=== PATIENT | male | born 1930 | race Caucasian/White ===

== ENCOUNTER 2018-12-15 23:08 | Inpatient (IN) | payer OTHER, MEDICAID ==
[~2018-12-15] VITALS: Ht 182.9 cm; Wt 68.0 kg
[2018-12-15] MEDS ORDERED: OCTREOTIDE 500 MCG in SOD CHLORIDE 0.9% 49 ML IV STA (23:20)
[2018-12-15] MEDS ORDERED: CEFTRIAXONE 1 GM/50 ML (PMX) 50 ML IVPB STA (23:20)
[2018-12-15] MEDS ORDERED: OCTREOTIDE 50 MCG in SOD CHLORIDE 0.9% 25 ML IVPB STA (23:20)
[2018-12-15] MEDS ORDERED: SOD CHLORIDE 0.9% 1,000 ML IV STA (23:20)
[2018-12-15] MEDS ORDERED: PANTOPRAZOLE IV 80 MG in SOD CHLORIDE 0.9% 100 ML IVPB STA (23:20)
[2018-12-15] MEDS ORDERED: PANTOPRAZOLE IV 80 MG in SOD CHLORIDE 0.9% 100 ML IV STA (23:20)
[2018-12-15] MEDS ORDERED: ONDANSETRON 4 MG INJ IV STA (23:20)
[2018-12-15 23:26] VITALS: Ht 182.9 cm; Wt 68.0 kg
[2018-12-16] VITALS (10 sets, daily range): BP systolic 110–131; BP diastolic 61–64; PULSE 74–122; RESP 16–18
[2018-12-16] MEDS ORDERED: SOD CHLORIDE 0.9% 1,000 ML IV SCH (01:32)
[2018-12-16] MEDS ORDERED: morphine 4 MG/ML VIAL IV STA (01:37)
[2018-12-16] MEDS ORDERED: ONDANSETRON 4 MG INJ IV STA (01:37)
[2018-12-16] MEDS ORDERED: ONDANSETRON 4 MG INJ IV PRN (02:00)
[2018-12-16] MEDS ORDERED: NACL 0.9% 3 ML SYG IV SCH (02:00)
[2018-12-16] MEDS ORDERED: ACETAMINOPHEN 325 MG TAB PO PRN (02:00)
--- NOTE | 2018-12-16 02:49 | ERD ---
ER Documentation Chief Complaint Chief Complaint CP x 30 min, nonprovoked,nonrad; AP w/ n/v coffee ground x 4 days, HPI 88-year-old male brought in by rescue with complaints of chest pain and coffee- ground emesis 30 minutes prior to arrival. Said to 3 episodes of coffee-ground emesis over the past 4 days. Patient himself has a history of dementia is relatively poor historian. History has been augmented by EMS and family at the bedside ROS All systems reviewed and are negative except as per history of present illness. 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 Neck: Full range of motion. No meningismus. Resp: Clear to auscultation bilaterally Cardio: Regular rate and rhythm, no murmurs Abd: Soft, non tender, non distended. Normal bowel sounds Skin: No petechiae or rashes Back: No midline or flank tenderness Ext: No cyanosis, or edema Neur: Awake and alert Psych: Normal Mood and Affect Result Diagram: 12/15/18 2350 12/15/18 2350 Results 24 hrs Laboratory Tests Test 12/15/18 23:50 White Blood Count 18.8 10^3/ul Red Blood Count 4.33 10^6/ul Hemoglobin 12.8 g/dl Hematocrit 38.9 % Mean Corpuscular Volume 89.8 fl Mean Corpuscular Hemoglobin 29.6 pg Mean Corpuscular Hemoglobin Concent 32.9 g/dl Red Cell Distribution Width 14.6 % Platelet Count 158 10^3/UL Mean Platelet Volume 11.6 fl Immature Granulocytes % 0.900 % Neutrophils % 75.1 % Lymphocytes % 8.7 % Monocytes % 15.0 % Eosinophils % 0.0 % Basophils % 0.3 % Nucleated Red Blood Cells % 0.0 /100WBC Immature Granulocytes # 0.170 10^3/ul Neutrophils # 14.1 10^3/ul Lymphocytes # 1.6 10^3/ul Monocytes # 2.8 10^3/ul Eosinophils # 0.0 10^3/ul Basophils # 0.1 10^3/ul Nucleated Red Blood Cells # 0.0 10^3/ul Prothrombin Time 21.6 Sec Prothrombin Time Ratio 1.7 INR International Normalized Ratio 1.87 Activated Partial Thromboplast Time 67.3 Sec Sodium Level 134 mmol/L Potassium Level 4.3 mmol/L Chloride Level 99 mmol/L Carbon Dioxide Level 22 mmol/L Anion Gap 13 Blood Urea Nitrogen 35 mg/dl Creatinine 1.28 mg/dl Est Glomerular Filtrat Rate mL/min mL/min Glucose Level 293 mg/dl Calcium Level 8.7 mg/dl Total Bilirubin 1.9 mg/dl Direct Bilirubin 0.00 mg/dl Indirect Bilirubin 1.9 mg/dl Aspartate Amino Transf (AST/SGOT) 22 IU/L Alanine Aminotransferase (ALT/SGPT) 22 IU/L Alkaline Phosphatase 89 IU/L Troponin I 0.030 ng/ml Total Protein 7.1 g/dl Albumin 3.2 g/dl Globulin 3.90 g/dl Albumin/Globulin Ratio 0.82 Lipase 30 U/L Current Medications Medications Dose Sig/Ye Start Time Status Last (Trade) Ordered Route PRN Stop Time Admin Dose Reason Admin Sodium 1,000 ml @ Q1H STAT 12/15/18 DC 12/16/18 Chloride 1,000 mls/hr IV 23:12/16/18 00:01 00:19 Pantoprazole 100 ml @ ONCE STAT 12/15/18 DC 12/16/18 80 mg/Sodium 400 mls/hr IVPB 23:20 12/15/18 00:35 Chloride 23:34 Pantoprazole 100 ml @ ONCE STAT 12/15/18 12/16/18 80 mg/Sodium 10 mls/hr IV 23:20 12/16/18 00:53 Chloride 09:19 Octreotide 26 ml @ Q16M STAT 12/15/18 DC 12/16/18 Acetate 50 100 mls/hr IVPB 23:20 12/15/18 00:54 mcg/ Sodium 23:35 Chloride Octreotide 50 ml @ 5 ONCE STAT 12/15/18 12/16/18 Acetate 500 mls/hr IV 23:20 12/16/18 01:03 mcg/ Sodium 09:19 Chloride Ondansetron 4 mg ONCE STAT 12/15/18 DC 12/16/18 HCl (Zofran IV 23:20 12/15/18 00:01 Inj) 23:24 Ceftriaxone 50 ml @ ONCE STAT 12/15/18 DC 12/16/18 Sodium 100 mls/hr IVPB 23:20 12/15/18 00:01 23:49 Sodium 1,000 ml @ Q24H IV 12/16/18 Chloride 40 mls/hr 01:32 IV Flush 3 ml PER 12/16/18 (NS 3 ml) PROTOCOL IV 02:00 Ondansetron 4 mg Q6H PRN 12/16/18 HCl (Zofran IV 02:00 Inj) NAUSEA/VOMITI NG 650 mg Q6H PRN 12/16/18 Acetaminophen PO .PAIN 1-3 02:00 (Tylenol OR TEMP Tab) Morphine 4 mg ONCE STAT 12/16/18 DC 12/16/18 Sulfate IV 01:37 12/16/18 01:45 (morphine) 01:38 Ondansetron 4 mg ONCE STAT 12/16/18 DC 12/16/18 HCl (Zofran IV 01:37 12/16/18 01:45 Inj) 01:38 Pantoprazole 100 ml @ Q10H IV 12/16/18 80 mg/Sodium 10 mls/hr 09:20 Chloride Octreotide 100 ml @ 5 Q20H IV 12/16/18 Acetate 1 mls/hr 09:20 mg/ Dextrose Ceftriaxone 50 ml @ Q24H IVPB 12/16/18 Sodium 100 mls/hr 22:00 Procedures/MDM Emergency department course: Patient seen about by triage was placed in bed from evaluation. Management is accepted. Placed on continuous cardiac cath lab radiology technologist his pulse oximetry. Had blood work done. Started on octreotide and Protonix infusion continuously. Given Zofran and morphine for pain control. Serial exams were stable. EKG: Rate/Rhythm: [Normal Sinus Rhythm] QRS, ST, T-waves: [No changes consistent w/ acute ischemia] Impression: [No evidence of ischemia or arrhythmia] Chest X-ray 1V Interpreted by me: Soft Tissue: No acute abnormal ities Bones: No acute abnormalities Mediastinum/Cardiac Silhouette/Lungs: [No acute abnormalities] Medical decision making: This 88-year-old male with evidence of upper GI bleed. Patient started on octreotide and Protonix drips. Remained stable here in the emergency department under serial observation. Patient will be admitted to hospitalist international first officer Dr. Black. Admitted to telemetric setting for further evaluation management. Departure Diagnosis: Primary Impression: Upper GI bleed Condition: Serious CORONA ROESN Dec 16, 2018 02:49
[2018-12-16] MEDS ORDERED: HYDROmorphONE 0.5 MG/0.5 ML SYG IV PRN (04:00)
[2018-12-16] MEDS: PIPER-TAZO 3.375 GM IV (PMX) 100 ML IVPB SCH ×3 (06:44→20:37)
[2018-12-16] MEDS ORDERED: LIDOCAINE/MYLANTA 40 ML BTL PO ONE (08:00)
--- NOTE | 2018-12-16 08:24 | HP ---
Date/Time of Note Date/Time of Note DATE: 12/16/18 TIME: 08:13 Assessment/Plan VTE Prophylaxis Risk score (from Ns)>0 risk: 5 SCD applied (from Ns): Yes Pharmacological prophylaxis: NA/contraindicated Pharm contraindication: low risk/ambulating Lines/Catheters [facility] IV Urinary Cath still in place: No Assessment/Plan Hospital Course This is a 88-year-old male being admitted to the telemetry floor for: #1 upper GI bleed: Patient reports coffee-ground emesis. Patient also has epigastric pain. At the current time with the patient on Protonix drip and Sandostatin. Will check CBC every 6 hours. We will keep the patient n.p.o. Will consult GI for further evaluation. #2 Abdominal pain: CT scan shows possible acute cholecystitis along with moderate to severe circumferential wall thickening of the ascending colon with mild pericolonic induration/stranding. Rule out colitis. Patient does have an elevated white blood cell count of 18,000. He had a low-grade temperature of 99.8. Lactate was within normal values. At the current time will treat with Zosyn IV every 6 hours. Will obtain a surgical consult with Dr. Huffman and a GI consult with . We will keep the patient n.p.o. Will obtain a right upper quadrant ultrasound. #3 Leukocytosis: Possibly secondary to underlying acute cholecystitis and/or other infectious process. Will check a urinalysis as well. Will check blood cultures. He did have a low-grade temperature 99.8. Will monitor further for any full blown fevers. Antibiotics as per #2. #4 acute kidney injury: Patient creatinine 1.28. Renally dose medications. #5 transaminitis: Mild hyperbilirubinemia: We will check right upper quadrant ultrasound. #6 supratherapeutic INR: We will check a right upper quadrant ultrasound to assess for any underlying liver pathology. We will need to confirm patient's home medications to see if he is on any anticoagulation. #7 diabetes mellitus: We will give the patient n.p.o. the current time, D5 half- normal saline at 70 cc an hour. Mild insulin sliding scale we will check hemoglobin A1c. We will need to confirm patient's home medications. #8 #8 coronary artery disease: History of SC: We will need to confirm patient's home medications and resume as indicated #9 history of CVA: We will need to confirm patient's home medications and resume as indicated. #10 DVT GI prophylaxis: SCDs, Protonix IV Code status: DNI/DNI, confirmed with patient and relative Further treatment strategy will be implemented as per the clinical course. Result Diagram: 12/16/18 0524 12/15/18 2350 Results 24hrs Laboratory Tests Test 12/15/18 23:50 12/16/18 05:24 White Blood Count 18.8 H 22.1 H Red Blood Count 4.33 L 4.38 L Hemoglobin 12.8 L 13.0 L Hematocrit 38.9 L 38.9 L Mean Corpuscular Volume 89.8 88.8 Mean Corpuscular Hemoglobin 29.6 29.7 Mean Corpuscular Hemoglobin Concent 32.9 33.4 Red Cell Distribution Width 14.6 H 14.8 H Platelet Count 158 208 # Mean Platelet Volume 11.6 H 11.2 H Immature Granulocytes % 0.900 H 1.100 H Neutrophils % 75.1 78.6 H Lymphocytes % 8.7 L 8.4 L Monocytes % 15.0 H 11.7 H Eosinophils % 0.0 0.0 Basophils % 0.3 0.2 Nucleated Red Blood Cells % 0.0 0.0 Immature Granulocytes # 0.170 H 0.250 H Neutrophils # 14.1 H 17.4 H Lymphocytes # 1.6 1.9 Monocytes # 2.8 H 2.6 H Eosinophils # 0.0 0.0 Basophils # 0.1 0.0 Nucleated Red Blood Cells # 0.0 0.0 Prothrombin Time 21.6 H Prothrombin Time Ratio 1.7 INR International Normalized Ratio 1.87 Activated Partial Thromboplast Time 67.3 H Sodium Level 134 L Potassium Level 4.3 Chloride Level 99 Carbon Dioxide Level 22 Anion Gap 13 Blood Urea Nitrogen 35 H Creatinine 1.28 H Est Glomerular Filtrat Rate mL/min Glucose Level 293 H Calcium Level 8.7 Total Bilirubin 1.9 H Direct Bilirubin 0.00 Indirect Bilirubin 1.9 H Aspartate Amino Transf (AST/SGOT) 22 Alanine Aminotransferase (ALT/SGPT) 22 Alkaline Phosphatase 89 Troponin I 0.030 Total Protein 7.1 Albumin 3.2 L Globulin 3.90 H Albumin/Globulin Ratio 0.82 Lipase 30 Hemoglobin A1c 7.5 H Lactic Acid Level 1.7 Magnesium Level 1.8 Triglycerides Level 69 Cholesterol Level 139 LDL Cholesterol, Calculated 100 HDL Cholesterol 25 L Cholesterol/HDL Ratio 5.5 Hepatitis B Surface Antigen Pending Hepatitis B Core Total Antibody Pending Hepatitis C Antibody Pending HPI/ROS Admit Date/Time Admit Date/Time Dec 16, 2018 at 01:30 Hx of Present Illness Chief complaint: Coffee-ground hematemesis This is a 88-year-old male who presented today with 2 days of coffee-ground hematemesis. Patient reports that over the last few days he has been vomiting and noticed coffee-ground hematemesis. He also reported he had a fever of 102. His last BM was yesterday. He reports that he has had abdominal pain as well. Denies any chest pain or shortness of breath. He is accompanied by his son. Patient states that he is a DNR/DNI. Allergies: Sulfa Medications: See Dec Const: As per HPI Eyes : No pain discharge or redness or change in visual acuity ENT: No pain, sore throat, congestion, congestion, dysphagia or discharge Respiratory: No shortness of breath, cough, sputum, wheezing, or pleuritic pain Cardiovascular: No chest pain, palpitation, PND, or edema GI : As per HPI Genitourinary: No dysuria, hematuria, flank pain , discharge or CVA tenderness Musculoskeletal: No joint pain, back pain, neck pain, restricted range of motion in neck or joints Skin: No rash, bruising or hives Neuro: No headache, dizziness, syncope, seizure, focal weakness Endocrine: No polyuria, polydipsia, temperature intolerance Psych: No hallucination, depression, anxiety or suicidal ideation PMH/Family/Social Past Medical History Diabetes mellitus, history of SC, CVA, PAD Medications Current Medications Pantoprazole 80 mg/Sodium Chloride 100 ml @ 10 mls/hr ONCE STAT IV Last administered on 12/16/18at 00:53; Admin Dose 10 MLS/HR; Start 12/15/18 at 23:20; Stop 12/16/18 at 09:19 Octreotide Acetate 500 mcg/ Sodium Chloride 50 ml @ 5 mls/hr ONCE STAT IV Last administered on 12/16/18at 01:03; Admin Dose 5 MLS/HR; Start 12/15/18 at 23:20; Stop 12/16/18 at 09:19 IV Flush (NS 3 ml) 3 ml PER PROTOCOL IV ; Start 12/16/18 at 02:00 Ondansetron HCl (Zofran Inj) 4 mg Q6H PRN IV NAUSEA/VOMITING; Start 12/16/18 at 02:00 Acetaminophen (Tylenol Tab) 650 mg Q6H PRN PO .PAIN 1-3 OR TEMP; Start 12/16/18 at 02:00 Pantoprazole 80 mg/Sodium Chloride 100 ml @ 10 mls/hr Q10H IV ; Start 12/16/18 at 09:20 Octreotide Acetate 1 mg/ Dextrose 100 ml @ 5 mls/hr Q20H IV ; Start 12/16/18 at 09:20 Ceftriaxone Sodium 50 ml @ 100 mls/hr Q24H IVPB ; Start 12/16/18 at 22:00 Piperacillin Sod/ Tazobactam Sod 100 ml @ 200 mls/hr Q8 IVPB Last administered on 12/16/18at 06:44; Admin Dose 200 MLS/HR; Start 12/16/18 at 06:00 Hydromorphone HCl (Dilaudid) 0.5 mg Q4H PRN IV SEVERE PAIN LEVEL 7-10; Start 12/16/18 at 07:00 Coded Allergies: Sulfa (Sulfonamide Antibiotics) (Verified Allergy, Unknown, 12/15/18) Past Surgical History Left BKA, 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 The pupils are equal, round and reactive. Extraocular motor are intact Neck: Supple with full range of motion. 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 Possible upper GI bleed. TECHNIQUE: AP Portable chest. COMPARISON: None FINDINGS: Patient is rotated to the right and leaning to the right. Low lung volumes. Normal cardiac and mediastinal configuration. Aortic calcified plaque not visualized. No CHF or hilar enlargement. Lungs are clear. IMPRESSION: Low lung volumes. No acute disease. RPTAT: HLRS Physician Nancy Date Time Electronically viewed and signed by Physician Nancy on 12/16/2018 02:20 RS/ CC: CORONA ROSEN [id number] PROCEDURE: CT Abdomen and pelvis without contrast. CLINICAL INDICATION: Abdominal pain. Nausea and vomiting. TECHNIQUE: CT scan of the abdomen and pelvis without contrast was performed on a multidetector high-resolution CT scan. . Coronal and sagittal reformatted images were obtained from the axial source images. Standard CT scan of the abdomen pelvis without contrast protocols were performed. The total exam CTDI equals 15.01 mGy and the total exam DLP equals 1003.91 mGy-cm. One or more of the following dose reduction techniques were used: - Automated exposure control. - Adjustment of the mA and/or kV according to patient size. Use of iterative reconstruction technique. Dicom images are available COMPARISON: None. FINDINGS: There is moderate to severe circumferential wall thickening of the ascending colon with mild pericolonic induration and stranding and rule out colitis. A mass in this region cannot be excluded and follow-up colonoscopy is recommended. Moderate stool burden throughout the remainder of the colon and rule out constipation. Remainder the colon is unremarkable. Calcification of the anterior and posterior gastric antral wall of uncertain significance. The stomach is otherwise unremarkable. Small bowel and appendix unremarkable. Mild ascites seen in the right lateral lower abdomen and right left and central lower pelvic regions but no lateralized fluid collection to suggest abscess. No intra-abdominal free air. No abdominal pelvic lymphadenopathy. Multiple calcified gallstones within a distended gallbladder. There is mild pericholecystic fluid and stranding. No biliary ductal dilation. Rule out cholecystitis. Mild splenomegaly without focal splenic lesion. Liver normal in size without focal lesions. Pancreas and adrenal glands are unremarkable. Kidneys are lower limits of normal size without calcified calculi hydronephrosis or intra renal masses bilaterally. No evidence ureteral calcified calculi or dilatation. Distended urinary bladder with multiple calcifications along the dependent inferior aspect of the bladder consistent with calculi. Some of the calcifications may actually be within the wall of the urinary bladder. Largest calculus posterior left lateral aspect measuring 1.2 cm. Moderate to severe enlarged prostate gland impressing the floor in her bladder. Correlation with PSA levels may be helpful. Fat containing umbilical hernia and bilateral fat containing inguinal hernias without herniated bowel or strangulation. Extensive atherosclerotic vascular disease. No aortic aneurysm. Coronary artery disease. Bilateral small pleural effusions and bibasilar consolidation may all be due to atelectasis. Basilar infiltrates cannot be excluded. Degenerative changes lower thoracic and lumbar spine without acute osseous findings are osteoblastic/osteolytic lesions. Bilateral L5 spondylolysis defects and grade 1 anterior spondylolisthesis of L5-1 S1 vertebral bodies. Degenerative changes of both hips. IMPRESSION: 1. Multiple calcified gallstones with mild pericholecystic fluid and stranding. Rule out acute calculus cholecystitis. No biliary ductal dilation. 2. Moderate to severe circumferential wall thickening of the ascending colon with mild pericolonic induration/stranding and rule out colitis. A mass in this region cannot be excluded follow-up colonoscopy is recommended. 3. Calcifications involving the anterior posterior gastric wall of uncertain etiology. Stomach is otherwise unremarkable. 4. Mild right lower abdominal and pelvic ascites. No abscess or free air. 5. Mild splenomegaly without focal splenic lesions. 6. Distended urinary bladder with multiple calcifications along the dependent inferior aspect consistent with a combination of calculi and wall calcification. 7. Bilateral small pleural effusions. Bibasilar consolidations may all be due to atelectasis however rule out acute infiltrates. RPTAT:AAJJ Jacklyn Long Physician Date Time Electronically viewed and signed by Jacklyn Long Physician on 12/16/2018 05:15 BM/ CC: CHENTE HOGUE [id number] CHENTE HOGUE Dec 16, 2018 08:24
--- NOTE | 2018-12-16 08:27 | CONS ---
Assessment/Plan Assessment/Plan Assessment/Plan (Daily) 88-year-old diabetic male with worsening leukocytosis, tender right upper quadrant with positive Batista sign, and a CT suggestive of acute cholecystitis Plan: Stat HIDA scan As the patient is DNR /DNI, if HIDA scan confirms cholecystitis, he would best be served by percutaneous cholecystostomy. Further recommendations will be forthcoming based on the patient's further workup and clinical course. Consultation Date/Type/Reason Admit Date/Time Dec 16, 2018 at 01:30 Date of Consultation: Dec 16, 2018 Type of Consult General surgery Reason for Consultation Abdominal pain and leukocytosis Date/Time of Note DATE: 12/16/18 TIME: 08:18 Hx of Present Illness The patient is an 88-year-old diabetic male with dementia who presented to the emergency room with chest pain and coffee-ground emesis. He has a past history of [place]. He was noted to have a tender upper abdomen in the emergency room with associated leukocytosis of 18,800. A CT scan was performed and showed a sending colon colitis as well as gallstones with gallbladder wall thickening but highly suggestive of acute cholecystitis. Since his admission the patient continues to have abdominal and chest pain with worsening leukocytosis of 22,200. The patient is DNR/DNI. Review of systems: HEENT: Unremarkable Pulmonary: No history of asthma or pneumonia Cardiac: Past history of [place] Abdomen: As in the HPI : Asymptomatic Neurologic: History of CVA in 2014 Past Medical History Medical History: coronary artery disease, diabetes, gallstones Medications Current Medications Pantoprazole 80 mg/Sodium Chloride 100 ml @ 10 mls/hr ONCE STAT IV Last administered on 12/16/18at 00:53; Admin Dose 10 MLS/HR; Start 12/15/18 at 23:20; Stop 12/16/18 at 09:19 Octreotide Acetate 500 mcg/ Sodium Chloride 50 ml @ 5 mls/hr ONCE STAT IV Last administered on 12/16/18at 01:03; Admin Dose 5 MLS/HR; Start 12/15/18 at 23:20; Stop 12/16/18 at 09:19 IV Flush (NS 3 ml) 3 ml PER PROTOCOL IV ; Start 12/16/18 at 02:00 Ondansetron HCl (Zofran Inj) 4 mg Q6H PRN IV NAUSEA/VOMITING; Start 12/16/18 at 02:00 Acetaminophen (Tylenol Tab) 650 mg Q6H PRN PO .PAIN 1-3 OR TEMP; Start 12/16/18 at 02:00 Pantoprazole 80 mg/Sodium Chloride 100 ml @ 10 mls/hr Q10H IV ; Start 12/16/18 at 09:20 Octreotide Acetate 1 mg/ Dextrose 100 ml @ 5 mls/hr Q20H IV ; Start 12/16/18 at 09:20 Ceftriaxone Sodium 50 ml @ 100 mls/hr Q24H IVPB ; Start 12/16/18 at 22:00 Piperacillin Sod/ Tazobactam Sod 100 ml @ 200 mls/hr Q8 IVPB Last administered on 12/16/18at 06:44; Admin Dose 200 MLS/HR; Start 12/16/18 at 06:00 Hydromorphone HCl (Dilaudid) 0.5 mg Q4H PRN IV SEVERE PAIN LEVEL 7-10; Start 12/16/18 at 07:00 Allergies: Coded Allergies: Sulfa (Sulfonamide Antibiotics) (Verified Allergy, Unknown, 12/15/18) Past Surgical History Past Surgical Hx: no surgical history Family History Significant Family History: no pertinent family hx Social History Smoking Status: Never smoker Exam/Review of Systems Exam Vitals Vital Signs Date Temp Pulse Resp B/P (MAP) Pulse Ox O2 O2 Flow FiO2 Time Delivery Rate 12/16/18 Nasal 2.0 07:43 Cannula 12/16/18 98.0 116 16 131/64 96 07:03 (86) Intake and Output 12/15/18 12/15/18 12/16/18 1515:00 23:00 07:00 IntakeIntake Total 75 ml BalanceBalance 75 ml Constitutional: alert (Slightly disoriented) Psych: nl mood/affect Head: normocephalic Eyes: nl conjunctiva ENMT: nl external ears & nose Neck: supple Respiratory: clear to auscultation Cardiovascular: regular rate and rhythm Gastrointestinal: tender (Very tender in the right upper quadrant with positive Batista sign) Musculoskeletal: nl extremities to inspection Extremities: normal pulses Skin: nl turgor Results Result Diagram: 12/16/18 0524 12/15/18 2350 Results 24hrs Laboratory Tests Test 12/15/18 23:50 12/16/18 05:24 White Blood Count 18.8 H 22.1 H Red Blood Count 4.33 L 4.38 L Hemoglobin 12.8 L 13.0 L Hematocrit 38.9 L 38.9 L Mean Corpuscular Volume 89.8 88.8 Mean Corpuscular Hemoglobin 29.6 29.7 Mean Corpuscular Hemoglobin Concent 32.9 33.4 Red Cell Distribution Width 14.6 H 14.8 H Platelet Count 158 208 # Mean Platelet Volume 11.6 H 11.2 H Immature Granulocytes % 0.900 H 1.100 H Neutrophils % 75.1 78.6 H Lymphocytes % 8.7 L 8.4 L Monocytes % 15.0 H 11.7 H Eosinophils % 0.0 0.0 Basophils % 0.3 0.2 Nucleated Red Blood Cells % 0.0 0.0 Immature Granulocytes # 0.170 H 0.250 H Neutrophils # 14.1 H 17.4 H Lymphocytes # 1.6 1.9 Monocytes # 2.8 H 2.6 H Eosinophils # 0.0 0.0 Basophils # 0.1 0.0 Nucleated Red Blood Cells # 0.0 0.0 Prothrombin Time 21.6 H Prothrombin Time Ratio 1.7 INR International Normalized Ratio 1.87 Activated Partial Thromboplast Time 67.3 H Sodium Level 134 L Potassium Level 4.3 Chloride Level 99 Carbon Dioxide Level 22 Anion Gap 13 Blood Urea Nitrogen 35 H Creatinine 1.28 H Est Glomerular Filtrat Rate mL/min Glucose Level 293 H Calcium Level 8.7 Total Bilirubin 1.9 H Direct Bilirubin 0.00 Indirect Bilirubin 1.9 H Aspartate Amino Transf (AST/SGOT) 22 Alanine Aminotransferase (ALT/SGPT) 22 Alkaline Phosphatase 89 Troponin I 0.030 Total Protein 7.1 Albumin 3.2 L Globulin 3.90 H Albumin/Globulin Ratio 0.82 Lipase 30 Hemoglobin A1c 7.5 H Lactic Acid Level 1.7 Magnesium Level 1.8 Triglycerides Level 69 Cholesterol Level 139 LDL Cholesterol, Calculated 100 HDL Cholesterol 25 L Cholesterol/HDL Ratio 5.5 Hepatitis B Surface Antigen Pending Hepatitis B Core Total Antibody Pending Hepatitis C Antibody Pending Medications Medication Current Medications Pantoprazole 80 mg/Sodium Chloride 100 ml @ 10 mls/hr ONCE STAT IV Last administered on 12/16/18at 00:53; Admin Dose 10 MLS/HR; Start 12/15/18 at 23:20; Stop 12/16/18 at 09:19 Octreotide Acetate 500 mcg/ Sodium Chloride 50 ml @ 5 mls/hr ONCE STAT IV Last administered on 12/16/18at 01:03; Admin Dose 5 MLS/HR; Start 12/15/18 at 23:20; Stop 12/16/18 at 09:19 IV Flush (NS 3 ml) 3 ml PER PROTOCOL IV ; Start 12/16/18 at 02:00 Ondansetron HCl (Zofran Inj) 4 mg Q6H PRN IV NAUSEA/VOMITING; Start 12/16/18 at 02:00 Acetaminophen (Tylenol Tab) 650 mg Q6H PRN PO .PAIN 1-3 OR TEMP; Start 12/16/18 at 02:00 Pantoprazole 80 mg/Sodium Chloride 100 ml @ 10 mls/hr Q10H IV ; Start 12/16/18 at 09:20 Octreotide Acetate 1 mg/ Dextrose 100 ml @ 5 mls/hr Q20H IV ; Start 12/16/18 at 09:20 Ceftriaxone Sodium 50 ml @ 100 mls/hr Q24H IVPB ; Start 12/16/18 at 22:00 Piperacillin Sod/ Tazobactam Sod 100 ml @ 200 mls/hr Q8 IVPB Last administered on 12/16/18at 06:44; Admin Dose 200 MLS/HR; Start 12/16/18 at 06:00 Hydromorphone HCl (Dilaudid) 0.5 mg Q4H PRN IV SEVERE PAIN LEVEL 7-10; Start 12/16/18 at 07:00 MASON MARKS MD Dec 16, 2018 08:27
[2018-12-16] MEDS ORDERED: DEXTROSE 5%-0.45% NACL 1,000 ML IV SCH (08:30)
[2018-12-16] MEDS: HYDROmorphONE 0.5 MG/0.5 ML SYG IV PRN (08:59)
[2018-12-16] MEDS ORDERED: OCTREOTIDE 1 MG in DEXTROSE 5% 95 ML IV SCH (09:20)
[2018-12-16] MEDS: PANTOPRAZOLE IV 80 MG in SOD CHLORIDE 0.9% 100 ML IV SCH ×2 (09:27→18:23)
[2018-12-16] MEDS: INSULIN ASPART [NOVOLOG] 3 ML PEN SC SCH ×4 (09:33→20:44)
--- NOTE | 2018-12-16 10:04 | CONS ---
DATE OF ADMISSION: 12/16/2018 DATE OF CONSULTATION: 12/16/2018 TYPE OF CONSULTATION: Nephrology. REASON FOR CONSULTATION: Acute kidney injury. REQUESTING: Immanuel Hogue MD HISTORY OF PRESENT ILLNESS: This is an 88-year-old male with a past medical history of diabetes, his tory of [place], history of CVA, who presents to [facility] with coffee-ground emesis. The patient states he was having 2 days of coffee-ground emesis. As a result, the patient also devel oped fever. As a result, he came to the emergency room. Upon arrival, patient was noted to have abd ominal pain. A CT scan of abdomen and pelvis was obtained which showed findings of calcified gallsto stephanie with pericholecystic fluid and straining consistent with acute calculous cholecystitis. The jeffery ent also had severe circumferential wall thickening of descending colon, splenomegaly and distended u rinary bladder. The patient was placed on IV antibiotics, IV fluids, kept n.p.o., given IV opiates f or pain and admitted to telemetry. In terms of patient's renal history, the patient denies any prior history of chronic kidney disease. On admission, the patient had creatinine 1.28. No . There have been no reports of any rashes or any hematuria. PAST MEDICAL HISTORY: As stated above, history of diabetes, history of [place], history of CVA. 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 FAMILY HISTORY: No family history of kidney disease. SOCIAL HISTORY: Does not drink, smoke or do drugs. MEDICATIONS: The patient's medications have been reviewed. ALLERGIES: PATIENT IS ALLERGIC TO SULFA. REVIEW OF SYSTEMS: A 14-point review of systems conducted. Pertinent positives stated in HPI, other farris negative. PHYSICAL EXAMINATION: VITAL SIGNS: Blood pressure is 131/64, respirations 16, pulse 116, temperature 98.0. HEENT: Head is normocephalic. NECK: Supple. HEART: Regular rate. LUNGS: Show diminished breath sounds at base. ABDOMEN: Soft, positive tender to palpation, positive rebound, positive guarding. EXTREMITIES: Negative for clubbing, cyanosis. Positive BKA. DERMATOLOGIC: No rashes. MUSCULOSKELETAL: No joint effusion. NEUROLOGIC: Limited exam due to lack of patient cooperation. LABORATORY DATA: Has been reviewed. The patient's sodium 134, BUN 35, creatinine 1.218. White coun t 22.1, hemoglobin 13.0, platelet count is 208. IMAGING STUDIES: Reviewed. ASSESSMENT AND PLAN: This is an 88-year-old male who presents with: 1. Nonoliguric acute kidney injury with unknown baseline creatinine. Etiology of current acute kidn ey injury is secondary to hemodynamics, possible septic acute kidney injury. Plan at this point is t o do a full evaluation. Will check UA with microanalysis, check urine electrolytes. We will check a renal ultrasound to evaluate renal parenchyma. We will continue current medical management. Contin ue IV fluids. Continue antibiotic therapy. Continue supportive care, renally dose all meds, avoid n ephrotoxins. 2. Anemia with possible acute gastrointestinal bleed. The patient is on octreotide drip. Monitor h emoglobin and hematocrit levels. 3. Mineral bone disorder, monitor calcium and phosphorus levels. 4. Acute abdomen, possible acute cholecystitis. The patient's CT scan shows evidence of gallbladder wall thickening. Plan is to continue current medical management. Continue IV antibiotics, continue pain control. Follow up with general surgery. 5. Diabetes. Continue current insulin regimen. 6. Coronary artery disease. Continue medical management. 7. History of cerebrovascular accident. Continue current treatment plan. 8. Transaminitis. Continue to monitor LFTs. Thank you, Dr. Hogue, for this interesting consult. It will be a pleasure to follow patient with y ou throughout the hospital course. Dictated By: JULIO SMALL DO NR/NTS Conf#: [id number] DID#: [id number] CC: IMMANUEL HOGUE MD;*EndCC*
[2018-12-16] MEDS ORDERED: METOPROLOL 5 MG INJ IV ONE (11:36)
--- NOTE | 2018-12-16 11:39 | PN ---
Date/Time of Note Date/Time of Note DATE: 12/16/18 TIME: 11:16 Assessment/Plan VTE Prophylaxis Risk score (from Nsg)>0 risk: 5 SCD applied (from Nsg): Yes Pharmacological prophylaxis: NA/contraindicated Pharm contraindication: bleeding Lines/Catheters IV Catheter Type (from Nrsg): Peripheral IV Urinary Cath still in place: No Assessment/Plan Hospital Course 88 yo M who came in from SNF ? for cofffee ground emesis who is currently managed as follows : 1. GI bleed / Coffee ground emesis -patient with coagulopathy, likely was on anticoagulation prior for arrythmia, will confirm when we have home med list -will give FFP -continue protonix GTT, no hx of varices - GI consult pending -hgb holding steady -remain NPO for now 2. Cholelithiasis with possible Cholecystitis + abd pain -gallstones described as mobile on USS with hyperbilirubinemia, but no CBD dilation on USS, possible MRCP anyway?, will defer to GI -s/p surgical review, for HIDA scan today and perc cholecystostomy if positive -continue empiric abx for cholecystitis 3. Colonic wall thickening with concern for colitis vs colonic mass -Send stool OB -may need colonoscopy as well -empiric abx as above 4. Leucocytosis -likely 2/2 octreotide therapy vs mild sepsis from the above -trend 5. DREW r/o CKD -Hold ACEi, ARBs, and metformin if applicable. Renally dose all meds. Serial labs. 6. Distended bladder with multiple bladder stones -r/o undelying UTI with urine culture -no evidence of obstructing stones at this time -encourage fluid intake, -will get urology consult if recommended by renal 7. Anasarca with mild ascites and small bilateral pleural effusions -hypoalbuminemia noted, ?from liver pathology or poor nutrition vs more sinister underlying process -monitor for now -will get nutrition consult as well 8. Chronic Afib/ aflutter -fair rate control at this time -we are trying to retrieve all previous meds for reconciliation -start low dose BB in the interim 9. Low HDL -fish oil vs statin 10. Subclinical hypothyrodism -check free t4, if normal, repeat TSH in about 6 weeks -eval meds to ensure this is not a chronic problem 11. Constipation -stool softeners and laxatives PRN 12. Prostatic enlargement on CT -check PSA 13. DNR / DNI 14. Hx of CVA -no gross residual deficits 15. Hx of CAD Dispo : -multiple interventions as above Result Diagram: 12/16/18 0524 12/15/18 2350 Results 24hrs Laboratory Tests Test 12/15/18 23:50 12/16/18 05:24 12/16/18 09:01 White Blood Count 18.8 H 22.1 H Red Blood Count 4.33 L 4.38 L Hemoglobin 12.8 L 13.0 L Hematocrit 38.9 L 38.9 L Mean Corpuscular Volume 89.8 88.8 Mean Corpuscular Hemoglobin 29.6 29.7 Mean Corpuscular Hemoglobin Concent 32.9 33.4 Red Cell Distribution Width 14.6 H 14.8 H Platelet Count 158 208 # Mean Platelet Volume 11.6 H 11.2 H Immature Granulocytes % 0.900 H 1.100 H Neutrophils % 75.1 78.6 H Lymphocytes % 8.7 L 8.4 L Monocytes % 15.0 H 11.7 H Eosinophils % 0.0 0.0 Basophils % 0.3 0.2 Nucleated Red Blood Cells % 0.0 0.0 Immature Granulocytes # 0.170 H 0.250 H Neutrophils # 14.1 H 17.4 H Lymphocytes # 1.6 1.9 Monocytes # 2.8 H 2.6 H Eosinophils # 0.0 0.0 Basophils # 0.1 0.0 Nucleated Red Blood Cells # 0.0 0.0 Prothrombin Time 21.6 H Prothrombin Time Ratio 1.7 INR International Normalized Ratio 1.87 Activated Partial Thromboplast Time 67.3 H Sodium Level 134 L Potassium Level 4.3 Chloride Level 99 Carbon Dioxide Level 22 Anion Gap 13 Blood Urea Nitrogen 35 H Creatinine 1.28 H Est Glomerular Filtrat Rate mL/min Glucose Level 293 H Calcium Level 8.7 Total Bilirubin 1.9 H Direct Bilirubin 0.00 Indirect Bilirubin 1.9 H Aspartate Amino Transf (AST/SGOT) 22 Alanine Aminotransferase (ALT/SGPT) 22 Alkaline Phosphatase 89 Troponin I 0.030 Total Protein 7.1 Albumin 3.2 L Globulin 3.90 H Albumin/Globulin Ratio 0.82 Lipase 30 Hemoglobin A1c 7.5 H Lactic Acid Level 1.7 Magnesium Level 1.8 Triglycerides Level 69 Cholesterol Level 139 LDL Cholesterol, Calculated 100 HDL Cholesterol 25 L Cholesterol/HDL Ratio 5.5 Thyroid Stimulating Hormone (TSH) 0.463 L Hepatitis B Surface Antigen Pending Hepatitis B Surface Antibody NEGATIVE Hepatitis B Core Total Antibody Pending Hepatitis C Antibody Pending Bedside Glucose 219 Exam/Review of Systems Exam Vitals Vital Signs Date Temp Pulse Resp B/P (MAP) Pulse Ox O2 O2 Flow FiO2 Time Delivery Rate 12/16/18 96 08:00 12/16/18 Nasal 2.0 07:43 Cannula 12/16/18 98.0 16 131/64 96 07:03 (86) Intake and Output 12/15/18 12/15/18 12/16/18 1515:00 23:00 07:00 IntakeIntake Total 75 ml BalanceBalance 75 ml Results Results 24hrs Laboratory Tests Test 12/15/18 23:50 12/16/18 05:24 12/16/18 09:01 White Blood Count 18.8 H 22.1 H Red Blood Count 4.33 L 4.38 L Hemoglobin 12.8 L 13.0 L Hematocrit 38.9 L 38.9 L Mean Corpuscular Volume 89.8 88.8 Mean Corpuscular Hemoglobin 29.6 29.7 Mean Corpuscular Hemoglobin Concent 32.9 33.4 Red Cell Distribution Width 14.6 H 14.8 H Platelet Count 158 208 # Mean Platelet Volume 11.6 H 11.2 H Immature Granulocytes % 0.900 H 1.100 H Neutrophils % 75.1 78.6 H Lymphocytes % 8.7 L 8.4 L Monocytes % 15.0 H 11.7 H Eosinophils % 0.0 0.0 Basophils % 0.3 0.2 Nucleated Red Blood Cells % 0.0 0.0 Immature Granulocytes # 0.170 H 0.250 H Neutrophils # 14.1 H 17.4 H Lymphocytes # 1.6 1.9 Monocytes # 2.8 H 2.6 H Eosinophils # 0.0 0.0 Basophils # 0.1 0.0 Nucleated Red Blood Cells # 0.0 0.0 Prothrombin Time 21.6 H Prothrombin Time Ratio 1.7 INR International Normalized Ratio 1.87 Activated Partial Thromboplast Time 67.3 H Sodium Level 134 L Potassium Level 4.3 Chloride Level 99 Carbon Dioxide Level 22 Anion Gap 13 Blood Urea Nitrogen 35 H Creatinine 1.28 H Est Glomerular Filtrat Rate mL/min Glucose Level 293 H Calcium Level 8.7 Total Bilirubin 1.9 H Direct Bilirubin 0.00 Indirect Bilirubin 1.9 H Aspartate Amino Transf (AST/SGOT) 22 Alanine Aminotransferase (ALT/SGPT) 22 Alkaline Phosphatase 89 Troponin I 0.030 Total Protein 7.1 Albumin 3.2 L Globulin 3.90 H Albumin/Globulin Ratio 0.82 Lipase 30 Hemoglobin A1c 7.5 H Lactic Acid Level 1.7 Magnesium Level 1.8 Triglycerides Level 69 Cholesterol Level 139 LDL Cholesterol, Calculated 100 HDL Cholesterol 25 L Cholesterol/HDL Ratio 5.5 Thyroid Stimulating Hormone (TSH) 0.463 L Hepatitis B Surface Antigen Pending Hepatitis B Surface Antibody NEGATIVE Hepatitis B Core Total Antibody Pending Hepatitis C Antibody Pending Bedside Glucose 219 Medications Medication Current Medications IV Flush (NS 3 ml) 3 ml PER PROTOCOL IV ; Start 12/16/18 at 02:00 Ondansetron HCl (Zofran Inj) 4 mg Q6H PRN IV NAUSEA/VOMITING; Start 12/16/18 at 02:00 Acetaminophen (Tylenol Tab) 650 mg Q6H PRN PO .PAIN 1-3 OR TEMP; Start 12/16/18 at 02:00 Pantoprazole 80 mg/Sodium Chloride 100 ml @ 10 mls/hr Q10H IV Last administered on 12/16/18at 09:27; Admin Dose 10 MLS/HR; Start 12/16/18 at 09:20 Octreotide Acetate 1 mg/ Dextrose 100 ml @ 5 mls/hr Q20H IV Last administered on 12/16/18at 09:27; Admin Dose 5 MLS/HR; Start 12/16/18 at 09:20 Ceftriaxone Sodium 50 ml @ 100 mls/hr Q24H IVPB ; Start 12/16/18 at 22:00 Piperacillin Sod/ Tazobactam Sod 100 ml @ 200 mls/hr Q8 IVPB Last administered on 12/16/18at 06:44; Admin Dose 200 MLS/HR; Start 12/16/18 at 06:00 Hydromorphone HCl (Dilaudid) 0.5 mg Q4H PRN IV SEVERE PAIN LEVEL 7-10 Last administered on 12/16/18at 08:59; Admin Dose 0.5 MG; Start 12/16/18 at 07:00 Diagnostic Test (Pha) (Accu-Chek) 1 ea 02 XX ; Start 12/17/18 at 02:00 Insulin Aspart (Novolog Insulin Pen) NOVOLOG *MILD* ALGORI... Q4 SC Last administered on 12/16/18at 09:33; Admin Dose 2 UNIT; Start 12/16/18 at 09:00 Dextrose/Sodium Chloride 1,000 ml @ 75 mls/hr [id number] IV Last administered on 12/16/18at 08:59; Admin Dose 75 MLS/HR; Start 12/16/18 at 08:30; Stop 12/17/18 at 08:29 LOR PRECIADO Dec 16, 2018 11:29
[2018-12-16] MEDS ORDERED: TAMS0.4C2 PO (11:46)
[2018-12-16] MEDS ORDERED: DABI150C PO (11:46)
[2018-12-16] MEDS ORDERED: LISI2.5T59 PO (11:46)
[2018-12-16] MEDS ORDERED: ATEN-51 PO (11:46)
[2018-12-16] MEDS ORDERED: SENN-120 PO (11:46)
[2018-12-16] MEDS ORDERED: DULO60CA6 PO (11:46)
[2018-12-16] MEDS ORDERED: GLIP5TAB13 PO (11:46)
[2018-12-16] MEDS ORDERED: GLUCOSE GEL 15 GRAM TUBE PO PRN ×2 (12:00)
[2018-12-16] MEDS ORDERED: GLUCAGON 1 MG INJ IM PRN (12:00)
[2018-12-16] MEDS: POLYETHYLENE GLYCOL 17 GM PACKET PO SCH (12:00)
[2018-12-16] MEDS ORDERED: GLUCOSE GEL 15 GRAM TUBE BUCCAL PRN (12:00)
[2018-12-16] MEDS ORDERED: DEXTROSE 50% 50 ML SYRINGE IV PRN ×2 (12:00)
[2018-12-16] MEDS: SOD CHLORIDE 0.9% 1,000 ML IV SCH (12:08)
--- NOTE | 2018-12-16 13:52 | CONS ---
Assessment/Plan Assessment/Plan Hospital Course (Demo Recall) Assessment: Severe generalized abdominal pain Coffee-ground emesis Colitis on imaging Leukocytosis R/o acute cholecystitis Plan: Hida scan NOW Pt refused colonoscopy- open to the idea of EGD, however HGB is stable, must deal with primary issues of severe abd pain. Monitor labs F/u with sx rec's- per notes if Hida scan + will proceed with cholecystostomy Further recommendations base don clinical course Patient seen in collaboration with Dr. Kaur CC: BERNABE KARU ; Consultation Date/Type/Reason Admit Date/Time Dec 16, 2018 at 01:30 Date of Consultation: Dec 16, 2018 Type of Consult GI Reason for Consultation Coffee-ground emesis Colitis on imaging Date/Time of Note DATE: 12/16/18 TIME: 13:43 Hx of Present Illness This is an 88-year-old male with past medical history diabetes, coronary artery disease, history of CVA who presented to the emergency department with coffee- ground emesis times 2 days, subjective fever and severe abdominal pain. Workup in the ED patient underwent a CT abdomen/pelvis without contrast showing m ultiple calcified gallstones with mild pericholecystic fluid and stranding rule out acute calculus cholecystitis, no biliary ductal dilation. Moderate to severe wall thickening of ascending colon with mild pericolonic induration/stranding rule out colitis. A mass in this region cannot be excluded calcifications involving the anterior posterior gastric wall of uncertain etiology. At time evaluation patient is in severe pain currently being taken down for a HIDA scan patient adamantly refuses colonoscopy but is open to the idea of upper endoscopy. Discussed plan to address issue of severe pain first currently hemoglobin is stable and patient is on PPI drip as well as Zosyn we will defer upper endoscopy at this time. Will follow up with HIDA scan and surgical recommendations we will maintain close observation and provide further recommendations based on clinical course Review of Systems: A 12 system, review was conducted and is negative except as noted in the HPI or here. Past Medical History Medical History: coronary artery disease, diabetes, gallstones Home Meds Reported Medications Tamsulosin Hcl* (Tamsulosin Hcl*) 0.4 Mg Cap.er.24h, 0.4 MG PO HS, CAP 12/16/18 Sennosides* (Senna Lax*) 8.6 Mg Tablet, 2 TAB PO DAILY, TAB 12/16/18 Lisinopril* (Lisinopril*) 2.5 Mg Tablet, 2.5 MG PO DAILY, #30 TAB 12/16/18 Glipizide* (Glipizide*) 5 Mg Tablet, 5 MG PO AC BREAKFAST, TAB 12/16/18 Dabigatran Etexilate Mesylate* (Pradaxa*) 150 Mg Capsule, 150 MG PO DAILY, CAP 12/16/18 Duloxetine Hcl* (Cymbalta*) 60 Mg Capsule.dr, 60 MG PO DAILY, CAP 12/16/18 Atenolol* (Atenolol*) 25 Mg Tablet, 25 MG PO DAILY, #30 TAB 12/16/18 Medications Current Medications IV Flush (NS 3 ml) 3 ml PER PROTOCOL IV ; Start 12/16/18 at 02:00 Ondansetron HCl (Zofran Inj) 4 mg Q6H PRN IV NAUSEA/VOMITING; Start 12/16/18 at 02:00 Acetaminophen (Tylenol Tab) 650 mg Q6H PRN PO .PAIN 1-3 OR TEMP; Start 12/16/18 at 02:00 Pantoprazole 80 mg/Sodium Chloride 100 ml @ 10 mls/hr Q10H IV Last administe red on 12/16/18at 09:27; Admin Dose 10 MLS/HR; Start 12/16/18 at 09:20 Piperacillin Sod/ Tazobactam Sod 100 ml @ 200 mls/hr Q8 IVPB Last administered on 12/16/18at 12:59; Admin Dose 200 MLS/HR; Start 12/16/18 at 06:00 Hydromorphone HCl (Dilaudid) 0.5 mg Q4H PRN IV SEVERE PAIN LEVEL 7-10 Last administered on 12/16/18at 08:59; Admin Dose 0.5 MG; Start 12/16/18 at 07:00 Diagnostic Test (Pha) (Accu-Chek) 1 ea 02 XX ; Start 12/17/18 at 02:00 Insulin Aspart (Novolog Insulin Pen) NOVOLOG *MILD* ALGORI... Q4 SC Last administered on 12/16/18at 12:16; Admin Dose 3 UNIT; Start 12/16/18 at 09:00 Metoprolol Tartrate (Lopressor) 25 mg BID PO ; Start 12/16/18 at 21:00 Polyethylene Glycol (Miralax) 17 gm DAILY PO ; Start 12/16/18 at 12:00 Docusate Sodium (Colace) 100 mg BID PO ; Start 12/16/18 at 21:00 Sodium Chloride 1,000 ml @ 60 mls/hr [id number] IV Last administered on 12/16/18at 12:08; Admin Dose 60 MLS/HR; Start 12/16/18 at 12:00 Miscellaneous Information 1 ea NOTE XX ; Start 12/16/18 at 12:00 Glucose (Glutose) 15 gm Q15M PRN PO DECREASED GLUCOSE; Start 12/16/18 at 12:00 Glucose (Glutose) 22.5 gm Q15M PRN PO DECREASED GLUCOSE; Start 12/16/18 at 12:00 Dextrose (D50w Syringe) 25 ml Q15M PRN IV DECREASED GLUCOSE; Start 12/16/18 at 12:00 Dextrose (D50w Syringe) 50 ml Q15M PRN IV DECREASED GLUCOSE; Start 12/16/18 at 12:00 Glucagon (Glucagen) 1 mg Q15M PRN IM DECREASED GLUCOSE; Start 12/16/18 at 12:00 Glucose (Glutose) 15 gm Q15M PRN BUCCAL DECREASED GLUCOSE; Start 12/16/18 at 12:00 Allergies: Coded Allergies: Sulfa (Sulfonamide Antibiotics) (Verified Allergy, Unknown, 12/15/18) Past Surgical History Past Surgical Hx: no surgical history Social History Smoking Status: Former smoker Exam/Review of Systems Exam Vitals Vital Signs Date Temp Pulse Resp B/P (MAP) Pulse Ox O2 O2 Flow FiO2 Time Delivery Rate 12/16/18 97.7 110 18 118/62 98 Nasal 12:17 (80) Cannula 12/16/18 2.0 07:43 Intake and Output 12/15/18 12/15/18 12/16/18 1515:00 23:00 07:00 IntakeIntake Total 75 ml BalanceBalance 75 ml Exam PHYSICAL EXAMINATION: GENERAL: ALert and oriented in severe pain SKIN: dressing to right foot EYES: Pupils equal reactive to light, no discharge. EARS/NOSE AND THROAT: Ears normal, nose normal NECK: Supple, no masses CHEST: Inspection within normal limits. CARDIOVASCULAR: Heart: Regular rate and rhythm, no murmurs, gallops or rubs. Peripheral pulses present within normal limits, no cyanosis, clubbing or edemas. No pulsatile abdominal mass RESPIRATORY: Lungs clear to auscultation and percussion, no wheezing, no rubs GASTROINTESTINAL AND LIVER: Abdomen: Soft, severe abdominal pain, guarding, no rebound tenderness, normoactive bowel sounds. Rectal: Deferred. 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 Results Result Diagram: 12/16/18 1114 12/15/18 2350 Results 24hrs Laboratory Tests Test 12/15/18 23:50 12/16/18 05:24 12/16/18 09:01 12/16/18 11:14 White Blood Count 18.8 H 22.1 H 21.5 H Red Blood Count 4.33 L 4.38 L 4.21 L Hemoglobin 12.8 L 13.0 L 12.4 L Hematocrit 38.9 L 38.9 L 37.8 L Mean Corpuscular Volume 89.8 88.8 89.8 Mean Corpuscular 29.6 29.7 29.5 Hemoglobin Mean Corpuscular 32.9 33.4 32.8 Hemoglobin Concent Red Cell Distribution 14.6 H 14.8 H 15.1 H Width Platelet Count 158 208 # 188 Mean Platelet Volume 11.6 H 11.2 H 11.2 H Immature Granulocytes % 0.900 H 1.100 H 1.200 H Neutrophils % 75.1 78.6 H 78.9 H Lymphocytes % 8.7 L 8.4 L 8.8 L Monocytes % 15.0 H 11.7 H 10.9 Eosinophils % 0.0 0.0 0.0 Basophils % 0.3 0.2 0.2 Nucleated Red Blood 0.0 0.0 0.0 Cells % Immature Granulocytes # 0.170 H 0.250 H 0.260 H Neutrophils # 14.1 H 17.4 H 17.0 H Lymphocytes # 1.6 1.9 1.9 Monocytes # 2.8 H 2.6 H 2.3 H Eosinophils # 0.0 0.0 0.0 Basophils # 0.1 0.0 0.0 Nucleated Red Blood 0.0 0.0 0.0 Cells # Prothrombin Time 21.6 H Prothrombin Time Ratio 1.7 INR International 1.87 Normalized Ratio Activated 67.3 H Partial Thromboplast Time Sodium Level 134 L Potassium Level 4.3 Chloride Level 99 Carbon Dioxide Level 22 Anion Gap 13 Blood Urea Nitrogen 35 H Creatinine 1.28 H Est Glomerular Filtrat Rate mL/min Glucose Level 293 H Calcium Level 8.7 Total Bilirubin 1.9 H Direct Bilirubin 0.00 Indirect Bilirubin 1.9 H Aspartate Amino 22 Transf (AST/SGOT) Alanine 22 Aminotransferase (ALT/SG PT) Alkaline Phosphatase 89 Troponin I 0.030 Total Protein 7.1 Albumin 3.2 L Globulin 3.90 H Albumin/Globulin Ratio 0.82 Lipase 30 Hemoglobin A1c 7.5 H Lactic Acid Level 1.7 Magnesium Level 1.8 Triglycerides Level 69 Cholesterol Level 139 LDL Cholesterol, 100 Calculated HDL Cholesterol 25 L Cholesterol/HDL Ratio 5.5 Thyroid Stimulating 0.463 L Hormone (TSH) Hepatitis B Surface NEGATIVE Antigen Hepatitis B Surface NEGATIVE Antibody Hepatitis B Core NEGATIVE Total Antibody Hepatitis C Antibody NEGATIVE Bedside Glucose 219 Test 12/16/18 12:11 Bedside Glucose 243 H Medications Medication Current Medications IV Flush (NS 3 ml) 3 ml PER PROTOCOL IV ; Start 12/16/18 at 02:00 Ondansetron HCl (Zofran Inj) 4 mg Q6H PRN IV NAUSEA/VOMITING; Start 12/16/18 at 02:00 Acetaminophen (Tylenol Tab) 650 mg Q6H PRN PO .PAIN 1-3 OR TEMP; Start 12/16/18 at 02:00 Pantoprazole 80 mg/Sodium Chloride 100 ml @ 10 mls/hr Q10H IV Last administered on 12/16/18at 09:27; Admin Dose 10 MLS/HR; Start 12/16/18 at 09:20 Piperacillin Sod/ Tazobactam Sod 100 ml @ 200 mls/hr Q8 IVPB Last administered on 12/16/18at 12:59; Admin Dose 200 MLS/HR; Start 12/16/18 at 06:00 Hydromorphone HCl (Dilaudid) 0.5 mg Q4H PRN IV SEVERE PAIN LEVEL 7-10 Last administered on 12/16/18at 08:59; Admin Dose 0.5 MG; Start 12/16/18 at 07:00 Diagnostic Test (Pha) (Accu-Chek) 1 ea 02 XX ; Start 12/17/18 at 02:00 Insulin Aspart (Novolog Insulin Pen) NOVOLOG *MILD* ALGORI... Q4 SC Last administered on 12/16/18at 12:16; Admin Dose 3 UNIT; Start 12/16/18 at 09:00 Metoprolol Tartrate (Lopressor) 25 mg BID PO ; Start 12/16/18 at 21:00 Polyethylene Glycol (Miralax) 17 gm DAILY PO ; Start 12/16/18 at 12:00 Docusate Sodium (Colace) 100 mg BID PO ; Start 12/16/18 at 21:00 Sodium Chloride 1,000 ml @ 60 mls/hr [id number] IV Last administered on 12/16/18at 12:08; Admin Dose 60 MLS/HR; Start 12/16/18 at 12:00 Miscellaneous Information 1 ea NOTE XX ; Start 12/16/18 at 12:00 Glucose (Glutose) 15 gm Q15M PRN PO DECREASED GLUCOSE; Start 12/16/18 at 12:00 Glucose (Glutose) 22.5 gm Q15M PRN PO DECREASED GLUCOSE; Start 12/16/18 at 12:00 Dextrose (D50w Syringe) 25 ml Q15M PRN IV DECREASED GLUCOSE; Start 12/16/18 at 12:00 Dextrose (D50w Syringe) 50 ml Q15M PRN IV DECREASED GLUCOSE; Start 12/16/18 at 12:00 Glucagon (Glucagen) 1 mg Q15M PRN IM DECREASED GLUCOSE; Start 12/16/18 at 12:00 Glucose (Glutose) 15 gm Q15M PRN BUCCAL DECREASED GLUCOSE; Start 12/16/18 at 12:00 MAI NEFF Dec 16, 2018 13:52
[2018-12-16] MEDS: DOCUSATE SODIUM 100 MG CAP PO SCH (20:16)
[2018-12-16] MEDS: METOPROLOL 25 MG TAB PO SCH (20:16)
[2018-12-16] MEDS ORDERED: CEFTRIAXONE 1 GM/50 ML (PMX) 50 ML IVPB SCH (22:00)
[2018-12-17] VITALS (12 sets, daily range): BP systolic 100–126; BP diastolic 50–73; PULSE 80–123; RESP 16–18
[2018-12-17] MEDS: INSULIN ASPART [NOVOLOG] 3 ML PEN SC SCH ×3 (01:00→07:57)
[2018-12-17] MEDS: ACCU-CHEK XX SCH (02:00)
[2018-12-17] MEDS: SOD CHLORIDE 0.9% 1,000 ML IV SCH ×2 (04:40→10:49)
[2018-12-17] MEDS: PANTOPRAZOLE IV 80 MG in SOD CHLORIDE 0.9% 100 ML IV SCH (05:45)
[2018-12-17] MEDS: PIPER-TAZO 3.375 GM IV (PMX) 100 ML IVPB SCH ×3 (05:45→21:38)
[2018-12-17] MEDS: METOPROLOL 25 MG TAB PO SCH (07:51)
[2018-12-17] MEDS: DOCUSATE SODIUM 100 MG CAP PO SCH ×2 (07:51→21:37)
[2018-12-17] MEDS: POLYETHYLENE GLYCOL 17 GM PACKET PO SCH (07:51)
--- NOTE | 2018-12-17 09:20 | PN ---
Date/Time of Note Date/Time of Note DATE: 12/17/18 TIME: 09:18 Assessment/Plan VTE Prophylaxis Risk score (from Ns)>0 risk: 5 SCD applied (from Ns): Yes Pharmacological prophylaxis: NA/contraindicated Pharm contraindication: bleeding (?) Lines/Catheters IV Catheter Type (from Nrs): Peripheral IV Urinary Cath still in place: No Assessment/Plan Hospital Course S: states he never had GI bleed and he was vomiting after he had coffee, so he doesn't think he needs upper endoscopy RUQ abd pain is essentially unchanged would like something to drink O: General: Patient is currently lying in bed, no distress HEENT: Atraumatic, normocephalic. The pupils are equal, round and reactive. Extraocular motor are intact Neck: Supple with full range of motion. 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 Misconstrued? GI bleed / Coffee ground emesis -patient states he was vomiting actual coffee likely 2/2 #2, -SOBT is still pending to objectively evaluate -doesn't want endoscopy. -reduce PPI to daily, continue to monitor hgb -doesn't require any further emergent GI intervention in my opinion at this time, but will defer to GI 2. RUQ abd pain with calculus cholecystitis confirmed by HIDA -no concern for choledocholithiasis at this time -perc cholecystostomy and drain placement today (Surgery will order) -continue abx for cholecystitis 3. Colonic wall thickening with concern for colitis vs colonic mass -continue abx, patient has refused colonoscopy as well per GI -f/u Stool OB -may benefit from stool screening test for cancer O/p 4. Leucocytosis -likely 2/2 octreotide therapy vs mild sepsis from the above - continue to trend 5. DREW r/o CKD -cr continues to trend up, Nephro following -Hold ACEi, ARBs, and metformin if applicable. Renally dose all meds. Serial labs. 6. Distended bladder with multiple bladder stones -r/o underlying UTI with urine culture -no evidence of obstructing stones at this time -encourage fluid intake, -will get urology consult if recommended by renal 7. Anasarca with mild ascites and small bilateral pleural effusions -hypoalbuminemia noted, ?from liver pathology or poor nutrition vs more sinister underlying process -monitor for now -will get nutrition consult as well 8. Chronic Afib/ aflutter -currently increased rate, patient denies palpitations -will get cardio consult -gently increase BB while monitoring BP -may need amio or digoxin, but will defer to cards 2/2 poor renal fxn 9. Low HDL -fish oil vs statin 10. Subclinical hypothyroidism -check free t4, if normal, repeat TSH in about 6 weeks -eval meds to ensure this is not a chronic problem 11. Constipation -stool softeners and laxatives PRN 12. Prostatic enlargement on CT -check PSA 13. DNR / DNI 14. Hx of CVA -no gross residual deficits 15. Hx of CAD Dispo : -multiple interventions as above Result Diagram: 12/16/18 4702 12/17/18 0556 Results 24hrs Laboratory Tests Test 12/16/18 11:14 12/16/18 12:11 12/16/18 16:44 12/16/18 17:09 White Blood Count 21.5 H 20.7 H Red Blood Count 4.21 L 4.12 L Hemoglobin 12.4 L 12.3 L Hematocrit 37.8 L 38.1 L Mean Corpuscular 89.8 92.5 Volume Mean Corpuscular 29.5 29.9 Hemoglobin Mean Corpuscular 32.8 32.3 Hemoglobin Concent Red Cell 15.1 H 15.2 H Distribution Width Platelet Count 188 172 Mean Platelet 11.2 H 11.1 H Volume Immature 1.200 H 1.600 H Granulocytes % Neutrophils % 78.9 H 80.1 H Lymphocytes % 8.8 L 6.3 L Monocytes % 10.9 11.7 H Eosinophils % 0.0 0.0 Basophils % 0.2 0.3 Nucleated Red 0.0 0.0 Blood Cells % Immature 0.260 H 0.330 H Granulocytes # Neutrophils # 17.0 H 16.6 H Lymphocytes # 1.9 1.3 Monocytes # 2.3 H 2.4 H Eosinophils # 0.0 0.0 Basophils # 0.0 0.1 Nucleated Red 0.0 0.0 Blood Cells # Bedside Glucose 243 H 200 Test 12/16/18 20:41 12/16/18 21:00 12/16/18 23:37 12/17/18 05:56 Bedside Glucose 156 Urine Color ULI Urine Clarity SLIGHTLY CLOUDY A Urine pH 5.0 Urine Specific 1.030 [place] Urine Ketones NEGATIVE Urine Nitrite NEGATIVE Urine Bilirubin NEGATIVE Urine Urobilinogen NEGATIVE Urine Leukocyte NEGATIVE Esterase Urine Microscopic 3 RBC Urine Microscopic 0 WBC Urine Bacteria FEW A Urine Mucus FEW A Urine Hemoglobin NEGATIVE Urine Random 125.62 Creatinine Urine Random 28 L Sodium Urine Glucose 2+ H Urine Total 59.0 H Protein White Blood Count 20.2 H Red Blood Count 4.00 L Hemoglobin 11.9 L Hematocrit 36.6 L Mean Corpuscular 91.5 Volume Mean Corpuscular 29.8 Hemoglobin Mean Corpuscular 32.5 Hemoglobin Concent Red Cell 15.0 H Distribution Width Platelet Count 184 Mean Platelet 10.6 H Volume Immature 1.700 H Granulocytes % Neutrophils % 77.1 H Lymphocytes % 10.5 L Monocytes % 10.4 Eosinophils % 0.0 Basophils % 0.3 Nucleated Red 0.0 Blood Cells % Immature 0.340 H Granulocytes # Neutrophils # 15.6 H Lymphocytes # 2.1 Monocytes # 2.1 H Eosinophils # 0.0 Basophils # 0.1 Nucleated Red 0.0 Blood Cells # Sodium Level 138 Potassium Level 4.7 Chloride Level 103 Carbon Dioxide 25 Level Anion Gap 10 Blood Urea 36 H Nitrogen Creatinine 1.66 H Est Glomerular Filtrat Rate mL/min Glucose Level 168 # Calcium Level 8.1 L Phosphorus Level 4.2 Magnesium Level 2.0 Test 12/17/18 06:00 12/17/18 07:31 Bedside Glucose 163 151 Exam/Review of Systems Exam Vitals Vital Signs Date Temp Pulse Resp B/P (MAP) Pulse Ox O2 O2 Flow FiO2 Time Delivery Rate 12/17/18 97.8 105 18 126/67 98 Room Air 07:06 (86) 12/16/18 2.0 07:43 Intake and Output 12/16/18 12/16/18 12/17/18 1515:00 23:00 07:00 IntakeIntake Total 510 ml 1040 ml OutputOutput Total 400 ml BalanceBalance 110 ml 1040 ml Results Results 24hrs Laboratory Tests Test 12/16/18 11:14 12/16/18 12:11 12/16/18 16:44 12/16/18 17:09 White Blood Count 21.5 H 20.7 H Red Blood Count 4.21 L 4.12 L Hemoglobin 12.4 L 12.3 L Hematocrit 37.8 L 38.1 L Mean Corpuscular 89.8 92.5 Volume Mean Corpuscular 29.5 29.9 Hemoglobin Mean Corpuscular 32.8 32.3 Hemoglobin Concent Red Cell 15.1 H 15.2 H Distribution Width Platelet Count 188 172 Mean Platelet 11.2 H 11.1 H Volume Immature 1.200 H 1.600 H Granulocytes % Neutrophils % 78.9 H 80.1 H Lymphocytes % 8.8 L 6.3 L Monocytes % 10.9 11.7 H Eosinophils % 0.0 0.0 Basophils % 0.2 0.3 Nucleated Red 0.0 0.0 Blood Cells % Immature 0.260 H 0.330 H Granulocytes # Neutrophils # 17.0 H 16.6 H Lymphocytes # 1.9 1.3 Monocytes # 2.3 H 2.4 H Eosinophils # 0.0 0.0 Basophils # 0.0 0.1 Nucleated Red 0.0 0.0 Blood Cells # Bedside Glucose 243 H 200 Test 12/16/18 20:41 12/16/18 21:00 12/16/18 23:37 12/17/18 05:56 Bedside Glucose 156 Urine Color ULI Urine Clarity SLIGHTLY CLOUDY A Urine pH 5.0 Urine Specific 1.030 [place] Urine Ketones NEGATIVE Urine Nitrite NEGATIVE Urine Bilirubin NEGATIVE Urine Urobilinogen NEGATIVE Urine Leukocyte NEGATIVE Esterase Urine Microscopic 3 RBC Urine Microscopic 0 WBC Urine Bacteria FEW A Urine Mucus FEW A Urine Hemoglobin NEGATIVE Urine Random 125.62 Creatinine Urine Random 28 L Sodium Urine Glucose 2+ H Urine Total 59.0 H Protein White Blood Count 20.2 H Red Blood Count 4.00 L Hemoglobin 11.9 L Hematocrit 36.6 L Mean Corpuscular 91.5 Volume Mean Corpuscular 29.8 Hemoglobin Mean Corpuscular 32.5 Hemoglobin Concent Red Cell 15.0 H Distribution Width Platelet Count 184 Mean Platelet 10.6 H Volume Immature 1.700 H Granulocytes % Neutrophils % 77.1 H Lymphocytes % 10.5 L Monocytes % 10.4 Eosinophils % 0.0 Basophils % 0.3 Nucleated Red 0.0 Blood Cells % Immature 0.340 H Granulocytes # Neutrophils # 15.6 H Lymphocytes # 2.1 Monocytes # 2.1 H Eosinophils # 0.0 Basophils # 0.1 Nucleated Red 0.0 Blood Cells # Sodium Level 138 Potassium Level 4.7 Chloride Level 103 Carbon Dioxide 25 Level Anion Gap 10 Blood Urea 36 H Nitrogen Creatinine 1.66 H Est Glomerular Filtrat Rate mL/min Glucose Level 168 # Calcium Level 8.1 L Phosphorus Level 4.2 Magnesium Level 2.0 Test 12/17/18 06:00 12/17/18 07:31 Bedside Glucose 163 151 Imaging Imaging PROCEDURE: Nuclear medicine hepatobiliary scan CLINICAL INDICATION: Right upper quadrant pain. Gallstones. TECHNIQUE: 8.2 mCi of technetium-99m Choletec was administered intravenously. Planar imaging of the hepatobiliary system was performed. 6-hour Delayed images were obtained. Images were reviewed on the high resolution PACS workstation. COMPARISON: US ABDOMEN 12/16/2018; CT 12/16/2018 FINDINGS: Liver uptake: Normal. Biliary tree: Normal. Gallbladder visualization: None Small bowel visualization: 30 minutes. Bile leak: None Other: None IMPRESSION: 1. Positive hepatobiliary scan. There is lack of filling of the gallbladder. Findings may represent acute cholecystitis in the appropriate clinical setting. 2. Patent common bile duct with normal visualization of the small bowel. RPTAT: HMJB .Jesus Manuel Polk MD, Date Time Electronically viewed and signed by .Jesus Manuel Polk MD, on 12/16/2018 22:24 .B/ CC: MASON MARKS MD [phone] Medications Medication Current Medications IV Flush (NS 3 ml) 3 ml PER PROTOCOL IV ; Start 12/16/18 at 02:00 Ondansetron HCl (Zofran Inj) 4 mg Q6H PRN IV NAUSEA/VOMITING; Start 12/16/18 at 02:00 Acetaminophen (Tylenol Tab) 650 mg Q6H PRN PO .PAIN 1-3 OR TEMP; Start 12/16/18 at 02:00 Pantoprazole 80 mg/Sodium Chloride 100 ml @ 10 mls/hr Q10H IV Last administered on 12/17/18at 05:45; Admin Dose 10 MLS/HR; Start 12/16/18 at 09:20 Piperacillin Sod/ Tazobactam Sod 100 ml @ 200 mls/hr Q8 IVPB Last administered on 12/17/18at 05:45; Admin Dose 200 MLS/HR; Start 12/16/18 at 06:00 Hydromorphone HCl (Dilaudid) 0.5 mg Q4H PRN IV SEVERE PAIN LEVEL 7-10 Last administered on 12/16/18at 08:59; Admin Dose 0.5 MG; Start 12/16/18 at 07:00 Diagnostic Test (Pha) (Accu-Chek) 1 ea 02 XX ; Start 12/17/18 at 02:00 Insulin Aspart (Novolog Insulin Pen) NOVOLOG *MILD* ALGORI... Q4 SC Last administered on 12/17/18at 07:57; Admin Dose 1 UNIT; Start 12/16/18 at 09:00 Metoprolol Tartrate (Lopressor) 25 mg BID PO ; Start 12/16/18 at 21:00 Polyethylene Glycol (Miralax) 17 gm DAILY PO ; Start 12/16/18 at 12:00 Docusate Sodium (Colace) 100 mg BID PO ; Start 12/16/18 at 21:00 Sodium Chloride 1,000 ml @ 60 mls/hr [id number] IV Last administered on 12/17/18at 04:40; Admin Dose 60 MLS/HR; Start 12/16/18 at 12:00 Miscellaneous Information 1 ea NOTE XX ; Start 12/16/18 at 12:00 Glucose (Glutose) 15 gm Q15M PRN PO DECREASED GLUCOSE; Start 12/16/18 at 12:00 Glucose (Glutose) 22.5 gm Q15M PRN PO DECREASED GLUCOSE; Start 12/16/18 at 12:00 Dextrose (D50w Syringe) 25 ml Q15M PRN IV DECREASED GLUCOSE; Start 12/16/18 at 12:00 Dextrose (D50w Syringe) 50 ml Q15M PRN IV DECREASED GLUCOSE; Start 12/16/18 at 12:00 Glucagon (Glucagen) 1 mg Q15M PRN IM DECREASED GLUCOSE; Start 12/16/18 at 12:00 Glucose (Glutose) 15 gm Q15M PRN BUCCAL DECREASED GLUCOSE; Start 12/16/18 at 12:00 LOR PRECIADO Dec 17, 2018 09:20
--- NOTE | 2018-12-17 09:27 | QN ---
Documentation Comment HIDA scan is positive Leukocytosis persists Patient is resting comfortably and currently has a nontender abdomen My recommendation is that the patient undergo percutaneous cholecystostomy MASON MARKS MD Dec 17, 2018 09:27
--- NOTE | 2018-12-17 09:47 | PN ---
DATE: 12/17/2018 SUBJECTIVE: The patient remains in a serious, but stable condition. Overnight, the patient continue s to have abdominal pain. The patient is currently n.p.o. anticipation HIDA scan. No other events n oted. OBJECTIVE: VITAL SIGNS: Blood pressure is 126/67, respirations 18, pulse 105, temperature 97.8. HEENT: Head is normocephalic. NECK: Supple. HEART: Regular rate. LUNGS: Show diminished breath sounds at the base. ABDOMEN: Soft, nontender to palpation without rebound or guarding. EXTREMITIES: Negative for clubbing, cyanosis. Positive BKA. DERMATOLOGIC: No rashes. MUSCULOSKELETAL: No joint effusion. NEUROLOGIC: Limited exam, but no focal deficits. MEDICATIONS: Reviewed. LABORATORY DATA: Shows sodium 138, potassium 4.7, BUN 36, creatinine 1.66. White count 20.2, hemogl obin 9.9, platelet count is 184. Urinalysis shows FENa less than 1%, protein creatinine ratio 400 mg per gram of creatinine. Urinalysis shows no pyuria, no hematuria. Renal ultrasound shows increased echogenicity of the left kidney. Echogenic mass in the posterior bladder wall represent hematoma an d bladder neoplasm, possible enlarged prostate. ASSESSMENT AND PLAN: 1. Nonoliguric acute kidney injury with unknown baseline creatinine. Etiology of acute kidney injur y is secondary to sepsis, hemodynamics. The patient's renal ultrasound was reviewed, no evidence of obstruction. Urinalysis shows no evidence of active sediment, FENa less than 1% which can be seen in volume depletion and/or sepsis. The patient remains in injury phase of acute kidney injury as creat inine continues to increase. Recommendation is to continue current medical management. Continue IV hydration. Continue antibiotic therapy. We will continue supportive care, renally dose all medicine s and avoid nephrotoxins. 2. Anemia with possible gastrointestinal bleed. The patient is status post octreotide drip. Contin ue to monitor hemoglobin and hematocrit levels. Follow up with GI. 3. Severe abdominal pain, possible acute cholecystitis. The patient is pending HIDA scan. Continue to monitor. Follow up with GI. Follow up with general surgery. Continue antibiotic therapy, jono nue pain control. 4. Mineral bone disorder. Monitor calcium and phosphorus levels. 5. Diabetes. Continue current insulin regimen. 6. Coronary artery disease. Continue medical management. 7. History of cerebrovascular accident. 8. Transaminitis. Monitor LFTs. Dictated By: JULIO BLOOD/ANGEL Conf#: [id number] DID#: [id number] CC: CHENTE HOGUE MD;*EndCC*
[2018-12-17] MEDS: Insulin NOVOLOG SS MILD Algorithm (SS with meals and bedtime) SC SCH ×3 (11:56→21:00)
--- NOTE | 2018-12-17 13:24 | CONS ---
DATE OF ADMISSION: 12/16/2018 DATE OF CONSULTATION: 12/17/2018 REFERRING PHYSICIAN: Dr. Lor Preciado. REASON FOR CONSULTATION: Right foot wound. HISTORY OF PRESENT ILLNESS: This is an 88-year-old gentleman. He is well known to me from previous admission. He had gangrene of the right foot. 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 He had when I first saw me, just an open TMA with exposed bone and necrotic tissue . He had severe arterial insufficiency in the right lower extremity. They did an angioplasty of his right common femoral artery probably about 6 months ago. I have only seen him once since then. The wound had been improving, but he is now in the hospital and he is completely healed. He lives in a long-term facility. He is very with it. He is a good historian. He has no pain. He was admi tted with acute cholecystitis. He has been seen by Dr. Chamorro and he is going to have a percutaneous cholecystostomy. PAST MEDICAL HISTORY: Peripheral arterial disease, coronary artery disease, diabetes, had a stroke i n the past. PAST SURGICAL HISTORY: Significant for the left below knee amputation and a right foot, essentially all the toes have been amputated and has had an extensive portion of his forefoot amputated the secon d, third, fourth and fifth toes. He just has the first toe left. MEDICATIONS: Consist of: 1. Pantoprazole 2. Octreotide. 3. Zofran. 4. Tylenol. 5. Ceftriaxone. 6. Piperacillin. 7. Lopressor. ALLERGIES: ALLERGIC TO SULFA. FAMILY HISTORY: Noncontributory. SOCIAL HISTORY: He is a former smoker. He was living with his son until about a year ago, and since then he has been in a long-term facility. He had the left below knee amputation done at [facility] before I ever met him. REVIEW OF SYSTEMS: He currently denies any chest pain. He does have abdominal pain, although it is improved since he was admitted. He has had some nausea and vomiting earlier, but none now. He is th irsty and uncomfortable. Denies any shortness of breath. No pain in the legs. PHYSICAL EXAMINATION: GENERAL: He is an elderly gentleman. He speaks [place] fluently. VITAL SIGNS: He has been afebrile. His blood pressure is 107, heart rate is 115/62, respiratory rat e 16. He is 94% sat on room air. NECK: He has 2+ carotid, radial and brachial pulses bilaterally. LUNGS: Clear. HEART: Regular rate and rhythm. ABDOMEN: Soft, nontender, nondistended. EXTREMITIES: He has 2+ femoral pulses bilaterally. Left BKA is well healed. The right popliteal pu lses are 1 to 2+. I do not feel DP or PT pulses. He previously had a previous PT pulse, but the toe amputation site is all healed. It looks really good. It is dramatically improved from when the las t time I saw him. IMPRESSION: Overall, he is doing well. He is here with cholecystitis. He is doing well from my sta ndpoint. History of cholecystitis, had percutaneous cholecystostomy, could order an arterial duplex of the right lower extremity for followup. He was scheduled to actually come and see me in the offic e in the next week or 2 for followup visit and arterial studies. I am available if there are any furt her issues. Dictated By: AMEE CHILDERS/ANGEL Conf#: [id number] DID#: [id number] CC: LOR PRECIADO MD; CHENTE HOGUE MD;*[place]*
--- NOTE | 2018-12-17 13:58 | PN ---
Date/Time of Note Date/Time of Note DATE: 12/17/18 TIME: 13:49 Assessment/Plan VTE Prophylaxis Risk score (from Ns)>0 risk: 5 SCD applied (from Ns): Yes Pharmacological prophylaxis: NA/contraindicated Pharm contraindication: bleeding Lines/Catheters IV [facility]ter Type (from [email or web address] Peripheral IV Urinary Cath still in place: No Assessment/Plan Assessment/Plan Assessment: Moderate generalized abdominal pain -acute cholecystitis HIDA scan is positive Questionable coffee-ground emesis -patient states he had coffee prior to vomiting Colitis on imaging Leukocytosis Plan: IR cholecystostomy drain placement today DC Protonix drip Start Protonix twice daily Pt refused colonoscopy. Hepatitis serologies negative Monitor labs Patient seen in collaboration with Dr. Hector Subjective: Patient states abdominal pain is slightly better. HIDA scan was positive for ac [place] cholecystitis. Patient is scheduled for IR cholecystostomy drain today. Duplex ultrasound is done on the right lower extremity to rule out DVT. Patient states he drank coffee prior to having brown emesis at home. PHYSICAL EXAMINATION: GENERAL: Alert and oriented, in no acute distress. SKIN: No lesions, no jaundice EYES: Pupils equal reactive to light, no discharge. EARS/NOSE AND THROAT: Ears normal, nose normal NECK: Supple, no masses CHEST: Inspection within normal limits. CARDIOVASCULAR: Heart: Regular rate and rhythm, no murmurs, gallops or rubs. Peripheral pulses present within normal limits, no cyanosis, clubbing or edemas. No pulsatile abdominal mass RESPIRATORY: Lungs clear to auscultation and percussion, no wheezing, no rubs GASTROINTESTINAL AND LIVER: Abdomen: Soft, moderate generalized abdominal pain, guarding, no rebound tenderness, normoactive bowel sounds. Rectal: Deferred. EXTREMITIES: Left AKA, right foot with multiple digit amputation Result Diagram: 12/16/18 2337 12/17/18 0556 Results 24hrs Laboratory Tests Test 12/16/18 16:44 12/16/18 17:09 12/16/18 20:41 12/16/18 21:00 Bedside Glucose 200 156 White Blood Count 20.7 H Red Blood Count 4.12 L Hemoglobin 12.3 L Hematocrit 38.1 L Mean Corpuscular 92.5 Volume Mean Corpuscular 29.9 Hemoglobin Mean Corpuscular 32.3 Hemoglobin Concent Red Cell 15.2 H Distribution Width Platelet Count 172 Mean Platelet 11.1 H Volume Immature 1.600 H Granulocytes % Neutrophils % 80.1 H Lymphocytes % 6.3 L Monocytes % 11.7 H Eosinophils % 0.0 Basophils % 0.3 Nucleated Red 0.0 Blood Cells % Immature 0.330 H Granulocytes # Neutrophils # 16.6 H Lymphocytes # 1.3 Monocytes # 2.4 H Eosinophils # 0.0 Basophils # 0.1 Nucleated Red 0.0 Blood Cells # Urine Color ULI Urine Clarity SLIGHTLY CLOUDY A Urine pH 5.0 Urine Specific 1.030 [place] Urine Ketones NEGATIVE Urine Nitrite NEGATIVE Urine Bilirubin NEGATIVE Urine Urobilinogen NEGATIVE Urine Leukocyte NEGATIVE Esterase Urine Microscopic 3 RBC Urine Microscopic 0 WBC Urine Bacteria FEW A Urine Mucus FEW A Urine Hemoglobin NEGATIVE Urine Random 125.62 Creatinine Urine Random 28 L Sodium Urine Glucose 2+ H Urine Total 59.0 H Protein Test 12/16/18 23:37 12/17/18 05:56 12/17/18 06:00 12/17/18 07:31 White Blood Count 20.2 H Red Blood Count 4.00 L Hemoglobin 11.9 L Hematocrit 36.6 L Mean Corpuscular 91.5 Volume Mean Corpuscular 29.8 Hemoglobin Mean Corpuscular 32.5 Hemoglobin Concent Red Cell 15.0 H Distribution Width Platelet Count 184 Mean Platelet 10.6 H Volume Immature 1.700 H Granulocytes % Neutrophils % 77.1 H Lymphocytes % 10.5 L Monocytes % 10.4 Eosinophils % 0.0 Basophils % 0.3 Nucleated Red 0.0 Blood Cells % Immature 0.340 H Granulocytes # Neutrophils # 15.6 H Lymphocytes # 2.1 Monocytes # 2.1 H Eosinophils # 0.0 Basophils # 0.1 Nucleated Red 0.0 Blood Cells # Sodium Level 138 Potassium Level 4.7 Chloride Level 103 Carbon Dioxide 25 Level Anion Gap 10 Blood Urea 36 H Nitrogen Creatinine 1.66 H Est Glomerular Filtrat Rate mL/min Glucose Level 168 # Calcium Level 8.1 L Phosphorus Level 4.2 Magnesium Level 2.0 Bedside Glucose 163 151 Test 12/17/18 11:55 Bedside Glucose 139 CC: JASMINE HECTOR MD ; Exam/Review of Systems Exam Vitals Vital Signs Date Temp Pulse Resp B/P (MAP) Pulse Ox O2 O2 Flow FiO2 Time Delivery Rate 12/17/18 115 12:01 12/17/18 98.7 16 115/62 94 Room Air 11:30 (79) 12/16/18 2.0 07:43 Intake and Output 12/16/18 12/16/18 12/17/18 1414:59 22:59 06:59 IntakeIntake Total 510 ml 1040 ml OutputOutput Total 400 ml BalanceBalance 110 ml 1040 ml Results Results 24hrs Laboratory Tests Test 12/16/18 16:44 12/16/18 17:09 12/16/18 20:41 12/16/18 21:00 Bedside Glucose 200 156 White Blood Count 20.7 H Red Blood Count 4.12 L Hemoglobin 12.3 L Hematocrit 38.1 L Mean Corpuscular 92.5 Volume Mean Corpuscular 29.9 Hemoglobin Mean Corpuscular 32.3 Hemoglobin Concent Red Cell 15.2 H Distribution Width Platelet Count 172 Mean Platelet 11.1 H Volume Immature 1.600 H Granulocytes % Neutrophils % 80.1 H Lymphocytes % 6.3 L Monocytes % 11.7 H Eosinophils % 0.0 Basophils % 0.3 Nucleated Red 0.0 Blood Cells % Immature 0.330 H Granulocytes # Neutrophils # 16.6 H Lymphocytes # 1.3 Monocytes # 2.4 H Eosinophils # 0.0 Basophils # 0.1 Nucleated Red 0.0 Blood Cells # Urine Color ULI Urine Clarity SLIGHTLY CLOUDY A Urine pH 5.0 Urine Specific 1.030 [place] Urine Ketones NEGATIVE Urine Nitrite NEGATIVE Urine Bilirubin NEGATIVE Urine Urobilinogen NEGATIVE Urine Leukocyte NEGATIVE Esterase Urine Microscopic 3 RBC Urine Microscopic 0 WBC Urine Bacteria FEW A Urine Mucus FEW A Urine Hemoglobin NEGATIVE Urine Random 125.62 Creatinine Urine Random 28 L Sodium Urine Glucose 2+ H Urine Total 59.0 H Protein Test 12/16/18 23:37 12/17/18 05:56 12/17/18 06:00 12/17/18 07:31 White Blood Count 20.2 H Red Blood Count 4.00 L Hemoglobin 11.9 L Hematocrit 36.6 L Mean Corpuscular 91.5 Volume Mean Corpuscular 29.8 Hemoglobin Mean Corpuscular 32.5 Hemoglobin Concent Red Cell 15.0 H Distribution Width Platelet Count 184 Mean Platelet 10.6 H Volume Immature 1.700 H Granulocytes % Neutrophils % 77.1 H Lymphocytes % 10.5 L Monocytes % 10.4 Eosinophils % 0.0 Basophils % 0.3 Nucleated Red 0.0 Blood Cells % Immature 0.340 H Granulocytes # Neutrophils # 15.6 H Lymphocytes # 2.1 Monocytes # 2.1 H Eosinophils # 0.0 Basophils # 0.1 Nucleated Red 0.0 Blood Cells # Sodium Level 138 Potassium Level 4.7 Chloride Level 103 Carbon Dioxide 25 Level Anion Gap 10 Blood Urea 36 H Nitrogen Creatinine 1.66 H Est Glomerular Filtrat Rate mL/min Glucose Level 168 # Calcium Level 8.1 L Phosphorus Level 4.2 Magnesium Level 2.0 Bedside Glucose 163 151 Test 12/17/18 11:55 Bedside Glucose 139 Medications Medication Current Medications IV Flush (NS 3 ml) 3 ml PER PROTOCOL IV ; Start 12/16/18 at 02:00 Ondansetron HCl (Zofran Inj) 4 mg Q6H PRN IV NAUSEA/VOMITING; Start 12/16/18 at 02:00 Acetaminophen (Tylenol Tab) 650 mg Q6H PRN PO .PAIN 1-3 OR TEMP; Start 12/16/18 at 02:00 Pantoprazole 80 mg/Sodium Chloride 100 ml @ 10 mls/hr Q10H IV Last administered on 12/17/18at 05:45; Admin Dose 10 MLS/HR; Start 12/16/18 at 09:20 Piperacillin Sod/ Tazobactam Sod 100 ml @ 200 mls/hr Q8 IVPB Last administered on 12/17/18at 13:17; Admin Dose 200 MLS/HR; Start 12/16/18 at 06:00 Hydromorphone HCl (Dilaudid) 0.5 mg Q4H PRN IV SEVERE PAIN LEVEL 7-10 Last administered on 12/16/18at 08:59; Admin Dose 0.5 MG; Start 12/16/18 at 07:00 Diagnostic Test (Pha) (Accu-Chek) 1 ea 02 XX ; Start 12/17/18 at 02:00 Metoprolol Tartrate (Lopressor) 25 mg BID PO ; Start 12/16/18 at 21:00 Polyethylene Glycol (Miralax) 17 gm DAILY PO ; Start 12/16/18 at 12:00 Docusate Sodium (Colace) 100 mg BID PO ; Start 12/16/18 at 21:00 Sodium Chloride 1,000 ml @ 60 mls/hr [id number] IV Last administered on 12/17/18at 10:49; Admin Dose 60 MLS/HR; Start 12/16/18 at 12:00 Miscellaneous Information 1 ea NOTE XX ; Start 12/16/18 at 12:00 Glucose (Glutose) 15 gm Q15M PRN PO DECREASED GLUCOSE; Start 12/16/18 at 12:00 Glucose (Glutose) 22.5 gm Q15M PRN PO DECREASED GLUCOSE; Start 12/16/18 at 12:00 Dextrose (D50w Syringe) 25 ml Q15M PRN IV DECREASED GLUCOSE; Start 12/16/18 at 12:00 Dextrose (D50w Syringe) 50 ml Q15M PRN IV DECREASED GLUCOSE; Start 12/16/18 at 12:00 Glucagon (Glucagen) 1 mg Q15M PRN IM DECREASED GLUCOSE; Start 12/16/18 at 12:00 Glucose (Glutose) 15 gm Q15M PRN BUCCAL DECREASED GLUCOSE; Start 12/16/18 at 12:00 Insulin Aspart (Novolog Insulin Pen) (Adult SC Insulin - Mild Algorithm)... AC MEALS AND BEDTIME SC ; Start 12/17/18 at 17:30 MARISEL CUEVAS NP Dec 17, 2018 13:58
--- NOTE | 2018-12-17 15:27 | CONS ---
Assessment/Plan Assessment/Plan Hospital Course (Demo Recall) Possible GI bleed and acute cholecystitis-pending percutaneous cholecystostomy Chronic atrial fibrillation, previously on anticoagulation Hypertension Diabetes -Patient presented with coffee-ground emesis and abdominal pain and found to have acute cholecystitis -Patient with history of chronic atrial fibrillation. Heart rates ranging from 90s-120s. Patient was previously on atenolol. Patient has been started on metoprolol, continue with heart rate and blood pressure permits. -Given concern of GI bleed and is planned for abdominal procedure, would hold off on anticoagulation at the current time -Of importance is good volume status and pain control, this can be contributing factors to rapid ventricular rates. Giving rising BUN/creatinine, consider increasing IV fluids as tolerated. Consultation Date/Type/Reason Admit Date/Time Dec 16, 2018 at 01:30 Type of Consult Cardiology Reason for Consultation Atrial fibrillation Date/Time of Note DATE: 12/17/18 TIME: 15:14 Hx of Present Illness This is an 88-year-old male with past medical history of atrial fibrillation, peripheral arterial disease, hypertension who presents with coffee-ground emesis and abdominal pain. Patient undergoing workup for GI bleed and acute cholecystitis. Cardiology consultation was requested for assistance with atrial fibrillation management. Patient denies any shortness of breath, chest pains, palpitations, dizziness or lightheadedness. 12 point review of systems was performed with all pertinent positives and negatives mentioned above and all else is negative Past Medical History Hypertension Atrial fibrillation Peripheral arterial disease Home Meds Reported Medications Tamsulosin Hcl* (Tamsulosin Hcl*) 0.4 Mg Cap.er.24h, 0.4 MG PO HS, CAP 12/16/18 Sennosides* (Senna Lax*) 8.6 Mg Tablet, 2 TAB PO DAILY, TAB 12/16/18 Lisinopril* (Lisinopril*) 2.5 Mg Tablet, 2.5 MG PO DAILY, #30 TAB 12/16/18 Glipizide* (Glipizide*) 5 Mg Tablet, 5 MG PO AC BREAKFAST, TAB 12/16/18 Dabigatran Etexilate Mesylate* (Pradaxa*) 150 Mg Capsule, 150 MG PO DAILY, CAP 12/16/18 Duloxetine Hcl* (Cymbalta*) 60 Mg Capsule.dr, 60 MG PO DAILY, CAP 12/16/18 Atenolol* (Atenolol*) 25 Mg Tablet, 25 MG PO DAILY, #30 TAB 12/16/18 Medications Current Medications IV Flush (NS 3 ml) 3 ml PER PROTOCOL IV ; Start 12/16/18 at 02:00 Ondansetron HCl (Zofran Inj) 4 mg Q6H PRN IV NAUSEA/VOMITING; Start 12/16/18 at 02:00 Acetaminophen (Tylenol Tab) 650 mg Q6H PRN PO .PAIN 1-3 OR TEMP; Start 12/16/18 at 02:00 Piperacillin Sod/ Tazobactam Sod 100 ml @ 200 mls/hr Q8 IVPB Last administered on 12/17/18at 13:17; Admin Dose 200 MLS/HR; Start 12/16/18 at 06:00 Hydromorphone HCl (Dilaudid) 0.5 mg Q4H PRN IV SEVERE PAIN LEVEL 7-10 Last administered on 12/16/18at 08:59; Admin Dose 0.5 MG; Start 12/16/18 at 07:00 Diagnostic Test (Pha) (Accu-Chek) 1 ea 02 XX ; Start 12/17/18 at 02:00 Polyethylene Glycol (Miralax) 17 gm DAILY PO ; Start 12/16/18 at 12:00 Docusate Sodium (Colace) 100 mg BID PO ; Start 12/16/18 at 21:00 Sodium Chloride 1,000 ml @ 60 mls/hr [id number] IV Last administered on 12/17/18at 10:49; Admin Dose 60 MLS/HR; Start 12/16/18 at 12:00 Miscellaneous Information 1 ea NOTE XX ; Start 12/16/18 at 12:00 Glucose (Glutose) 15 gm Q15M PRN PO DECREASED GLUCOSE; Start 12/16/18 at 12:00 Glucose (Glutose) 22.5 gm Q15M PRN PO DECREASED GLUCOSE; Start 12/16/18 at 12:00 Dextrose (D50w Syringe) 25 ml Q15M PRN IV DECREASED GLUCOSE; Start 12/16/18 at 12:00 Dextrose (D50w Syringe) 50 ml Q15M PRN IV DECREASED GLUCOSE; Start 12/16/18 at 12:00 Glucagon (Glucagen) 1 mg Q15M PRN IM DECREASED GLUCOSE; Start 12/16/18 at 12:00 Glucose (Glutose) 15 gm Q15M PRN BUCCAL DECREASED GLUCOSE; Start 12/16/18 at 12:00 Insulin Aspart (Novolog Insulin Pen) (Adult SC Insulin - Mild Algorithm)... AC MEALS AND BEDTIME SC ; Start 12/17/18 at 17:30 Pantoprazole (Protonix Iv) 40 mg BID@06,18 IV ; Start 12/17/18 at 18:00 Metoprolol Tartrate (Lopressor) 50 mg BID PO ; Start 12/17/18 at 21:00 Allergies: Coded Allergies: Sulfa (Sulfonamide Antibiotics) (Verified Allergy, Unknown, 12/15/18) Past Surgical History Past Surgical Hx: other (Including but not limited to multiple amputations) Family History Significant Family History: no pertinent family hx Social History Smoking Status: Former smoker Exam/Review of Systems Vital Signs Vitals Vital Signs Date Temp Pulse Resp B/P (MAP) Pulse Ox O2 O2 Flow FiO2 Time Delivery Rate 12/17/18 115 12:01 12/17/18 98.7 16 115/62 94 Room Air 11:30 (79) 12/16/18 2.0 07:43 Intake and Output 12/16/18 12/16/18 12/17/18 1414:59 22:59 06:59 IntakeIntake Total 510 ml 1040 ml OutputOutput Total 400 ml BalanceBalance 110 ml 1040 ml Exam Constitutional: alert, oriented (To person and place, difficulty with distant history, no apparent distress) Head: normocephalic Respiratory: other (Coarse breath sounds bilaterally, no wheezing) Cardiovascular: irregular rhythm, other (S1-S2 heard) Gastrointestinal: soft, bowel sounds Extremities: other (Lower extremity amputation) Labs Result Diagram: 12/16/18 2337 12/17/18 0556 Results 24hrs Laboratory Tests Test 12/16/18 16:44 12/16/18 17:09 12/16/18 20:41 12/16/18 21:00 Bedside Glucose 200 156 White Blood Count 20.7 H Red Blood Count 4.12 L Hemoglobin 12.3 L Hematocrit 38.1 L Mean Corpuscular 92.5 Volume Mean Corpuscular 29.9 Hemoglobin Mean Corpuscular 32.3 Hemoglobin Concent Red Cell 15.2 H Distribution Width Platelet Count 172 Mean Platelet 11.1 H Volume Immature 1.600 H Granulocytes % Neutrophils % 80.1 H Lymphocytes % 6.3 L Monocytes % 11.7 H Eosinophils % 0.0 Basophils % 0.3 Nucleated Red 0.0 Blood Cells % Immature 0.330 H Granulocytes # Neutrophils # 16.6 H Lymphocytes # 1.3 Monocytes # 2.4 H Eosinophils # 0.0 Basophils # 0.1 Nucleated Red 0.0 Blood Cells # Urine Color ULI Urine Clarity SLIGHTLY CLOUDY A Urine pH 5.0 Urine Specific 1.030 [place] Urine Ketones NEGATIVE Urine Nitrite NEGATIVE Urine Bilirubin NEGATIVE Urine Urobilinogen NEGATIVE Urine Leukocyte NEGATIVE Esterase Urine Microscopic 3 RBC Urine Microscopic 0 WBC Urine Bacteria FEW A Urine Mucus FEW A Urine Hemoglobin NEGATIVE Urine Random 125.62 Creatinine Urine Random 28 L Sodium Urine Glucose 2+ H Urine Total 59.0 H Protein Test 12/16/18 23:37 12/17/18 05:56 12/17/18 06:00 12/17/18 07:31 White Blood Count 20.2 H Red Blood Count 4.00 L Hemoglobin 11.9 L Hematocrit 36.6 L Mean Corpuscular 91.5 Volume Mean Corpuscular 29.8 Hemoglobin Mean Corpuscular 32.5 Hemoglobin Concent Red Cell 15.0 H Distribution Width Platelet Count 184 Mean Platelet 10.6 H Volume Immature 1.700 H Granulocytes % Neutrophils % 77.1 H Lymphocytes % 10.5 L Monocytes % 10.4 Eosinophils % 0.0 Basophils % 0.3 Nucleated Red 0.0 Blood Cells % Immature 0.340 H Granulocytes # Neutrophils # 15.6 H Lymphocytes # 2.1 Monocytes # 2.1 H Eosinophils # 0.0 Basophils # 0.1 Nucleated Red 0.0 Blood Cells # Sodium Level 138 Potassium Level 4.7 Chloride Level 103 Carbon Dioxide 25 Level Anion Gap 10 Blood Urea 36 H Nitrogen Creatinine 1.66 H Est Glomerular Filtrat Rate mL/min Glucose Level 168 # Calcium Level 8.1 L Phosphorus Level 4.2 Magnesium Level 2.0 Bedside Glucose 163 151 Test 12/17/18 11:55 Bedside Glucose 139 Imaging Imaging ECG demonstrates atrial fibrillation at 100 bpm, QRS 108 ms, incomplete right bundle branch block, nonspecific ST abnormalities Medications Medications Current Medications IV Flush (NS 3 ml) 3 ml PER PROTOCOL IV ; Start 12/16/18 at 02:00 Ondansetron HCl (Zofran Inj) 4 mg Q6H PRN IV NAUSEA/VOMITING; Start 12/16/18 at 02:00 Acetaminophen (Tylenol Tab) 650 mg Q6H PRN PO .PAIN 1-3 OR TEMP; Start 12/16/18 at 02:00 Piperacillin Sod/ Tazobactam Sod 100 ml @ 200 mls/hr Q8 IVPB Last administered on 12/17/18at 13:17; Admin Dose 200 MLS/HR; Start 12/16/18 at 06:00 Hydromorphone HCl (Dilaudid) 0.5 mg Q4H PRN IV SEVERE PAIN LEVEL 7-10 Last administered on 12/16/18at 08:59; Admin Dose 0.5 MG; Start 12/16/18 at 07:00 Diagnostic Test (Pha) (Accu-Chek) 1 ea 02 XX ; Start 12/17/18 at 02:00 Polyethylene Glycol (Miralax) 17 gm DAILY PO ; Start 12/16/18 at 12:00 Docusate Sodium (Colace) 100 mg BID PO ; Start 12/16/18 at 21:00 Sodium Chloride 1,000 ml @ 60 mls/hr [id number] IV Last administered on 12/17/18at 10:49; Admin Dose 60 MLS/HR; Start 12/16/18 at 12:00 Miscellaneous Information 1 ea NOTE XX ; Start 12/16/18 at 12:00 Glucose (Glutose) 15 gm Q15M PRN PO DECREASED GLUCOSE; Start 12/16/18 at 12:00 Glucose (Glutose) 22.5 gm Q15M PRN PO DECREASED GLUCOSE; Start 12/16/18 at 12:00 Dextrose (D50w Syringe) 25 ml Q15M PRN IV DECREASED GLUCOSE; Start 12/16/18 at 12:00 Dextrose (D50w Syringe) 50 ml Q15M PRN IV DECREASED GLUCOSE; Start 12/16/18 at 12:00 Glucagon (Glucagen) 1 mg Q15M PRN IM DECREASED GLUCOSE; Start 12/16/18 at 12:00 Glucose (Glutose) 15 gm Q15M PRN BUCCAL DECREASED GLUCOSE; Start 12/16/18 at 12:00 Insulin Aspart (Novolog Insulin Pen) (Adult SC Insulin - Mild Algorithm)... AC MEALS AND BEDTIME SC ; Start 12/17/18 at 17:30 Pantoprazole (Protonix Iv) 40 mg BID@06,18 IV ; Start 12/17/18 at 18:00 Metoprolol Tartrate (Lopressor) 50 mg BID PO ; Start 12/17/18 at 21:00 Marco Antonio Decker DO Dec 17, 2018 15:25
[2018-12-17] MEDS ORDERED: DILTIAZEM 25 MG INJ IV PRN (15:30)
[2018-12-17] MEDS: HYDROmorphONE 0.5 MG/0.5 ML SYG IV PRN (15:56)
[2018-12-17] MEDS ORDERED: LIDOCAINE 1% (MDV) 20 ML INJ ONE ×3 (16:19)
--- NOTE | 2018-12-17 17:10 | HPN ---
Date/Time of Note Date/Time of Note DATE: 12/17/18 TIME: 17:10 Interval H&P Admission Note Pt. seen H&P reviewed: No system changes STALIN LAUGHLIN MD Dec 17, 2018 17:10
[2018-12-17] MEDS ORDERED: INSULIN ASPART [NOVOLOG] 3 ML PEN SC SCH (17:30)
[2018-12-17] MEDS: PANTOPRAZOLE 40 MG INJ IV SCH (17:30)
[2018-12-17] MEDS: METOPROLOL 50 MG TAB PO SCH (21:00)
[2018-12-18] VITALS (23 sets, daily range): BP systolic 81–122; BP diastolic 54–71; PULSE 95–156; RESP 16–18
[2018-12-18] MEDS ORDERED: SOD CHLORIDE 0.9% 250 ML IV ONE (01:00)
[2018-12-18] MEDS: HYDROmorphONE 0.5 MG/0.5 ML SYG IV PRN ×3 (01:39→21:47)
[2018-12-18] MEDS: ACCU-CHEK XX SCH (02:00)
[2018-12-18] MEDS ORDERED: SOD CHLORIDE 0.9% 500 ML IV ONE (02:00)
[2018-12-18] MEDS ORDERED: LORAZEPAM 2 MG INJ ONE (02:16)
[2018-12-18] MEDS ORDERED: LORAZEPAM 2 MG INJ IV ONE (02:30)
[2018-12-18] MEDS ORDERED: METOPROLOL 5 MG INJ IV ONE ×4 (04:00→06:00)
[2018-12-18] MEDS: PANTOPRAZOLE 40 MG INJ IV SCH ×2 (05:02→16:56)
[2018-12-18] MEDS: PIPER-TAZO 3.375 GM IV (PMX) 100 ML IVPB SCH ×3 (06:48→21:39)
[2018-12-18] MEDS: Insulin NOVOLOG SS MILD Algorithm (SS with meals and bedtime) SC SCH ×4 (07:00→21:00)
[2018-12-18] MEDS: POLYETHYLENE GLYCOL 17 GM PACKET PO SCH (08:12)
[2018-12-18] MEDS: METOPROLOL 50 MG TAB PO SCH ×2 (08:13→21:00)
[2018-12-18] MEDS: DOCUSATE SODIUM 100 MG CAP PO SCH ×2 (08:13→21:39)
[2018-12-18] MEDS: HEPARIN 5,000 UNIT/1 ML VIAL SC SCH ×2 (08:24→21:00)
--- NOTE | 2018-12-18 08:36 | QN ---
Documentation Comment Post cholecystostomy day #1 afebrile throughout Leukocytosis resolved No further abdominal pain Abdominal examination is benign Cholecystostomy to stay in place for 6 weeks. At 6 weeks the patient will need cholangiogram through cholecystostomy prior to removal in office MASON MARKS MD Dec 18, 2018 08:36
[2018-12-18] MEDS: SOD CHLORIDE 0.9% 1,000 ML IV SCH ×2 (09:07→13:02)
--- NOTE | 2018-12-18 11:28 | PN ---
DATE: 12/18/2018 SUBJECTIVE: The patient is stable, no acute events noted overnight. No hemoptysis, hematemesis, hem atochezia. OBJECTIVE: VITAL SIGNS: Blood pressure is 94/54, respiration 18, pulse 117, temperature 97.7. HEENT: Head is normocephalic. NECK: Supple. HEART: Regular rate. LUNGS: Show diminished breath sounds at base. ABDOMEN: Soft, nontender to palpation without rebound or guarding. The patient has noted pigtail pl acement and cholecystostomy drain. EXTREMITIES: Negative for clubbing, cyanosis, no edema, positive BKA. DERMATOLOGIC: No rashes. MUSCULOSKELETAL: No joint effusion. NEUROLOGIC: No change in exam. MEDICATIONS: The patient's medications have been reviewed. LABORATORY DATA: Shows sodium 139, potassium 3.9, BUN 39, creatinine 1.44. White count is 9.0, hemo globin 10.9, platelet count is 150. ASSESSMENT AND PLAN: 1. Nonoliguric acute kidney injury with unknown baseline creatinine. Etiology of DREW secondary to s epsis, hemodynamics. Patient's renal function has been fluctuating. Urinary output has been margina l. At this point, would continue current treatment plan. Continue IV hydration. Continue IV antibi otics, continue supportive care, renally dose all meds, avoid nephrotoxins. 2. Anemia. Continue to monitor hemoglobin and hematocrit levels. 3. Acute cholecystitis. The patient is status post cholecystostomy drain. Continue to monitor. Co ntinue antibiotic therapy. 4. Mineral bone disorder, monitor calcium and phosphorus levels. 5. Diabetes. Continue current insulin and adjuvant. 6. Coronary artery disease. Continue current treatment plan. 7. History of cerebrovascular accident. 8. Transaminitis. Continue to monitor LFTs. 9. Chronic atrial fibrillation. Currently, the patient is currently off anticoagulation. Will foll ow up with cardiology for further management. Dictated By: JULIO SMALL DO NR/NTS Conf#: [id number] DID#: [id number] CC: CHENTE HOGUE MD;*EndCC*
--- NOTE | 2018-12-18 11:40 | PN ---
Date/Time of Note Date/Time of Note DATE: 12/18/18 TIME: 11:27 Assessment/Plan VTE Prophylaxis Risk score (from [facility] [place])>0 risk: 6 SCD applied (from [facility] [place]): No SCD contraindicated: bilateral amputee Pharmacological prophylaxis: heparin Lines/Catheters IV Catheter Type (from [facility]): Peripheral IV Urinary Cath still in place: No Assessment/Plan Problems: (1) Upper GI bleed Status: Acute Comment: Patient has been relatively stable and this most likely represents gastritis from the other underlying medical issues (2) Cholelithiasis and cholecystitis without obstruction Status: Chronic Comment: He has been deemed not to be an immediate surgical candidate under the present circumstances. He has a cholecystostomy in place and with this white count is come down drastically and if he is physically feeling much better. We will get him stabilized and he can have an elective outpatient: Cholecystectomy as per surgical consultation Qualifiers: Cholelithiasis location: gallbladder Cholecystitis acuity: acute and chronic Qualified Codes: K80.12 - Calculus of gallbladder with acute and chronic cholecystitis without obstruction (3) Acute kidney injury (nontraumatic) Status: Acute Comment: This is probably multifactorial. 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 (6) Coronary artery disease Status: Chronic Comment: Quiescent. Qualifiers: Coronary Disease-Associated Artery/Lesion type: [place] artery [place] vs. tr ansplanted heart: [place] heart Associated angina: without angina Qualified Codes: I25.10 - Atherosclerotic heart disease of [place] coronary artery without angina pectoris (7) Diabetes mellitus type 2 in nonobese Status: Chronic Comment: Adequate glycemic control (8) History of CVA (cerebrovascular accident) Status: Chronic Comment: Noted. (9) History of left below knee amputation Status: Chronic Comment: Noted. (10) Abnormal liver function tests Status: Acute Comment: Follow these. (11) Cholecystostomy care Onset Date: ~ 12/17/2018 Status: Acute Comment: Continue with treatment Result Diagram: 12/18/18 0542 12/18/18 0542 Results 24hrs Laboratory Tests Test 12/17/18 11:55 12/17/18 17:32 12/17/18 21:45 12/18/18 05:42 Bedside Glucose 139 135 177 White Blood Count 9.0 # Red Blood Count 3.67 L Hemoglobin 10.9 L Hematocrit 33.7 L Mean Corpuscular Volume 91.8 Mean Corpuscular 29.7 Hemoglobin Mean Corpuscular 32.3 Hemoglobin Concent Red Cell Distribution 15.4 H Width Platelet Count 150 Mean Platelet Volume 11.5 H Immature Granulocytes % 0.900 H Neutrophils % 70.8 Lymphocytes % 20.4 Monocytes % 7.4 Eosinophils % 0.4 Basophils % 0.1 Nucleated Red Blood 0.0 Cells % Immature Granulocytes # 0.080 H Neutrophils # 6.4 Lymphocytes # 1.8 Monocytes # 0.7 Eosinophils # 0.0 Basophils # 0.0 Nucleated Red Blood 0.0 Cells # Sodium Level 139 Potassium Level 3.9 Chloride Level 109 Carbon Dioxide Level 21 Anion Gap 9 Blood Urea Nitrogen 39 H Creatinine 1.44 H Est Glomerular Filtrat Rate mL/min Glucose Level 146 Calcium Level 7.7 L Phosphorus Level 3.9 Magnesium Level 2.2 Test 12/18/18 08:12 Bedside Glucose 116 Subjective 24 Hr Interval Summary Free Text/Dictation Patient reports that he is feeling better today Constitutional: no complaints Respiratory: no complaints Cardiovascular: no complaints Gastrointestinal: no complaints Genitourinary: no complaints Exam/Review of Systems Exam Vitals Vital Signs Date Temp Pulse Resp B/P (MAP) Pulse Ox O2 O2 Flow FiO2 Time Delivery Rate 12/18/18 97.5 95 16 109/66 98 Room Air 11:21 (80) 12/16/18 2.0 07:43 Intake and Output 12/17/18 12/17/18 12/18/18 1414:59 22:59 06:59 IntakeIntake Total 280 ml 200 ml 990 ml OutputOutput Total 445 ml BalanceBalance 280 ml 200 ml 545 ml Constitutional: alert, oriented Cardiovascular: regular rate and rhythm, nl pulses Gastrointestinal: soft, nl liver, spleen, non-tender Results Results 24hrs Laboratory Tests Test 12/17/18 11:55 12/17/18 17:32 12/17/18 21:45 12/18/18 05:42 Bedside Glucose 139 135 177 White Blood Count 9.0 # Red Blood Count 3.67 L Hemoglobin 10.9 L Hematocrit 33.7 L Mean Corpuscular Volume 91.8 Mean Corpuscular 29.7 Hemoglobin Mean Corpuscular 32.3 Hemoglobin Concent Red Cell Distribution 15.4 H Width Platelet Count 150 Mean Platelet Volume 11.5 H Immature Granulocytes % 0.900 H Neutrophils % 70.8 Lymphocytes % 20.4 Monocytes % 7.4 Eosinophils % 0.4 Basophils % 0.1 Nucleated Red Blood 0.0 Cells % Immature Granulocytes # 0.080 H Neutrophils # 6.4 Lymphocytes # 1.8 Monocytes # 0.7 Eosinophils # 0.0 Basophils # 0.0 Nucleated Red Blood 0.0 Cells # Sodium Level 139 Potassium Level 3.9 Chloride Level 109 Carbon Dioxide Level 21 Anion Gap 9 Blood Urea Nitrogen 39 H Creatinine 1.44 H Est Glomerular Filtrat Rate mL/min Glucose Level 146 Calcium Level 7.7 L Phosphorus Level 3.9 Magnesium Level 2.2 Test 12/18/18 08:12 Bedside Glucose 116 Medications Medication Current Medications IV Flush (NS 3 ml) 3 ml PER PROTOCOL IV ; Start 12/16/18 at 02:00 Ondansetron HCl (Zofran Inj) 4 mg Q6H PRN IV NAUSEA/VOMITING; Start 12/16/18 at 02:00 Acetaminophen (Tylenol Tab) 650 mg Q6H PRN PO .PAIN 1-3 OR TEMP; Start 12/16/18 at 02:00 Piperacillin Sod/ Tazobactam Sod 100 ml @ 200 mls/hr Q8 IVPB Last administered on 12/18/18at 06:48; Admin Dose 200 MLS/HR; Start 12/16/18 at 06:00 Hydromorphone HCl (Dilaudid) 0.5 mg Q4H PRN IV SEVERE PAIN LEVEL 7-10 Last administered on 12/18/18at 01:39; Admin Dose 0.5 MG; Start 12/16/18 at 07:00 Diagnostic Test (Pha) (Accu-Chek) 1 ea 02 XX ; Start 12/17/18 at 02:00 Polyethylene Glycol (Miralax) 17 gm DAILY PO Last administered on 12/18/18at 08:12; Admin Dose 17 GM; Start 12/16/18 at 12:00 Docusate Sodium (Colace) 100 mg BID PO Last administered on 12/18/18at 08:13; Admin Dose 100 MG; Start 12/16/18 at 21:00 Sodium Chloride 1,000 ml @ 60 mls/hr [id number] IV Last administered on 12/18/18at 09:07; Admin Dose 60 MLS/HR; Start 12/16/18 at 12:00 Miscellaneous Information 1 ea NOTE XX ; Start 12/16/18 at 12:00 Glucose (Glutose) 15 gm Q15M PRN PO DECREASED GLUCOSE; Start 12/16/18 at 12:00 Glucose (Glutose) 22.5 gm Q15M PRN PO DECREASED GLUCOSE; Start 12/16/18 at 12:00 Dextrose (D50w Syringe) 25 ml Q15M PRN IV DECREASED GLUCOSE; Start 12/16/18 at 12:00 Dextrose (D50w Syringe) 50 ml Q15M PRN IV DECREASED GLUCOSE; Start 12/16/18 at 12:00 Glucagon (Glucagen) 1 mg Q15M PRN IM DECREASED GLUCOSE; Start 12/16/18 at 12:00 Glucose (Glutose) 15 gm Q15M PRN BUCCAL DECREASED GLUCOSE; Start 12/16/18 at 12:00 Insulin Aspart (Novolog Insulin Pen) (Adult SC Insulin - Mild Algorithm)... AC MEALS AND BEDTIME SC ; Start 12/17/18 at 17:30 Pantoprazole (Protonix Iv) 40 mg BID@06,18 IV Last administered on 12/18/18at 05:02; Admin Dose 40 MG; Start 12/17/18 at 18:00 Metoprolol Tartrate (Lopressor) 50 mg BID PO Last administered on 12/18/18at 08:13; Admin Dose 50 MG; Start 12/17/18 at 21:00 Diltiazem HCl (Cardizem Iv) 10 mg Q1H PRN IV Sustained hr>130; Start 12/17/18 at 15:30 Heparin Sodium (Porcine) (Heparin (5000 Units/1ml)) 5,000 unit BID SC Last adm inistered on 12/18/18at 08:24; Admin Dose 5,000 UNIT; Start 12/18/18 at 09:00 SHIKHA MORALES MD Dec 18, 2018 11:37
[2018-12-18] MEDS: TAMSULOSIN (SR) 0.4 MG CAP PO SCH ×2 (12:20→21:38)
[2018-12-18] MEDS: FINASTERIDE 5 MG TAB PO SCH (14:30)
--- NOTE | 2018-12-18 14:47 | PN ---
Date/Time of Note Date/Time of Note DATE: 12/18/18 TIME: 14:42 Assessment/Plan VTE Prophylaxis Risk score (from [facility])>0 risk: 6 SCD applied (from [facility] [place]): No SCD contraindicated: bilateral LE trauma Pharmacological prophylaxis: heparin Lines/Catheters IV Catheter Type (from [facility]): Peripheral IV Urinary Cath still in place: No Assessment/Plan Assessment/Plan Assessment/Plan Assessment: Moderate generalized abdominal pain -acute cholecystitis HIDA scan is positive Questionable coffee-ground emesis -patient states he had coffee prior to vomiting Colitis on imaging Leukocytosis Plan: Status post IR cholecystostomy drain placement Continue Protonix twice daily Pt refused colonoscopy. Hepatitis serologies negative Monitor labs Patient seen in collaboration with Dr. Hector Subjective: Patient states abdominal pain is slightly improved. HIDA scan was positive for acute cholecystitis. Patient is status post IR cholecystostomy drain. Denies any rectal bleeding, nausea or vomiting, diarrhea, constipation. Patient states he drank coffee prior to having brown emesis at home. PHYSICAL EXAMINATION: GENERAL: Alert and oriented, in no acute distress. SKIN: No lesions, no jaundice EYES: Pupils equal reactive to light, no discharge. EARS/NOSE AND THROAT: Ears normal, nose normal NECK: Supple, no masses CHEST: Inspection within normal limits. CARDIOVASCULAR: Heart: Regular rate and rhythm, no murmurs, gallops or rubs. Peripheral pulses present within normal limits, no cyanosis, clubbing or edemas. No pulsatile abdominal mass RESPIRATORY: Lungs clear to auscultation and percussion, no wheezing, no rubs GASTROINTESTINAL AND LIVER: Abdomen: Soft, mild generalized abdominal pain to palpation, no rebound tenderness, normoactive bowel sounds. Rectal: Deferred. EXTREMITIES: Left AKA, right foot with multiple digit amputation Result Diagram: 12/18/18 0542 12/18/18 0542 Results 24hrs Laboratory Tests Test 12/17/18 17:32 12/17/18 21:45 12/18/18 05:42 12/18/18 08:12 Bedside Glucose 135 177 116 White Blood Count 9.0 # Red Blood Count 3.67 L Hemoglobin 10.9 L Hematocrit 33.7 L Mean Corpuscular Volume 91.8 Mean Corpuscular 29.7 Hemoglobin Mean Corpuscular 32.3 Hemoglobin Concent Red Cell Distribution 15.4 H Width Platelet Count 150 Mean Platelet Volume 11.5 H Immature Granulocytes % 0.900 H Neutrophils % 70.8 Lymphocytes % 20.4 Monocytes % 7.4 Eosinophils % 0.4 Basophils % 0.1 Nucleated Red Blood 0.0 Cells % Immature Granulocytes # 0.080 H Neutrophils # 6.4 Lymphocytes # 1.8 Monocytes # 0.7 Eosinophils # 0.0 Basophils # 0.0 Nucleated Red Blood 0.0 Cells # Sodium Level 139 Potassium Level 3.9 Chloride Level 109 Carbon Dioxide Level 21 Anion Gap 9 Blood Urea Nitrogen 39 H Creatinine 1.44 H Est Glomerular Filtrat Rate mL/min Glucose Level 146 Calcium Level 7.7 L Phosphorus Level 3.9 Magnesium Level 2.2 Test 12/18/18 12:20 Bedside Glucose 157 CC: JASMINE HECTOR MD ; Exam/Review of Systems Exam Vitals Vital Signs Date Temp Pulse Resp B/P (MAP) Pulse Ox O2 O2 Flow FiO2 Time Delivery Rate 12/18/18 102 12:01 12/18/18 97.5 16 109/66 98 Room Air 11:21 (80) 12/16/18 2.0 07:43 Intake and Output 12/17/18 12/17/18 12/18/18 1515:00 23:00 07:00 IntakeIntake Total 280 ml 200 ml 990 ml OutputOutput Total 445 ml BalanceBalance 280 ml 200 ml 545 ml Results Results 24hrs Laboratory Tests Test 12/17/18 17:32 12/17/18 21:45 12/18/18 05:42 12/18/18 08:12 Bedside Glucose 135 177 116 White Blood Count 9.0 # Red Blood Count 3.67 L Hemoglobin 10.9 L Hematocrit 33.7 L Mean Corpuscular Volume 91.8 Mean Corpuscular 29.7 Hemoglobin Mean Corpuscular 32.3 Hemoglobin Concent Red Cell Distribution 15.4 H Width Platelet Count 150 Mean Platelet Volume 11.5 H Immature Granulocytes % 0.900 H Neutrophils % 70.8 Lymphocytes % 20.4 Monocytes % 7.4 Eosinophils % 0.4 Basophils % 0.1 Nucleated Red Blood 0.0 Cells % Immature Granulocytes # 0.080 H Neutrophils # 6.4 Lymphocytes # 1.8 Monocytes # 0.7 Eosinophils # 0.0 Basophils # 0.0 Nucleated Red Blood 0.0 Cells # Sodium Level 139 Potassium Level 3.9 Chloride Level 109 Carbon Dioxide Level 21 Anion Gap 9 Blood Urea Nitrogen 39 H Creatinine 1.44 H Est Glomerular Filtrat Rate mL/min Glucose Level 146 Calcium Level 7.7 L Phosphorus Level 3.9 Magnesium Level 2.2 Test 12/18/18 12:20 Bedside Glucose 157 Medications Medication Current Medications IV Flush (NS 3 ml) 3 ml PER PROTOCOL IV ; Start 12/16/18 at 02:00 Ondansetron HCl (Zofran Inj) 4 mg Q6H PRN IV NAUSEA/VOMITING; Start 12/16/18 at 02:00 Acetaminophen (Tylenol Tab) 650 mg Q6H PRN PO .PAIN 1-3 OR TEMP; Start 12/16/18 at 02:00 Piperacillin Sod/ Tazobactam Sod 100 ml @ 200 mls/hr Q8 IVPB Last administered on 12/18/18at 12:59; Admin Dose 200 MLS/HR; Start 12/16/18 at 06:00 Hydromorphone HCl (Dilaudid) 0.5 mg Q4H PRN IV SEVERE PAIN LEVEL 7-10 Last administered on 12/18/18at 12:26; Admin Dose 0.5 MG; Start 12/16/18 at 07:00 Diagnostic Test (Pha) (Accu-Chek) 1 ea 02 XX ; Start 12/17/18 at 02:00 Polyethylene Glycol (Miralax) 17 gm DAILY PO Last administered on 12/18/18at 08:12; Admin Dose 17 GM; Start 12/16/18 at 12:00 Docusate Sodium (Colace) 100 mg BID PO Last administered on 12/18/18at 08:13; Admin Dose 100 MG; Start 12/16/18 at 21:00 Sodium Chloride 1,000 ml @ 60 mls/hr [id number] IV Last administered on 12/18/18at 09:07; Admin Dose 60 MLS/HR; Start 12/16/18 at 12:00 Miscellaneous Information 1 ea NOTE XX ; Start 12/16/18 at 12:00 Glucose (Glutose) 15 gm Q15M PRN PO DECREASED GLUCOSE; Start 12/16/18 at 12:00 Glucose (Glutose) 22.5 gm Q15M PRN PO DECREASED GLUCOSE; Start 12/16/18 at 12:00 Dextrose (D50w Syringe) 25 ml Q15M PRN IV DECREASED GLUCOSE; Start 12/16/18 at 12:00 Dextrose (D50w Syringe) 50 ml Q15M PRN IV DECREASED GLUCOSE; Start 12/16/18 at 12:00 Glucagon (Glucagen) 1 mg Q15M PRN IM DECREASED GLUCOSE; Start 12/16/18 at 12:00 Glucose (Glutose) 15 gm Q15M PRN BUCCAL DECREASED GLUCOSE; Start 12/16/18 at 12:00 Insulin Aspart (Novolog Insulin Pen) (Adult SC Insulin - Mild Algorithm)... AC MEALS AND BEDTIME SC Last administered on 12/18/18 12:23; Admin Dose 1 UNIT; Start 12/17/18 at 17:30 Pantoprazole (Protonix Iv) 40 mg BID@06,18 IV Last administered on 12/18/18 05:02; Admin Dose 40 MG; Start 12/17/18 at 18:00 Metoprolol Tartrate (Lopressor) 50 mg BID PO Last administered on 12/18/18 08: 13; Admin Dose 50 MG; Start 12/17/18 at 21:00 Diltiazem HCl (Cardizem Iv) 10 mg Q1H PRN IV Sustained hr>130; Start 12/17/18 at 15:30 Heparin Sodium (Porcine) (Heparin (5000 Units/1ml)) 5,000 unit BID SC Last administered on 12/18/18 08:24; Admin Dose 5,000 UNIT; Start 12/18/18 at 09:00 Tamsulosin HCl (Flomax) 0.4 mg BID PO Last administered on 12/18/18 12:20; Admin Dose 0.4 MG; Start 12/18/18 at 12:00 Finasteride (Proscar) 5 mg DAILY PO Last administered on 12/18/18 14:30; Admin Dose 5 MG; Start 12/18/18 at 13:00 ABHISHEK LOPES NP Dec 18, 2018 14:47
--- NOTE | 2018-12-18 19:11 | CONS ---
Assessment/Plan Assessment/Plan Hospital Course (Demo Recall) 88-year-old male presented with 2 days history of coffee-ground hematemesis. Patient reports that over the last few days he has been vomiting and noticed coffee-ground hematemesis. He also reported a fever of 102. His last BM was 1 day before admission. He reports that he has had abdominal pain as well. Denies any chest pain or shortness of breath. A urological consultation was requested as after the nurse inserted the Chavarria catheter he was noted to have hematuria. He did have a CT scan of the abdomen and pelvis and that showed the bladder to be distended and also has multiple bladder stones. The patient denies having any prior surgery on his bladder or prostate. He did have an indwelling Chavarria catheter when he was hospitalized before. He usually is able to urinate on his own. He does have nocturia about 2 times and during the day he voids every 3-4 hours. He denies any prior history of gross hematuria and there is no dysuria. The CT scan also did show an enlarged prostate. The patient had a Chavarria catheter inserted by the nurse and she states he only got 10 mL and the urine is bloody and he is bleeding in and around the catheter. On the exam the Chavarria catheter was not inside his bladder therefore I had it removed and then I inserted a new catheter for him 16 [place] and 10 mL balloon. 500 mL of clear urine drained out. Urine was sent for culture and sensitivity. I did show his son Da who was at his bedside the CT scan, the large prostate and the bladder stones. The patient is on tamsulosin and he should continue that and after his discharge he should see his primary care doctor and follow-up with the urologist contracted with his insurance. Consultation Date/Type/Reason Admit Date/Time Dec 16, 2018 at 01:30 Date of Consultation: Dec 18, 2018 Type of Consult Urology Reason for Consultation Gross hematuria Requesting Provider: CHENTE HOGUE Date/Time of Note DATE: 12/18/18 TIME: 18:56 Hx of Present Illness 88-year-old male presented with 2 days history of coffee-ground hematemesis. Patient reports that over the last few days he has been vomiting and noticed coffee-ground hematemesis. He also reported a fever of 102. His last BM was 1 day before admission. He reports that he has had abdominal pain as well. Denies any chest pain or shortness of breath. A urological consultation was requested as after the nurse inserted the Chavarria catheter he was noted to have hematuria. He did have a CT scan of the abdomen and pelvis and that showed the bladder to be distended and also has multiple bladder stones. The patient denies having any prior surgery on his bladder or prostate. He did have an indwelling Chavarria catheter when he was hospitalized before. He usually is able to urinate on his own. He does have nocturia about 2 times and during the day he voids every 3-4 hours. He denies any prior history of gross hematuria and there is no dysuria. Constitutional: no complaints Eyes: no complaints ENT: no complaints Respiratory: No shortness of breath Cardiovascular: No chest pain Gastrointestinal: vomiting (On admission), other (Suprapubic pain) Genitourinary: hematuria, other (As per history of present illness) Musculoskeletal: no complaints, other (Left below-knee amputation) Skin: no complaints Neurologic: no complaints Endocrine: no complaints Lymphatic: no complaints Psychological: no complaints Immunologic: no complaints Past Medical History Medical History: coronary artery disease, diabetes, gallstones, other (Peripheral vascular disease.) Home Meds Reported Medications Tamsulosin Hcl* (Tamsulosin Hcl*) 0.4 Mg Cap.er.24h, 0.4 MG PO HS, CAP 12/16/18 Sennosides* (Senna Lax*) 8.6 Mg Tablet, 2 TAB PO DAILY, TAB 12/16/18 Lisinopril* (Lisinopril*) 2.5 Mg Tablet, 2.5 MG PO DAILY, #30 TAB 12/16/18 Glipizide* (Glipizide*) 5 Mg Tablet, 5 MG PO AC BREAKFAST, TAB 12/16/18 Dabigatran Etexilate Mesylate* (Pradaxa*) 150 Mg Capsule, 150 MG PO DAILY, CAP 12/16/18 Duloxetine Hcl* (Cymbalta*) 60 Mg Capsule.dr, 60 MG PO DAILY, CAP 12/16/18 Atenolol* (Atenolol*) 25 Mg Tablet, 25 MG PO DAILY, #30 TAB 12/16/18 Medications Current Medications IV Flush (NS 3 ml) 3 ml PER PROTOCOL IV ; Start 12/16/18 at 02:00 Ondansetron HCl (Zofran Inj) 4 mg Q6H PRN IV NAUSEA/VOMITING; Start 12/16/18 at 02:00 Acetaminophen (Tylenol Tab) 650 mg Q6H PRN PO .PAIN 1-3 OR TEMP; Start 12/16/18 at 02:00 Piperacillin Sod/ Tazobactam Sod 100 ml @ 200 mls/hr Q8 IVPB Last administered on 12/18/18at 12:59; Admin Dose 200 MLS/HR; Start 12/16/18 at 06:00 Hydromorphone HCl (Dilaudid) 0.5 mg Q4H PRN IV SEVERE PAIN LEVEL 7-10 Last administered on 12/18/18at 12:26; Admin Dose 0.5 MG; Start 12/16/18 at 07:00 Diagnostic Test (Pha) (Accu-Chek) 1 ea 02 XX ; Start 12/17/18 at 02:00 Polyethylene Glycol (Miralax) 17 gm DAILY PO Last administered on 12/18/18at 08:12; Admin Dose 17 GM; Start 12/16/18 at 12:00 Docusate Sodium (Colace) 100 mg BID PO Last administered on 12/18/18at 08:13; Admin Dose 100 MG; Start 12/16/18 at 21:00 Sodium Chloride 1,000 ml @ 60 mls/hr [id number] IV Last administered on 12/18/18at 09:07; Admin Dose 60 MLS/HR; Start 12/16/18 at 12:00 Miscellaneous Information 1 ea NOTE XX ; Start 12/16/18 at 12:00 Glucose (Glutose) 15 gm Q15M PRN PO DECREASED GLUCOSE; Start 12/16/18 at 12:00 Glucose (Glutose) 22.5 gm Q15M PRN PO DECREASED GLUCOSE; Start 12/16/18 at 12:00 Dextrose (D50w Syringe) 25 ml Q15M PRN IV DECREASED GLUCOSE; Start 12/16/18 at 12:00 Dextrose (D50w Syringe) 50 ml Q15M PRN IV DECREASED GLUCOSE; Start 12/16/18 at 12:00 Glucagon (Glucagen) 1 mg Q15M PRN IM DECREASED GLUCOSE; Start 12/16/18 at 12:00 Glucose (Glutose) 15 gm Q15M PRN BUCCAL DECREASED GLUCOSE; Start 12/16/18 at 12:00 Insulin Aspart (Novolog Insulin Pen) (Adult SC Insulin - Mild Algorithm)... AC MEALS AND BEDTIME SC Last administered on 12/18/18at 12:23; Admin Dose 1 UNIT; Start 12/17/18 at 17:30 Pantoprazole (Protonix Iv) 40 mg BID@06,18 IV Last administered on 12/18/18at 16:56; Admin Dose 40 MG; Start 12/17/18 at 18:00 Metoprolol Tartrate (Lopressor) 50 mg BID PO Last administered on 12/18/18 08:13; Admin Dose 50 MG; Start 12/17/18 at 21:00 Diltiazem HCl (Cardizem Iv) 10 mg Q1H PRN IV Sustained hr>130; Start 12/17/18 at 15:30 Heparin Sodium (Porcine) (Heparin (5000 Units/1ml)) 5,000 unit BID SC Last administered on 12/18/18 08:24; Admin Dose 5,000 UNIT; Start 12/18/18 at 09:00 Tamsulosin HCl (Flomax) 0.4 mg BID PO Last administered on 12/18/18 12:20; Admin Dose 0.4 MG; Start 12/18/18 at 12:00 Finasteride (Proscar) 5 mg DAILY PO Last administered on 12/18/18 14:30; Admin Dose 5 MG; Start 12/18/18 at 13:00 Allergies: Coded Allergies: Sulfa (Sulfonamide Antibiotics) (Verified Allergy, Unknown, 12/15/18) Past Surgical History Past Surgical Hx: other (Left below-knee amputation, 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 Femoral femoral bypass.) Social History Alcohol Use: none Smoking Status: Former smoker Exam/Review of Systems Exam Vitals Vital Signs Date Temp Pulse Resp B/P (MAP) Pulse Ox O2 O2 Flow FiO2 Time Delivery Rate 12/18/18 98.7 95 18 122/63 98 Room Air 16:12 (82) 12/16/18 2.0 07:43 Intake and Output 12/17/18 12/17/18 12/18/18 1515:00 23:00 07:00 IntakeIntake Total 280 ml 200 ml 990 ml OutputOutput Total 445 ml BalanceBalance 280 ml 200 ml 545 ml Constitutional: alert Psych: no complaints Head: normocephalic Eyes: nl conjunctiva ENMT: nl external ears & nose Neck: supple, non-tender Respiratory: normal air movement; No wheezing Cardiovascular: No jugular venous distention (JVD) Gastrointestinal: soft, non-tender, other (Suprapubic tenderness) Genitourinary - Male: other (Patient had a Chavarria catheter that did not seem to be inside his bladder and he had bleeding in and around the catheter.) Musculoskeletal: other (Status post left below-knee amputation) Extremities: other (Left below-knee amputation, status post amputation of the second third fourth and fifth right toes); No calf tenderness Skin: nl turgor Results Result Diagram: 12/18/18 0542 12/18/18 0542 Results 24hrs Laboratory Tests Test 12/17/18 21:45 12/18/18 05:42 12/18/18 08:12 12/18/18 12:20 Bedside Glucose 177 116 157 White Blood Count 9.0 # Red Blood Count 3.67 L Hemoglobin 10.9 L Hematocrit 33.7 L Mean Corpuscular Volume 91.8 Mean Corpuscular 29.7 Hemoglobin Mean Corpuscular 32.3 Hemoglobin Concent Red Cell Distribution 15.4 H Width Platelet Count 150 Mean Platelet Volume 11.5 H Immature Granulocytes % 0.900 H Neutrophils % 70.8 Lymphocytes % 20.4 Monocytes % 7.4 Eosinophils % 0.4 Basophils % 0.1 Nucleated Red Blood 0.0 Cells % Immature Granulocytes # 0.080 H Neutrophils # 6.4 Lymphocytes # 1.8 Monocytes # 0.7 Eosinophils # 0.0 Basophils # 0.0 Nucleated Red Blood 0.0 Cells # Sodium Level 139 Potassium Level 3.9 Chloride Level 109 Carbon Dioxide Level 21 Anion Gap 9 Blood Urea Nitrogen 39 H Creatinine 1.44 H Est Glomerular Filtrat Rate mL/min Glucose Level 146 Calcium Level 7.7 L Phosphorus Level 3.9 Magnesium Level 2.2 Test 12/18/18 16:57 Bedside Glucose [address] scan of the abdomen and pelvis: 1. Multiple calcified gallstones with mild pericholecystic fluid and stranding. Rule out acute calculus cholecystitis. No biliary ductal dilation. 2. Moderate to severe circumferential wall thickening of the ascending colon with mild pericolonic induration/stranding and rule out colitis. A mass in this region cannot be excluded follow-up colonoscopy is recommended. 3. Calcifications involving the anterior posterior gastric wall of uncertain etiology. Stomach is otherwise unremarkable. 4. Mild right lower abdominal and pelvic ascites. No abscess or free air. 5. Mild splenomegaly without focal splenic lesions. 6. Distended urinary bladder with multiple calcifications along the dependent i nferior aspect consistent with a combination of calculi and wall calcification. 7. Bilateral small pleural effusions. Bibasilar consolidations may all be due to atelectasis however rule out acute infiltrates. Also is noted on this CT scan that the prostate is large and he has a median lobe as well Medications Medication Current Medications IV Flush (NS 3 ml) 3 ml PER PROTOCOL IV ; Start 12/16/18 at 02:00 Ondansetron HCl (Zofran Inj) 4 mg Q6H PRN IV NAUSEA/VOMITING; Start 12/16/18 at 02:00 Acetaminophen (Tylenol Tab) 650 mg Q6H PRN PO .PAIN 1-3 OR TEMP; Start 12/16/18 at 02:00 Piperacillin Sod/ Tazobactam Sod 100 ml @ 200 mls/hr Q8 IVPB Last administered on 12/18/18at 12:59; Admin Dose 200 MLS/HR; Start 12/16/18 at 06:00 Hydromorphone HCl (Dilaudid) 0.5 mg Q4H PRN IV SEVERE PAIN LEVEL 7-10 Last administered on 12/18/18at 12:26; Admin Dose 0.5 MG; Start 12/16/18 at 07:00 Diagnostic Test (Pha) (Accu-Chek) 1 ea 02 XX ; Start 12/17/18 at 02:00 Polyethylene Glycol (Miralax) 17 gm DAILY PO Last administered on 12/18/18 08:12; Admin Dose 17 GM; Start 12/16/18 at 12:00 Docusate Sodium (Colace) 100 mg BID PO Last administered on 12/18/18at 08:13; Admin Dose 100 MG; Start 12/16/18 at 21:00 Sodium Chloride 1,000 ml @ 60 mls/hr [id number] IV Last administered on 12/18/18at 09:07; Admin Dose 60 MLS/HR; Start 12/16/18 at 12:00 Miscellaneous Information 1 ea NOTE XX ; Start 12/16/18 at 12:00 Glucose (Glutose) 15 gm Q15M PRN PO DECREASED GLUCOSE; Start 12/16/18 at 12:00 Glucose (Glutose) 22.5 gm Q15M PRN PO DECREASED GLUCOSE; Start 12/16/18 at 12:00 Dextrose (D50w Syringe) 25 ml Q15M PRN IV DECREASED GLUCOSE; Start 12/16/18 at 12:00 Dextrose (D50w Syringe) 50 ml Q15M PRN IV DECREASED GLUCOSE; Start 12/16/18 at 12:00 Glucagon (Glucagen) 1 mg Q15M PRN IM DECREASED GLUCOSE; Start 12/16/18 at 12:00 Glucose (Glutose) 15 gm Q15M PRN BUCCAL DECREASED GLUCOSE; Start 12/16/18 at 12:00 Insulin Aspart (Novolog Insulin Pen) (Adult SC Insulin - Mild Algorithm)... AC MEALS AND BEDTIME SC Last administered on 12/18/18 12:23; Admin Dose 1 UNIT; Start 12/17/18 at 17:30 Pantoprazole (Protonix Iv) 40 mg BID@06,18 IV Last administered on 12/18/18 16:56; Admin Dose 40 MG; Start 12/17/18 at 18:00 Metoprolol Tartrate (Lopressor) 50 mg BID PO Last administered on 12/18/18 08:13; Admin Dose 50 MG; Start 12/17/18 at 21:00 Diltiazem HCl (Cardizem Iv) 10 mg Q1H PRN IV Sustained hr>130; Start 12/17/18 at 15:30 Heparin Sodium (Porcine) (Heparin (5000 Units/1ml)) 5,000 unit BID SC Last administered on 12/18/18 08:24; Admin Dose 5,000 UNIT; Start 12/18/18 at 09:00 Tamsulosin HCl (Flomax) 0.4 mg BID PO Last administered on 12/18/18 12:20; Admin Dose 0.4 MG; Start 12/18/18 at 12:00 Finasteride (Proscar) 5 mg DAILY PO Last administered on 12/18/18 14:30; Admin Dose 5 MG; Start 12/18/18 at 13:00 RODGER DICKSON MD Dec 18, 2018 19:09
[2018-12-18] MEDS: BALSAM PERU/CASTOR OIL 60 GM TUBE TOP SCH (21:38)
[2018-12-19] VITALS (14 sets, daily range): BP systolic 87–125; BP diastolic 56–81; PULSE 55–160; RESP 18–20
[2018-12-19] MEDS: ACCU-CHEK XX SCH (01:50)
[2018-12-19] MEDS: SOD CHLORIDE 0.9% 1,000 ML IV SCH ×2 (03:34→21:37)
[2018-12-19] MEDS: PANTOPRAZOLE 40 MG INJ IV SCH ×2 (05:21→17:32)
[2018-12-19] MEDS: PIPER-TAZO 3.375 GM IV (PMX) 100 ML IVPB SCH ×3 (05:23→21:32)
[2018-12-19] MEDS: Insulin NOVOLOG SS MILD Algorithm (SS with meals and bedtime) SC SCH ×4 (07:00→21:00)
[2018-12-19] MEDS: METOPROLOL 50 MG TAB PO SCH ×2 (09:00→21:31)
--- NOTE | 2018-12-19 09:52 | PN ---
DATE: 12/19/2018 SUBJECTIVE: The patient is status post Chavarria catheter placement. Urinary output has improved. Note d Mild hematuria. No other events noted. OBJECTIVE: VITAL SIGNS: Blood pressure is 110/81, respiration 19, pulse 106, temperature is 98.5. HEENT: Head is normocephalic. NECK: Supple. HEART: Regular rate. LUNGS: Show diminished breath sounds at the base. ABDOMEN: Soft, nontender to palpation without rebound or guarding. EXTREMITIES: Negative for clubbing, cyanosis, no edema. DERMATOLOGIC: No rashes. MUSCULOSKELETAL: No joint effusion. NEUROLOGIC: No change in exam. MEDICATIONS: The patient's medications have been reviewed. LABORATORY DATA: Shows sodium 140, BUN 38, creatinine 1.26. White count 5.4, hemoglobin 11.2, plate let count is 167. ASSESSMENT AND PLAN: 1. Nonoliguric acute injury with unknown baseline creatinine. Etiology secondary to sepsis, hemodyn amics, possible urinary retention. We will continue current treatment plan. Continue to renally dos e all meds, continue to monitor urinary output with Chavarria catheter. Continue gentle IV hydration. C ontinue supportive care. 2. Urinary retention. The patient is status post Chavarria catheter placement. 3. Anemia. Monitor hemoglobin and hematocrit levels. 4. Acute cholecystitis. Patient is status post cholecystostomy drain placement. Continue to monito r. 5. Mineral bone disorder, monitor calcium and phosphorus levels. 6. Diabetes. Continue current insulin regimen. 7. Coronary artery disease. Continue current medical management. 8. History of cerebrovascular accident. 9. Transaminitis. Continue to monitor LFTs. 10. Chronic atrial fibrillation, patient is currently off anticoagulation. Continue to monitor. Fo llow up with cardiology. Dictated By: JULIO SMALL DO NR/NTS Conf#: [id number] DID#: [id number] CC: RODGER DICKSON MD; CHENTE HOGUE MD;*EndCC*
[2018-12-19] MEDS: DOCUSATE SODIUM 100 MG CAP PO SCH ×2 (10:53→21:31)
[2018-12-19] MEDS: POLYETHYLENE GLYCOL 17 GM PACKET PO SCH (10:53)
[2018-12-19] MEDS: FINASTERIDE 5 MG TAB PO SCH (10:53)
[2018-12-19] MEDS: TAMSULOSIN (SR) 0.4 MG CAP PO SCH ×2 (10:53→21:31)
[2018-12-19] MEDS: BALSAM PERU/CASTOR OIL 60 GM TUBE TOP SCH ×2 (10:54→21:31)
[2018-12-19] MEDS: HEPARIN 5,000 UNIT/1 ML VIAL SC SCH ×2 (10:55→22:05)
--- NOTE | 2018-12-19 11:57 | PN ---
Date/Time of Note Date/Time of Note DATE: 12/19/18 TIME: 11:47 Assessment/Plan VTE Prophylaxis Risk score (from Ns)>0 risk: 7 SCD applied (from [facility] [place] No SCD contraindicated: low risk/ambulating Pharmacological prophylaxis: heparin Lines/Catheters IV Catheter Type (from [facility] Peripheral IV Urinary Cath still in place: No Assessment/Plan Problems: (1) Cholelithiasis and cholecystitis without obstruction Status: Chronic Comment: Spotting nicely to diversion treatment. He is settling down and we can start thinking about 1 we might do an elective cholecystectomy on this gentleman. General surgery to offer guidance Qualifiers: Cholelithiasis location: gallbladder Cholecystitis acuity: acute and chronic Qualified Codes: K80.12 - Calculus of gallbladder with acute and chronic cholecystitis without obstruction (2) Cholecystostomy care Onset Date: ~ 12/17/2018 Status: Acute Comment: Doing well with this. (3) Diabetes mellitus type 2 in nonobese Status: Chronic Comment: Good glycemic control (4) History of CVA (cerebrovascular accident) Status: Chronic Comment: Noted and quiescent (5) Coronary artery disease Status: Chronic Comment: Noted and quiescent Qualifiers: Coronary Disease-Associated Artery/Lesion type: [place] artery [place] vs. 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 Please see the consultation from urology-Dr. Dodge. (8) Acute kidney injury (nontraumatic) Status: Resolved Comment: Back to baseline function (9) Bladder stones Status: Chronic Comment: Outpatient urology consultation Result Diagram: 12/19/18 0620 12/19/18 0620 Results 24hrs Laboratory Tests Test 12/18/18 12:20 12/18/18 16:57 12/18/18 21:22 12/19/18 06:20 Bedside Glucose 157 138 121 White Blood Count 5.4 # Red Blood Count 3.79 L Hemoglobin 11.2 L Hematocrit 35.9 L Mean Corpuscular 94.7 Volume Mean Corpuscular 29.6 Hemoglobin Mean Corpuscular 31.2 L Hemoglobin Concent Red Cell Distribution 15.2 H Width Platelet Count 167 Mean Platelet Volume 11.1 H Immature Granulocytes 0.700 H % Neutrophils % 67.0 Lymphocytes % 22.4 Monocytes % 7.8 Eosinophils % 1.7 Basophils % 0.4 Nucleated Red Blood 0.0 Cells % Immature Granulocytes 0.040 H # Neutrophils # 3.6 Lymphocytes # 1.2 Monocytes # 0.4 Eosinophils # 0.1 Basophils # 0.0 Nucleated Red Blood 0.0 Cells # Sodium Level 140 Potassium Level 3.8 Chloride Level 110 Carbon Dioxide Level 21 Anion Gap 9 Blood Urea Nitrogen 38 H Creatinine 1.26 H Est Glomerular Filtrat Rate mL/min Glucose Level 106 # Calcium Level 7.7 L Phosphorus Level 3.2 Magnesium Level 2.2 Test 12/19/18 08:17 Bedside Glucose 97 Subjective 24 Hr Interval Summary Free Text/Dictation Patient reports he is feeling much better since having a cholecystostomy tube placed Constitutional: no complaints Respiratory: no complaints Cardiovascular: no complaints Gastrointestinal: no complaints Exam/Review of Systems Exam Vitals Vital Signs Date Temp Pulse Resp B/P (MAP) Pulse Ox O2 O2 Flow FiO2 Time Delivery Rate 12/19/18 98.5 78 18 125/56 95 11:30 (79) 12/18/18 Room Air 16:12 12/16/18 2.0 07:43 Intake and Output 12/18/18 12/18/18 12/19/18 1515:00 23:00 07:00 IntakeIntake Total 1400 ml OutputOutput Total 500 ml BalanceBalance 900 ml Constitutional: alert, oriented Respiratory: clear to auscultation, normal air movement Cardiovascular: regular rate and rhythm, nl pulses Gastrointestinal: soft, nl liver, spleen, non-tender Results Results 24hrs Laboratory Tests Test 12/18/18 12:20 12/18/18 16:57 12/18/18 21:22 12/19/18 06:20 Bedside Glucose 157 138 121 White Blood Count 5.4 # Red Blood Count 3.79 L Hemoglobin 11.2 L Hematocrit 35.9 L Mean Corpuscular 94.7 Volume Mean Corpuscular 29.6 Hemoglobin Mean Corpuscular 31.2 L Hemoglobin Concent Red Cell Distribution 15.2 H Width Platelet Count 167 Mean Platelet Volume 11.1 H Immature Granulocytes 0.700 H % Neutrophils % 67.0 Lymphocytes % 22.4 Monocytes % 7.8 Eosinophils % 1.7 Basophils % 0.4 Nucleated Red Blood 0.0 Cells % Immature Granulocytes 0.040 H # Neutrophils # 3.6 Lymphocytes # 1.2 Monocytes # 0.4 Eosinophils # 0.1 Basophils # 0.0 Nucleated Red Blood 0.0 Cells # Sodium Level 140 Potassium Level 3.8 Chloride Level 110 Carbon Dioxide Level 21 Anion Gap 9 Blood Urea Nitrogen 38 H Creatinine 1.26 H Est Glomerular Filtrat Rate mL/min Glucose Level 106 # Calcium Level 7.7 L Phosphorus Level 3.2 Magnesium Level 2.2 Test 12/19/18 08:17 Bedside Glucose 97 Medications Medication Current Medications IV Flush (NS 3 ml) 3 ml PER PROTOCOL IV ; Start 12/16/18 at 02:00 Ondansetron HCl (Zofran Inj) 4 mg Q6H PRN IV NAUSEA/VOMITING; Start 12/16/18 at 02:00 Acetaminophen (Tylenol Tab) 650 mg Q6H PRN PO .PAIN 1-3 OR TEMP; Start 12/16/18 at 02:00 Piperacillin Sod/ Tazobactam Sod 100 ml @ 200 mls/hr Q8 IVPB Last administered on 12/19/18at 05:23; Admin Dose 200 MLS/HR; Start 12/16/18 at 06:00 Hydromorphone HCl (Dilaudid) 0.5 mg Q4H PRN IV SEVERE PAIN LEVEL 7-10 Last administered on 12/18/18at 21:47; Admin Dose 0.5 MG; Start 12/16/18 at 07:00 Diagnostic Test (Pha) (Accu-Chek) 1 ea 02 XX ; Start 12/17/18 at 02:00 Polyethylene Glycol (Miralax) 17 gm DAILY PO Last administered on 12/19/18at 10:53; Admin Dose 17 GM; Start 12/16/18 at 12:00 Docusate Sodium (Colace) 100 mg BID PO Last administered on 12/19/18at 10:53; Admin Dose 100 MG; Start 12/16/18 at 21:00 Sodium Chloride 1,000 ml @ 60 mls/hr [id number] IV Last administered on 12/19/18at 03:34; Admin Dose 60 MLS/HR; Start 12/16/18 at 12:00 Miscellaneous Information 1 ea NOTE XX ; Start 12/16/18 at 12:00 Glucose (Glutose) 15 gm Q15M PRN PO DECREASED GLUCOSE; Start 12/16/18 at 12:00 Glucose (Glutose) 22.5 gm Q15M PRN PO DECREASED GLUCOSE; Start 12/16/18 at 12:00 Dextrose (D50w Syringe) 25 ml Q15M PRN IV DECREASED GLUCOSE; Start 12/16/18 at 12:00 Dextrose (D50w Syringe) 50 ml Q15M PRN IV DECREASED GLUCOSE; Start 12/16/18 at 12:00 Glucagon (Glucagen) 1 mg Q15M PRN IM DECREASED GLUCOSE; Start 12/16/18 at 12:00 Glucose (Glutose) 15 gm Q15M PRN BUCCAL DECREASED GLUCOSE; Start 12/16/18 at 12:00 Insulin Aspart (Novolog Insulin Pen) (Adult SC Insulin - Mild Algorithm)... AC MEALS AND BEDTIME SC Last administered on 12/18/18 12:23; Admin Dose 1 UNIT; Start 12/17/18 at 17:30 Pantoprazole (Protonix Iv) 40 mg BID@06,18 IV Last administered on 12/19/18 05:21; Admin Dose 40 MG; Start 12/17/18 at 18:00 Metoprolol Tartrate (Lopressor) 50 mg BID PO Last administered on 12/18/18 08:13; Admin Dose 50 MG; Start 12/17/18 at 21:00 Diltiazem HCl (Cardizem Iv) 10 mg Q1H PRN IV Sustained hr>130 Last administered on 12/18/18 23:00; Admin Dose 10 MG; Start 12/17/18 at 15:30 Heparin Sodium (Porcine) (Heparin (5000 Units/1ml)) 5,000 unit BID SC Last administered on 12/19/18 10:55; Admin Dose 5,000 UNIT; Start 12/18/18 at 09:00 Tamsulosin HCl (Flomax) 0.4 mg BID PO Last administered on 12/19/18 10:53; Admin Dose 0.4 MG; Start 12/18/18 at 12:00 Finasteride (Proscar) 5 mg DAILY PO Last administered on 12/19/18 10:53; Admin Dose 5 MG; Start 12/18/18 at 13:00 SHIKHA MORALES MD Dec 19, 2018 11:57
--- NOTE | 2018-12-19 12:37 | QN ---
Documentation Comment Post cholecystostomy day #2 Afebrile throughout Abdominal examination is benign Plan: When patient is discharged he will need to have the cholecystostomy for 6 weeks. At the 6-week gerry he will need a cholangiogram through the cholecystostomy to determine cystic duct patency. If the cystic duct is patent, the cholecystostomy tube can be removed. MASON MARKS MD Dec 19, 2018 12:37
--- NOTE | 2018-12-19 14:20 | CONS ---
Consult Date/Type/Reason Admit Date/Time Dec 16, 2018 at 01:30 Initial Consult Date 12/18/18 Type of Consultation: Urology Reason for Consultation Gross hematuria and bladder stones Requesting Provider: CHENTE HOGUE Date/Time of Note DATE: 12/19/18 TIME: 14:16 Subjective Patient is much more comfortable today. He is sitting having his lunch. He denies having any pain in the suprapubic area Objective Vitals Vital Signs Date Temp Pulse Resp B/P (MAP) Pulse Ox O2 O2 Flow FiO2 Time Delivery Rate 12/19/18 117 12:01 12/19/18 98.5 18 125/56 95 11:30 (79) 12/18/18 Room Air 16:12 12/16/18 2.0 07:43 Intake and Output 12/18/18 12/18/18 12/19/18 1414:59 22:59 06:59 IntakeIntake Total 1400 ml OutputOutput Total 500 ml BalanceBalance 900 ml Exam Chavarria catheter is draining clear urine. There is very minimal bleeding around the catheter. Urine culture is pending Results/Medications Result Diagram: 12/19/1861912/19/18619 Results 24 hrs Laboratory Tests Test 12/18/18 16:57 12/18/18 21:22 12/19/18 06:20 12/19/18 08:17 Bedside Glucose 138 121 97 White Blood Count 5.4 # Red Blood Count 3.79 L Hemoglobin 11.2 L Hematocrit 35.9 L Mean Corpuscular 94.7 Volume Mean Corpuscular 29.6 Hemoglobin Mean Corpuscular 31.2 L Hemoglobin Concent Red Cell Distribution 15.2 H Width Platelet Count 167 Mean Platelet Volume 11.1 H Immature Granulocytes 0.700 H % Neutrophils % 67.0 Lymphocytes % 22.4 Monocytes % 7.8 Eosinophils % 1.7 Basophils % 0.4 Nucleated Red Blood 0.0 Cells % Immature Granulocytes 0.040 H # Neutrophils # 3.6 Lymphocytes # 1.2 Monocytes # 0.4 Eosinophils # 0.1 Basophils # 0.0 Nucleated Red Blood 0.0 Cells # Sodium Level 140 Potassium Level 3.8 Chloride Level 110 Carbon Dioxide Level 21 Anion Gap 9 Blood Urea Nitrogen 38 H Creatinine 1.26 H Est Glomerular Filtrat Rate mL/min Glucose Level 106 # Calcium Level 7.7 L Phosphorus Level 3.2 Magnesium Level 2.2 Test 12/19/18 11:54 Bedside Glucose 96 Home Meds Reported Medications Tamsulosin Hcl* (Tamsulosin Hcl*) 0.4 Mg Cap.er.24h, 0.4 MG PO HS, CAP 12/16/18 Sennosides* (Senna Lax*) 8.6 Mg Tablet, 2 TAB PO DAILY, TAB 12/16/18 Lisinopril* (Lisinopril*) 2.5 Mg Tablet, 2.5 MG PO DAILY, #30 TAB 12/16/18 Glipizide* (Glipizide*) 5 Mg Tablet, 5 MG PO AC BREAKFAST, TAB 12/16/18 Dabigatran Etexilate Mesylate* (Pradaxa*) 150 Mg Capsule, 150 MG PO DAILY, CAP 12/16/18 Duloxetine Hcl* (Cymbalta*) 60 Mg Capsule.dr, 60 MG PO DAILY, CAP 12/16/18 Atenolol* (Atenolol*) 25 Mg Tablet, 25 MG PO DAILY, #30 TAB 12/16/18 Medications Current Medications IV Flush (NS 3 ml) 3 ml PER PROTOCOL IV ; Start 12/16/18 at 02:00 Ondansetron HCl (Zofran Inj) 4 mg Q6H PRN IV NAUSEA/VOMITING; Start 12/16/18 at 02:00 Acetaminophen (Tylenol Tab) 650 mg Q6H PRN PO .PAIN 1-3 OR TEMP; Start 12/16/18 at 02:00 Piperacillin Sod/ Tazobactam Sod 100 ml @ 200 mls/hr Q8 IVPB Last administered on 12/19/18at 14:03; Admin Dose 200 MLS/HR; Start 12/16/18 at 06:00 Hydromorphone HCl (Dilaudid) 0.5 mg Q4H PRN IV SEVERE PAIN LEVEL 7-10 Last administered on 12/18/18at 21:47; Admin Dose 0.5 MG; Start 12/16/18 at 07:00 Diagnostic Test (Pha) (Accu-Chek) 1 ea 02 XX ; Start 12/17/18 at 02:00 Polyethylene Glycol (Miralax) 17 gm DAILY PO Last administered on 12/19/18at 10:53; Admin Dose 17 GM; Start 12/16/18 at 12:00 Docusate Sodium (Colace) 100 mg BID PO Last administered on 12/19/18at 10:53; Admin Dose 100 MG; Start 12/16/18 at 21:00 Sodium Chloride 1,000 ml @ 60 mls/hr [id number] IV Last administered on 12/19/18at 03:34; Admin Dose 60 MLS/HR; Start 12/16/18 at 12:00 Miscellaneous Information 1 ea NOTE XX ; Start 12/16/18 at 12:00 Glucose (Glutose) 15 gm Q15M PRN PO DECREASED GLUCOSE; Start 12/16/18 at 12:00 Glucose (Glutose) 22.5 gm Q15M PRN PO DECREASED GLUCOSE; Start 12/16/18 at 12:00 Dextrose (D50w Syringe) 25 ml Q15M PRN IV DECREASED GLUCOSE; Start 12/16/18 at 12:00 Dextrose (D50w Syringe) 50 ml Q15M PRN IV DECREASED GLUCOSE; Start 12/16/18 at 12:00 Glucagon (Glucagen) 1 mg Q15M PRN IM DECREASED GLUCOSE; Start 12/16/18 at 12:00 Glucose (Glutose) 15 gm Q15M PRN BUCCAL DECREASED GLUCOSE; Start 12/16/18 at 12:00 Insulin Aspart (Novolog Insulin Pen) (Adult SC Insulin - Mild Algorithm)... AC MEALS AND BEDTIME SC Last administered on 12/18/18at 12:23; Admin Dose 1 UNIT; Start 12/17/18 at 17:30 Pantoprazole (Protonix Iv) 40 mg BID@06,18 IV Last administered on 12/19/18 05:21; Admin Dose 40 MG; Start 12/17/18 at 18:00 Metoprolol Tartrate (Lopressor) 50 mg BID PO Last administered on 12/18/18 08:13; Admin Dose 50 MG; Start 12/17/18 at 21:00 Diltiazem HCl (Cardizem Iv) 10 mg Q1H PRN IV Sustained hr>130 Last administered on 12/18/18at 23:00; Admin Dose 10 MG; Start 12/17/18 at 15:30 Heparin Sodium (Porcine) (Heparin (5000 Units/1ml)) 5,000 unit BID SC Last administered on 12/19/18at 10:55; Admin Dose 5,000 UNIT; Start 12/18/18 at 09:00 Tamsulosin HCl (Flomax) 0.4 mg BID PO Last administered on 12/19/18at 10:53; Admin Dose 0.4 MG; Start 12/18/18 at 12:00 Finasteride (Proscar) 5 mg DAILY PO Last administered on 12/19/18at 10:53; Admin Dose 5 MG; Start 12/18/18 at 13:00 Assessment/Plan Hospital Course (Demo Recall) 88-year-old male presented with 2 days history of coffee-ground hematemesis. Patient reports that over the last few days he has been vomiting and noticed coffee-ground hematemesis. He also reported a fever of 102. His last BM was 1 day before admission. He reports that he has had abdominal pain as well. Denies any chest pain or shortness of breath. A urological consultation was requested as after the nurse inserted the Chavarria catheter he was noted to have hematuria. He did have a CT scan of the abdomen and pelvis and that showed the bladder to be distended and also has multiple bladder stones. The patient denies having any prior surgery on his bladder or prostate. He did have an indwelling Chavarria catheter when he was hospitalized before. He usually is able to urinate on his own. He does have nocturia about 2 times and during the day he voids every 3-4 hours. He denies any prior history of gross hematuria and there is no dysuria. The CT scan also did show an enlarged prostate. The patient had a Chavarria catheter inserted by the nurse and she states he only got 10 mL and the urine is bloody and he is bleeding in and around the catheter. On the exam the Chavarria catheter was not inside his bladder therefore I had it removed and then I inserted a new catheter for him 16 [place] and 10 mL balloon. 500 mL of clear urine drained out. Urine was sent for culture and sensitivity. Today he is doing much better. The urine is clear and he has minimal bleeding around the catheter. The urine culture result is still pending. Plan is to keep the Chavarria catheter in and continue him on antibiotic, continue the tamsulosin and finasteride. And after he is discharged he should follow-up with his primary care doctor and he will need referral to a urologist to manage his bladder stones and his large prostate RODGER DICKSON MD Dec 19, 2018 14:20
--- NOTE | 2018-12-19 16:30 | PN ---
Date/Time of Note Date/Time of Note DATE: 12/19/18 TIME: 16:23 Assessment/Plan VTE Prophylaxis Risk score (from Ns)>0 risk: 7 SCD applied (from Ns): No SCD contraindicated: low risk/ambulating Pharmacological prophylaxis: heparin Lines/Catheters IV Catheter Type (from [facility]): Peripheral IV Urinary Cath still in place: No Assessment/Plan Assessment/Plan Assessment: Moderate generalized abdominal pain -acute cholecystitis HIDA scan is positive Questionable coffee-ground emesis -patient states he had coffee prior to vomiting Colitis on imaging Leukocytosis Plan: Status post IR cholecystostomy drain placement Continue Protonix twice daily Pt refused colonoscopy. Hepatitis serologies negative Monitor labs, CBC stable Patient seen in collaboration with Dr. Hector Subjective: Patient denies abdominal pain today. Denies any rectal bleeding, nausea or vom iting, diarrhea, constipation. Tolerating diet. HIDA scan was positive for acute cholecystitis. Patient is status post IR cholecystostomy drain. PHYSICAL EXAMINATION: GENERAL: Alert and oriented, in no acute distress. SKIN: No lesions, no jaundice EYES: Pupils equal reactive to light, no discharge. EARS/NOSE AND THROAT: Ears normal, nose normal NECK: Supple, no masses CHEST: Inspection within normal limits. CARDIOVASCULAR: Heart: Regular rate and rhythm, no murmurs, gallops or rubs. Peripheral pulses present within normal limits, no cyanosis, clubbing or edemas. No pulsatile abdominal mass RESPIRATORY: Lungs clear to auscultation and percussion, no wheezing, no rubs GASTROINTESTINAL AND LIVER: Abdomen: Soft, no tenderness, no rebound, normoactive bowel sounds. Rectal: Deferred. EXTREMITIES: Left AKA, right foot with multiple digit amputation Result Diagram: 12/19/18 0620 12/19/18 0620 Results 24hrs Laboratory Tests Test 12/18/18 16:57 12/18/18 21:22 12/19/18 06:20 12/19/18 08:17 Bedside Glucose 138 121 97 White Blood Count 5.4 # Red Blood Count 3.79 L Hemoglobin 11.2 L Hematocrit 35.9 L Mean Corpuscular 94.7 Volume Mean Corpuscular 29.6 Hemoglobin Mean Corpuscular 31.2 L Hemoglobin Concent Red Cell Distribution 15.2 H Width Platelet Count 167 Mean Platelet Volume 11.1 H Immature Granulocytes 0.700 H % Neutrophils % 67.0 Lymphocytes % 22.4 Monocytes % 7.8 Eosinophils % 1.7 Basophils % 0.4 Nucleated Red Blood 0.0 Cells % Immature Granulocytes 0.040 H # Neutrophils # 3.6 Lymphocytes # 1.2 Monocytes # 0.4 Eosinophils # 0.1 Basophils # 0.0 Nucleated Red Blood 0.0 Cells # Sodium Level 140 Potassium Level 3.8 Chloride Level 110 Carbon Dioxide Level 21 Anion Gap 9 Blood Urea Nitrogen 38 H Creatinine 1.26 H Est Glomerular Filtrat Rate mL/min Glucose Level 106 # Calcium Level 7.7 L Phosphorus Level 3.2 Magnesium Level 2.2 Test 12/19/18 11:54 Bedside Glucose 96 CC: JASMINE HECTOR MD ; Exam/Review of Systems Exam Vitals Vital Signs Date Temp Pulse Resp B/P (MAP) Pulse Ox O2 O2 Flow FiO2 Time Delivery Rate 12/19/18 117 12:01 12/19/18 98.5 18 125/56 95 11:30 (79) 12/18/18 Room Air 16:12 12/16/18 2.0 07:43 Intake and Output 12/18/18 12/18/18 12/19/18 1515:00 23:00 07:00 IntakeIntake Total 1400 ml OutputOutput Total 500 ml BalanceBalance 900 ml Results Results 24hrs Laboratory Tests Test 12/18/18 16:57 12/18/18 21:22 12/19/18 06:20 12/19/18 08:17 Bedside Glucose 138 121 97 White Blood Count 5.4 # Red Blood Count 3.79 L Hemoglobin 11.2 L Hematocrit 35.9 L Mean Corpuscular 94.7 Volume Mean Corpuscular 29.6 Hemoglobin Mean Corpuscular 31.2 L Hemoglobin Concent Red Cell Distribution 15.2 H Width Platelet Count 167 Mean Platelet Volume 11.1 H Immature Granulocytes 0.700 H % Neutrophils % 67.0 Lymphocytes % 22.4 Monocytes % 7.8 Eosinophils % 1.7 Basophils % 0.4 Nucleated Red Blood 0.0 Cells % Immature Granulocytes 0.040 H # Neutrophils # 3.6 Lymphocytes # 1.2 Monocytes # 0.4 Eosinophils # 0.1 Basophils # 0.0 Nucleated Red Blood 0.0 Cells # Sodium Level 140 Potassium Level 3.8 Chloride Level 110 Carbon Dioxide Level 21 Anion Gap 9 Blood Urea Nitrogen 38 H Creatinine 1.26 H Est Glomerular Filtrat Rate mL/min Glucose Level 106 # Calcium Level 7.7 L Phosphorus Level 3.2 Magnesium Level 2.2 Test 12/19/18 11:54 Bedside Glucose 96 Medications Medication Current Medications IV Flush (NS 3 ml) 3 ml PER PROTOCOL IV ; Start 12/16/18 at 02:00 Ondansetron HCl (Zofran Inj) 4 mg Q6H PRN IV NAUSEA/VOMITING; Start 12/16/18 at 02:00 Acetaminophen (Tylenol Tab) 650 mg Q6H PRN PO .PAIN 1-3 OR TEMP; Start 12/16/18 at 02:00 Piperacillin Sod/ Tazobactam Sod 100 ml @ 200 mls/hr Q8 IVPB Last administered on 12/19/18at 14:03; Admin Dose 200 MLS/HR; Start 12/16/18 at 06:00 Hydromorphone HCl (Dilaudid) 0.5 mg Q4H PRN IV SEVERE PAIN LEVEL 7-10 Last administered on 12/18/18at 21:47; Admin Dose 0.5 MG; Start 12/16/18 at 07:00 Diagnostic Test (Pha) (Accu-Chek) 1 ea 02 XX ; Start 12/17/18 at 02:00 Polyethylene Glycol (Miralax) 17 gm DAILY PO Last administered on 12/19/18at 10:53; Admin Dose 17 GM; Start 12/16/18 at 12:00 Docusate Sodium (Colace) 100 mg BID PO Last administered on 12/19/18at 10:53; Admin Dose 100 MG; Start 12/16/18 at 21:00 Sodium Chloride 1,000 ml @ 60 mls/hr [id number] IV Last administered on 12/19/18at 03:34; Admin Dose 60 MLS/HR; Start 12/16/18 at 12:00 Miscellaneous Information 1 ea NOTE XX ; Start 12/16/18 at 12:00 Glucose (Glutose) 15 gm Q15M PRN PO DECREASED GLUCOSE; Start 12/16/18 at 12:00 Glucose (Glutose) 22.5 gm Q15M PRN PO DECREASED GLUCOSE; Start 12/16/18 at 12:00 Dextrose (D50w Syringe) 25 ml Q15M PRN IV DECREASED GLUCOSE; Start 12/16/18 at 12:00 Dextrose (D50w Syringe) 50 ml Q15M PRN IV DECREASED GLUCOSE; Start 12/16/18 at 12:00 Glucagon (Glucagen) 1 mg Q15M PRN IM DECREASED GLUCOSE; Start 12/16/18 at 12:00 Glucose (Glutose) 15 gm Q15M PRN BUCCAL DECREASED GLUCOSE; Start 12/16/18 at 12:00 Insulin Aspart (Novolog Insulin Pen) (Adult SC Insulin - Mild Algorithm)... AC MEALS AND BEDTIME SC Last administered on 12/18/18 12:23; Admin Dose 1 UNIT; Start 12/17/18 at 17:30 Pantoprazole (Protonix Iv) 40 mg BID@06,18 IV Last administered on 12/19/18 05:21; Admin Dose 40 MG; Start 12/17/18 at 18:00 Metoprolol Tartrate (Lopressor) 50 mg BID PO Last administered on 12/18/18 08:13; Admin Dose 50 MG; Start 12/17/18 at 21:00 Diltiazem HCl (Cardizem Iv) 10 mg Q1H PRN IV Sustained hr>130 Last administered on 12/18/18 23:00; Admin Dose 10 MG; Start 12/17/18 at 15:30 Heparin Sodium (Porcine) (Heparin (5000 Units/1ml)) 5,000 unit BID SC Last administered on 12/19/18 10:55; Admin Dose 5,000 UNIT; Start 12/18/18 at 09:00 Tamsulosin HCl (Flomax) 0.4 mg BID PO Last administered on 12/19/18 10:53; Admin Dose 0.4 MG; Start 12/18/18 at 12:00 Finasteride (Proscar) 5 mg DAILY PO Last administered on 12/19/18 10:53; Admin Dose 5 MG; Start 12/18/18 at 13:00 ABHISHEK LOPES NP Dec 19, 2018 16:30
[2018-12-19] MEDS: HYDROmorphONE 0.5 MG/0.5 ML SYG IV PRN (21:42)
[2018-12-20] VITALS (11 sets, daily range): BP systolic 129–144; BP diastolic 62–81; PULSE 78–119; RESP 19–20
[2018-12-20] MEDS: ACCU-CHEK XX SCH (01:45)
[2018-12-20] MEDS: PIPER-TAZO 3.375 GM IV (PMX) 100 ML IVPB SCH ×3 (05:25→21:18)
[2018-12-20] MEDS: PANTOPRAZOLE 40 MG INJ IV SCH ×2 (05:27→18:43)
[2018-12-20] MEDS: Insulin NOVOLOG SS MILD Algorithm (SS with meals and bedtime) SC SCH ×4 (07:00→20:13)
[2018-12-20] MEDS ORDERED: BISACODYL 10 MG SUPP PR ONE (09:00)
[2018-12-20] MEDS: DOCUSATE SODIUM 100 MG CAP PO SCH ×2 (09:26→20:13)
[2018-12-20] MEDS: BALSAM PERU/CASTOR OIL 60 GM TUBE TOP SCH ×2 (09:26→20:13)
[2018-12-20] MEDS: FINASTERIDE 5 MG TAB PO SCH (09:26)
[2018-12-20] MEDS: TAMSULOSIN (SR) 0.4 MG CAP PO SCH ×2 (09:26→20:13)
[2018-12-20] MEDS: METOPROLOL 50 MG TAB PO SCH ×2 (09:26→20:14)
[2018-12-20] MEDS: POLYETHYLENE GLYCOL 17 GM PACKET PO SCH (09:27)
[2018-12-20] MEDS: HEPARIN 5,000 UNIT/1 ML VIAL SC SCH ×2 (09:38→20:19)
--- NOTE | 2018-12-20 10:11 | PN ---
DATE: 12/20/2018 SUBJECTIVE: The patient is stable, no events overnight. Urinary output has been improving. OBJECTIVE: VITAL SIGNS: Blood pressure is 143/81, pulse 80, temperature 97.7. HEENT: Head is normocephalic. NECK: Supple. HEART: Regular rate. LUNGS: Show diminished breath sounds at the base. ABDOMEN: Soft, nontender to palpation without rebound or guarding. EXTREMITIES: Negative for clubbing, cyanosis, no edema. DERMATOLOGIC: No rashes. MUSCULOSKELETAL: No joint effusion. NEUROLOGIC: No change in exam. MEDICATIONS: Reviewed. LABORATORY DATA: Shows sodium 140, BUN 34, creatinine 1.29. CBC was reviewed. ASSESSMENT AND PLAN: 1. Nonoliguric acute kidney injury with unknown baseline creatinine. Etiology is secondary to sepsi s, hemodynamics, possible urinary retention. The patient's renal function has been improving. Natalee nue current treatment plans, supportive care, renally dose all medicines. 2. Urinary retention, status post Chavarria catheter placement. 3. Anemia. Continue to monitor hemoglobin and hematocrit levels. 4. Acute cholecystitis. The patient is status post cholecystostomy drain. Continue to monitor. 5. Mineral bone disorder, monitor calcium and phosphorus levels. 6. Diabetes. Continue current insulin regimen. 7. Coronary artery disease. Continue medical management. 8. History of cerebrovascular accident. 9. Transaminitis. Continue to monitor LFTs. 10. Chronic atrial fibrillation. Continue current treatment plan. Dictated By: JULIO SMALL DO NR/NTS Conf#: [id number] DID#: [id number] CC: CHENTE HOGUE MD; LOR PRECIADO MD; RODGER DICKSON MD;*EndCC*
--- NOTE | 2018-12-20 11:53 | QN ---
Documentation Comment Continued symptomatic improvement Leukocytosis remains resolved Abdominal examination is benign Plan: Patient will be discharged when medically cleared MASON MARKS MD Dec 20, 2018 11:53
--- NOTE | 2018-12-20 12:57 | DS ---
Date/Time of Note Date/Time of Note DATE: 12/20/18 TIME: 12:51 Discharge Summary Admission/Discharge Info Admit Date/Time Dec 16, 2018 at 01:30 Discharge Date/Time Discharge Diagnosis 88 yo M who came in from SNF for reported cofffee ground emesis who is currently managed as follows : 1. Misconstrued? GI bleed / Coffee ground emesis -patient states he was vomiting actual coffee likely 2/2 #2, refused endoscopy 2. RUQ abd pain with calculus cholecystitis confirmed by HIDA -s/p perc cholecystostomy and drain placement -continue abx for cholecystitis 3. Colonic wall thickening with concern for colitis vs colonic mass -continue abx, patient has refused colonoscopy as well per GI -may benefit from stool screening test for cancer O/p 4. Leucocytosis -likely 2/2 octreotide therapy vs mild sepsis from the above - resolved 5. DREW r/o CKD: improving 6. Distended bladder with multiple bladder stones s/p transient hematuria -no UTI on cultures, stable with vergara 7. Anasarca with mild ascites and small bilateral pleural effusions -hypoalbuminemia noted, ?from liver pathology or poor nutrition vs more sinister underlying process 8. Chronic Afib/ aflutter: rate controlled, on pradaxa 9. Low HDL -fish oil vs statin 10. Subclinical hypothyroidism -free t4 wnl, if normal, repeat TSH in about 6 weeks 11. 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 Benign Prostatic enlargement : PSA wnl 13. DNR / DNI 14. Hx of CVA -no gross residual deficits 15. Hx of CAD . Patient Condition: Stable Consults General surgery: Fito Huffman MD Urology: Guillermo Whitaker MD, MD Nephrology: Felice Mcguire MD, MD Gastroenterology: Sakina Hector MD . Procedures See hospital course . Hospital Course Very pleasant 88-year-old male who was [facility] from the [facility] because of concerns for coffee-ground emesis. However the patient had just had some coffee prior to vomiting episode. Based on this, the patient refused endoscopy when he was offered to objectively rule out a GI bleed. The patient is very very lucid, and he was fully aware of what happened and the implications of refusing intervention. However he had severe abdominal pain with associated nausea and vomiting and was found to have cholecystitis associated with gallstones confirmed by HIDA scan. General surgery reviewed the patient and referred patient for percutaneous cholecystostomy placement as well as abscess drainage which was done December 17, 2018. Patient continues to have the drain in place and will continue antibiotics and follow-up with general surgery as outpatient for continued management. His other comorbidities were managed as per medical records. Patient is currently much improved, tolerating diet, and is cleared for discharge. He was seen by urology because of diffuse bladder stones on CT scan as well as hematuria and a CT scan also showed an enlarged prostate. However hematuria was likely due to for Vergara catheter insertion, urine was held for culture that show ed no UTI, urology final recommendations is to keep the Vergara catheter in and continue him on antibiotic, continue the tamsulosin and finasteride. And after he is discharged he should follow-up with his primary care doctor and he will need referral to a urologist to manage his bladder stones and his large prostate Patient was also followed in-house by cardiology for management of his chronic atrial fibrillation, their recommendations were followed and patient has done well. Patient was also followed in-house by nephrology for nonoliguric acute kidney injury with unknown baseline creatinine. Renal function has been improving, keisha too has been cleared for discharge. Patient is also DO NOT RESUSCITATE NOR INTUBATE which was verified with him as well as his son. . Home Meds Active Scripts Polyethylene Glycol* (Miralax*) 17 Gm Powd.pack, 17 GM PO DAILY for 30 Days Prov:PAT PRECIADOLuois Edgar. 12/20/18 Finasteride* (Finasteride*) 5 Mg Tablet, 5 MG PO DAILY, #30 TAB Prov:PAT PRECIADOLouis . 12/20/18 Pantoprazole* (Protonix*) 40 Mg Tablet.dr, 40 MG PO DAILY for 30 Days, TAB Prov:ILANAUMAMAIA . 12/20/18 Docusate Sodium* (Colace*) 100 Mg Capsule, 100 MG PO BID, #60 CAP Prov:PAT PRECIADOLouis . 12/20/18 Metoprolol Tartrate* (Lopressor*) 50 Mg Tab, 50 MG PO BID, #30 TAB Prov:LOR PRECIADO . 12/20/18 Metronidazole/Sodium Chloride (Metro IV 500 mg/100 ml) 500 Mg/100 Ml Piggyback, 500 MG IV Q8H for 9 Days Prov:LOR PRECIADO. 12/20/18 Ciprofloxacin/Dextrose* (Cipro IVPB*) 400 Mg/200 Ml Iv.soln., 400 MG IVPB Q12, #9 EA Prov:LOR PRECIADO. 12/20/18 Tamsulosin Hcl* (Tamsulosin Hcl*) 0.4 Mg Cap.er.24h, 0.4 MG PO BID for 30 Days, #60 CAP Prov:LOR PRECIADO. 12/20/18 Reported Medications Lisinopril* (Lisinopril*) 2.5 Mg Tablet, 2.5 MG PO DAILY, #30 TAB 12/16/18 Dabigatran Etexilate Mesylate* (Pradaxa*) 150 Mg Capsule, 150 MG PO DAILY, CAP 12/16/18 Discontinued Reported Medications Sennosides* (Senna Lax*) 8.6 Mg Tablet, 2 TAB PO DAILY, TAB 12/16/18 Glipizide* (Glipizide*) 5 Mg Tablet, 5 MG PO AC BREAKFAST, TAB 12/16/18 Duloxetine Hcl* (Cymbalta*) 60 Mg Capsule.dr, 60 MG PO DAILY, CAP 12/16/18 Atenolol* (Atenolol*) 25 Mg Tablet, 25 MG PO DAILY, #30 TAB 12/16/18 Follow-up Plan needs outpatient followup with PCP for continued management and urology refferal. Primary Care Provider Not On Staff Doctor Time spent on discharge: > 30 minutes Pending Labs Laboratory Tests Test 12/19/18 17:08 12/19/18 21:33 12/20/18 06:06 12/20/18 08:07 Bedside 167 148 96 Glucose mg/dL (70-220) mg/dL (70-220) mg/dL (70-220) White Blood 4.9 Count 10^3/ul (4.8-1 0.8) Red Blood 3.38 Count 10^6/ul (4.70- 6.10) Hemoglobin 10.0 g/dl (14.0-18. 0) Hematocrit 31.2 % (42.0-52.0) Mean 92.3 Corpuscular fl (82.0-101.0 Volume ) Mean 29.6 Corpuscular pg (29.0-33.0) Hemoglobin Mean 32.1 Corpuscular g/dl (32.0-37. Hemoglobin Conc 0) ent Red Cell 14.9 Distribution % (11.5-14.5) Width Platelet Count 180 10^3/UL (140-4 15) Mean Platelet 10.8 Volume fl (7.4-10.4) Immature 0.800 Granulocytes % % (0.001-0.429 ) Neutrophils % 52.5 % (39.0-77.0) Lymphocytes % 34.9 % (15.0-51.0) Monocytes % 9.8 % (0.0-11.0) Eosinophils % 1.8 % (0.0-7.0) Basophils % 0.2 % (0.0-2.0) Nucleated Red 0.0 Blood Cells % /100WBC (0.0-0 .0) Immature 0.040 Granulocytes # 10^3/ul (0.0-0 .031) Neutrophils # 2.6 10^3/ul (1.6-7 .5) Lymphocytes # 1.7 10^3/ul (0.8-2 .9) Monocytes # 0.5 10^3/ul (0.3-0 .9) Eosinophils # 0.1 10^3/ul (0.0-0 .5) Basophils # 0.0 10^3/ul (0.0-0 .1) Nucleated Red 0.0 Blood Cells # 10^3/ul (0.0-0 .0) Sodium Level 140 mmol/L (135-14 4) Potassium 3.6 Level mmol/L (3.5-5. 1) Chloride Level 111 mmol/L (97-110 ) Carbon Dioxide 20 Level mmol/L (21-31) Anion Gap 9 (5-13) Blood Urea 34 Nitrogen mg/dl (7-20) Creatinine 1.29 mg/dl (0.61-1. 24) Est Glomerular mL/min (>60) Filtrat Rate mL/min Glucose Level 93 mg/dl (70-220) Calcium Level 7.8 mg/dl (8.4-10. 2) Phosphorus 2.6 Level mg/dl (2.5-4.9 ) Magnesium 2.1 Level mg/dl (1.7-2.5 ) Test 12/20/18 12:32 Bedside 116 Glucose mg/dL (70-220) LOR PRECIADO Dec 20, 2018 12:57
--- NOTE | 2018-12-20 12:59 | PDOCDIS ---
Discharge Instructions DIAGNOSIS Discharge Diagnosis Neurologic: Normal mental status, speech normal, cranial nerves II through XII are intact, motor and sensory are intact, no focal weakness assessment and plan: 88 yo M who came in from SNF for reported cofffee ground emesis who is currently managed as follows : 1. Misconstrued? GI bleed / Coffee ground emesis -patient states he was vomiting actual coffee likely 2/2 #2, -SOBT is still pending to objectively evaluate -doesn't want endoscopy. -reduce PPI to daily, continue to monitor hgb -doesn't require any further emergent GI intervention in my opinion at this time, but will defer to GI 2. RUQ abd pain with calculus cholecystitis confirmed by HIDA -no concern for choledocholithiasis at this time -perc cholecystostomy and drain placement today (Surgery will order) -continue abx for cholecystitis 3. Colonic wall thickening with concern for colitis vs colonic mass Acute cholecystitis s/p cholecystostomy tube placement . CONDITION [id number] Patient Condition: [id number] Stable HOME CARE INSTRUCTIONS: [id number] Diet Instructions: [id number] Low Fat /Cholesterol ACTIVITY: [id number] Activity Restrictions: [id number] Slowly Increase Activity Rest between Activity FOLLOW UP/APPOINTMENTS Follow-up Plan 1. Call Dr Huffman's office for followup and management of the tube or if any problems develop with the tube Name, Degree: Fito Huffman MD Specialty : General Surgery Office Address : [address] [place] [address] [place] [id number] Office Office 2. You may also call Dr. Whitaker's office for urology follow-up and management of Chavarria catheter, otherwise you will need to be referred to urology by your primary care doctor Name, Degree: Guillermo Dodge MD Specialty: Urology Comments: Office Address: [address] [place] [address] [place] [id number] Office Office LOR PRECIADO Dec 20, 2018 12:59
[2018-12-20] MEDS ORDERED: METO-429 PO (13:33)
[2018-12-20] MEDS ORDERED: TAMS0.4C2 PO (13:33)
[2018-12-20] MEDS ORDERED: FINA5TAB4 PO (13:33)
[2018-12-20] MEDS ORDERED: DOCU-144 PO (13:33)
[2018-12-20] MEDS ORDERED: POLY17PO6 PO (13:33)
[2018-12-20] MEDS ORDERED: PANT40TA3 PO (13:33)
[2018-12-20] MEDS ORDERED: METR500P3 IV (13:33)
[2018-12-20] MEDS ORDERED: [UNRECOGNIZED DRUG - CODE] IVPB (13:33)
[2018-12-20] MEDS: SOD CHLORIDE 0.9% 1,000 ML IV SCH ×2 (16:00→23:42)
--- NOTE | 2018-12-20 16:44 | CONS ---
Assessment/Plan Assessment/Plan Hospital Course (Demo Recall) Possible GI bleed and acute cholecystitis-percutaneous cholecystostomy Chronic atrial fibrillation, previously on anticoagulation Hypertension Diabetes -Heart rate trend overall stable with episodes of rapid ventricular rates. Discussion with nursing staff, this was in the setting of patient being constipated and bearing down. Once that is resolved, heart rate trend remained stable. -Blood pressures and overall stable -Continue beta-apurva as heart rate and blood pressure permits and titrate as needed. -Restart anticoagulation when okay by GI and primary team Consultation Date/Type/Reason Admit Date/Time Dec 16, 2018 at 01:30 Initial Consult Date 12/18/18 Type of Consult Cardiology Requesting Provider: CHENTE HOGUE Date/Time of Note DATE: 12/20/18 TIME: 16:42 24 HR Interval Summary Free Text/Dictation Denies palpitations, shortness of breath, chest pain. Main complaint is constipation Exam/Review of Systems Vital Signs Vitals Vital Signs Date Temp Pulse Resp B/P (MAP) Pulse Ox O2 O2 Flow FiO2 Time Delivery Rate 12/20/18 97.8 80 19 135/62 98 14:53 (86) 12/18/18 Room Air 16:12 12/16/18 2.0 07:43 Intake and Output 12/19/18 12/19/18 12/20/18 1515:00 23:00 07:00 IntakeIntake Total 750 ml 600 ml OutputOutput Total 1125 ml 500 ml BalanceBalance -375 ml 100 ml Exam Constitutional: alert, oriented (No apparent distress) Respiratory: other (Coarse breath sounds bilaterally, no wheezing) Cardiovascular: irregular rhythm (S1-S2 heard) Gastrointestinal: soft, non-tender, bowel sounds Extremities: other (No significant edema) Labs Result Diagram: 12/20/18 0612/20/18 0606 Results 24hrs Laboratory Tests Test 12/19/18 17:08 12/19/18 21:33 12/20/18 06:06 12/20/18 08:07 Bedside Glucose 167 148 96 White Blood Count 4.9 Red Blood Count 3.38 L Hemoglobin 10.0 L Hematocrit 31.2 L Mean Corpuscular 92.3 Volume Mean Corpuscular 29.6 Hemoglobin Mean Corpuscular 32.1 Hemoglobin Concent Red Cell 14.9 H Distribution Width Platelet Count 180 Mean Platelet Volume 10.8 H Immature 0.800 H Granulocytes % Neutrophils % 52.5 Lymphocytes % 34.9 Monocytes % 9.8 Eosinophils % 1.8 Basophils % 0.2 Nucleated Red Blood 0.0 Cells % Immature 0.040 H Granulocytes # Neutrophils # 2.6 Lymphocytes # 1.7 Monocytes # 0.5 Eosinophils # 0.1 Basophils # 0.0 Nucleated Red Blood 0.0 Cells # Sodium Level 140 Potassium Level 3.6 Chloride Level 111 H Carbon Dioxide Level 20 L Anion Gap 9 Blood Urea Nitrogen 34 H Creatinine 1.29 H Est Glomerular Filtrat Rate mL/min Glucose Level 93 Calcium Level 7.8 L Phosphorus Level 2.6 Magnesium Level 2.1 Test 12/20/18 12:32 Bedside Glucose 116 Medications Medications Current Medications IV Flush (NS 3 ml) 3 ml PER PROTOCOL IV ; Start 12/16/18 at 02:00 Ondansetron HCl (Zofran Inj) 4 mg Q6H PRN IV NAUSEA/VOMITING; Start 12/16/18 at 02:00 Acetaminophen (Tylenol Tab) 650 mg Q6H PRN PO .PAIN 1-3 OR TEMP; Start 12/16/18 at 02:00 Piperacillin Sod/ Tazobactam Sod 100 ml @ 200 mls/hr Q8 IVPB Last administered on 12/20/18at 14:20; Admin Dose 200 MLS/HR; Start 12/16/18 at 06:00 Hydromorphone HCl (Dilaudid) 0.5 mg Q4H PRN IV SEVERE PAIN LEVEL 7-10 Last administered on 12/19/18at 21:42; Admin Dose 0.5 MG; Start 12/16/18 at 07:00 Diagnostic Test (Pha) (Accu-Chek) 1 ea 02 XX ; Start 12/17/18 at 02:00 Polyethylene Glycol (Miralax) 17 gm DAILY PO Last administered on 12/20/18 09:27; Admin Dose 17 GM; Start 12/16/18 at 12:00 Docusate Sodium (Colace) 100 mg BID PO Last administered on 12/20/18at 09:26; Admin Dose 100 MG; Start 12/16/18 at 21:00 Sodium Chloride 1,000 ml @ 60 mls/hr [id number] IV Last administered on 12/19/18at 21:37; Admin Dose 60 MLS/HR; Start 12/16/18 at 12:00 Miscellaneous Information 1 ea NOTE XX ; Start 12/16/18 at 12:00 Glucose (Glutose) 15 gm Q15M PRN PO DECREASED GLUCOSE; Start 12/16/18 at 12:00 Glucose (Glutose) 22.5 gm Q15M PRN PO DECREASED GLUCOSE; Start 12/16/18 at 12:00 Dextrose (D50w Syringe) 25 ml Q15M PRN IV DECREASED GLUCOSE; Start 12/16/18 at 12:00 Dextrose (D50w Syringe) 50 ml Q15M PRN IV DECREASED GLUCOSE; Start 12/16/18 at 12:00 Glucagon (Glucagen) 1 mg Q15M PRN IM DECREASED GLUCOSE; Start 12/16/18 at 12:00 Glucose (Glutose) 15 gm Q15M PRN BUCCAL DECREASED GLUCOSE; Start 12/16/18 at 12:00 Insulin Aspart (Novolog Insulin Pen) (Adult SC Insulin - Mild Algorithm)... AC MEALS AND BEDTIME SC Last administered on 12/19/18at 17:12; Admin Dose 1 UNIT; Start 12/17/18 at 17:30 Pantoprazole (Protonix Iv) 40 mg BID@06,18 IV Last administered on 12/20/18 05:27; Admin Dose 40 MG; Start 12/17/18 at 18:00 Metoprolol Tartrate (Lopressor) 50 mg BID PO Last administered on 12/20/18 09:26; Admin Dose 50 MG; Start 12/17/18 at 21:00 Diltiazem HCl (Cardizem Iv) 10 mg Q1H PRN IV Sustained hr>130 Last administered on 12/18/18at 23:00; Admin Dose 10 MG; Start 12/17/18 at 15:30 Heparin Sodium (Porcine) (Heparin (5000 Units/1ml)) 5,000 unit BID SC Last ad ministered on 12/20/18 09:38; Admin Dose 5,000 UNIT; Start 12/18/18 at 09:00 Tamsulosin HCl (Flomax) 0.4 mg BID PO Last administered on 12/20/18 09:26; Admin Dose 0.4 MG; Start 12/18/18 at 12:00 Finasteride (Proscar) 5 mg DAILY PO Last administered on 3/11/19at 09:26; Admin Dose 5 MG; Start 12/18/18 at 13:00 Marco Antonio Decker DO Dec 20, 2018 16:44
--- NOTE | 2018-12-20 19:17 | CONS ---
Consult Date/Type/Reason Admit Date/Time Dec 16, 2018 at 01:30 Initial Consult Date 12/18/18 Type of Consultation: Urology Reason for Consultation Urinary retention and hematuria Requesting Provider: CHENTE HOGUE Date/Time of Note DATE: 12/20/18 TIME: 19:11 Subjective The patient is feeling better. The Chavarria catheter is draining clear urine and there is no bleeding in the catheter or around it Objective Vitals Vital Signs Date Temp Pulse Resp B/P (MAP) Pulse Ox O2 O2 Flow FiO2 Time Delivery Rate 12/20/18 80 16:00 12/20/18 97.8 19 135/62 98 14:53 (86) 12/18/18 Room Air 16:12 12/16/18 2.0 07:43 Intake and Output 12/19/18 12/19/18 12/20/18 1515:00 23:00 07:00 IntakeIntake Total 750 ml 600 ml OutputOutput Total 1125 ml 500 ml BalanceBalance -375 ml 100 ml Exam The Chavarria catheter is draining clear urine. The urine culture showed no growth in 24 hours. Results/Medications Result Diagram: 12/20/18 0606 12/20/1806 Results 24 hrs Laboratory Tests Test 12/19/18 21:33 12/20/18 06:06 12/20/18 08:07 12/20/18 12:32 Bedside Glucose 148 96 116 White Blood Count 4.9 Red Blood Count 3.38 L Hemoglobin 10.0 L Hematocrit 31.2 L Mean Corpuscular 92.3 Volume Mean Corpuscular 29.6 Hemoglobin Mean Corpuscular 32.1 Hemoglobin Concent Red Cell 14.9 H Distribution Width Platelet Count 180 Mean Platelet Volume 10.8 H Immature 0.800 H Granulocytes % Neutrophils % 52.5 Lymphocytes % 34.9 Monocytes % 9.8 Eosinophils % 1.8 Basophils % 0.2 Nucleated Red Blood 0.0 Cells % Immature 0.040 H Granulocytes # Neutrophils # 2.6 Lymphocytes # 1.7 Monocytes # 0.5 Eosinophils # 0.1 Basophils # 0.0 Nucleated Red Blood 0.0 Cells # Sodium Level 140 Potassium Level 3.6 Chloride Level 111 H Carbon Dioxide Level 20 L Anion Gap 9 Blood Urea Nitrogen 34 H Creatinine 1.29 H Est Glomerular Filtrat Rate mL/min Glucose Level 93 Calcium Level 7.8 L Phosphorus Level 2.6 Magnesium Level 2.1 Test 12/20/18 18:40 Bedside Glucose 188 Home Meds Active Scripts Polyethylene Glycol* (Miralax*) 17 Gm Powd.pack, 17 GM PO DAILY for 30 Days Prov:LOR PRECIADO. 12/20/18 Finasteride* (Finasteride*) 5 Mg Tablet, 5 MG PO DAILY, #30 TAB Prov:LOR PRECIADO. 12/20/18 Pantoprazole* (Protonix*) 40 Mg Tablet.dr, 40 MG PO DAILY for 30 Days, TAB Prov:LOR PRECIADO. 12/20/18 Docusate Sodium* (Colace*) 100 Mg Capsule, 100 MG PO BID, #60 CAP Prov:LOR PRECIADO. 12/20/18 Metoprolol Tartrate* (Lopressor*) 50 Mg Tab, 50 MG PO BID, #30 TAB Prov:LOR PRECIADO 12/20/18 Metronidazole/Sodium Chloride (Metro IV 500 mg/100 ml) 500 Mg/100 Ml Piggyback, 500 MG IV Q8H for 9 Days Prov:LOR PRECIADO 12/20/18 Ciprofloxacin/Dextrose* (Cipro IVPB*) 400 Mg/200 Ml Iv.soln., 400 MG IVPB Q12, #9 EA Prov:LOR PRECIADO. 12/20/18 Tamsulosin Hcl* (Tamsulosin Hcl*) 0.4 Mg Cap.er.24h, 0.4 MG PO BID for 30 Days, #60 CAP Prov:LOR PRECIADO. 12/20/18 Reported Medications Lisinopril* (Lisinopril*) 2.5 Mg Tablet, 2.5 MG PO DAILY, #30 TAB 12/16/18 Dabigatran Etexilate Mesylate* (Pradaxa*) 150 Mg Capsule, 150 MG PO DAILY, CAP 12/16/18 Discontinued Reported Medications Sennosides* (Senna Lax*) 8.6 Mg Tablet, 2 TAB PO DAILY, TAB 12/16/18 Glipizide* (Glipizide*) 5 Mg Tablet, 5 MG PO AC BREAKFAST, TAB 12/16/18 Duloxetine Hcl* (Cymbalta*) 60 Mg Capsule.dr, 60 MG PO DAILY, CAP 12/16/18 Atenolol* (Atenolol*) 25 Mg Tablet, 25 MG PO DAILY, #30 TAB 12/16/18 Medications Current Medications IV Flush (NS 3 ml) 3 ml PER PROTOCOL IV ; Start 12/16/18 at 02:00 Ondansetron HCl (Zofran Inj) 4 mg Q6H PRN IV NAUSEA/VOMITING; Start 12/16/18 at 02:00 Acetaminophen (Tylenol Tab) 650 mg Q6H PRN PO .PAIN 1-3 OR TEMP; Start 12/16/18 at 02:00 Piperacillin Sod/ Tazobactam Sod 100 ml @ 200 mls/hr Q8 IVPB Last administered on 12/20/18at 14:20; Admin Dose 200 MLS/HR; Start 12/16/18 at 06:00 Hydromorphone HCl (Dilaudid) 0.5 mg Q4H PRN IV SEVERE PAIN LEVEL 7-10 Last administered on 12/19/18at 21:42; Admin Dose 0.5 MG; Start 12/16/18 at 07:00 Diagnostic Test (Pha) (Accu-Chek) 1 ea 02 XX ; Start 12/17/18 at 02:00 Polyethylene Glycol (Miralax) 17 gm DAILY PO Last administered on 12/20/18at 09:27; Admin Dose 17 GM; Start 12/16/18 at 12:00 Docusate Sodium (Colace) 100 mg BID PO Last administered on 12/20/18at 09:26; Admin Dose 100 MG; Start 12/16/18 at 21:00 Sodium Chloride 1,000 ml @ 60 mls/hr [id number] IV Last administered on 12/19/18at 21:37; Admin Dose 60 MLS/HR; Start 12/16/18 at 12:00 Miscellaneous Information 1 ea NOTE XX ; Start 12/16/18 at 12:00 Glucose (Glutose) 15 gm Q15M PRN PO DECREASED GLUCOSE; Start 12/16/18 at 12:00 Glucose (Glutose) 22.5 gm Q15M PRN PO DECREASED GLUCOSE; Start 12/16/18 at 12:00 Dextrose (D50w Syringe) 25 ml Q15M PRN IV DECREASED GLUCOSE; Start 12/16/18 at 12:00 Dextrose (D50w Syringe) 50 ml Q15M PRN IV DECREASED GLUCOSE; Start 12/16/18 at 12:00 Glucagon (Glucagen) 1 mg Q15M PRN IM DECREASED GLUCOSE; Start 12/16/18 at 12:00 Glucose (Glutose) 15 gm Q15M PRN BUCCAL DECREASED GLUCOSE; Start 12/16/18 at 12:00 Insulin Aspart (Novolog Insulin Pen) (Adult SC Insulin - Mild Algorithm)... AC MEALS AND BEDTIME SC Last administered on 12/20/18 18:49; Admin Dose 2 UNIT; Start 12/17/18 at 17:30 Pantoprazole (Protonix Iv) 40 mg BID@06,18 IV Last administered on 12/20/18 18:43; Admin Dose 40 MG; Start 12/17/18 at 18:00 Metoprolol Tartrate (Lopressor) 50 mg BID PO Last administered on 12/20/18 09:26; Admin Dose 50 MG; Start 12/17/18 at 21:00 Diltiazem HCl (Cardizem Iv) 10 mg Q1H PRN IV Sustained hr>130 Last administered on 12/18/18 23:00; Admin Dose 10 MG; Start 12/17/18 at 15:30 Heparin Sodium (Porcine) (Heparin (5000 Units/1ml)) 5,000 unit BID SC Last administered on 12/20/18 09:38; Admin Dose 5,000 UNIT; Start 12/18/18 at 09:00 Tamsulosin HCl (Flomax) 0.4 mg BID PO Last administered on 12/20/18 09:26; Admin Dose 0.4 MG; Start 12/18/18 at 12:00 Finasteride (Proscar) 5 mg DAILY PO Last administered on 12/20/18 09:26; Admin Dose 5 MG; Start 12/18/18 at 13:00 Assessment/Plan Hospital Course (Demo Recall) 88-year-old male presented with 2 days history of coffee-ground hematemesis. Patient reports that over the last few days he has been vomiting and noticed coffee-ground hematemesis. He also reported a fever of 102. His last BM was 1 day before admission. He reports that he has had abdominal pain as well. Denies any chest pain or shortness of breath. A urological consultation was requested as after the nurse inserted the Chavarria catheter he was noted to have hematuria. He did have a CT scan of the abdomen and pelvis and that showed the bladder to be distended and also has multiple bladder stones. The patient denies having any prior surgery on his bladder or prostate. He did have an indwelling Chavarria catheter when he was hospitalized before. He usually is able to urinate on his own. He does have nocturia about 2 times and during the day he voids every 3-4 hours. He denies any prior history of gross hematuria and there is no dysuria. The CT scan also did show an enlarged prostate. The patient had a Chavarria catheter inserted by the nurse and she states he only got 10 mL and the urine was bloody and he was bleeding in and around the catheter. On the exam the F oley catheter was not inside his bladder therefore I had it removed and then I inserted a new catheter for him 16 Lao and 10 mL balloon. 500 mL of clear urine drained out. Urine was sent for culture and sensitivity and that showed no growth in 24 hours so far. The patient is doing much better. The urine is clear and he has no bleeding around the catheter. Discontinue the Chavarria catheter at 6 AM and check his voiding and his postvoid residual. He will still need follow-up with his primary care physician and referral to the urologist to manage his prostate and bladder stones RODGER DICKSON MD Dec 20, 2018 19:17
[2018-12-21] VITALS (9 sets, daily range): BP systolic 136–160; BP diastolic 65–72; PULSE 39–82; RESP 19–20
[2018-12-21] MEDS: ACCU-CHEK XX SCH (01:40)
[2018-12-21] MEDS: PANTOPRAZOLE 40 MG INJ IV SCH ×2 (05:46→17:11)
[2018-12-21] MEDS: PIPER-TAZO 3.375 GM IV (PMX) 100 ML IVPB SCH ×2 (05:47→13:21)
[2018-12-21] MEDS: Insulin NOVOLOG SS MILD Algorithm (SS with meals and bedtime) SC SCH ×3 (06:17→17:15)
[2018-12-21] MEDS: TAMSULOSIN (SR) 0.4 MG CAP PO SCH (08:02)
[2018-12-21] MEDS: FINASTERIDE 5 MG TAB PO SCH (08:02)
[2018-12-21] MEDS: POLYETHYLENE GLYCOL 17 GM PACKET PO SCH (08:02)
[2018-12-21] MEDS: METOPROLOL 50 MG TAB PO SCH (08:02)
[2018-12-21] MEDS: DOCUSATE SODIUM 100 MG CAP PO SCH (08:02)
[2018-12-21] MEDS: HEPARIN 5,000 UNIT/1 ML VIAL SC SCH (08:03)
[2018-12-21] MEDS: BALSAM PERU/CASTOR OIL 60 GM TUBE TOP SCH (08:04)
--- NOTE | 2018-12-21 09:00 | PN ---
DATE: 12/21/2018 SUBJECTIVE: The patient is stable, no events overnight. OBJECTIVE: VITAL SIGNS: Blood pressure is 160/72, pulse 80, respirations 19, temperature 97.8. HEENT: Head is normocephalic. NECK: Supple. HEART: Regular rate. LUNGS: Show diminished breath sounds at the base. ABDOMEN: Soft, nontender to palpation without rebound or guarding. EXTREMITIES: Negative for clubbing, cyanosis, no edema. DERMATOLOGIC: No rashes. MUSCULOSKELETAL: No joint effusion. NEUROLOGIC: No change in exam. MEDICATIONS: Reviewed. LABORATORY DATA: Currently pending. ASSESSMENT AND PLAN: 1. Nonoliguric acute kidney injury with unknown baseline creatinine. Etiology is secondary to sepsi s, hemodynamics. Renal function has been improving. Continue current treatment plan, supportive car e, renally dose all medicines. 2. Urinary retention, improved. 3. Anemia. Continue to monitor hemoglobin and hematocrit levels. 4. Acute cholecystitis. The patient is status post cholecystostomy drain. Continue to monitor. 5. Mineral bone disorder, monitor calcium and phosphorus levels. 6. Diabetes. Continue current insulin regimen. 7. Coronary artery disease. Continue medical management. 8. History of cerebrovascular accident. 9. Transaminitis. Monitor LFTs. 10. Chronic atrial fibrillation. Continue current treatment plan. Dictated By: JULIO SMALL DO NR/NTS Conf#: [id number] DID#: [id number] CC: CHENTE HOGUE MD; LOR PRECIADO MD; RODGER DICKSON MD;*EndCC*
--- NOTE | 2018-12-21 10:06 | QN ---
Documentation Comment Patient doing exceedingly well No abdominal complaints Abdominal examination is benign Plan: I have replaced the cholecystostomy drainage system with a AMILCAR bulb Discharge when medically cleared MASON MARKS MD Dec 21, 2018 10:06
[2018-12-21] MEDS ORDERED: CALCIUM CARBONATE 500 MG CHEW TAB PO PRN (11:00)
--- NOTE | 2018-12-21 13:33 | DS ---
Date/Time of Note Date/Time of Note DATE: 12/21/18 TIME: 13:32 Discharge Summary Admission/Discharge Info Admit Date/Time Dec 16, 2018 at 01:30 Discharge Date/Time Discharge Diagnosis 88 yo M who came in from SNF for reported cofffee ground emesis who is currently managed as follows : 1. Misconstrued? GI bleed / Coffee ground emesis -patient states he was vomiting actual coffee likely 2/2 #2, refused endoscopy 2. RUQ abd pain with calculus cholecystitis confirmed by HIDA -s/p perc cholecystostomy and drain placement -continue abx for cholecystitis 3. Colonic wall thickening with concern for colitis vs colonic mass -continue abx, patient has refused colonoscopy as well per GI -may benefit from stool screening test for cancer O/p 4. Leucocytosis -likely 2/2 octreotide therapy vs mild sepsis from the above - resolved 5. DREW r/o CKD: improving 6. Distended bladder with multiple bladder stones s/p transient hematuria -no UTI on cultures, stable with vergara 7. Anasarca with mild ascites and small bilateral pleural effusions -hypoalbuminemia noted, ?from liver pathology or poor nutrition vs more sinister underlying process 8. Chronic Afib/ aflutter: rate controlled, on pradaxa 9. Low HDL -fish oil vs statin 10. Subclinical hypothyroidism -free t4 wnl, if normal, repeat TSH in about 6 weeks 11. 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 Benign Prostatic enlargement : PSA wnl 13. DNR / DNI 14. Hx of CVA -no gross residual deficits 15. Hx of CAD . Patient Condition: Stable Consults See previous discharge summary . Hospital Course Very pleasant 88-year-old male who was sent from the [facility] facility because of concerns for coffee-ground emesis. However the patient had just had some coffee prior to vomiting episode. Based on this, the patient refused endoscopy when he was offered to objectively rule out a GI bleed. The patient is very very lucid, and he was fully aware of what happened and the implications of refusing intervention. However he had severe abdominal pain with associated nausea and vomiting and was found to have cholecystitis associated with gallstones confirmed by HIDA scan. General surgery reviewed the patient and referred patient for percutaneous cholecystostomy placement as well as abscess drainage which was done December 17, 2018. Patient continues to have the drain in place and will continue antib iotics and follow-up with general surgery as outpatient for continued management. His other comorbidities were managed as per medical records. Patient is currently much improved, tolerating diet, and is cleared for discharge. He was seen by urology because of diffuse bladder stones on CT scan as well as hematuria and a CT scan also showed an enlarged prostate. However hematuria was likely due to for Vergara catheter insertion, urine was held for culture that showed no UTI, urology final recommendations is to keep the Vergara catheter in and continue him on antibiotic, continue the tamsulosin and finasteride. And after he is discharged he should follow-up with his primary care doctor and he will need referral to a urologist to manage his bladder stones and his large prostate Patient was also followed in-house by cardiology for management of his chronic atrial fibrillation, their recommendations were followed and patient has done well. Patient was also followed in-house by nephrology for nonoliguric acute kidney injury with unknown baseline creatinine. Renal function has been improving, patient has been cleared for discharge. Patient is also DO NOT RESUSCITATE NOR INTUBATE which was verified with him as well as his son. . Addendum: Patient's discharge was held yesterday per his request, at this time he is feeling well and stable for discharge. Incidentally general surgery has also reviewed him and switched his drain to a AMILCAR bulb. He remains stable for discharge. Physical exam was done and vital signs were also reviewed. . Home Meds Active Scripts Polyethylene Glycol* (Miralax*) 17 Gm Powd.pack, 17 GM PO DAILY for 30 Days Prov:LOR PRECIADO. 12/20/18 Finasteride* (Finasteride*) 5 Mg Tablet, 5 MG PO DAILY, #30 TAB Prov:ILANAPAT DotyLouis M. 12/20/18 Pantoprazole* (Protonix*) 40 Mg Tablet.dr, 40 MG PO DAILY for 30 Days, TAB Prov:LOR PRECIADO M. 12/20/18 Docusate Sodium* (Colace*) 100 Mg Capsule, 100 MG PO BID, #60 CAP Prov:LOR PRECIADO M. 12/20/18 Metoprolol Tartrate* (Lopressor*) 50 Mg Tab, 50 MG PO BID, #30 TAB Prov:LOR PRECIADO 12/20/18 Metronidazole/Sodium Chloride (Metro IV 500 mg/100 ml) 500 Mg/100 Ml Piggyback, 500 MG IV Q8H for 9 Days Prov:LOR PRECIADO 12/20/18 Ciprofloxacin/Dextrose* (Cipro IVPB*) 400 Mg/200 Ml Iv.soln., 400 MG IVPB Q12, #9 EA Prov:LOR PRECIADO. 12/20/18 Tamsulosin Hcl* (Tamsulosin Hcl*) 0.4 Mg Cap.er.24h, 0.4 MG PO BID for 30 Days, #60 CAP Prov:LOR PRECIADO. 12/20/18 Reported Medications Lisinopril* (Lisinopril*) 2.5 Mg Tablet, 2.5 MG PO DAILY, #30 TAB 12/16/18 Dabigatran Etexilate Mesylate* (Pradaxa*) 150 Mg Capsule, 150 MG PO DAILY, CAP 12/16/18 Discontinued Reported Medications Sennosides* (Senna Lax*) 8.6 Mg Tablet, 2 TAB PO DAILY, TAB 12/16/18 Glipizide* (Glipizide*) 5 Mg Tablet, 5 MG PO AC BREAKFAST, TAB 12/16/18 Duloxetine Hcl* (Cymbalta*) 60 Mg Capsule.dr, 60 MG PO DAILY, CAP 12/16/18 Atenolol* (Atenolol*) 25 Mg Tablet, 25 MG PO DAILY, #30 TAB 12/16/18 Follow-up Plan needs outpatient followup with PCP for continued management and urology refferal. Primary Care Provider Not On Staff Doctor Time spent on discharge: > 30 minutes Pending Labs Laboratory Tests Test 12/20/18 18:40 12/20/18 20:10 12/21/18 05:51 12/21/18 10:30 Bedside 188 173 100 Glucose mg/dL (70-220) mg/dL (70-220) mg/dL (70-220) Sodium Level 140 mmol/L (135-14 4) Potassium 4.2 Level mmol/L (3.5-5. 1) Chloride Level 111 mmol/L (97-110 ) Carbon Dioxide 22 Level mmol/L (21-31) Anion Gap 7 (5-13) Blood Urea 28 Nitrogen mg/dl (7-20) Creatinine 1.22 mg/dl (0.61-1. 24) Est Glomerular mL/min (>60) Filtrat Rate mL/min Glucose Level 138 mg/dl (70-220) Calcium Level 7.8 mg/dl (8.4-10. 2) Phosphorus 3.0 Level mg/dl (2.5-4.9 ) Magnesium 2.0 Level mg/dl (1.7-2.5 ) Test 12/21/18 12:09 Bedside 124 Glucose mg/dL (70-220) LOR PRECIADO Dec 21, 2018 13:33
[2018-12-21] MEDS ORDERED: TAMS-14 PO (14:00)
--- NOTE | 2018-12-21 16:05 | CONS ---
Assessment/Plan Assessment/Plan Hospital Course (Demo Recall) Possible GI bleed and acute cholecystitis-percutaneous cholecystostomy Chronic atrial fibrillation, previously on anticoagulation Hypertension Diabetes -Heart rate trend overall stable on current dose of beta-apurva. Continue as tolerated -Restart anticoagulation when okay by GI and primary team -DC planning Consultation Date/Type/Reason Admit Date/Time Dec 16, 2018 at 01:30 Initial Consult Date 12/18/18 Type of Consult Cardiology Requesting Provider: CHENTE HOGUE Date/Time of Note DATE: 12/21/18 TIME: 16:03 24 HR Interval Summary Free Text/Dictation Denies palpitations, chest pain or shortness of breath Exam/Review of Systems Vital Signs Vitals Vital Signs Date Temp Pulse Resp B/P (MAP) Pulse Ox O2 O2 Flow FiO2 Time Delivery Rate 12/21/18 98.2 79 20 136/65 97 15:52 (88) 12/18/18 Room Air 16:12 Intake and Output 12/20/18 12/20/18 12/21/18 1515:00 23:00 07:00 IntakeIntake Total 500 ml 1300 ml OutputOutput Total 585 ml 1400 ml BalanceBalance -85 ml -100 ml Exam Constitutional: alert, oriented (No apparent distress) Respiratory: other (Coarse breath sounds bilaterally, no wheezing) Cardiovascular: irregular rhythm (S1-S2 heard) Gastrointestinal: soft, non-tender, bowel sounds Extremities: other (No significant edema) Labs Result Diagram: 12/20/18 0606 12/21/18 1030 Results 24hrs Laboratory Tests Test 12/20/18 18:40 12/20/18 20:10 12/21/18 05:51 12/21/18 10:30 Bedside Glucose 188 173 100 Sodium Level 140 Potassium Level 4.2 Chloride Level 111 H Carbon Dioxide Level 22 Anion Gap 7 Blood Urea Nitrogen 28 H Creatinine 1.22 Est Glomerular Filtrat Rate mL/min Glucose Level 138 # Calcium Level 7.8 L Phosphorus Level 3.0 Magnesium Level 2.0 Test 12/21/18 12:09 Bedside Glucose 124 Medications Medications Current Medications IV Flush (NS 3 ml) 3 ml PER PROTOCOL IV ; Start 12/16/18 at 02:00 Ondansetron HCl (Zofran Inj) 4 mg Q6H PRN IV NAUSEA/VOMITING; Start 12/16/18 at 02:00 Acetaminophen (Tylenol Tab) 650 mg Q6H PRN PO .PAIN 1-3 OR TEMP; Start 12/16/18 at 02:00 Piperacillin Sod/ Tazobactam Sod 100 ml @ 200 mls/hr Q8 IVPB Last administered on 12/21/18at 13:21; Admin Dose 200 MLS/HR; Start 12/16/18 at 06:00 Hydromorphone HCl (Dilaudid) 0.5 mg Q4H PRN IV SEVERE PAIN LEVEL 7-10 Last administered on 12/19/18at 21:42; Admin Dose 0.5 MG; Start 12/16/18 at 07:00 Diagnostic Test (Pha) (Accu-Chek) 1 ea 02 XX ; Start 12/17/18 at 02:00 Polyethylene Glycol (Miralax) 17 gm DAILY PO Last administered on 12/21/18at 08:02; Admin Dose 17 GM; Start 12/16/18 at 12:00 Docusate Sodium (Colace) 100 mg BID PO Last administered on 12/21/18at 08:02; Admin Dose 100 MG; Start 12/16/18 at 21:00 Sodium Chloride 1,000 ml @ 60 mls/hr [id number] IV Last administered on 12/20/18at 23:42; Admin Dose 60 MLS/HR; Start 12/16/18 at 12:00 Miscellaneous Information 1 ea NOTE XX ; Start 12/16/18 at 12:00 Glucose (Glutose) 15 gm Q15M PRN PO DECREASED GLUCOSE; Start 12/16/18 at 12:00 Glucose (Glutose) 22.5 gm Q15M PRN PO DECREASED GLUCOSE; Start 12/16/18 at 12:00 Dextrose (D50w Syringe) 25 ml Q15M PRN IV DECREASED GLUCOSE; Start 12/16/18 at 12:00 Dextrose (D50w Syringe) 50 ml Q15M PRN IV DECREASED GLUCOSE; Start 12/16/18 at 12:00 Glucagon (Glucagen) 1 mg Q15M PRN IM DECREASED GLUCOSE; Start 12/16/18 at 12:00 Glucose (Glutose) 15 gm Q15M PRN BUCCAL DECREASED GLUCOSE; Start 12/16/18 at 12:00 Insulin Aspart (Novolog Insulin Pen) (Adult SC Insulin - Mild Algorithm)... AC MEALS AND BEDTIME SC Last administered on 12/20/18 18:49; Admin Dose 2 UNIT; Start 12/17/18 at 17:30 Pantoprazole (Protonix Iv) 40 mg BID@06,18 IV Last administered on 12/21/18 05:46; Admin Dose 40 MG; Start 12/17/18 at 18:00 Metoprolol Tartrate (Lopressor) 50 mg BID PO Last administered on 12/21/18 08:02; Admin Dose 50 MG; Start 12/17/18 at 21:00 Diltiazem HCl (Cardizem Iv) 10 mg Q1H PRN IV Sustained hr>130 Last administered on 12/18/18 23:00; Admin Dose 10 MG; Start 12/17/18 at 15:30 Heparin Sodium (Porcine) (Heparin (5000 Units/1ml)) 5,000 unit BID SC Last administered on 12/20/18 20:19; Admin Dose 5,000 UNIT; Start 12/18/18 at 09:00 Tamsulosin HCl (Flomax) 0.4 mg BID PO Last administered on 12/21/18 08:02; Admin Dose 0.4 MG; Start 12/18/18 at 12:00 Finasteride (Proscar) 5 mg DAILY PO Last administered on 12/21/18 08:02; Admin Dose 5 MG; Start 12/18/18 at 13:00 Calcium Carbonate (Tums) 500 mg Q4H PRN PO ACID REFLUX; Start 12/21/18 at 11:00 Simethicone (Mylicon) 80 mg Q6H PRN PO DISTENSION/GAS/BLOATING; Start 12/21/18 at 11:00 Marco Antonio Decker DO Dec 21, 2018 16:05
== END 2018-12-21 18:40 | DRG 872 ==
LOC: E/R 23:08 → 6WM 12-16 01:30
PROVIDERS: ADMIT Family Medicine; ATTEND Family Medicine
PROC: 0T9B70Z Drainage of Bladder with Drainage Device, Via Natural or Artificial Opening (ICD-10-PCS; 2018-12-16)
PROC: 30233K1 Transfusion of Nonautologous Frozen Plasma into Peripheral Vein, Percutaneous Approach (ICD-10-PCS; 2018-12-16)
PROC: 0F9430Z Drainage of Gallbladder with Drainage Device, Percutaneous Approach (ICD-10-PCS; principal; 2018-12-17)
DX: A41.9 Sepsis, unspecified organism (principal); K80.00 Calculus of gallbladder with acute cholecystitis without obstruction; R18.8 Other ascites; N17.9 Acute kidney failure, unspecified; Z66 Do not resuscitate; R74.0 Nonspecific elevation of levels of transaminase and lactic acid dehydrogenase [LDH]; R79.1 Abnormal coagulation profile; I25.10 Atherosclerotic heart disease of native coronary artery without angina pectoris; I25.2 Old myocardial infarction; F03.90 Unspecified dementia, unspecified severity, without behavioral disturbance, psychotic disturbance, mood disturbance, and anxiety; K52.9 Noninfective gastroenteritis and colitis, unspecified; E11.51 Type 2 diabetes mellitus with diabetic peripheral angiopathy without gangrene; I48.2 Chronic atrial fibrillation; E03.9 Hypothyroidism, unspecified; N40.1 Benign prostatic hyperplasia with lower urinary tract symptoms; R33.8 Other retention of urine; K59.00 Constipation, unspecified; N21.0 Calculus in bladder; E11.22 Type 2 diabetes mellitus with diabetic chronic kidney disease; I12.9 Hypertensive chronic kidney disease with stage 1 through stage 4 chronic kidney disease, or unspecified chronic kidney disease; N18.9 Chronic kidney disease, unspecified; N32.89 Other specified disorders of bladder; T38.995A Adverse effect of other hormone antagonists, initial encounter; Z86.73 Personal history of transient ischemic attack (TIA), and cerebral infarction without residual deficits; Z89.512 Acquired absence of left leg below knee; Z89.421 Acquired absence of other right toe(s); Z79.84 Long term (current) use of oral hypoglycemic drugs; Z88.2 Allergy status to sulfonamides; Z87.891 Personal history of nicotine dependence
CPT/HCPCS: 36415; 36430; 71045; 74176; 75989; 76705; 76775; 77012; 78226; 80048; 80053; 80061; 81001; 81003; 82043; 82270; 82962; 83036; 83605; 83690; 83735; 84100; 84155; 84300; 84443; 84484; 85025; 85610; 85730; 86704; 86706; 86709; 86803; 86850; 86900; 86901; 87040; 87070; 87075; 87086; 87340; 93005; 93922; 96374; 96375; 96376; A9537; C9113; J0696; J1170; J1644; J1815; J2060; J2270; J2354; J2405; J2543; J7030; J7040; J7042; P9059

== ENCOUNTER 2019-01-18 12:26 | Inpatient (IN) | payer OTHER, MEDICAID ==
[~2019-01-18] VITALS: Ht 182.9 cm; Wt 69.0 kg
[~2019-01-18 12:26] MED LIST: DABI150C PO; DOCU-144 PO; FINA5TAB4 PO; LISI2.5T59 PO; METO-429 PO; METR500P3 IV; PANT40TA3 PO; POLY17PO6 PO; TAMS-14 PO; TAMS0.4C2 PO; [UNRECOGNIZED DRUG - CODE] IVPB
--- NOTE | 2019-01-18 12:46 | ERD ---
ER Documentation Chief Complaint Chief Complaint abdominal pain HPI The patient is a 88-year-old male, presenting to the ED because of abdominal pain since he had percutaneous cholecystostomy AMILCAR drain is placement on December 2018; however he has been worse for the last 3 days. He denies fever, chills, neck pain, chest pain, dyspnea, vomiting, dyspnea, diarrhea, constipation. Past medical history: History of CVA, CAD, BPH, hypertension, atrial fibrillation, PAD Past surgical history: Left below-knee amputation ROS All systems reviewed and are negative except as per history of present illness. Medications Home Meds Active Scripts Finasteride* (Finasteride*) 5 Mg Tablet, 5 MG PO DAILY, #30 TAB Prov:UMA PRECIADOMAIA Edgar. 12/20/18 Pantoprazole* (Protonix*) 40 Mg Tablet.dr, 40 MG PO DAILY for 30 Days, TAB Prov:ILANA,LOR M. 12/20/18 Reported Medications Insulin Lispro (Humalog) 100 Unit/1 Ml Cartridge, 0 SQ SLIDING SCALE, EA IF BS IS 71-150=0 UNIT<70=ORANGE JUICE OR GLUCAGON 1MG THEN CALL MD. IF BS 151-200=2 UNITS,201-250=4 UNITS, 251-300=6 UNITS,301-350=8 UNITS, 351-400=10 UNITS>400=12 UNITS THEN CALL MD. 01/18/19 Metoprolol Tartrate* (Lopressor*) 50 Mg Tab, 50 MG PO BID, #60 TAB HOLD FOR SBP<110 OR HR<60 01/18/19 Calcium Carbonate (Calcium Carbonate) 500 Mg Tab.chew, 500 MG PO Q4H, TAB.CHEW 01/18/19 Acyclovir* (Acyclovir* Oint) 5%-15 Gm Oint, 1 APPLIC TOP QID, #1 TUB 01/18/19 Multivitamin with Minerals (Multivitamins with Minerals) 1 Each Tablet, 1 EACH PO DAILY, TAB 01/18/19 Hydrocodone/Acetaminophen (Lawrence 5-325 Tablet) 1 Each Tablet, 1 EACH PO Q4H PRN for PAIN LEVEL 6-10, TAB 01/18/19 Protein Supplement (Promod) 946 Ml Liquid, 30 ML PO BID 01/18/19 Sennosides* (Senna Lax*) 8.6 Mg Tablet, 2 TAB PO QHS PRN for PRN, TAB 01/18/19 Tamsulosin Hcl* (Tamsulosin Hcl*) 0.4 Mg Cap.er.24h, 0.4 MG PO HS, CAP 01/18/19 Tuberculin,Purif.prot.deriv. (Tubersol) 5 Tub Unit/0.1 Ml Vial, 5 TUB ID QHS Q 365D, VIAL FOR TB SCREENING YEARLY,ORDER DATE 01/11/19 01/18/19 Acetaminophen* (Acetaminophen*) 325 Mg Tablet, 650 MG PO Q4H PRN for PAIN AND OR ELEVATED TEMP, #30 TAB 01/18/19 Ascorbic Acid (Vitamin C) 500 Mg Tab, 500 MG PO DAILY, TAB 01/18/19 Lisinopril* (Lisinopril*) 2.5 Mg Tablet, 2.5 MG PO DAILY, #30 TAB HOLD FOR SBP<110 OR HR<60 12/16/18 Dabigatran Etexilate Mesylate* (Pradaxa*) 150 Mg Capsule, 150 MG PO DAILY, CAP 12/16/18 Discontinued Scripts Tamsulosin Hcl* (Flomax*) 0.4 Mg Cap.er.24h, 0.4 MG PO BID for 30 Days, CAP Prov:LOR PRECIADO. 12/21/18 Polyethylene Glycol* (Miralax*) 17 Gm Powd.pack, 17 GM PO DAILY for 30 Days Prov:LOR PRECIADO. 12/20/18 Docusate Sodium* (Colace*) 100 Mg Capsule, 100 MG PO BID, #60 CAP Prov:LOR PRECIADO. 12/20/18 Metoprolol Tartrate* (Lopressor*) 50 Mg Tab, 50 MG PO BID, #30 TAB Prov:LOR PRECIADO. 12/20/18 Metronidazole/Sodium Chloride (Metro IV 500 mg/100 ml) 500 Mg/100 Ml Piggyback, 500 MG IV Q8H for 9 Days Prov:LOR PRECIADO. 12/20/18 Ciprofloxacin/Dextrose* (Cipro IVPB*) 400 Mg/200 Ml Iv.soln., 400 MG IVPB Q12, #9 EA Prov:LOR PRECIADO. 12/20/18 Tamsulosin Hcl* (Tamsulosin Hcl*) 0.4 Mg Cap.er.24h, 0.4 MG PO BID for 30 Days, #60 CAP Prov:LOR PRECIADO 12/20/18 Allergies Allergies: Coded Allergies: Sulfa (Sulfonamide Antibiotics) (Verified Allergy, Unknown, 01/18/19) PMhx/Soc History of Surgery: Yes (HERNIA REPAIR, LEFT BKA) Anesthesia Reaction: No Hx Neurological Disorder: Yes (CVA) Hx Respiratory Disorders: No Hx Cardiac Disorders: Yes ([place]) Hx Psychiatric Problems: Yes Hx Miscellaneous Medical Probl: No Hx Alcohol Use: No Hx Substance Use: No Hx Tobacco Use: No Physical Exam Vitals Vital Signs Date Temp Pulse Resp B/P (MAP) Pulse Ox O2 O2 Flow FiO2 Time Delivery Rate 01/18/19 98.2 18:13 01/18/19 83 20 137/77 98 Room Air 17:34 (97) 01/18/19 72 20 119/74 96 Room Air 14:29 (89) 01/18/19 97.5 72 16 120/83 99 12:42 (95) Physical Exam Const: No acute distress. Head: Atraumatic. Eyes: Normal Conjunctiva. ENT: Normal External Ears, Nose and Mouth. Neck: Full range of motion. No meningismus. Resp: Clear to auscultation bilaterally. Cardio: Regular rate and rhythm. Abd: Soft, non distended, normal bowel sounds, vague, diffuse abdominal tenderness, mild tenderness in the right upper quadrant, positive for AMILCAR drainage Skin: No petechiae or rashes. Back: No midline or flank tenderness. Ext: No cyanosis, or edema. Neur: Awake and alert. No focal deficit Psych: Normal Mood and Affect. Result Diagram: 01/18/19 1324 01/18/19 1324 Results 24 hrs Laboratory Tests Test 01/18/19 13:24 01/18/19 14:18 White Blood Count 6.1 10^3/ul Red Blood Count 4.32 10^6/ul Hemoglobin 12.5 g/dl Hematocrit 38.9 % Mean Corpuscular Volume 90.0 fl Mean Corpuscular Hemoglobin 28.9 pg Mean Corpuscular Hemoglobin Concent 32.1 g/dl Red Cell Distribution Width 14.5 % Platelet Count 196 10^3/UL Mean Platelet Volume 11.3 fl Immature Granulocytes % 0.500 % Neutrophils % 51.8 % Lymphocytes % 35.0 % Monocytes % 10.1 % Eosinophils % 2.1 % Basophils % 0.5 % Nucleated Red Blood Cells % 0.0 /100WBC Immature Granulocytes # 0.030 10^3/ul Neutrophils # 3.1 10^3/ul Lymphocytes # 2.1 10^3/ul Monocytes # 0.6 10^3/ul Eosinophils # 0.1 10^3/ul Basophils # 0.0 10^3/ul Nucleated Red Blood Cells # 0.0 10^3/ul Prothrombin Time 13.1 Sec Prothrombin Time Ratio 1.0 INR International Normalized Ratio 0.98 Activated Partial Thromboplast Time 30.2 Sec Sodium Level 137 mmol/L Potassium Level 4.3 mmol/L Chloride Level 104 mmol/L Carbon Dioxide Level 26 mmol/L Anion Gap 7 Blood Urea Nitrogen 29 mg/dl Creatinine 1.22 mg/dl Est Glomerular Filtrat Rate mL/min mL/min Glucose Level 251 mg/dl Calcium Level 8.9 mg/dl Total Bilirubin 0.6 mg/dl Direct Bilirubin 0.00 mg/dl Indirect Bilirubin 0.6 mg/dl Aspartate Amino Transf (AST/SGOT) 19 IU/L Alanine Aminotransferase (ALT/SGPT) 9 IU/L Alkaline Phosphatase 119 IU/L Troponin I < 0.012 ng/ml Total Protein 7.9 g/dl Albumin 3.5 g/dl Globulin 4.40 g/dl Albumin/Globulin Ratio 0.79 Lipase 64 U/L Bedside Urine pH (LAB) 5.5 Bedside Urine Protein (LAB) 1+ Bedside Urine Glucose (UA) 0.25% Bedside Urine Ketones (LAB) Negative Bedside Urine Blood Negative Bedside Urine Nitrite (LAB) Negative Bedside Urine Leukocyte Esterase (L Negative Current Medications Medications Dose Sig/Ye Start Time Status Last (Trade) Ordered Route PRN Stop Time Admin Dose Reason Admin Fentanyl 25 mcg ONCE ONCE 01/18/19 DC 01/18/19 (Sublimaze) IV 13:30 01/18/19 13:29 13:31 Sodium 500 ml @ Q1H ONCE 01/18/19 DC 01/18/19 Chloride 500 mls/hr IV 14:30 01/18/19 14:25 15:29 Iohexol 30 ml STK-MED 01/18/19 DC (Omnipaque ONCE .ROUTE 15:48 01/18/19 300mg/ ml) 15:49 Sodium 500 ml @ Q1H ONCE 01/18/19 DC 01/18/19 Chloride 500 mls/hr IV 18:30 01/18/19 19:21 19:29 Fentanyl 25 mcg ONCE ONCE 01/18/19 DC 01/18/19 (Sublimaze) IV 18:30 01/18/19 19:02 18:31 Piperacillin 100 ml @ ONCE ONCE 01/18/19 DC 01/18/19 Sod/ 200 mls/hr IVPB 18:30 01/18/19 19:03 Tazobactam 18:59 Sod IV Flush 3 ml PER 01/18/19 (NS 3 ml) PROTOCOL IV 19:00 Ondansetron 4 mg Q6H PRN 01/18/19 HCl (Zofran IV 19:00 Inj) NAUSEA/VOMITI NG 650 mg Q6H PRN 01/18/19 DC Acetaminophen PO .PAIN 1-3 19:00 01/18/19 (Tylenol OR TEMP 19:15 Tab) 1 tab Q6H PRN 01/18/19 Acetaminophen PO .MOD PAIN 19:00 / 4-6 Hydrocodone Bitart (Lawrence (5/325)) Morphine 2 mg Q4H PRN 01/18/19 Sulfate IV .SEVERE 19:00 (morphine) PAIN 7-10 Docusate 100 mg Q12H PRN 01/18/19 Sodium PO 19:00 (Colace) .CONSTIPATION Magnesium 30 ml DAILY PRN 01/18/19 Hydroxide PO 19:00 (Milk Of Mag) .CONSTIPATION 40 mg DAILY@06 01/19/19 Pantoprazole IV 06:00 (Protonix Iv) Sodium 1,000 ml @ [id number] IV 01/18/19 Chloride 75 mls/hr 18:54 Lorazepam 0.5 mg Q6H PRN 01/18/19 (Ativan) IV ANXIETY 19:00 Albuterol/ 3 ml Q4H RESP 01/18/19 Ipratropium THERAPY PRN 19:00 (Duoneb) HHN SHORTNESS OF BREATH Piperacillin 100 ml @ Q6 IVPB 01/19/19 Sod/ 200 mls/hr 00:00 Tazobactam Sod Hydralazine 10 mg Q6H PRN 01/18/19 HCl IV ELEVATED 19:00 (Apresoline) BLOOD PRESSURE 1 tab Q5M PRN 01/18/19 Nitroglycerin SL ANGINA 19:00 (Nitroglyceri n (Sl Tab) 0.4 Mg) 650 mg Q4H PRN 01/18/19 Acetaminophen PO MILD 19:00 (Tylenol PAIN(1-3)OR Tab) ELEVATED TEMP Ascorbic 500 mg DAILY PO 01/19/19 Acid 09:00 (Vitamin C) Finasteride 5 mg DAILY PO 01/19/19 (Proscar) 09:00 Lisinopril 2.5 mg DAILY PO 01/19/19 (Zestril) 09:00 Metoprolol 50 mg BID PO 01/18/19 Tartrate 21:00 (Lopressor) 40 mg DAILY PO 01/19/19 DC Pantoprazole 09:00 (Protonix 01/19/19 09:00 Tab) Senna 2 tab QHS PRN 01/18/19 (Senokot) PO PRN 19:00 Tamsulosin 0.4 mg HS PO 01/18/19 HCl 21:00 (Flomax) Calcium 500 mg Q4H PRN 01/18/19 Carbonate PO HEARTBURN 19:30 (Tums) 1 tab DAILY PO 01/19/19 Multivitamins 09:00 / Minerals (Theragran-M) 30 ml BID PO 01/18/19 DC Miscellaneous 21:00 01/18/19 Information 21:00 5 tub QHS Q 365D 01/18/19 DC Miscellaneous ID 19:00 01/18/19 Information 19:22 Discontinue ONCE ONCE 01/18/19 UNV Miscellaneous current oral XX 20:00 01/18/19 sulfonylur... 20:01 Information (* Miscellaneous Pharmacy Order) Diagnostic 1 ea 02 XX 01/19/19 UNV Test (Pha) 02:00 (Accu-Chek) ONCE ONCE 01/18/19 UNV Miscellaneous HYPOGLYCEMIA XX 20:00 01/18/19 PROTOCOL 20:01 Information w... (* Miscellaneous Pharmacy Order) Insulin NOVOLOG Q4 SC 01/18/19 UNV Aspart *MILD* 21:00 (Novolog ALGORI... Insulin Pen) Discontinue ONCE ONCE 01/18/19 UNV Miscellaneous all previ... XX 20:00 01/18/19 20:01 Information (* Miscellaneous Pharmacy Order) Procedures/[facility] [place] [address] Rad[facility] Main Line: [phone] DIAGNOSTIC IMAGING REPORT Patient: MELISSA WARD : 1930 Age: 88 Sex: M [id number] DOS: 01/18/19 1513 Ordering MD: JAIDEN TRINH MD Location: E/R Room/Bed: PROCEDURE: Cholecystogram. CLINICAL INDICATION: Right upper quadrant pain. The patient has a cholecystostomy tube which was placed on 12/17/2018.. TECHNIQUE: Images of the right upper quadrant were obtained during injection of 10 ml of Omnipaque-300 into the right upper quadrant colostomy tube. Images were obtained with fluoroscopic guidance. Fluoroscopy time is 6 seconds and 4 images were obtained. COMPARISON: CT scan of the abdomen and pelvis dated 01/18/2019. FINDINGS: Images demonstrate a cholecystostomy tube in position with the pigtail in the lateral aspect of the gallbladder. Multiple gallstones are present in the gallbladder and within the cystic duct. The common bile duct is not opacified. Purulent fluid is also noted in the drainage catheter. IMPRESSION: 1. Cholecystogram demonstrates the cholecystostomy tube with the pigtail in the lateral aspect of the gallbladder. There is persistent cystic duct obstruction due to multiple gallstones. 2. Purulent fluid in the drainage catheter. The drainage catheter should be changed for a larger tube and directed deeper into the gallbladder. Call report: A call report of the findings was made to Dr. Trinh on 01/18/2019 at 1630 hours. RPTAT: QQ .Melecio Neff MD, Date Time Electronically viewed and signed by .Melecio Neff MD, on 01/18/2019 16:57 .R/ CC: JAIDEN TRINH MD [id number] [place] [address] Radiology Main Line: [phone] DIAGNOSTIC IMAGING REPORT Patient: MELISSA WARD : 1930 Age: 88 Sex: M MR #: [id number] DOS: 01/18/19 1301 Ordering MD: JAIDEN TRINH MD Location: E/R Room/Bed: PROCEDURE: CT ABDOMEN AND PELVIS WITHOUT CONTRAST. CLINICAL INDICATION: Abdominal pain TECHNIQUE: CT scan of the abdomen and pelvis without contrast was performed on a multidetector high-resolution CT scanner. The patient was scanned without intravenous contrast. Coronal and sagittal reformatted images were obtained f rom the axial source images. Images were reviewed on a high-resolution PACS workstation. The total exam CTDI equals 15.5 mGy and the total exam DLP equals 891.8 mGy-cm. One or more of the following dose reduction techniques were used: Automated exposure control. Adjustment of the mA and/or kV according to patient size. Use of iterative reconstruction technique. DICOM images are available COMPARISON: CT 12/17/2018 FINDINGS: CT abdomen: Bilateral lower lobe atelectasis. Heart size is mildly enlarged. There are coronary atherosclerotic ossification. No significant pericardial effusion. Hepatic morphology is within limits. Multiple gallstones are noted within the gallbladder. A percutaneous cholecystostomy tube is noted within the gallbladder. No evidence of intrahepatic or extrahepatic biliary dilatation. The spleen and pancreas are within normal limits. Both adrenal glands are within normal limits. Both kidneys are in normal anatomic position. Nonspecific bilateral perinephric fat stranding. No gross renal/ureteric calculi. No evidence of obstructive uropathy. The visualized GI tract demonstrate normal caliber loops of small and large bowel. No evidence of bowel obstruction. There is a moderate-sized hiatal hernia. Stool filled loops of large bowel suggestive of constipation. Atherosclerotic calcification of the aorta is identified. No significant retroperitoneal lymphadenopathy. CT pelvis: The bladder is identified, containing multiple calcifications along the posterior wall. The prostate gland is enlarged measuring up to 5.7 cm. The rectosigmoid colon demonstrates stool. No significant free fluid. No pelvic lymphadenopathy. 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 Grade 1 anterolisthesis of L5-S1. IMPRESSION: 1. Bilateral lower lobe atelectasis. Cardiomegaly and coronary atherosclerotic disease. 2. Gallstone filled gallbladder. Percutaneous cholecystostomy tube noted overlying the gallbladder. There is decompression of the gallbladder and improved appearance of inflammatory changes since prior study. 3. Moderate size hiatal hernia. 4. No evidence of bowel obstruction. Stool filled loops of large bowel suggestive of constipation. Mild fecal impaction. 5. Diffuse atherosclerotic disease. 6. No gross renal/ureteric calculi. No evidence of obstructive uropathy. 7. Prostamegaly. Recommend correlation with PSA levels. 8. Multilevel degenerative disease of the spine and grade 1 anterolisthesis of L5-S1. RPTAT: AAPP Physician Roxann Date Time Electronically viewed and signed by Physician Roxann on 01/18/2019 14:22 JL/ CC: JAIDEN TRINH MD [id number] [place] [address] Radiology Main Line: [phone] DIAGNOSTIC IMAGING REPORT Patient: MELISSA WARD : 1930 Age: 88 Sex: M MR #: [id number] DOS: 01/18/19 1301 Ordering MD: JAIDEN TRINH MD Location: E/R Room/Bed: PROCEDURE: XR Chest. CLINICAL INDICATION: Abdominal pain TECHNIQUE: Single frontal view of the chest was obtained COMPARISON: None FINDINGS: The heart and mediastinum are within normal limits. There is mild elevation of the right diaphragm with mild right lower lobe linear atelectasis. There is no pleural effusion or pneumothorax. RPTAT: AA IMPRESSION: Mild elevation of the right diaphragm with mild right lower lobe linear atelectasis. .Bishop Ahuja MD, Date Time Electronically viewed and signed by .Bishop Ahuja MD, on 01/18/2019 13:18 .S/ CC: JAIDEN TRINH MD [id number] MEDICAL MAKING DECISION: The patient is a 88-year-old male, presenting with dislodged and obstructed AMILCAR drainage. He was treated with fentanyl 25 mcg IV x2 for pain, 500 ml NS IV x2 5 daily hydration, Zosyn empirically with good response. The differential diagnoses considered include but are not limited to cellulitis, abscess, choledocholithiasis, cholangitis, pancreatitis, hepatitis, gastritis, peptic ulcer disease, gastric ulcer, appendicitis, cystitis, diverticulitis, partial small bowel obstruction. Consultation: I discussed the person with his general surgeon Dr. Huffman, who was made aware of the lab, under treatment, the patient findings and he accepted the consult Departure Diagnosis: Primary Impression: AMILCAR drain, broken Additional Impressions: Dehydration Anemia Condition: Stable Comments I discussed the findings with the patient. I discussed the patient with the hospitalist Dr Ross at 6:15p who was made aware of the lab, the treatment, the patient condition. The patient is admitted to [facility] Disclaimer: Inadvertent spelling and grammatical errors are likely due to EHR/di ctation software use and do not reflect on the overall quality of patient care. Also, please note that the electronic time recorded on this note does not necessarily reflect the actual time of the patient encounter. JAIDEN TRINH MD Jan 18, 2019 12:46
[2019-01-18] MEDS ORDERED: FENTAnyl 50 MCG/ML VIAL IV ONE ×2 (13:30→18:30)
[2019-01-18] MEDS ORDERED: SOD CHLORIDE 0.9% 500 ML IV ONE ×2 (14:30→18:30)
[2019-01-18] MEDS ORDERED: ASC500 PO (14:49)
[2019-01-18] MEDS ORDERED: ACET325T45 PO (14:50)
[2019-01-18] MEDS ORDERED: TAMS0.4C2 PO (14:52)
[2019-01-18] MEDS ORDERED: TUBE5VIA3 ID (14:52)
[2019-01-18] MEDS ORDERED: PROT946L PO (14:53)
[2019-01-18] MEDS ORDERED: SENN-120 PO (14:53)
[2019-01-18] MEDS ORDERED: HYDR-4011 PO (14:54)
[2019-01-18] MEDS ORDERED: MULT-105 PO (14:55)
[2019-01-18] MEDS ORDERED: ACYC15OI6 TOP (14:56)
[2019-01-18] MEDS ORDERED: CALC-459 PO (14:57)
[2019-01-18] MEDS ORDERED: METO-429 PO (14:58)
[2019-01-18] MEDS ORDERED: INSU100C SQ (15:02)
[2019-01-18] MEDS ORDERED: IOHEXOL 300MG/ML 30 ML BTL ONE (15:48)
[2019-01-18] MEDS ORDERED: PIPER-TAZO 3.375 GM IV (PMX) 100 ML IVPB ONE (18:30)
[2019-01-18] MEDS ORDERED: LORAZEPAM 2 MG INJ IV PRN (19:00)
[2019-01-18] MEDS ORDERED: ALBUTEROL/IPRATROPIUM (NEB) 3 ML AMP HHN PRN (19:00)
[2019-01-18] MEDS ORDERED: ACETAMINOPHEN 325 MG TAB PO PRN ×2 (19:00)
[2019-01-18] MEDS ORDERED: NITROGLYCERIN (SL) 0.4 MG TAB SL PRN (19:00)
[2019-01-18] MEDS ORDERED: ONDANSETRON 4 MG INJ IV PRN (19:00)
[2019-01-18] MEDS ORDERED: SENNA TAB PO PRN (19:00)
[2019-01-18] MEDS ORDERED: NON-FORMULARY/PATIENT OWN MED (Tuberculin,Purif.prot.deriv. (Tubersol) 5 TUB) ID SCH (19:00)
[2019-01-18] MEDS ORDERED: MAGNESIUM HYDROXIDE 30ML CUP PO PRN (19:00)
[2019-01-18] MEDS ORDERED: DOCUSATE SODIUM 100 MG CAP PO PRN (19:00)
[2019-01-18] MEDS ORDERED: hydrALAzine 20 MG INJ IV PRN (19:00)
[2019-01-18] MEDS ORDERED: NACL 0.9% 3 ML SYG IV SCH (19:00)
[2019-01-18] MEDS ORDERED: CALCIUM CARBONATE 500 MG CHEW TAB PO PRN (19:30)
[2019-01-18 20:00] VITALS: BP 135/65; PULSE 82; RESP 18
--- NOTE | 2019-01-18 20:06 | HP ---
DATE OF ADMISSION: 01/18/2019 IDENTIFICATION: This is an 88-year-old male. CHIEF COMPLAINT: Dislodged AMILCAR drain. HISTORY OF PRESENT ILLNESS: An 88-year-old male with past medical history based on records of chroni c atrial fibrillation, hypertension, diabetes, chronic kidney disease, acalculous cholecystitis, stat us post percutaneous cholecystostomy and drain placement in 12/2018, low HDL, subclinical hypothyroid ism, who comes in after experiencing abdominal pain for the last 1-1/2 weeks. Denies any nausea or v omiting. No fevers or chills. No diarrhea or constipation. No upper or lower GI bleeding. However when he came in today, he was noted to have a dislodged AMILCAR drain that was thought to be the source o f his abdominal pain. ER team spoke to the surgery team who will come evaluate the patient. Also, i [facility] radiology has been informed and likely they were replaced the AMILCAR drainage tube in the n ext 12 to 24 hours. PAST MEDICAL HISTORY: As stated above. ALLERGIES: SULFA MEDICATIONS. HOME MEDICATIONS: 1. Flomax 0.4 mg at bedtime. 2. Pradaxa 150 mg daily. 3. Lisinopril 2.5 mg daily. 4. Lopressor 50 mg b.i.d. 5. Tylenol 650 q.4 p.r.n. 6. Turney 5/325 q.4 p.r.n. 7. Tubersol yearly. 8. Calcium carbonate 500 mg q.4 hours. 9. Promod 30 mL p.o. b.i.d. 10. Protonix 40 mg daily. 11. Senna 2 tabs at bedtime p.r.n. 12. Acyclovir ointment apply topically q.i.d. 13. Humalog insulin sliding scale. 14. Vitamin C 500 mg daily. 15. Multivitamin 1 tab daily. 16. Finasteride 5 mg daily. PAST SURGICAL HISTORY: Left BKA, prior hernia repair and again recent cholecystostomy. SOCIAL HISTORY: Former drinker, quit at age 35. Denies any smoking history or IV drug abuse. FAMILY HISTORY: Noncontributory. PHYSICAL EXAMINATION: VITAL SIGNS: Today, T-max 97.5, pulse 72, respirations 16, blood pressure 120/83, satting at 99% sofya m air. GENERAL: The patient is lying in bed, answering questions appropriately, in no acute distress. HEENT: Pupils are equal, round, react to light. Extraocular muscles are intact. NECK: Supple. No thyromegaly. LUNGS: Clear to auscultation bilaterally. CARDIOVASCULAR: S1, S2 heard. No rubs or gallop. ABDOMEN: Tenderness to palpation in the right upper quadrant. Otherwise, no rebound or guarding. N ormal bowel sounds. MUSCULOSKELETAL: No lower extremity edema bilaterally. NEUROLOGIC: No focal deficits. LABORATORIES: CBC is normal. Comprehensive metabolic panel is normal. Coags are normal. DIAGNOSTIC DATA: The patient had CT scan of abdomen and pelvis today shows bilateral lower lobe atel ectasis, gallstone filled gallbladder, percutaneous cholecystostomy tube noted overlying the gallblad isaac. There is decompression of the gallbladder and improved appearance of inflammatory changes since prior study. No evidence of any bowel obstruction. Moderate sized hiatal hernia. The patient had chest x-ray: Mild elevation of right diaphragm with mild right lower lobe linear atelectasis. The p atient had a cholecystogram today that demonstrates the cholecystostomy tube with the pigtail in the lateral aspect of the gallbladder. There is persistent cystic duct obstruction due to multiple galls tones, purulent fluid in the catheter drainage catheter. The drainage catheter should be changed for a larger tube and directed deeper into the gallbladder. ASSESSMENT AND PLAN: An 88-year-old male with history of atrial flutter, atrial fibrillation, chroni c kidney disease, recent cholecystostomy with tube in place now with dislodged AMILCAR drain after experie ncing abdominal pain for a week and a half. 1. Dislodged AMILCAR drain. Again this is the tube placed in 12/2018 for percutaneous cholecystostomy. Again, admit the patient. Keep him n.p.o. for now. Give him IV fluids, pain control medications as well. Check TSH, A1c, lipid panel. We will get a surgery consult, which has already been obtained i n the ER. We are waiting officially for that. Again, the patient likely will go for IR-guided tube change by interventional radiology in the next 12 to 24 hours. Continue broad-spectrum antibiotics a s well given the cholangiogram findings. 2. Atrial fibrillation and flutter. Continue to monitor heart rate on telemetry. 3. History of chronic kidney disease. Creatinine is stable. Continue to monitor for now. 4. History of diabetes. Last A1c checked last month was 7.5. Place the patient on insulin sliding scale. Monitor sugars. 5. History of hypertension. Blood pressure is stable. Continue to monitor for now. 6. History of enlarged prostate. Continue Proscar. 7. Gastrointestinal prophylaxis, PPI. 8. Deep venous thrombosis prophylaxis, SCDs. Dictated By: JOSH OGDEN/ANGEL Conf#: [id number] DID#: [id number] CC: JAIDEN TRINH MD; MASON MARKS MD;*[facility]*
[2019-01-18] MEDS ORDERED: GLUCOSE GEL 15 GRAM TUBE PO PRN ×2 (20:30)
[2019-01-18] MEDS ORDERED: DEXTROSE 50% 50 ML SYRINGE IV PRN ×2 (20:30)
[2019-01-18] MEDS ORDERED: GLUCOSE GEL 15 GRAM TUBE BUCCAL PRN (20:30)
[2019-01-18] MEDS ORDERED: GLUCAGON 1 MG INJ IM PRN (20:30)
[2019-01-18] MEDS ORDERED: NON-FORMULARY/PATIENT OWN MED (Protein Supplement (Promod) 30 ML) PO SCH (21:00)
[2019-01-18] MEDS: SOD CHLORIDE 0.45% 1,000 ML IV SCH (22:02)
[2019-01-18] MEDS: morphine 2 MG INJ IV PRN (22:28)
[2019-01-18] MEDS ORDERED: DIMETHICONE STICK TOP PRN (22:30)
[2019-01-18] MEDS: METOPROLOL 50 MG TAB PO SCH (22:56)
[2019-01-18] MEDS: TAMSULOSIN (SR) 0.4 MG CAP PO SCH (22:56)
[2019-01-18 23:44] VITALS: Ht 182.9 cm; Wt 69.0 kg
[2019-01-19] VITALS (8 sets, daily range): BP systolic 100–138; BP diastolic 53–67; PULSE 75–88; RESP 16–26
[2019-01-19] MEDS: PIPER-TAZO 3.375 GM IV (PMX) 100 ML IVPB SCH ×4 (00:52→18:51)
[2019-01-19] MEDS: INSULIN ASPART [NOVOLOG] 3 ML PEN SC SCH ×6 (01:37→21:35)
[2019-01-19] MEDS: ACCU-CHEK XX SCH (02:25)
[2019-01-19] MEDS ORDERED: PENDING SANTYL ORDER FOR WOUND CARE XX PRN (06:30)
[2019-01-19] MEDS: PANTOPRAZOLE 40 MG INJ IV SCH (06:44)
[2019-01-19] MEDS: SOD CHLORIDE 0.45% 1,000 ML IV SCH ×2 (08:14→21:34)
[2019-01-19] MEDS: ASCORBIC ACID 500 MG TAB PO SCH (08:15)
[2019-01-19] MEDS: LISINOPRIL 5 MG TAB PO SCH (08:16)
[2019-01-19] MEDS: FINASTERIDE 5 MG TAB PO SCH (08:16)
[2019-01-19] MEDS: METOPROLOL 50 MG TAB PO SCH ×2 (08:17→21:28)
[2019-01-19] MEDS ORDERED: PANTOPRAZOLE (EC) 40 MG TAB PO SCH (09:00)
--- NOTE | 2019-01-19 11:42 | PN ---
Date/Time of Note Date/Time of Note DATE: 01/19/19 TIME: 11:41 Assessment/Plan VTE Prophylaxis Risk score (from Ns)>0 risk: 4 SCD applied (from Ns): Yes Pharmacological prophylaxis: NA/contraindicated Pharm contraindication: other Lines/Catheters IV Catheter Type [facility]from [facility] Peripheral IV Urinary Cath still in place: No Assessment/Plan Hospital Course SUBJECTIVE : Still having abd pain, awaiting drain change objective: GENERAL: The patient is lying in bed, answering questions appropriately, in no acute distress. elderly, anxious HEENT: Pupils are equal, round, react to light. Extraocular muscles are intact. NECK: Supple. No thyromegaly. LUNGS: Clear to auscultation bilaterally. CARDIOVASCULAR: S1, S2 heard. No rubs or gallop. ABDOMEN: Tenderness to palpation in the right upper quadrant. drain noted Otherwise, no rebound or guarding. Normal bowel sounds. MUSCULOSKELETAL: No lower extremity edema bilaterally. NEUROLOGIC: No focal deficits. assessment and plan: An 88-year-old male with history of atrial flutter, atrial fibrillation, chronic kidney disease, recent cholecystostomy with tube in place now with dislodged AMILCAR drain after experiencing abdominal pain for a week and a half 1. Dislodged AMILCAR drain. - tube placed in 12/2018 for percutaneous cholecystostomy. - IR-guided tube change by interventional radiology today - Continue broad-spectrum antibiotics as well given the cholangiogram findings. 2. Atrial fibrillation and flutter. 3. History of chronic kidney disease. Creatinine is stable. Continue to monitor for now. 4. History of diabetes. Last A1c checked last month was 7.5. 5. History of hypertension. 6. History of enlarged prostate. Continue Proscar. . Assessment/Plan Plan: Continue abx AMILCAR drain needs to be exchanged for larger drain or patient may just proceed to cholecystectomy , will d/w surgery Continue supportive care Result Diagram: 01/19/19 0950 01/19/19 0950 Results 24hrs Laboratory Tests Test 01/18/19 13:23 01/18/19 13:24 01/18/19 14:18 01/18/19 21:21 Free Thyroxine 1.19 White Blood Count 6.1 # Red Blood Count 4.32 #L Hemoglobin 12.5 #L Hematocrit 38.9 #L Mean Corpuscular 90.0 Volume Mean Corpuscular 28.9 L Hemoglobin Mean Corpuscular 32.1 Hemoglobin Concent Red Cell 14.5 Distribution Width Platelet Count 196 Mean Platelet Volume 11.3 H Immature 0.500 H Granulocytes % Neutrophils % 51.8 Lymphocytes % 35.0 Monocytes % 10.1 Eosinophils % 2.1 Basophils % 0.5 Nucleated Red Blood 0.0 Cells % Immature 0.030 Granulocytes # Neutrophils # 3.1 Lymphocytes # 2.1 Monocytes # 0.6 Eosinophils # 0.1 Basophils # 0.0 Nucleated Red Blood 0.0 Cells # Prothrombin Time 13.1 # Prothrombin Time 1.0 Ratio INR International 0.98 Normalized Ratio Activated 30.2 Partial Thromboplast Time Sodium Level 137 Potassium Level 4.3 Chloride Level 104 Carbon Dioxide Level 26 Anion Gap 7 Blood Urea Nitrogen 29 H Creatinine 1.22 Est Glomerular Filtrat Rate mL/min Glucose Level 251 H Calcium Level 8.9 Total Bilirubin 0.6 Direct Bilirubin 0.00 Indirect Bilirubin 0.6 Aspartate Amino 19 Transf (AST/SGOT) Alanine 9 L Aminotransferase (AL T/SGPT) Alkaline Phosphatase 119 Troponin I < 0.012 Total Protein 7.9 Albumin 3.5 Globulin 4.40 H Albumin/Globulin 0.79 Ratio Lipase 64 Bedside Urine pH 5.5 (LAB) Bedside Urine 1+ H Protein (LAB) Bedside Urine 0.25% H Glucose (UA) Bedside Urine Negative Ketones (LAB) Bedside Urine Blood Negative Bedside Urine Negative Nitrite (LAB) Bedside Urine Negative Leukocyte Esterase (L Bedside Glucose 153 Test 01/19/19 01:06 01/19/19 04:56 01/19/19 08:16 01/19/19 09:50 Bedside Glucose 182 155 179 White Blood Count 5.6 Red Blood Count 4.03 L Hemoglobin 11.6 L Hematocrit 36.8 L Mean Corpuscular 91.3 Volume Mean Corpuscular 28.8 L Hemoglobin Mean Corpuscular 31.5 L Hemoglobin Concent Red Cell 14.6 H Distribution Width Platelet Count 209 Mean Platelet Volume 10.7 H Immature 0.400 Granulocytes % Neutrophils % 59.2 Lymphocytes % 27.9 Monocytes % 10.2 Eosinophils % 1.8 Basophils % 0.5 Nucleated Red Blood 0.0 Cells % Immature 0.020 Granulocytes # Neutrophils # 3.3 Lymphocytes # 1.6 Monocytes # 0.6 Eosinophils # 0.1 Basophils # 0.0 Nucleated Red Blood 0.0 Cells # Sodium Level 137 Potassium Level 4.5 Chloride Level 105 Carbon Dioxide Level 23 Anion Gap 9 Blood Urea Nitrogen 22 H Creatinine 1.22 Est Glomerular Filtrat Rate mL/min Glucose Level 181 Hemoglobin A1c 7.7 H Calcium Level 8.6 Phosphorus Level 4.0 Magnesium Level 1.7 Triglycerides Level 145 Cholesterol Level 159 LDL Cholesterol, 107 Calculated HDL Cholesterol 23 L Cholesterol/HDL 6.9 Ratio Thyroid Stimulating Pending Hormone (TSH) Exam/Review of Systems Exam Vitals Vital Signs Date Temp Pulse Resp B/P (MAP) Pulse Ox O2 O2 Flow FiO2 Time Delivery Rate 01/19/19 98.8 88 18 125/65 96 08:00 (85) 01/18/19 Room Air 20:43 Intake and Output 01/18/19 01/18/19 01/19/19 1515:00 23:00 07:00 IntakeIntake Total 100 ml OutputOutput Total 75 ml BalanceBalance 25 ml Results Results 24hrs Laboratory Tests Test 01/18/19 13:23 01/18/19 13:24 01/18/19 14:18 01/18/19 21:21 Free Thyroxine 1.19 White Blood Count 6.1 # Red Blood Count 4.32 #L Hemoglobin 12.5 #L Hematocrit 38.9 #L Mean Corpuscular 90.0 Volume Mean Corpuscular 28.9 L Hemoglobin Mean Corpuscular 32.1 Hemoglobin Concent Red Cell 14.5 Distribution Width Platelet Count 196 Mean Platelet Volume 11.3 H Immature 0.500 H Granulocytes % Neutrophils % 51.8 Lymphocytes % 35.0 Monocytes % 10.1 Eosinophils % 2.1 Basophils % 0.5 Nucleated Red Blood 0.0 Cells % Immature 0.030 Granulocytes # Neutrophils # 3.1 Lymphocytes # 2.1 Monocytes # 0.6 Eosinophils # 0.1 Basophils # 0.0 Nucleated Red Blood 0.0 Cells # Prothrombin Time 13.1 # Prothrombin Time 1.0 Ratio INR International 0.98 Normalized Ratio Activated 30.2 Partial Thromboplast Time Sodium Level 137 Potassium Level 4.3 Chloride Level 104 Carbon Dioxide Level 26 Anion Gap 7 Blood Urea Nitrogen 29 H Creatinine 1.22 Est Glomerular Filtrat Rate mL/min Glucose Level 251 H Calcium Level 8.9 Total Bilirubin 0.6 Direct Bilirubin 0.00 Indirect Bilirubin 0.6 Aspartate Amino 19 Transf (AST/SGOT) Alanine 9 L Aminotransferase (AL T/SGPT) Alkaline Phosphatase 119 Troponin I < 0.012 Total Protein 7.9 Albumin 3.5 Globulin 4.40 H Albumin/Globulin 0.79 Ratio Lipase 64 Bedside Urine pH 5.5 (LAB) Bedside Urine 1+ H Protein (LAB) Bedside Urine 0.25% H Glucose (UA) Bedside Urine Negative Ketones (LAB) Bedside Urine Blood Negative Bedside Urine Negative Nitrite (LAB) Bedside Urine Negative Leukocyte Esterase (L Bedside Glucose 153 Test 01/19/19 01:06 01/19/19 04:56 01/19/19 08:16 01/19/19 09:50 Bedside Glucose 182 155 179 White Blood Count 5.6 Red Blood Count 4.03 L Hemoglobin 11.6 L Hematocrit 36.8 L Mean Corpuscular 91.3 Volume Mean Corpuscular 28.8 L Hemoglobin Mean Corpuscular 31.5 L Hemoglobin Concent Red Cell 14.6 H Distribution Width Platelet Count 209 Mean Platelet Volume 10.7 H Immature 0.400 Granulocytes % Neutrophils % 59.2 Lymphocytes % 27.9 Monocytes % 10.2 Eosinophils % 1.8 Basophils % 0.5 Nucleated Red Blood 0.0 Cells % Immature 0.020 Granulocytes # Neutrophils # 3.3 Lymphocytes # 1.6 Monocytes # 0.6 Eosinophils # 0.1 Basophils # 0.0 Nucleated Red Blood 0.0 Cells # Sodium Level 137 Potassium Level 4.5 Chloride Level 105 Carbon Dioxide Level 23 Anion Gap 9 Blood Urea Nitrogen 22 H Creatinine 1.22 Est Glomerular Filtrat Rate mL/min Glucose Level 181 Hemoglobin A1c 7.7 H Calcium Level 8.6 Phosphorus Level 4.0 Magnesium Level 1.7 Triglycerides Level 145 Cholesterol Level 159 LDL Cholesterol, 107 Calculated HDL Cholesterol 23 L Cholesterol/HDL 6.9 Ratio Thyroid Stimulating Pending Hormone (TSH) Medications Medication Current Medications IV Flush (NS 3 ml) 3 ml PER PROTOCOL IV ; Start 01/18/19 at 19:00 Ondansetron HCl (Zofran Inj) 4 mg Q6H PRN IV NAUSEA/VOMITING; Start 01/18/19 at 19:00 Acetaminophen/ Hydrocodone Bitart ([place] (5/325)) 1 tab Q6H PRN PO .MOD PAIN 4- 6; Start 01/18/19 at 19:00 Morphine Sulfate (morphine) 2 mg Q4H PRN IV .SEVERE PAIN 7-10 Last administered on 01/18/19at 22:28; Admin Dose 2 MG; Start 01/18/19 at 19:00 Docusate Sodium (Colace) 100 mg Q12H PRN PO .CONSTIPATION; Start 01/18/19 at 19:00 Magnesium Hydroxide (Milk Of Mag) 30 ml DAILY PRN PO .CONSTIPATION; Start 01/18/19 at 19:00 Pantoprazole (Protonix Iv) 40 mg DAILY@06 IV Last administered on 01/19/19at 06:44; Admin Dose 40 MG; Start 01/19/19 at 06:00 Sodium Chloride 1,000 ml @ 75 mls/hr [id number] IV Last administered on 01/18/19at 22:02; Admin Dose 75 MLS/HR; Start 01/18/19 at 18:54 Lorazepam (Ativan) 0.5 mg Q6H PRN IV ANXIETY; Start 01/18/19 at 19:00 Albuterol/ Ipratropium (Duoneb) 3 ml Q4H RESP THERAPY PRN HHN SHORTNESS OF ISAIAH ATH; Start 01/18/19 at 19:00 Piperacillin Sod/ Tazobactam Sod 100 ml @ 200 mls/hr Q6 IVPB Last administered on 01/19/19at 06:44; Admin Dose 200 MLS/HR; Start 01/19/19 at 00:00 Hydralazine HCl (Apresoline) 10 mg Q6H PRN IV ELEVATED BLOOD PRESSURE; Start 01/18/19 at 19:00 Nitroglycerin (Nitroglycerin (Sl Tab) 0.4 Mg) 1 tab Q5M PRN SL ANGINA; Start 01/18/19 at 19:00 Acetaminophen (Tylenol Tab) 650 mg Q4H PRN PO MILD PAIN(1-3)OR ELEVATED TEMP; Start 01/18/19 at 19:00 Ascorbic Acid (Vitamin C) 500 mg DAILY PO Last administered on 01/19/19at 08:15; Admin Dose 500 MG; Start 01/19/19 at 09:00 Finasteride (Proscar) 5 mg DAILY PO Last administered on 01/19/19 08:16; Admin Dose 5 MG; Start 01/19/19 at 09:00 Lisinopril (Zestril) 2.5 mg DAILY PO Last administered on 01/19/19 08:16; Admin Dose 2.5 MG; Start 01/19/19 at 09:00 Metoprolol Tartrate (Lopressor) 50 mg BID PO Last administered on 01/19/19at 08:17; Admin Dose 50 MG; Start 01/18/19 at 21:00 Senna (Senokot) 2 tab QHS PRN PO PRN; Start 01/18/19 at 19:00 Tamsulosin HCl (Flomax) 0.4 mg HS PO Last administered on 01/18/19at 22:56; Admin Dose 0.4 MG; Start 01/18/19 at 21:00 Calcium Carbonate (Tums) 500 mg Q4H PRN PO HEARTBURN; Start 01/18/19 at 19:30 Multivitamins/ Minerals (Theragran-M) 1 tab DAILY PO ; Start 01/19/19 at 09:00 Diagnostic Test (Pha) (Accu-Chek) 1 ea 02 XX Last administered on 01/19/19at 02:25; Admin Dose 1 EA; Start 01/19/19 at 02:00 Insulin Aspart (Novolog Insulin Pen) NOVOLOG *MILD* ALGORI... Q4 SC Last administered on 01/19/19at 08:20; Admin Dose 1 UNIT; Start 01/19/19 at 01:00 Miscellaneous Information 1 ea NOTE XX ; Start 01/18/19 at 20:30 Glucose (Glutose) 15 gm Q15M PRN PO DECREASED GLUCOSE; Start 01/18/19 at 20:30 Glucose (Glutose) 22.5 gm Q15M PRN PO DECREASED GLUCOSE; Start 01/18/19 at 20:30 Dextrose (D50w Syringe) 25 ml Q15M PRN IV DECREASED GLUCOSE; Start 01/18/19 at 20:30 Dextrose (D50w Syringe) 50 ml Q15M PRN IV DECREASED GLUCOSE; Start 01/18/19 at 20:30 Glucagon (Glucagen) 1 mg Q15M PRN IM DECREASED GLUCOSE; Start 01/18/19 at 20:30 Glucose (Glutose) 15 gm Q15M PRN BUCCAL DECREASED GLUCOSE; Start 01/18/19 at 20:30 Dimethicone (Blistex Lip [place]) 1 applic Q2H PRN TOP NOTE; Start 01/18/19 at 22:3 0 Miscellaneous Information (Pending [facility] Order For Wound Care) This patient loja... PRN PRN XX WOUND CARE; Start 01/19/19 at 06:30 LOR PRECIADO Jan 19, 2019 11:42
--- NOTE | 2019-01-19 13:00 | RADRPT ---
Vent Rate: 82 bpm RR Interval: 0 msec NV Interval: 246 msec QRS Duration: 108 msec QT Interval: 386 msec QTC Interval: 450 msec P-R-T [place]: 0 - 24 - -14 degrees Atrial fibrillation/flutter Low voltage QRS Right bundle branch block Abnormal ECG Electronically Signed By: Marco Antonio Decker
--- NOTE | 2019-01-19 13:15 | PREAC ---
Date/Time of Note Date/Time of Note DATE: 01/19/19 TIME: 13:12 Anesthesia Eval and Record Evaluation Time Pre-Procedure Interview DATE: 01/19/19 TIME: 13:12 Age 88 Sex male NPO: 8 hrs Preoperative diagnosis Malfunctioning AMILCAR drain (percutaneous cholecystostomy tube) Planned procedure Exchange of AMILCAR drain (larger size) Past Medical History Past Medical History: Includes Cardio: HTN, Arrythmia (Hx Atrial fibrillation and atrial flutter, currently not anticoagulated ) Endo: Diabetes (hgba1c 7.6%) Renal: CKD, BPH Surgery & Anesthesia Issues No known issue Meds Anticoagulation: No Beta Deandre within 24 hr: Yes Active Scripts Finasteride* (Finasteride*) 5 Mg Tablet, 5 MG PO DAILY, #30 TAB Prov:LOR PRECIADO 12/20/18 Pantoprazole* (Protonix*) 40 Mg Tablet.dr, 40 MG PO DAILY for 30 Days, TAB Prov:LOR PRECIADO 12/20/18 Reported Medications Insulin Lispro (Humalog) 100 Unit/1 Ml Cartridge, 0 SQ SLIDING SCALE, EA IF BS IS 71-150=0 UNIT<70=ORANGE JUICE OR GLUCAGON 1MG THEN CALL MD. IF BS 151-200=2 UNITS,201-250=4 UNITS, 251-300=6 UNITS,301-350=8 UNITS, 351-400=10 UNITS>400=12 UNITS THEN CALL MD. 01/18/19 Metoprolol Tartrate* (Lopressor*) 50 Mg Tab, 50 MG PO BID, #60 TAB HOLD FOR SBP<110 OR HR<60 01/18/19 Calcium Carbonate (Calcium Carbonate) 500 Mg Tab.chew, 500 MG PO Q4H, TAB.CHEW 01/18/19 Acyclovir* (Acyclovir* Oint) 5%-15 Gm Oint, 1 APPLIC TOP QID, #1 TUB 01/18/19 Multivitamin with Minerals (Multivitamins with Minerals) 1 Each Tablet, 1 EACH PO DAILY, TAB 01/18/19 Hydrocodone/Acetaminophen ([place] 5-325 Tablet) 1 Each Tablet, 1 EACH PO Q4H PRN for PAIN LEVEL 6-10, TAB 01/18/19 Protein Supplement (Promod) 946 Ml Liquid, 30 ML PO BID 01/18/19 Sennosides* (Senna Lax*) 8.6 Mg Tablet, 2 TAB PO QHS PRN for PRN, TAB 01/18/19 Tamsulosin Hcl* (Tamsulosin Hcl*) 0.4 Mg Cap.er.24h, 0.4 MG PO HS, CAP 01/18/19 Tuberculin,Purif.prot.deriv. (Tubersol) 5 Tub Unit/0.1 Ml Vial, 5 TUB ID QHS Q 365D, VIAL FOR TB SCREENING YEARLY,ORDER DATE 01/11/19 01/18/19 Acetaminophen* (Acetaminophen*) 325 Mg Tablet, 650 MG PO Q4H PRN for PAIN AND OR ELEVATED TEMP, #30 TAB 01/18/19 Ascorbic Acid (Vitamin C) 500 Mg Tab, 500 MG PO DAILY, TAB 01/18/19 Lisinopril* (Lisinopril*) 2.5 Mg Tablet, 2.5 MG PO DAILY, #30 TAB HOLD FOR SBP<110 OR HR<60 12/16/18 Dabigatran Etexilate Mesylate* (Pradaxa*) 150 Mg Capsule, 150 MG PO DAILY, CAP 12/16/18 Discontinued Scripts Tamsulosin Hcl* (Flomax*) 0.4 Mg Cap.er.24h, 0.4 MG PO BID for 30 Days, CAP Prov:LOR PRECIADO. 12/21/18 Polyethylene Glycol* (Miralax*) 17 Gm Powd.pack, 17 GM PO DAILY for 30 Days Prov:LOR PRECIADO. 12/20/18 Docusate Sodium* (Colace*) 100 Mg Capsule, 100 MG PO BID, #60 CAP Prov:PAT PRECIADOLouis Tala. 12/20/18 Metoprolol Tartrate* (Lopressor*) 50 Mg Tab, 50 MG PO BID, #30 TAB Prov:LOR PRECIADO. 12/20/18 Metronidazole/Sodium Chloride ([place] IV 500 mg/100 ml) 500 Mg/100 Ml Piggyback, 500 MG IV Q8H for 9 Days Prov:LOR PRECIADO. 12/20/18 Ciprofloxacin/Dextrose* (Cipro IVPB*) 400 Mg/200 Ml Iv.soln., 400 MG IVPB Q12, #9 EA Prov:LOR PRECIADO. 12/20/18 Tamsulosin Hcl* (Tamsulosin Hcl*) 0.4 Mg Cap.er.24h, 0.4 MG PO BID for 30 Days, #60 CAP Prov:LOR PRECIADO 12/20/18 Current Medications IV Flush (NS 3 ml) 3 ml PER PROTOCOL IV ; Start 01/18/19 at 19:00 Ondansetron HCl (Zofran Inj) 4 mg Q6H PRN IV NAUSEA/VOMITING; Start 01/18/19 at 19:00 Acetaminophen/ Hydrocodone Bitart ([place] (5/325)) 1 tab Q6H PRN PO .MOD PAIN 4- 6; Start 01/18/19 at 19:00 Morphine Sulfate (morphine) 2 mg Q4H PRN IV .SEVERE PAIN 7-10 Last administered on 01/18/19at 22:28; Admin Dose 2 MG; Start 01/18/19 at 19:00 Docusate Sodium (Colace) 100 mg Q12H PRN PO .CONSTIPATION; Start 01/18/19 at 19:00 Magnesium Hydroxide (Milk Of Mag) 30 ml DAILY PRN PO .CONSTIPATION; Start 01/18/19 at 19:00 Pantoprazole (Protonix Iv) 40 mg DAILY@06 IV Last administered on 01/19/19at 06:44; Admin Dose 40 MG; Start 01/19/19 at 06:00 Sodium Chloride 1,000 ml @ 75 mls/hr [id number] IV Last administered on 01/18/19at 22:02; Admin Dose 75 MLS/HR; Start 01/18/19 at 18:54 Lorazepam (Ativan) 0.5 mg Q6H PRN IV ANXIETY; Start 01/18/19 at 19:00 Albuterol/ Ipratropium (Duoneb) 3 ml Q4H RESP THERAPY PRN HHN SHORTNESS OF BREATH; Start 01/18/19 at 19:00 Piperacillin Sod/ Tazobactam Sod 100 ml @ 200 mls/hr Q6 IVPB Last administered on 01/19/19at 11:44; Admin Dose 200 MLS/HR; Start 01/19/19 at 00:00 Hydralazine HCl (Apresoline) 10 mg Q6H PRN IV ELEVATED BLOOD PRESSURE; Start 01/18/19 at 19:00 Nitroglycerin (Nitroglycerin (Sl Tab) 0.4 Mg) 1 tab Q5M PRN SL ANGINA; Start 01/18/19 at 19:00 Acetaminophen (Tylenol Tab) 650 mg Q4H PRN PO MILD PAIN(1-3)OR ELEVATED TEMP; Start 01/18/19 at 19:00 Ascorbic Acid (Vitamin C) 500 mg DAILY PO Last administered on 01/19/19at 08:15; Admin Dose 500 MG; Start 01/19/19 at 09:00 Finasteride (Proscar) 5 mg DAILY PO Last administered on 01/19/19at 08:16; Admin Dose 5 MG; Start 01/19/19 at 09:00 Lisinopril (Zestril) 2.5 mg DAILY PO Last administered on 01/19/19 08:16; Admin Dose 2.5 MG; Start 01/19/19 at 09:00 Metoprolol Tartrate (Lopressor) 50 mg BID PO Last administered on 01/19/19 08:17; Admin Dose 50 MG; Start 01/18/19 at 21:00 Senna (Senokot) 2 tab QHS PRN PO PRN; Start 01/18/19 at 19:00 Tamsulosin HCl (Flomax) 0.4 mg HS PO Last administered on 01/18/19at 22:56; Admin Dose 0.4 MG; Start 01/18/19 at 21:00 Calcium Carbonate (Tums) 500 mg Q4H PRN PO HEARTBURN; Start 01/18/19 at 19:30 Multivitamins/ Minerals (Theragran-M) 1 tab DAILY PO ; Start 01/19/19 at 09:00 Diagnostic Test (Pha) (Accu-Chek) 1 ea 02 XX Last administered on 01/19/19at 02:25; Admin Dose 1 EA; Start 01/19/19 at 02:00 Insulin Aspart (Novolog Insulin Pen) NOVOLOG *MILD* ALGORI... Q4 SC Last admi nistered on 01/19/19at 08:20; Admin Dose 1 UNIT; Start 01/19/19 at 01:00 Miscellaneous Information 1 ea NOTE XX ; Start 01/18/19 at 20:30 Glucose (Glutose) 15 gm Q15M PRN PO DECREASED GLUCOSE; Start 01/18/19 at 20:30 Glucose (Glutose) 22.5 gm Q15M PRN PO DECREASED GLUCOSE; Start 01/18/19 at 20:30 Dextrose (D50w Syringe) 25 ml Q15M PRN IV DECREASED GLUCOSE; Start 01/18/19 at 20:30 Dextrose (D50w Syringe) 50 ml Q15M PRN IV DECREASED GLUCOSE; Start 01/18/19 at 20:30 Glucagon (Glucagen) 1 mg Q15M PRN IM DECREASED GLUCOSE; Start 01/18/19 at 20:30 Glucose (Glutose) 15 gm Q15M PRN BUCCAL DECREASED GLUCOSE; Start 01/18/19 at 20:30 Dimethicone (Blistex Lip [place]) 1 applic Q2H PRN TOP NOTE; Start 01/18/19 at 22:30 Miscellaneous Information ([facility]) This patient loja... PRN PRN XX WOUND CARE; Start 01/19/19 at 06:30 Meds reviewed: Yes Allergies Coded Allergies: Sulfa (Sulfonamide Antibiotics) (Verified Allergy, Severe, 01/18/19) Patient states "I almost " bee venom protein (honey bee) (Verified Allergy, Severe, 01/18/19) severe swelling Allergies Reviewed: Yes Labs/Studies Labs Reviewed: Reviewed by anesthesiologist Result Diagram: 01/19/19 0950 01/19/19 0950 Laboratory Tests 01/19/19 09:50 test: N/A Studies: ECG Pre-procedure Exam Last vitals Vital Signs Date Temp Pulse Resp B/P (MAP) Pulse Ox O2 O2 Flow FiO2 Time Delivery Rate 01/19/19 98.8 88 18 125/65 96 08:00 (85) 01/18/19 Room Air 20:43 Airway: Adequate mouth opening, Adequate thyromental dist Mallampati: Mallampati II Teeth: Normal Lung: Normal Heart: Normal ASA Physical Status ASA physical status: 3 Emergency: None Planned Anesthetic General/MAC: MAC, TIVA Planned Pain Management Parenteral pain med, Other neuraxial med, Local by surgeon Pre-operative Attestations Prior to commencing anesthesia and surgery, the patient was re-evaluated, there was verification of: *The patient's identity *The results of appropriate recent lab work and preoperative vital signs *The above evaluation not changing prior to induction *Anesthetic plan, risk benefits, alternative and complications discussed with patient/family; questions answered; patient/family understands, accepts and wishes to proceed. SATNAM JOHANSEN Jan 19, 2019 13:15
[2019-01-19] MEDS ORDERED: LIDOCAINE 1% (MDV) 20 ML INJ ONE (14:39)
[2019-01-19] MEDS ORDERED: IOHEXOL 300MG/ML 30 ML BTL ONE (14:39)
[2019-01-19] MEDS ORDERED: PROPOFOL 0 ML ONE (14:48)
[2019-01-19] MEDS ORDERED: MIDAZOLAM 1 MG/ML 2 ML INJ ONE ×2 (14:49→15:17)
[2019-01-19] MEDS ORDERED: FENTAnyl 50 MCG/ML VIAL ONE ×2 (14:49→15:18)
[2019-01-19] MEDS ORDERED: PROPOFOL 20 ML ONE (15:18)
--- NOTE | 2019-01-19 15:51 | HPN ---
Date/Time of Note Date/Time of Note DATE: 01/19/19 TIME: 15:51 Interval H&P Admission Note Pt. seen H&P reviewed: No system changes STALIN LAUGHLIN MD Jan 19, 2019 15:51
[2019-01-19] MEDS ORDERED: FENTAnyl 50 MCG/ML VIAL IV PRN ×3 (16:30)
[2019-01-19] MEDS ORDERED: MEPERIDINE 25 MG INJ IV PRN (16:30)
[2019-01-19] MEDS ORDERED: LABETALOL HCL 20MG INJ IV PRN (16:30)
[2019-01-19] MEDS ORDERED: hydrALAzine 20 MG INJ IV PRN (16:30)
[2019-01-19] MEDS ORDERED: METOCLOPRAMIDE 10 MG INJ IV PRN (16:30)
[2019-01-19] MEDS ORDERED: ONDANSETRON 4 MG INJ IV PRN (16:30)
[2019-01-19] MEDS ORDERED: DIPHENHYDRAMINE 50 MG INJ IV PRN (16:30)
[2019-01-19] MEDS ORDERED: OXYCODONE/ACETAMINOPHEN (5/325) TAB PO PRN ×2 (16:30)
[2019-01-19] MEDS ORDERED: MIDAZOLAM 1 MG/ML 2 ML INJ IV PRN (16:30)
[2019-01-19] MEDS ORDERED: EPHEDrine SULFATE 50 MG/5 ML SYG IV PRN (16:30)
[2019-01-19] MEDS: MULTIVITAMINS/MINERALS TAB PO SCH (18:50)
--- NOTE | 2019-01-19 19:23 | PAC ---
Date/Time of Note Date/Time of Note DATE: 01/19/19 TIME: 19:22 Post-Anesthesia Notes Post-Anesthesia Note Last documented vital signs Vital Signs Date Temp Pulse Resp B/P (MAP) Pulse Ox O2 O2 Flow FiO2 Time Delivery Rate 01/19/19 26 108/63 98 Room Air 16:27 (78) 01/19/19 98.0 75 16:06 Activity: WNL Respiratory function: WNL Cardiovascular function: WNL Mental status: Baseline Pain reasonably controlled: Yes Hydration appropriate: Yes Nausea/Vomiting absent: Yes Comments BT: 98.3 MARTHA RENEE MD Jan 19, 2019 19:23
[2019-01-19] MEDS: TAMSULOSIN (SR) 0.4 MG CAP PO SCH (21:27)
[2019-01-19] MEDS: HYDROCODONE/APAP (5/325) TAB PO PRN (21:29)
[2019-01-20] MEDS: PIPER-TAZO 3.375 GM IV (PMX) 100 ML IVPB SCH ×4 (00:32→17:41)
[2019-01-20] MEDS ORDERED: ACCU-CHEK XX SCH (02:00)
[2019-01-20] MEDS: ACCU-CHEK XX SCH (02:39)
[2019-01-20 03:02] VITALS: BP 113/58; RESP 18
[2019-01-20] MEDS: PANTOPRAZOLE 40 MG INJ IV SCH (05:38)
[2019-01-20 08:15] VITALS: BP 126/64; PULSE 71; RESP 18
[2019-01-20] MEDS: MULTIVITAMINS/MINERALS TAB PO SCH (08:44)
[2019-01-20] MEDS: ASCORBIC ACID 500 MG TAB PO SCH (08:44)
[2019-01-20] MEDS: FINASTERIDE 5 MG TAB PO SCH (08:44)
[2019-01-20] MEDS: LISINOPRIL 5 MG TAB PO SCH (08:45)
[2019-01-20] MEDS: METOPROLOL 50 MG TAB PO SCH ×2 (08:46→21:49)
[2019-01-20] MEDS: INSULIN ASPART [NOVOLOG] 3 ML PEN SC SCH ×4 (08:49→21:51)
[2019-01-20] MEDS: SOD CHLORIDE 0.45% 1,000 ML IV SCH (11:28)
[2019-01-20 14:30] VITALS: BP 138/65; PULSE 79; RESP 19
[2019-01-20] MEDS: HYDROCODONE/APAP (5/325) TAB PO PRN ×2 (15:37→21:50)
[2019-01-20 20:00] VITALS: BP 114/56; PULSE 79; RESP 18
[2019-01-20] MEDS: TAMSULOSIN (SR) 0.4 MG CAP PO SCH (21:50)
[2019-01-21] MEDS: SOD CHLORIDE 0.45% 1,000 ML IV SCH ×2 (00:14→06:27)
[2019-01-21] MEDS: PIPER-TAZO 3.375 GM IV (PMX) 100 ML IVPB SCH ×4 (00:47→17:22)
[2019-01-21 02:00] VITALS: BP 114/55; PULSE 60; RESP 18
[2019-01-21] MEDS: ACCU-CHEK XX SCH (02:00)
[2019-01-21] MEDS: PANTOPRAZOLE 40 MG INJ IV SCH (05:11)
[2019-01-21 08:03] VITALS: BP 151/72; PULSE 82; RESP 18
[2019-01-21] MEDS: INSULIN ASPART [NOVOLOG] 3 ML PEN SC SCH ×4 (08:39→22:24)
[2019-01-21] MEDS: FINASTERIDE 5 MG TAB PO SCH (08:39)
[2019-01-21] MEDS: MULTIVITAMINS/MINERALS TAB PO SCH (08:39)
[2019-01-21] MEDS: ASCORBIC ACID 500 MG TAB PO SCH (08:39)
[2019-01-21] MEDS: METOPROLOL 50 MG TAB PO SCH ×2 (08:40→22:23)
[2019-01-21] MEDS: LISINOPRIL 5 MG TAB PO SCH (08:41)
--- NOTE | 2019-01-21 11:37 | PN ---
Date/Time of Note Date/Time of Note DATE: 01/21/19 TIME: 11:34 Assessment/Plan VTE Prophylaxis Risk score (from Nsg)>0 risk: 6 SCD applied (from Nsg): Yes Pharmacological prophylaxis: heparin Lines/Catheters IV Catheter Type (from Nrsg): Peripheral IV Urinary Cath still in place: No Assessment/Plan Hospital Course SUBJECTIVE : abd pain improving objective: GENERAL: The patient is lying in bed, answering questions appropriately, in no acute distress. elderly, anxious HEENT: Pupils are equal, round, react to light. Extraocular muscles are intact. NECK: Supple. No thyromegaly. LUNGS: Clear to auscultation bilaterally. CARDIOVASCULAR: S1, S2 heard. No rubs or gallop. ABDOMEN: Tenderness to palpation in the right upper quadrant. drain noted Otherwise, no rebound or guarding. Normal bowel sounds. MUSCULOSKELETAL: No lower extremity edema bilaterally. NEUROLOGIC: No focal deficits. assessment and plan: An 88-year-old male with history of atrial flutter, atrial fibrillation, chronic kidney disease, recent cholecystostomy with tube in place now with dislodged AMILCAR drain after experiencing abdominal pain for a week and a half 1. Dislodged AMILCAR drain. - tube placed in 12/2018 for percutaneous cholecystostomy. - IR-guided tube change by interventional radiology 01/19/19 - Continue broad-spectrum antibiotics as well given the cholangiogram findings, f/u cultures 2. Atrial fibrillation and flutter.: rate controlled on current regimen 3. History of chronic kidney disease. Creatinine is stable. Continue to monitor for now. 4. History of diabetes. Last A1c checked last month was 7.5. 5. History of hypertension. 6. History of enlarged prostate. Continue Proscar. 7. Mild DREW: creatinine has normalized 8. Constipation: stool softeners . Dispo: continue abx, await final cultures During last hospitalization, patient was DNR, will confirm code status with him Result Diagram: 01/21/19 0641 01/21/19 0641 Results 24hrs Laboratory Tests Test 01/20/19 12:27 01/20/19 17:37 01/20/19 21:48 01/21/19 06:29 Bedside Glucose 226 H 217 182 Lab Scanned Report REFERENCE LAB Test 01/21/19 06:41 01/21/19 08:36 White Blood Count 6.1 # Red Blood Count 4.26 L Hemoglobin 12.0 L Hematocrit 38.0 L Mean Corpuscular 89.2 Volume Mean Corpuscular 28.2 L Hemoglobin Mean Corpuscular 31.6 L Hemoglobin Concent Red Cell 14.6 H Distribution Width Platelet Count 176 Mean Platelet 11.7 H Volume Immature 0.300 Granulocytes % Neutrophils % 51.2 Lymphocytes % 33.9 Monocytes % 11.4 H Eosinophils % 2.5 Basophils % 0.7 Nucleated Red 0.0 Blood Cells % Immature 0.020 Granulocytes # Neutrophils # 3.1 Lymphocytes # 2.1 Monocytes # 0.7 Eosinophils # 0.2 Basophils # 0.0 Nucleated Red 0.0 Blood Cells # Sodium Level 139 Potassium Level 4.2 Chloride Level 106 Carbon Dioxide 23 Level Anion Gap 10 Blood Urea 23 H Nitrogen Creatinine 1.16 Est Glomerular Filtrat Rate mL/min Glucose Level 190 Calcium Level 8.6 Bedside Glucose 215 Exam/Review of Systems Exam Vitals Vital Signs Date Temp Pulse Resp B/P (MAP) Pulse Ox O2 O2 Flow FiO2 Time Delivery Rate 01/21/19 97.9 82 18 151/72 98 Room Air 08:03 (98) Intake and Output 01/20/19 01/20/19 01/21/19 1515:00 23:00 07:00 IntakeIntake Total 490 ml 860 ml 1000 ml OutputOutput Total 350 ml 750 ml 700 ml BalanceBalance 140 ml 110 ml 300 ml Results Results 24hrs Laboratory Tests Test 01/20/19 12:27 01/20/19 17:37 01/20/19 21:48 01/21/19 06:29 Bedside Glucose 226 H 217 182 Lab Scanned Report REFERENCE LAB Test 01/21/19 06:41 01/21/19 08:36 White Blood Count 6.1 # Red Blood Count 4.26 L Hemoglobin 12.0 L Hematocrit 38.0 L Mean Corpuscular 89.2 Volume Mean Corpuscular 28.2 L Hemoglobin Mean Corpuscular 31.6 L Hemoglobin Concent Red Cell 14.6 H Distribution Width Platelet Count 176 Mean Platelet 11.7 H Volume Immature 0.300 Granulocytes % Neutrophils % 51.2 Lymphocytes % 33.9 Monocytes % 11.4 H Eosinophils % 2.5 Basophils % 0.7 Nucleated Red 0.0 Blood Cells % Immature 0.020 Granulocytes # Neutrophils # 3.1 Lymphocytes # 2.1 Monocytes # 0.7 Eosinophils # 0.2 Basophils # 0.0 Nucleated Red 0.0 Blood Cells # Sodium Level 139 Potassium Level 4.2 Chloride Level 106 Carbon Dioxide 23 Level Anion Gap 10 Blood Urea 23 H Nitrogen Creatinine 1.16 Est Glomerular Filtrat Rate mL/min Glucose Level 190 Calcium Level 8.6 Bedside Glucose 215 Medications Medication Current Medications IV Flush (NS 3 ml) 3 ml PER PROTOCOL IV ; Start 01/18/19 at 19:00 Ondansetron HCl (Zofran Inj) 4 mg Q6H PRN IV NAUSEA/VOMITING; Start 01/18/19 at 19:00 Acetaminophen/ Hydrocodone Bitart ([place] (5/325)) 1 tab Q6H PRN PO .MOD PAIN 4- 6 Last administered on 01/20/19at 21:50; Admin Dose 1 TAB; Start 01/18/19 at 19:00 Morphine Sulfate (morphine) 2 mg Q4H PRN IV .SEVERE PAIN 7-10 Last administered on 01/18/19at 22:28; Admin Dose 2 MG; Start 01/18/19 at 19:00 Docusate Sodium (Colace) 100 mg Q12H PRN PO .CONSTIPATION; Start 01/18/19 at 19:00 Magnesium Hydroxide (Milk Of Mag) 30 ml DAILY PRN PO .CONSTIPATION; Start 01/18/19 at 19:00 Pantoprazole (Protonix Iv) 40 mg DAILY@06 IV Last administered on 01/21/19at 05:11; Admin Dose 40 MG; Start 01/19/19 at 06:00 Sodium Chloride 1,000 ml @ 75 mls/hr [id number] IV Last administered on 01/21/19at 06:27; Admin Dose 75 MLS/HR; Start 01/18/19 at 18:54 Lorazepam (Ativan) 0.5 mg Q6H PRN IV ANXIETY; Start 01/18/19 at 19:00 Albuterol/ Ipratropium (Duoneb) 3 ml Q4H RESP THERAPY PRN HHN SHORTNESS OF BREATH; Start 01/18/19 at 19:00 Piperacillin Sod/ Tazobactam Sod 100 ml @ 200 mls/hr Q6 IVPB Last administered on 01/21/19at 05:11; Admin Dose 200 MLS/HR; Start 01/19/19 at 00:00 Hydralazine HCl (Apresoline) 10 mg Q6H PRN IV ELEVATED BLOOD PRESSURE; Start 01/18/19 at 19:00 Nitroglycerin (Nitroglycerin (Sl Tab) 0.4 Mg) 1 tab Q5M PRN SL ANGINA; Start 01/18/19 at 19:00 Acetaminophen (Tylenol Tab) 650 mg Q4H PRN PO MILD PAIN(1-3)OR ELEVATED TEMP; Start 01/18/19 at 19:00 Ascorbic Acid (Vitamin C) 500 mg DAILY PO Last administered on 01/21/19 08:39; Admin Dose 500 MG; Start 01/19/19 at 09:00 Finasteride (Proscar) 5 mg DAILY PO Last administered on 01/21/19 08:39; Admin Dose 5 MG; Start 01/19/19 at 09:00 Lisinopril (Zestril) 2.5 mg DAILY PO Last administered on 01/21/19 08:41; Admin Dose 2.5 MG; Start 01/19/19 at 09:00 Metoprolol Tartrate (Lopressor) 50 mg BID PO Last administered on 01/21/19 08:40; Admin Dose 50 MG; Start 01/18/19 at 21:00 Senna (Senokot) 2 tab QHS PRN PO PRN; Start 01/18/19 at 19:00 Tamsulosin HCl (Flomax) 0.4 mg HS PO Last administered on 01/20/19at 21:50; Admin Dose 0.4 MG; Start 01/18/19 at 21:00 Calcium Carbonate (Tums) 500 mg Q4H PRN PO HEARTBURN; Start 01/18/19 at 19:30 Multivitamins/ Minerals (Theragran-M) 1 tab DAILY PO Last administered on 01/21/19 08:39; Admin Dose 1 TAB; Start 01/19/19 at 09:00 Diagnostic Test (Pha) (Accu-Chek) 1 ea 02 XX Last administered on 01/20/19at 02:39; Admin Dose 1 EA; Start 01/19/19 at 02:00 Miscellaneous Information 1 ea NOTE XX ; Start 01/18/19 at 20:30 Glucose (Glutose) 15 gm Q15M PRN PO DECREASED GLUCOSE; Start 01/18/19 at 20:30 Glucose (Glutose) 22.5 gm Q15M PRN PO DECREASED GLUCOSE; Start 01/18/19 at 20:30 Dextrose (D50w Syringe) 25 ml Q15M PRN IV DECREASED GLUCOSE; Start 01/18/19 at 20:30 Dextrose (D50w Syringe) 50 ml Q15M PRN IV DECREASED GLUCOSE; Start 01/18/19 at 20:30 Glucagon (Glucagen) 1 mg Q15M PRN IM DECREASED GLUCOSE; Start 01/18/19 at 20:30 Glucose (Glutose) 15 gm Q15M PRN BUCCAL DECREASED GLUCOSE; Start 01/18/19 at 20:30 Dimethicone (Blistex Lip [place]) 1 applic Q2H PRN TOP NOTE; Start 01/18/19 at 22:30 Miscellaneous Information (Pending [facility] Order For Wound Care) This patient loja... PRN PRN XX WOUND CARE; Start 01/19/19 at 06:30 Insulin Aspart (Novolog Insulin Pen) NOVOLOG *MILD* ALGORITHM WITH MEALS BEDTIME SC Last administered on 01/21/19at 08:39; Admin Dose 2 UNIT; Start 01/20/19 at 08:00 LOR PRECIADO Jan 21, 2019 11:37
--- NOTE | 2019-01-21 11:59 | PN ---
DATE: 01/20/2019 SUBJECTIVE: The patient is feeling better now and is doing better now that his drain has been replac ed, he tells me the drain is draining nicely. The patient is of the impression that the drain was no t put in properly the first time, but I tried to explain to him that drains can dislodge and that is probably what happened, but he does not seem to want to hear that. He is also stating to ensure that the drain is working properly, he thinks he should be in the hospital for at least 2 to 3 days. I d id explain to him that this may not be possible but we will see how he does. At this time he is stil l having intermittent abdominal pain, but he seems to be tolerating a diet. PHYSICAL EXAMINATION: VITAL SIGNS: Temperature 98.3, pulse 79, respirations 19, blood pressure 130/65, saturations 99% on room air. GENERAL: Elderly gentleman currently alert and oriented. He is unhappy at thought of discharge. HEENT: Head is normocephalic. Pupils equal and reactive. NECK: Supple. CHEST: Clear. CARDIOVASCULAR: S1 and S2, no murmurs. ABDOMEN: Still has significant guarding and tenderness in right upper quadrant near drain noted with good yellowish purulent output in drainage bag. He does have normoactive bowel sounds. EXTREMITIES: There is no lower extremity edema. SKIN: Devoid of rash or jaundice. LABORATORY VALUES: On his chemistry, his creatinine is 1.4, which is elevated from prior. Serum glu cose is 247. Hematology: Hemoglobin is stable, but low at 12 with hypochromasia, normal platelet co unt and white count remains normal. Culture were not sent from the catheter change it looks like. IMPRESSION: An 88-year-old male with known cholecystitis with cholecystitis managed conservatively w ith a percutaneous cholecystostomy, now with dislodged AMILCAR drain and evidence of surrounding inflammat ion, status post AMILCAR drain replacement. Plan is to continue IV antibiotics for now just distal having good output from the drain and was sent for cultures. Once cultures are available, will plan to dis charge the patient back to halfway facility on appropriate antibiotics. The patient is also noted to have a new renal insufficiency, for now we will hold on any nephrotoxic medications. Contin ues to have hydration, monitor renal function and further interventions will depend on his clinical c ourse. Dictated By: LOR PRECIADO MD BA/NTS Conf#: [id number] DID#: [id number] CC: JOSH MARTINEZ;*EndCC*
[2019-01-21 14:00] VITALS: BP 106/61; PULSE 79; RESP 18
--- NOTE | 2019-01-21 18:26 | QN ---
Documentation Comment Patient is clinically stable Cholecystostomy functioning well Cleared for discharge from surgical standpoint MASON MARKS MD Jan 21, 2019 18:26
[2019-01-21 20:00] VITALS: BP 113/51; PULSE 71; RESP 18
[2019-01-21] MEDS: TAMSULOSIN (SR) 0.4 MG CAP PO SCH (22:23)
[2019-01-22] MEDS: PIPER-TAZO 3.375 GM IV (PMX) 100 ML IVPB SCH ×6 (00:36→17:37)
[2019-01-22 02:00] VITALS: BP 123/56; PULSE 79; RESP 18
[2019-01-22] MEDS: ACCU-CHEK XX SCH (02:00)
[2019-01-22] MEDS: SOD CHLORIDE 0.45% 1,000 ML IV SCH ×2 (02:54→16:14)
[2019-01-22] MEDS: PANTOPRAZOLE (EC) 40 MG TAB PO SCH (06:14)
[2019-01-22 08:29] VITALS: BP 119/61; PULSE 80; RESP 18
[2019-01-22] MEDS: LISINOPRIL 5 MG TAB PO SCH (08:39)
[2019-01-22] MEDS: FINASTERIDE 5 MG TAB PO SCH (08:42)
[2019-01-22] MEDS: MULTIVITAMINS/MINERALS TAB PO SCH (08:42)
[2019-01-22] MEDS: HYDROCODONE/APAP (5/325) TAB PO PRN (08:42)
[2019-01-22] MEDS: ASCORBIC ACID 500 MG TAB PO SCH (08:43)
[2019-01-22] MEDS: METOPROLOL 50 MG TAB PO SCH ×2 (08:43→21:15)
[2019-01-22] MEDS: INSULIN ASPART [NOVOLOG] 3 ML PEN SC SCH ×4 (08:47→21:14)
--- NOTE | 2019-01-22 09:53 | PN ---
Date/Time of Note Date/Time of Note DATE: 01/22/19 TIME: 09:52 Assessment/Plan VTE Prophylaxis Risk score (from Nsg)>0 risk: 6 SCD applied (from Nsg): Yes SCD contraindicated: other Pharmacological prophylaxis: other (pradaxa) Lines/Catheters IV Catheter Type (from Nrs): Peripheral IV Urinary Cath still in place: No Assessment/Plan Hospital Course SUBJECTIVE: Patient with multiple complaints, complaining of surgeon who proposed cholecystostomy instead of doing a cholecystectomy, having pain ever since the tube placed etc,etc.... OBJECTIVE: Vital signs-see below PHYSICAL EXAM: Constitutional: Highly temperamental, not cooperative with exam HEENT: Head atraumatic and normocephalic. Eyes: Extraocular muscles intact. Anicteric sclerae. Pupils equal bilaterally, reactive to light. NECK: Supple without lymph node. CHEST: Refused exam HEART: Refused exam aBDOMEN: With right-sided cholecystostomy tube, draining and mild to moderate amount. Generalized tenderness all 4 quadrants. Refused to do comprehensive exam including bowel sounds. EXTREMITIES: Generalized weakness, left BKA No cyanosis, clubbing or edema. NEUROLOGIC: Alert and oriented x3. No focal deficit. No sensory deficit. PSYCHOSOCIAL: Highly temperamental, using profanity. INTEGUMENTARY: Moist mucous membranes. Good skin turgor, intact. ASSESSMENT AND PLAN: 88-year-old male with chronic cholecystitis, managed conservatively with a percutaneous cholecystectomy, admitted with dislodged cholecystostomy drain requiring new replacement tube. 1. Dislodged cholecystostomy tube. -Status post placement of a new drain. Follow-up cultures. Continue antimicrobials. -F/u cultures. 2. Atrial fibrillation -Rate controlled. -Continue beta-blockers. Resume Pradaxa. 3. CKD -Stable renal function. 4. DMII -Needs more control. Start Lantus insulin. Continue sliding scale insulin. 5. Essential hypertension. -Stable. Continue DANIEL inhibitors. 6. BPH -Continue Proscar 7. Chronic anemia. -H&H stable. DVT prophylaxis: Start Pradaxa. PUD prophylaxis: PPI Disposition: Continue current management. Follow-up wound cultures from cholecystostomy drain. DC planning back to [facility] once wound cultures are available. The patient is very rude to me and he uses profanity/improper language to me, he also exhibited violent behaviors, uses anger and threats and he fired me and request another provider to see him. Patient is not cooperative with exams. At this point, due to the above, I am terminating the patient relationship and another provider will take over the care. Case d/w Result Diagram: 01/21/19 0641 01/21/19 0641 Results 24hrs Laboratory Tests Test 01/21/19 11:58 01/21/19 17:21 01/21/19 22:22 01/22/19 02:22 Bedside Glucose 209 274 H 200 205 Test 01/22/19 08:33 Bedside Glucose 204 Exam/Review of Systems Exam Vitals Vital Signs Date Temp Pulse Resp B/P (MAP) Pulse Ox O2 O2 Flow FiO2 Time Delivery Rate 01/22/19 98.0 80 18 119/61 97 Room Air 08:29 (80) Intake and Output 01/21/19 01/21/19 01/22/19 1515:00 23:00 07:00 IntakeIntake Total 1000 ml 1100 ml 500 ml OutputOutput Total 450 ml 430 ml 600 ml BalanceBalance 550 ml 670 ml -100 ml Results Results 24hrs Laboratory Tests Test 01/21/19 11:58 01/21/19 17:21 01/21/19 22:22 01/22/19 02:22 Bedside Glucose 209 274 H 200 205 Test 01/22/19 08:33 Bedside Glucose 204 Medications Medication Current Medications IV Flush (NS 3 ml) 3 ml PER PROTOCOL IV ; Start 01/18/19 at 19:00 Ondansetron HCl (Zofran Inj) 4 mg Q6H PRN IV NAUSEA/VOMITING; Start 01/18/19 at 19:00 Acetaminophen/ Hydrocodone Bitart ([place] (5/325)) 1 tab Q6H PRN PO .MOD PAIN 4- 6 Last administered on 01/22/19at 08:42; Admin Dose 1 TAB; Start 01/18/19 at 19:00 Morphine Sulfate (morphine) 2 mg Q4H PRN IV .SEVERE PAIN 7-10 Last administered on 01/18/19at 22:28; Admin Dose 2 MG; Start 01/18/19 at 19:00 Docusate Sodium (Colace) 100 mg Q12H PRN PO .CONSTIPATION; Start 01/18/19 at 19:00 Magnesium Hydroxide (Milk Of Mag) 30 ml DAILY PRN PO .CONSTIPATION; Start 01/18/19 at 19:00 Sodium Chloride 1,000 ml @ 75 mls/hr [id number] IV Last administered on 01/21/19at 06:27; Admin Dose 75 MLS/HR; Start 01/18/19 at 18:54 Lorazepam (Ativan) 0.5 mg Q6H PRN IV ANXIETY; Start 01/18/19 at 19:00 Albuterol/ Ipratropium (Duoneb) 3 ml Q4H RESP THERAPY PRN HHN SHORTNESS OF BREATH; Start 01/18/19 at 19:00 Piperacillin Sod/ Tazobactam Sod 100 ml @ 200 mls/hr Q6 IVPB Last administered on 01/22/19at 00:36; Admin Dose 200 MLS/HR; Start 01/19/19 at 00:00 Hydralazine HCl (Apresoline) 10 mg Q6H PRN IV ELEVATED BLOOD PRESSURE; Start 01/18/19 at 19:00 Nitroglycerin (Nitroglycerin (Sl Tab) 0.4 Mg) 1 tab Q5M PRN SL ANGINA; Start 01/18/19 at 19:00 Acetaminophen (Tylenol Tab) 650 mg Q4H PRN PO MILD PAIN(1-3)OR ELEVATED TEMP; Start 01/18/19 at 19:00 Ascorbic Acid (Vitamin C) 500 mg DAILY PO Last administered on 01/22/19at 08:43; Admin Dose 500 MG; Start 01/19/19 at 09:00 Finasteride (Proscar) 5 mg DAILY PO Last administered on 01/22/19 08:42; Admin Dose 5 MG; Start 01/19/19 at 09:00 Lisinopril (Zestril) 2.5 mg DAILY PO Last administered on 01/22/19at 08:39; Admin Dose 2.5 MG; Start 01/19/19 at 09:00 Metoprolol Tartrate (Lopressor) 50 mg BID PO Last administered on 01/22/19 08:43; Admin Dose 50 MG; Start 01/18/19 at 21:00 Senna (Senokot) 2 tab QHS PRN PO PRN; Start 01/18/19 at 19:00 Tamsulosin HCl (Flomax) 0.4 mg HS PO Last administered on 01/21/19at 22:23; Admin Dose 0.4 MG; Start 01/18/19 at 21:00 Calcium Carbonate (Tums) 500 mg Q4H PRN PO HEARTBURN; Start 01/18/19 at 19:30 Multivitamins/ Minerals (Theragran-M) 1 tab DAILY PO Last administered on 01/22/19at 08:42; Admin Dose 1 TAB; Start 01/19/19 at 09:00 Diagnostic Test (Pha) (Accu-Chek) 1 ea 02 XX Last administered on 01/20/19at 02:39; Admin Dose 1 EA; Start 01/19/19 at 02:00 Miscellaneous Information 1 ea NOTE XX ; Start 01/18/19 at 20:30 Glucose (Glutose) 15 gm Q15M PRN PO DECREASED GLUCOSE; Start 01/18/19 at 20:30 Glucose (Glutose) 22.5 gm Q15M PRN PO DECREASED GLUCOSE; Start 01/18/19 at 20:30 Dextrose (D50w Syringe) 25 ml Q15M PRN IV DECREASED GLUCOSE; Start 01/18/19 at 20:30 Dextrose (D50w Syringe) 50 ml Q15M PRN IV DECREASED GLUCOSE; Start 01/18/19 at 20:30 Glucagon (Glucagen) 1 mg Q15M PRN IM DECREASED GLUCOSE; Start 01/18/19 at 20:30 Glucose (Glutose) 15 gm Q15M PRN BUCCAL DECREASED GLUCOSE; Start 01/18/19 at 20:30 Dimethicone (Blistex Lip [place]) 1 applic Q2H PRN TOP NOTE; Start 01/18/19 at 22:30 Miscellaneous Information (Pending [facility] Order For Wound Care) This patient loja... PRN PRN XX WOUND CARE; Start 01/19/19 at 06:30 Insulin Aspart (Novolog Insulin Pen) NOVOLOG *MILD* ALGORITHM WITH MEALS BEDTIME SC Last administered on 01/22/19at 08:47; Admin Dose 2 UNIT; Start 01/20/19 at 08:00 Pantoprazole (Protonix Tab) 40 mg DAILY@06 PO Last administered on 01/22/19at 06:14; Admin Dose 40 MG; Start 01/22/19 at 06:00 REMA CHIANG NP Jan 22, 2019 09:53
[2019-01-22] MEDS: INSULIN GLARGINE [LANTus] (100 UNITS/ML) SYG SC SCH (10:44)
[2019-01-22] MEDS: KETOROLAC 15 MG INJ IV PRN ×2 (12:32→21:44)
--- NOTE | 2019-01-22 14:18 | QN ---
Documentation Comment Purulent fluid in cholecystostomy. Cystostomy stopped functioning Patient in moderate right upper quadrant abdominal pain Plan: Laparoscopic cholecystectomy tomorrow morning. I have discussed the proce dure and risks and great detail with the patient who is most anxious to proceed. He states he cannot tolerate the pain any longer MASON MARKS MD Jan 22, 2019 14:18
[2019-01-22 14:30] VITALS: BP 119/57; PULSE 83; RESP 18
[2019-01-22 20:00] VITALS: BP 106/55; PULSE 73; RESP 18
[2019-01-22] MEDS: TAMSULOSIN (SR) 0.4 MG CAP PO SCH (21:14)
[2019-01-23] VITALS (28 sets, daily range): BP systolic 60–160; BP diastolic 30–72; PULSE 75–106; RESP 16–27
[2019-01-23] MEDS: PIPER-TAZO 3.375 GM IV (PMX) 100 ML IVPB SCH ×5 (00:08→23:34)
[2019-01-23] MEDS: SOD CHLORIDE 0.45% 1,000 ML IV SCH ×3 (00:08→21:04)
[2019-01-23] MEDS: ACCU-CHEK XX SCH (01:39)
[2019-01-23] MEDS: KETOROLAC 15 MG INJ IV PRN (04:55)
[2019-01-23] MEDS: PANTOPRAZOLE (EC) 40 MG TAB PO SCH (05:04)
[2019-01-23] MEDS ORDERED: DESFLURANE 15 MIN ONE (07:00)
[2019-01-23] MEDS ORDERED: CEFAZOLIN 1 GM INJ ONE (07:00)
[2019-01-23] MEDS: INSULIN ASPART [NOVOLOG] 3 ML PEN SC SCH ×4 (08:00→20:59)
[2019-01-23] MEDS: INSULIN GLARGINE [LANTus] (100 UNITS/ML) SYG SC SCH (08:00)
[2019-01-23] MEDS: MULTIVITAMINS/MINERALS TAB PO SCH (08:09)
[2019-01-23] MEDS: FINASTERIDE 5 MG TAB PO SCH (08:09)
[2019-01-23] MEDS: ASCORBIC ACID 500 MG TAB PO SCH (08:09)
[2019-01-23] MEDS: LISINOPRIL 5 MG TAB PO SCH (09:00)
[2019-01-23] MEDS: DABIGATRAN 150 MG CAP PO SCH (09:00)
[2019-01-23] MEDS: METOPROLOL 50 MG TAB PO SCH ×2 (09:00→21:01)
--- NOTE | 2019-01-23 10:40 | PREAC ---
Date/Time of Note Date/Time of Note DATE: 01/23/19 TIME: 10:36 Anesthesia Eval and Record Evaluation Time Pre-Procedure Interview DATE: 01/23/19 TIME: 10:36 Age 88 Sex male NPO: 8 hrs Preoperative diagnosis cholecystitis s/p percutaneous AMILCAR Planned procedure Lap gia Past Medical History Past Medical History: Includes Cardio: HTN, Arrythmia (A fib, flutter) Endo: Diabetes Renal: CKD GI: GERD Surgery & Anesthesia Issues No known issue Meds Anticoagulation: No Beta Deandre within 24 hr: Yes Active Scripts Finasteride* (Finasteride*) 5 Mg Tablet, 5 MG PO DAILY, #30 TAB Prov:PAT PRECIADOLouis M. 12/20/18 Pantoprazole* (Protonix*) 40 Mg Tablet.dr, 40 MG PO DAILY for 30 Days, TAB Prov:ILANAUMAMAIA M. 12/20/18 Reported Medications Insulin Lispro (Humalog) 100 Unit/1 Ml Cartridge, 0 SQ SLIDING SCALE, EA IF BS IS 71-150=0 UNIT<70=ORANGE JUICE OR GLUCAGON 1MG THEN CALL MD. IF BS 151-200=2 UNITS,201-250=4 UNITS, 251-300=6 UNITS,301-350=8 UNITS, 351-400=10 UNITS>400=12 UNITS THEN CALL MD. 01/18/19 Metoprolol Tartrate* (Lopressor*) 50 Mg Tab, 50 MG PO BID, #60 TAB HOLD FOR SBP<110 OR HR<60 01/18/19 Calcium Carbonate (Calcium Carbonate) 500 Mg Tab.chew, 500 MG PO Q4H, TAB.CHEW 01/18/19 Acyclovir* (Acyclovir* Oint) 5%-15 Gm Oint, 1 APPLIC TOP QID, #1 TUB 01/18/19 Multivitamin with Minerals (Multivitamins with Minerals) 1 Each Tablet, 1 EACH PO DAILY, TAB 01/18/19 Hydrocodone/Acetaminophen (Devol 5-325 Tablet) 1 Each Tablet, 1 EACH PO Q4H PRN for PAIN LEVEL 6-10, TAB 01/18/19 Protein Supplement (Promod) 946 Ml Liquid, 30 ML PO BID 01/18/19 Sennosides* (Senna Lax*) 8.6 Mg Tablet, 2 TAB PO QHS PRN for PRN, TAB 01/18/19 Tamsulosin Hcl* (Tamsulosin Hcl*) 0.4 Mg Cap.er.24h, 0.4 MG PO HS, CAP 01/18/19 Tuberculin,Purif.prot.deriv. (Tubersol) 5 Tub Unit/0.1 Ml Vial, 5 TUB ID QHS Q 365D, VIAL FOR TB SCREENING YEARLY,ORDER DATE 01/11/19 01/18/19 Acetaminophen* (Acetaminophen*) 325 Mg Tablet, 650 MG PO Q4H PRN for PAIN AND OR ELEVATED TEMP, #30 TAB 01/18/19 Ascorbic Acid (Vitamin C) 500 Mg Tab, 500 MG PO DAILY, TAB 01/18/19 Lisinopril* (Lisinopril*) 2.5 Mg Tablet, 2.5 MG PO DAILY, #30 TAB HOLD FOR SBP<110 OR HR<60 12/16/18 Dabigatran Etexilate Mesylate* (Pradaxa*) 150 Mg Capsule, 150 MG PO DAILY, CAP 12/16/18 Discontinued Scripts Tamsulosin Hcl* (Flomax*) 0.4 Mg Cap.er.24h, 0.4 MG PO BID for 30 Days, CAP Prov:LOR PRECIADO. 12/21/18 Polyethylene Glycol* (Miralax*) 17 Gm Powd.pack, 17 GM PO DAILY for 30 Days Prov:LOR PRECIADO. 12/20/18 Docusate Sodium* (Colace*) 100 Mg Capsule, 100 MG PO BID, #60 CAP Prov:LOR PRECIADO. 12/20/18 Metoprolol Tartrate* (Lopressor*) 50 Mg Tab, 50 MG PO BID, #30 TAB Prov:LOR PRECIADO. 12/20/18 Metronidazole/Sodium Chloride ([place] IV 500 mg/100 ml) 500 Mg/100 Ml Piggyback, 500 MG IV Q8H for 9 Days Prov:LOR PRECIADO. 12/20/18 Ciprofloxacin/Dextrose* (Cipro IVPB*) 400 Mg/200 Ml Iv.soln., 400 MG IVPB Q12, #9 EA Prov:LOR PRECIADO. 12/20/18 Tamsulosin Hcl* (Tamsulosin Hcl*) 0.4 Mg Cap.er.24h, 0.4 MG PO BID for 30 Days, #60 CAP Prov:LOR PRECIADO 12/20/18 Current Medications IV Flush (NS 3 ml) 3 ml PER PROTOCOL IV ; Start 01/18/19 at 19:00 Ondansetron HCl (Zofran Inj) 4 mg Q6H PRN IV NAUSEA/VOMITING; Start 01/18/19 at 19:00 Acetaminophen/ Hydrocodone Bitart ([place] (5/325)) 1 tab Q6H PRN PO .MOD PAIN 4- 6 Last administered on 01/22/19at 08:42; Admin Dose 1 TAB; Start 01/18/19 at 19:00 Morphine Sulfate (morphine) 2 mg Q4H PRN IV .SEVERE PAIN 7-10 Last administered on 01/18/19at 22:28; Admin Dose 2 MG; Start 01/18/19 at 19:00 Docusate Sodium (Colace) 100 mg Q12H PRN PO .CONSTIPATION; Start 01/18/19 at 19:00 Magnesium Hydroxide (Milk Of Mag) 30 ml DAILY PRN PO .CONSTIPATION; Start 01/18/19 at 19:00 Sodium Chloride 1,000 ml @ 75 mls/hr [id number] IV Last administered on 01/23/19at 00:08; Admin Dose 75 MLS/HR; Start 01/18/19 at 18:54 Lorazepam (Ativan) 0.5 mg Q6H PRN IV ANXIETY; Start 01/18/19 at 19:00 Albuterol/ Ipratropium (Duoneb) 3 ml Q4H RESP THERAPY PRN HHN SHORTNESS OF BREATH; Start 01/18/19 at 19:00 Piperacillin Sod/ Tazobactam Sod 100 ml @ 200 mls/hr Q6 IVPB Last administered on 01/23/19at 05:03; Admin Dose 200 MLS/HR; Start 01/19/19 at 00:00 Hydralazine HCl (Apresoline) 10 mg Q6H PRN IV ELEVATED BLOOD PRESSURE; Start 01/18/19 at 19:00 Nitroglycerin (Nitroglycerin (Sl Tab) 0.4 Mg) 1 tab Q5M PRN SL ANGINA; Start 01/18/19 at 19:00 Acetaminophen (Tylenol Tab) 650 mg Q4H PRN PO MILD PAIN(1-3)OR ELEVATED TEMP; Start 01/18/19 at 19:00 Ascorbic Acid (Vitamin C) 500 mg DAILY PO Last administered on 01/22/19 08:43; Admin Dose 500 MG; Start 01/19/19 at 09:00 Finasteride (Proscar) 5 mg DAILY PO Last administered on 01/22/19 08:42; Admin Dose 5 MG; Start 01/19/19 at 09:00 Lisinopril (Zestril) 2.5 mg DAILY PO Last administered on 01/22/19 08:39; Admin Dose 2.5 MG; Start 01/19/19 at 09:00 Metoprolol Tartrate (Lopressor) 50 mg BID PO Last administered on 01/22/19 21:15; Admin Dose 50 MG; Start 01/18/19 at 21:00 Senna (Senokot) 2 tab QHS PRN PO PRN; Start 01/18/19 at 19:00 Tamsulosin HCl (Flomax) 0.4 mg HS PO Last administered on 01/22/19 21:14; Admin Dose 0.4 MG; Start 01/18/19 at 21:00 Calcium Carbonate (Tums) 500 mg Q4H PRN PO HEARTBURN; Start 01/18/19 at 19:30 Multivitamins/ Minerals (Theragran-M) 1 tab DAILY PO Last administered on 01/22/19at 08:42; Admin Dose 1 TAB; Start 01/19/19 at 09:00 Diagnostic Test (Pha) (Accu-Chek) 1 ea 02 XX Last administered on 01/20/19at 02:39; Admin Dose 1 EA; Start 01/19/19 at 02:00 Miscellaneous Information 1 ea NOTE XX ; Start 01/18/19 at 20:30 Glucose (Glutose) 15 gm Q15M PRN PO DECREASED GLUCOSE; Start 01/18/19 at 20:30 Glucose (Glutose) 22.5 gm Q15M PRN PO DECREASED GLUCOSE; Start 01/18/19 at 20:30 Dextrose (D50w Syringe) 25 ml Q15M PRN IV DECREASED GLUCOSE; Start 01/18/19 at 20:30 Dextrose (D50w Syringe) 50 ml Q15M PRN IV DECREASED GLUCOSE; Start 01/18/19 at 20:30 Glucagon (Glucagen) 1 mg Q15M PRN IM DECREASED GLUCOSE; Start 01/18/19 at 20:30 Glucose (Glutose) 15 gm Q15M PRN BUCCAL DECREASED GLUCOSE; Start 01/18/19 at 20:30 Dimethicone (Blistex Lip [place]) 1 applic Q2H PRN TOP NOTE; Start 01/18/19 at 22:30 Miscellaneous Information (Pending [facility] Order For Wound Care) This patient loja... PRN PRN XX WOUND CARE; Start 01/19/19 at 06:30 Insulin Aspart (Novolog Insulin Pen) NOVOLOG *MILD* ALGORITHM WITH MEALS BEDTIME SC Last administered on 01/22/19at 21:14; Admin Dose 3 UNIT; Start 01/20/19 at 08:00 Pantoprazole (Protonix Tab) 40 mg DAILY@06 PO Last administered on 01/22/19at 06:14; Admin Dose 40 MG; Start 01/22/19 at 06:00 Insulin Glargine (Lantus) 14 units DAILY@0800 SC Last administered on 01/22/19at 10:44; Admin Dose 14 UNITS; Start 01/22/19 at 10:00 Dabigatran (PRADaxa) 150 mg DAILY PO ; Start 01/23/19 at 09:00 Ketorolac Tromethamine (Toradol) 15 mg Q6H PRN IV PAIN Last administered on 01/23/19at 04:55; Admin Dose 15 MG; Start 01/22/19 at 11:00 Meds reviewed: Yes Allergies Coded Allergies: Sulfa (Sulfonamide Antibiotics) (Verified Allergy, Severe, 01/18/19) Patient states "I almost " bee venom protein (honey bee) (Verified Allergy, Severe, 01/18/19) severe swelling Allergies Reviewed: Yes (almost on sulf, sweeln on bee) Labs/Studies Labs Reviewed: Reviewed by anesthesiologist Result Diagram: 01/23/19 0551 01/23/19 0551 Laboratory Tests 01/23/19 05:51 test: N/A Studies: ECG (Afib), CXR (mild right diagragm elevation, atelectasis) Pre-procedure Exam Last vitals Vital Signs Date Temp Pulse Resp B/P (MAP) Pulse Ox O2 O2 Flow FiO2 Time Delivery Rate 01/23/19 97.7 78 17 152/72 100 Room Air 08:14 (98) Airway: Adequate mouth opening Mallampati: Mallampati I Teeth: Normal Lung: Normal Heart: Normal ASA Physical Status ASA physical status: 2 Emergency: None Planned Anesthetic Nerve block: TAP (bilateral) Planned Pain Management Single shot nerve block Pre-operative Attestations Prior to commencing anesthesia and surgery, the patient was re-evaluated, there was verification of: *The patient's identity *The results of appropriate recent lab work and preoperative vital signs *The above evaluation not changing prior to induction *Anesthetic plan, risk benefits, alternative and complications discussed with patient/family; questions answered; patient/family understands, accepts and wishes to proceed. HEDY ONEAL MD Jan 23, 2019 10:40
[2019-01-23] MEDS ORDERED: FENTAnyl 50 MCG/ML VIAL ONE ×2 (11:13→13:56)
[2019-01-23] MEDS ORDERED: ROPIVACAINE 0.5 % 30 ML VIAL ONE (11:13)
[2019-01-23] MEDS ORDERED: ROCURONIUM 50 MG INJ ONE (11:13)
[2019-01-23] MEDS ORDERED: ETOMIDATE 20 MG INJ ONE (11:13)
--- NOTE | 2019-01-23 11:29 | HPN ---
Date/Time of Note Date/Time of Note DATE: 01/23/19 TIME: 11:28 Interval H&P Admission Note Pt. seen H&P reviewed: Systems changes noted below Cholecystostomy obstructed and patient symptomatic MASON MARKS MD Jan 23, 2019 11:29
[2019-01-23] MEDS ORDERED: BUPIVACAINE 0.25%/EPI (SDV) 30 ML INJ ONE (11:37)
[2019-01-23] MEDS ORDERED: LIDOCAINE 1% (MPF) 30 ML INJ ONE (11:37)
[2019-01-23] MEDS ORDERED: METOPROLOL 5 MG INJ ONE (12:05)
[2019-01-23] MEDS ORDERED: ONDANSETRON 4 MG INJ ONE (12:06)
[2019-01-23] MEDS ORDERED: METOCLOPRAMIDE 10 MG INJ ONE (12:06)
[2019-01-23] MEDS ORDERED: PROPOFOL 20 ML ONE (12:24)
--- NOTE | 2019-01-23 13:21 | OPR ---
Date/Time of Note Date/Time of Note DATE: 01/23/19 TIME: 13:10 Operative Report Procedure Date: Jan 23, 2019 Preoperative Diagnosis Acute and chronic cholecystitis Postoperative Diagnosis Acute and chronic cholecystitis Operation/Procedure Performed 1. Laparoscopic anterior cholecystectomy 2. Placement of drain Surgeon Mason Marks MD Materials Planning Analyst None Anesthesia Type: general Anesthesiologist: HEDY ONEAL MD Estimated Blood Loss: other (Approximately 50 cc) Transfusion none Specimen Gallbladder and stones Grafts/Implants #19 Round Sae drain Tubes/Drains Sae drain Complications none Pt Condition Post Procedure: stable Disposition: PACU Indications Patient is a 88-year-old gentleman who several weeks ago underwent a percutaneous cholecystostomy and an effort to avert cholecystectomy. He returned several days ago with a nonfunctioning cholecystostomy tube. To the cholecystostomy tube was replaced with a larger tube however yesterday became occluded and the patient was quite symptomatic. He is now most anxious to undergo definitive cholecystectomy. The procedure and risks were outlined in great detail with the patient who has an excellent understanding of the nature of his situation and agrees to the proposed plan of therapy as outlined. Procedure Description After satisfactory general endotracheal anesthesia was achieved, the abdomen was insufflated with carbon dioxide through an umbilical Veress needle to 15 mmHg pressure. The Veress needle was removed and the umbilical incision extended to 5 mm through which a 5 mm trocar was placed. A 5 mm 0 degree lens was placed. Laparoscopy showed a thick leathery chronically and acutely inflamed gallbladder. At this point in the procedure the cholecystostomy tube which was transhepatic was removed. Under direct visualization a 12 mm epigastric trocar was placed as well as 2 more 5 mm right lateral abdominal trochars. The dome of the gallbladder was grasped and retracted superiorly the distal gallbladder was grasped and retracted laterally. The barry hepatis could not be visualized with any degree of certainty, so I stopped further dissection in this area. The gallbladder was dissected from above down. This was done with electrocautery. The posterior gallbladder remained attached to the undersurface of the liver. The dissection continued down to the cystic artery which was anterior, and was divided over clip. A single clip was placed at the tapered end of the anterior gallbladder, and divided on the gallbladder side. The resultant procedure was in essence an anterior cholecystectomy. The multiple stones which were in the gallbladder were sequentially removed with the assistance of a 10 mm morcellator the gallbladder and his stones were removed. The area was irrigated with saline. There was no leakage of bile, and hemostasis was excellent. A #19 round Sae drain was placed draining the right subhepatic space and gallbladder fossa and exited through the lateralmost puncture site where it was secured to skin with 2-0 nylon. The abdomen was then desufflated and all trochars were removed. The fascia of the epigastrium was closed with 2 sutures of 0 Vicryl. The skin punctures were infiltrated with 20 cc of 0.25% plain Marcaine and closed with gabriela. Sponge and needle counts were reported as correct x2. MASON MARKS MD Jan 23, 2019 13:20
[2019-01-23] MEDS ORDERED: OXYCODONE/ACETAMINOPHEN (5/325) TAB PO PRN ×2 (13:30)
[2019-01-23] MEDS ORDERED: ONDANSETRON 4 MG INJ IV PRN ×2 (13:30→14:00)
[2019-01-23] MEDS ORDERED: morphine 2 MG INJ IV PRN (13:30)
[2019-01-23] MEDS ORDERED: FENTAnyl 50 MCG/ML VIAL IV PRN ×3 (14:00)
[2019-01-23] MEDS ORDERED: HYDROmorphONE 1 MG/5 ML IV SYRINGE IV PRN ×3 (14:00)
--- NOTE | 2019-01-23 15:41 | PAC ---
Date/Time of Note Date/Time of Note DATE: 01/23/19 TIME: 15:40 Post-Anesthesia Notes Post-Anesthesia Note Last documented vital signs Vital Signs Date Temp Pulse Resp B/P (MAP) Pulse Ox O2 O2 Flow FiO2 Time Delivery Rate 01/23/19 97.8 71 27 116/49 96 Room Air 15:17 (71) 01/23/19 97.8 14:57 01/23/19 10.0 13:36 01/23/19 78 08:14 Activity: WNL Respiratory function: WNL Cardiovascular function: WNL Mental status: Baseline Pain reasonably controlled: Yes Hydration appropriate: Yes Nausea/Vomiting absent: No HEDY ONEAL MD Jan 23, 2019 15:41
[2019-01-23] MEDS ORDERED: morphine 4 MG/ML VIAL IV PRN (18:00)
--- NOTE | 2019-01-23 19:11 | PN ---
Date/Time of Note Date/Time of Note DATE: 01/23/19 TIME: 19:04 Assessment/Plan VTE Prophylaxis Risk score (from Ns)>0 risk: 4 SCD applied (from Ns): Yes Pharmacological prophylaxis: other Lines/Catheters IV Catheter Type (from Nrs): Peripheral IV Urinary Cath still in place: No Assessment/Plan Hospital Course 88-year-old male with chronic cholecystitis, managed conservatively with a percutaneous cholecystectomy, admitted with dislodged cholecystostomy drain requiring new replacement tube. 1. Dislodged cholecystostomy tube -Status post placement of a new drain and now laparoscopic anterior cholecystectomy with placement of a drain -Continue Zosyn 2. Atrial fibrillation -Rate controlled. -Continue beta-blockers. Resumed Pradaxa. 3. CKD -Stable renal function. 4. DMII -Needed more control and started on Lantus, Continue sliding scale -A1c 7.7 5. Essential hypertension. -Stable. Continue DANIEL inhibitors. 6. BPH -Continue Proscar 7. Chronic anemia. -H&H stable. 8. 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 Body pain secondary to diffuse muscular tension -Soma x 1 DVT prophylaxis: Pradaxa PUD prophylaxis: On Protonix Disposition: Patient is now status post cholecystectomy with drain placement, follow-up with surgery recommendations, anticipate DC back to [facility] in the next 1-2 days Result Diagram: 01/23/19 0551 01/23/19 0551 Results 24hrs Laboratory Tests Test 01/22/19 21:12 01/23/19 01:38 01/23/19 05:51 01/23/19 08:02 Bedside Glucose 294 H 153 113 White Blood Count 5.1 Red Blood Count 3.95 L Hemoglobin 11.3 L Hematocrit 35.4 L Mean Corpuscular 89.6 Volume Mean Corpuscular 28.6 L Hemoglobin Mean Corpuscular 31.9 L Hemoglobin Concent Red Cell 14.5 Distribution Width Platelet Count 164 Mean Platelet Volume 11.3 H Immature 0.400 Granulocytes % Neutrophils % 42.6 Lymphocytes % 41.9 Monocytes % 11.4 H Eosinophils % 3.3 Basophils % 0.4 Nucleated Red Blood 0.0 Cells % Immature 0.020 Granulocytes # Neutrophils # 2.2 Lymphocytes # 2.1 Monocytes # 0.6 Eosinophils # 0.2 Basophils # 0.0 Nucleated Red Blood 0.0 Cells # Sodium Level 142 Potassium Level 3.8 Chloride Level 109 Carbon Dioxide Level 23 Anion Gap 10 Blood Urea Nitrogen 30 H Creatinine 1.38 H Est Glomerular Filtrat Rate mL/min Glucose Level 113 # Calcium Level 8.4 Test 01/23/19 16:33 Bedside Glucose 155 Subjective 24 Hr Interval Summary Musculoskeletal: bone/joint pain Exam/Review of Systems Exam Vitals Vital Signs Date Temp Pulse Resp B/P (MAP) Pulse Ox O2 O2 Flow FiO2 Time Delivery Rate 01/23/19 97.8 106 16 130/64 99 Room Air 17:45 (86) 01/23/19 10.0 13:36 Intake and Output 01/22/19 01/22/19 01/23/19 1515:00 23:00 07:00 IntakeIntake Total 420 ml 1140 ml 1310 ml OutputOutput Total 180 ml 150 ml 200 ml BalanceBalance 240 ml 990 ml 1110 ml Constitutional: alert, oriented Respiratory: clear to auscultation Cardiovascular: regular rate and rhythm Gastrointestinal: soft; No distended Musculoskeletal: nl extremities to inspection Results Results 24hrs Laboratory Tests Test 01/22/19 21:12 01/23/19 01:38 01/23/19 05:51 01/23/19 08:02 Bedside Glucose 294 H 153 113 White Blood Count 5.1 Red Blood Count 3.95 L Hemoglobin 11.3 L Hematocrit 35.4 L Mean Corpuscular 89.6 Volume Mean Corpuscular 28.6 L Hemoglobin Mean Corpuscular 31.9 L Hemoglobin Concent Red Cell 14.5 Distribution Width Platelet Count 164 Mean Platelet Volume 11.3 H Immature 0.400 Granulocytes % Neutrophils % 42.6 Lymphocytes % 41.9 Monocytes % 11.4 H Eosinophils % 3.3 Basophils % 0.4 Nucleated Red Blood 0.0 Cells % Immature 0.020 Granulocytes # Neutrophils # 2.2 Lymphocytes # 2.1 Monocytes # 0.6 Eosinophils # 0.2 Basophils # 0.0 Nucleated Red Blood 0.0 Cells # Sodium Level 142 Potassium Level 3.8 Chloride Level 109 Carbon Dioxide Level 23 Anion Gap 10 Blood Urea Nitrogen 30 H Creatinine 1.38 H Est Glomerular Filtrat Rate mL/min Glucose Level 113 # Calcium Level 8.4 Test 01/23/19 16:33 Bedside Glucose 155 Medications Medication Current Medications IV Flush (NS 3 ml) 3 ml PER PROTOCOL IV ; Start 01/18/19 at 19:00 Ondansetron HCl (Zofran Inj) 4 mg Q6H PRN IV NAUSEA/VOMITING Last administered on 01/23/19at 13:31; Admin Dose 4 MG; Start 01/18/19 at 19:00 Acetaminophen/ Hydrocodone Bitart ([place] (5/325)) 1 tab Q6H PRN PO .MOD PAIN 4- 6 Last administered on 01/22/19at 08:42; Admin Dose 1 TAB; Start 01/18/19 at 19:00 Morphine Sulfate (morphine) 2 mg Q4H PRN IV .SEVERE PAIN 7-10 Last administered on 01/18/19at 22:28; Admin Dose 2 MG; Start 01/18/19 at 19:00 Docusate Sodium (Colace) 100 mg Q12H PRN PO .CONSTIPATION; Start 01/18/19 at 19:00 Magnesium Hydroxide (Milk Of Mag) 30 ml DAILY PRN PO .CONSTIPATION; Start 01/18/19 at 19:00 Sodium Chloride 1,000 ml @ 75 mls/hr [id number] IV Last administered on 01/23/19at 00:08; Admin Dose 75 MLS/HR; Start 01/18/19 at 18:54 Lorazepam (Ativan) 0.5 mg Q6H PRN IV ANXIETY; Start 01/18/19 at 19:00 Albuterol/ Ipratropium (Duoneb) 3 ml Q4H RESP THERAPY PRN HHN SHORTNESS OF BREATH; Start 01/18/19 at 19:00 Piperacillin Sod/ Tazobactam Sod 100 ml @ 200 mls/hr Q6 IVPB Last administered on 01/23/19at 15:57; Admin Dose 200 MLS/HR; Start 01/19/19 at 00:00 Hydralazine HCl (Apresoline) 10 mg Q6H PRN IV ELEVATED BLOOD PRESSURE; Start 01/18/19 at 19:00 Nitroglycerin (Nitroglycerin (Sl Tab) 0.4 Mg) 1 tab Q5M PRN SL ANGINA; Start 01/18/19 at 19:00 Acetaminophen (Tylenol Tab) 650 mg Q4H PRN PO MILD PAIN(1-3)OR ELEVATED TEMP; Start 01/18/19 at 19:00 Ascorbic Acid (Vitamin C) 500 mg DAILY PO Last administered on 01/22/19 08:43; Admin Dose 500 MG; Start 01/19/19 at 09:00 Finasteride (Proscar) 5 mg DAILY PO Last administered on 01/22/19 08:42; Admin Dose 5 MG; Start 01/19/19 at 09:00 Lisinopril (Zestril) 2.5 mg DAILY PO Last administered on 01/22/19 08:39; Admi n Dose 2.5 MG; Start 01/19/19 at 09:00 Metoprolol Tartrate (Lopressor) 50 mg BID PO Last administered on 01/22/19 21:15; Admin Dose 50 MG; Start 01/18/19 at 21:00 Senna (Senokot) 2 tab QHS PRN PO PRN; Start 01/18/19 at 19:00 Tamsulosin HCl (Flomax) 0.4 mg HS PO Last administered on 01/22/19 21:14; Admin Dose 0.4 MG; Start 01/18/19 at 21:00 Calcium Carbonate (Tums) 500 mg Q4H PRN PO HEARTBURN; Start 01/18/19 at 19:30 Multivitamins/ Minerals (Theragran-M) 1 tab DAILY PO Last administered on 01/10 08:42; Admin Dose 1 TAB; Start 01/19/19 at 09:00 Diagnostic Test (Pha) (Accu-Chek) 1 ea 02 XX Last administered on 01/20/19at 02:39; Admin Dose 1 EA; Start 01/19/19 at 02:00 Miscellaneous Information 1 ea NOTE XX ; Start 01/18/19 at 20:30 Glucose (Glutose) 15 gm Q15M PRN PO DECREASED GLUCOSE; Start 01/18/19 at 20:30 Glucose (Glutose) 22.5 gm Q15M PRN PO DECREASED GLUCOSE; Start 01/18/19 at 20:30 Dextrose (D50w Syringe) 25 ml Q15M PRN IV DECREASED GLUCOSE; Start 01/18/19 at 20:30 Dextrose (D50w Syringe) 50 ml Q15M PRN IV DECREASED GLUCOSE; Start 01/18/19 at 20:30 Glucagon (Glucagen) 1 mg Q15M PRN IM DECREASED GLUCOSE; Start 01/18/19 at 20:30 Glucose (Glutose) 15 gm Q15M PRN BUCCAL DECREASED GLUCOSE; Start 01/18/19 at 20:30 Dimethicone (Blistex Lip [place]) 1 applic Q2H PRN TOP NOTE; Start 01/18/19 at 22:30 Miscellaneous Information (Pending Santyl Order For Wound Care) This patient loja. .. PRN PRN XX WOUND CARE; Start 01/19/19 at 06:30 Insulin Aspart (Novolog Insulin Pen) NOVOLOG *MILD* ALGORITHM WITH MEALS BEDTIME SC Last administered on 01/22/19at 21:14; Admin Dose 3 UNIT; Start 01/20/19 at 08:00 Pantoprazole (Protonix Tab) 40 mg DAILY@06 PO Last administered on 01/22/19at 06:14; Admin Dose 40 MG; Start 01/22/19 at 06:00 Insulin Glargine (Lantus) 14 units DAILY@0800 SC Last administered on 01/22/19at 10:44; Admin Dose 14 UNITS; Start 01/22/19 at 10:00 Dabigatran (PRADaxa) 150 mg DAILY PO ; Start 01/23/19 at 09:00 Ketorolac Tromethamine (Toradol) 15 mg Q6H PRN IV PAIN Last administered on 01/23/19at 04:55; Admin Dose 15 MG; Start 01/22/19 at 11:00 Oxycodone/ Acetaminophen (Percocet (5/ 325)) 1 tab Q4H PRN PO .MILD PAIN (1-3); Start 01/23/19 at 13:30 Oxycodone/ Acetaminophen (Percocet (5/ 325)) 2 tab Q4H PRN PO .MODERATE PAIN (4-6); Start 01/23/19 at 13:30 Morphine Sulfate (morphine) 2 mg ONCE PRN IV .SEVERE PAIN 7-10 Last administered on 01/23/19at 16:37; Admin Dose 2 MG; Start 01/23/19 at 13:30 Ondansetron HCl (Zofran Inj) 4 mg Q6H PRN IV NAUSEA/VOMITING; Start 01/23/19 at 13:30 Hydromorphone HCl (Dilaudid) 0.2 mg PACU PRN IV MILD PAIN 1-3; Start 01/23/19 at 14:00; Stop 01/23/19 at 21:00 Hydromorphone HCl (Dilaudid) 0.4 mg PACU PRN IV MOD PAIN 4-6; Start 01/23/19 at 14:00; Stop 01/23/19 at 21:00 Hydromorphone HCl (Dilaudid) 0.6 mg PACU PRN IV SEVERE PAIN 7-10; Start 01/23/19 at 14:00; Stop 01/23/19 at 21:00 Fentanyl (Sublimaze) 25 mcg PACU ORDER PRN IV MILD PAIN 1-3 Last administered on 01/23/19at 14:19; Admin Dose 25 MCG; Start 01/23/19 at 14:00; Stop 01/23/19 at 21:00 Fentanyl (Sublimaze) 50 mcg PACU ORDER PRN IV MOD PAIN 4-6; Start 01/23/19 at 14 :00; Stop 01/23/19 at 21:00 Fentanyl (Sublimaze) 75 mcg PACU ORDER PRN IV SEVERE PAIN 7-10; Start 01/23/19 at 14:00; Stop 01/23/19 at 21:00 Ondansetron HCl (Zofran Inj) 4 mg PACU ORDER PRN IV NAUSEA/VOMITING; Start 01/23/19 at 14:00; Stop 01/23/19 at 21:00 Morphine Sulfate (morphine) 4 mg Q2 PRN IV SEVERE PAIN LEVEL 7-10 Last administered on 01/23/19at 18:27; Admin Dose 4 MG; Start 01/23/19 at 18:00 MAURO DAO Jan 23, 2019 19:10
[2019-01-23] MEDS ORDERED: CARISOPRODOL 350 MG TAB PO ONE (20:00)
[2019-01-23] MEDS: TAMSULOSIN (SR) 0.4 MG CAP PO SCH (20:58)
[2019-01-24] MEDS: HYDROCODONE/APAP (5/325) TAB PO PRN (01:25)
[2019-01-24 02:00] VITALS: BP 82/47; PULSE 80; RESP 17
[2019-01-24] MEDS: ACCU-CHEK XX SCH (02:00)
[2019-01-24] MEDS ORDERED: SOD CHLORIDE 0.9% 250 ML IV ONE ×2 (04:00→05:30)
[2019-01-24 04:52] VITALS: BP 90/53; PULSE 88
[2019-01-24] MEDS: PANTOPRAZOLE (EC) 40 MG TAB PO SCH (05:28)
[2019-01-24] MEDS: PIPER-TAZO 3.375 GM IV (PMX) 100 ML IVPB SCH ×3 (05:28→18:21)
[2019-01-24 07:59] VITALS: BP 92/52; PULSE 103; RESP 17
[2019-01-24] MEDS: INSULIN ASPART [NOVOLOG] 3 ML PEN SC SCH ×4 (08:00→20:56)
[2019-01-24] MEDS: ASCORBIC ACID 500 MG TAB PO SCH (08:25)
[2019-01-24] MEDS: DABIGATRAN 150 MG CAP PO SCH (08:25)
[2019-01-24] MEDS: FINASTERIDE 5 MG TAB PO SCH (08:25)
[2019-01-24] MEDS: METOPROLOL 50 MG TAB PO SCH ×2 (08:26→22:12)
[2019-01-24] MEDS: MULTIVITAMINS/MINERALS TAB PO SCH (08:27)
[2019-01-24] MEDS: LISINOPRIL 5 MG TAB PO SCH (08:27)
[2019-01-24] MEDS: SOD CHLORIDE 0.45% 1,000 ML IV SCH (08:29)
[2019-01-24] MEDS: INSULIN GLARGINE [LANTus] (100 UNITS/ML) SYG SC SCH (08:40)
[2019-01-24] MEDS: morphine 2 MG INJ IV PRN ×2 (10:37→12:25)
--- NOTE | 2019-01-24 11:14 | QN ---
Documentation Comment Postoperative day #1 Symptomatically improved WBC up to 14,000 LFTs are normal AMILCAR drainage is bilious Recommend: GI consultation for ERCP and stent placement MASON MARKS MD Jan 24, 2019 11:14
--- NOTE | 2019-01-24 14:51 | CONS ---
Assessment/Plan Assessment/Plan Hospital Course (Demo Recall) Summary Assessment and Plan: Assessment: Leukocytosis Status post cholecystectomy 01/23/19 -AMILCAR in place with bilious drainage R/o biloma vs bile leak Atrial fibrillation -on Pradaxa. Diabetes type 2 CKD Hypertension BPH Normocytic anemia Plan: MRCP - to r/o biloma vs bile leak, ifif indicated will proceed with ERCP and stent palcement Monitor labs Supportive care Further recommendations based on clinical course patient seen in collaboration with Dr. Kaur CC: BERNABE KAUR ; Consultation Date/Type/Reason Admit Date/Time Jan 18, 2019 at 18:15 Date of Consultation: Jan 24, 2019 Type of Consult GI Reason for Consultation Poss ERCP with stent placement Date/Time of Note DATE: 01/24/19 TIME: 14:44 Hx of Present Illness This is a 88 year old male who was recently admited to the hospital for cholecystitis he was attempted to be treated conservatively status post cholecystostomy. However drain became dislodged and patient returned to the hospital for further evaluation. Since hospitalization patient underwent a cholecystectomy on 01/23/19. Incisions are intact AMILCAR in place with bilious drainage GI has been consulted for further evaluation. At time evaluation patient complains of some nausea WBCs have noted to spike from yesterday with a T-max of 99.5 and heart rate of 103. As noted before AMILCAR in place with large bryant unt of bilious drainage we will proceed with MRCP to rule out biloma versus bile leak if positive will proceed with ERCP and stent placement to allow area to heal. 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 Past Medical History Home Meds Active Scripts Finasteride* (Finasteride*) 5 Mg Tablet, 5 MG PO DAILY, #30 TAB Prov:LOR PRECIADO. 12/20/18 Pantoprazole* (Protonix*) 40 Mg Tablet., 40 MG PO DAILY for 30 Days, TAB Prov:LOR PRECIADO M. 12/20/18 Reported Medications Insulin Lispro (Humalog) 100 Unit/1 Ml Cartridge, 0 SQ SLIDING SCALE, EA IF BS IS 71-150=0 UNIT<70=ORANGE JUICE OR GLUCAGON 1MG THEN CALL MD. IF BS 151-200=2 UNITS,201-250=4 UNITS, 251-300=6 UNITS,301-350=8 UNITS, 351-400=10 UNITS>400=12 UNITS THEN CALL . 01/18/19 Metoprolol Tartrate* (Lopressor*) 50 Mg Tab, 50 MG PO BID, #60 TAB HOLD FOR SBP<110 OR HR<60 01/18/19 Calcium Carbonate (Calcium Carbonate) 500 Mg Tab.chew, 500 MG PO Q4H, TAB.CHEW 01/18/19 Acyclovir* (Acyclovir* Oint) 5%-15 Gm Oint, 1 APPLIC TOP QID, #1 TUB 01/18/19 Multivitamin with Minerals (Multivitamins with Minerals) 1 Each Tablet, 1 EACH PO DAILY, TAB 01/18/19 Hydrocodone/Acetaminophen ([place] 5-325 Tablet) 1 Each Tablet, 1 EACH PO Q4H PRN for PAIN LEVEL 6-10, TAB 01/18/19 Protein Supplement (Promod) 946 Ml Liquid, 30 ML PO BID 01/18/19 Sennosides* (Senna Lax*) 8.6 Mg Tablet, 2 TAB PO QHS PRN for PRN, TAB 01/18/19 Tamsulosin Hcl* (Tamsulosin Hcl*) 0.4 Mg Cap.er.24h, 0.4 MG PO HS, CAP 01/18/19 Tuberculin,Purif.prot.deriv. (Tubersol) 5 Tub Unit/0.1 Ml Vial, 5 TUB ID QHS Q 365D, VIAL FOR TB SCREENING YEARLY,ORDER DATE 01/11/19 01/18/19 Acetaminophen* (Acetaminophen*) 325 Mg Tablet, 650 MG PO Q4H PRN for PAIN AND OR ELEVATED TEMP, #30 TAB 01/18/19 Ascorbic Acid (Vitamin C) 500 Mg Tab, 500 MG PO DAILY, TAB 01/18/19 Lisinopril* (Lisinopril*) 2.5 Mg Tablet, 2.5 MG PO DAILY, #30 TAB HOLD FOR SBP<110 OR HR<60 12/16/18 Dabigatran Etexilate Mesylate* (Pradaxa*) 150 Mg Capsule, 150 MG PO DAILY, CAP 12/16/18 Discontinued Scripts Tamsulosin Hcl* (Flomax*) 0.4 Mg Cap.er.24h, 0.4 MG PO BID for 30 Days, CAP Prov:LOR PRECIADO 12/21/18 Polyethylene Glycol* (Miralax*) 17 Gm Powd.pack, 17 GM PO DAILY for 30 Days Prov:LOR PRECIADO 12/20/18 Docusate Sodium* (Colace*) 100 Mg Capsule, 100 MG PO BID, #60 CAP Prov:LOR PRECIADO 12/20/18 Metoprolol Tartrate* (Lopressor*) 50 Mg Tab, 50 MG PO BID, #30 TAB Prov:LOR PRECIADO 12/20/18 Metronidazole/Sodium Chloride ([place] IV 500 mg/100 ml) 500 Mg/100 Ml Piggyback, 500 MG IV Q8H for 9 Days Prov:LOR PRECIADO 12/20/18 Ciprofloxacin/Dextrose* (Cipro IVPB*) 400 Mg/200 Ml Iv.soln., 400 MG IVPB Q12, #9 EA Prov:LOR PRECIADO 12/20/18 Tamsulosin Hcl* (Tamsulosin Hcl*) 0.4 Mg Cap.er.24h, 0.4 MG PO BID for 30 Days, #60 CAP Prov:LOR PRECIADO 12/20/18 Medications Current Medications IV Flush (NS 3 ml) 3 ml PER PROTOCOL IV ; Start 01/18/19 at 19:00 Ondansetron HCl (Zofran Inj) 4 mg Q6H PRN IV NAUSEA/VOMITING Last administered on 01/23/19at 13:31; Admin Dose 4 MG; Start 01/18/19 at 19:00 Acetaminophen/ Hydrocodone Bitart ([place] (5/325)) 1 tab Q6H PRN PO .MOD PAIN 4- 6 Last administered on 01/24/19at 01:25; Admin Dose 1 TAB; Start 01/18/19 at 19:00 Morphine Sulfate (morphine) 2 mg Q4H PRN IV .SEVERE PAIN 7-10 Last administered on 01/24/19at 10:37; Admin Dose 2 MG; Start 01/18/19 at 19:00 Docusate Sodium (Colace) 100 mg Q12H PRN PO .CONSTIPATION; Start 01/18/19 at 19:00 Magnesium Hydroxide (Milk Of Mag) 30 ml DAILY PRN PO .CONSTIPATION; Start at 19:00 Lorazepam (Ativan) 0.5 mg Q6H PRN IV ANXIETY; Start 01/18/19 at 19:00 Albuterol/ Ipratropium (Duoneb) 3 ml Q4H RESP THERAPY PRN HHN SHORTNESS OF BREATH; Start 01/18/19 at 19:00 Piperacillin Sod/ Tazobactam Sod 100 ml @ 200 mls/hr Q6 IVPB Last administered on 01/24/19at 12:52; Admin Dose 200 MLS/HR; Start 01/19/19 at 00:00 Hydralazine HCl (Apresoline) 10 mg Q6H PRN IV ELEVATED BLOOD PRESSURE; Start 01/18/19 at 19:00 Nitroglycerin (Nitroglycerin (Sl Tab) 0.4 Mg) 1 tab Q5M PRN SL ANGINA; Start 01/18/19 at 19:00 Acetaminophen (Tylenol Tab) 650 mg Q4H PRN PO MILD PAIN(1-3)OR ELEVATED TEMP; Start 01/18/19 at 19:00 Ascorbic Acid (Vitamin C) 500 mg DAILY PO Last administered on 01/24/19at 08:25; Admin Dose 500 MG; Start 01/19/19 at 09:00 Finasteride (Proscar) 5 mg DAILY PO Last administered on 01/24/19at 08:25; Admin Dose 5 MG; Start 01/19/19 at 09:00 Lisinopril (Zestril) 2.5 mg DAILY PO Last administered on 01/22/19at 08:39; Admin Dose 2.5 MG; Start 01/19/19 at 09:00 Metoprolol Tartrate (Lopressor) 50 mg BID PO Last administered on 01/23/19at 21:01; Admin Dose 50 MG; Start 01/18/19 at 21:00 Senna (Senokot) 2 tab QHS PRN PO PRN; Start 01/18/19 at 19:00 Tamsulosin HCl (Flomax) 0.4 mg HS PO Last administered on 01/23/19at 20:58; Admin Dose 0.4 MG; Start 01/18/19 at 21:00 Calcium Carbonate (Tums) 500 mg Q4H PRN PO HEARTBURN; Start 01/18/19 at 19:30 Multivitamins/ Minerals (Theragran-M) 1 tab DAILY PO Last administered on 01/24/19at 08:27; Admin Dose 1 TAB; Start 01/19/19 at 09:00 Diagnostic Test (Pha) (Accu-Chek) 1 ea 02 XX Last administered on 01/20/19at 02:39; Admin Dose 1 EA; Start 01/19/19 at 02:00 Miscellaneous Information 1 ea NOTE XX ; Start 01/18/19 at 20:30 Glucose (Glutose) 15 gm Q15M PRN PO DECREASED GLUCOSE; Start 01/18/19 at 20:30 Glucose (Glutose) 22.5 gm Q15M PRN PO DECREASED GLUCOSE; Start 01/18/19 at 20:30 Dextrose (D50w Syringe) 25 ml Q15M PRN IV DECREASED GLUCOSE; Start 01/18/19 at 20:30 Dextrose (D50w Syringe) 50 ml Q15M PRN IV DECREASED GLUCOSE; Start 01/18/19 at 20:30 Glucagon (Glucagen) 1 mg Q15M PRN IM DECREASED GLUCOSE; Start 01/18/19 at 20:30 Glucose (Glutose) 15 gm Q15M PRN BUCCAL DECREASED GLUCOSE; Start 01/18/19 at 20:30 Dimethicone (Blistex Lip [place]) 1 applic Q2H PRN TOP NOTE; Start 01/18/19 at 22:30 Miscellaneous Information (Pending [facility] Order For Wound Care) This patient loja... PRN PRN XX WOUND CARE; Start 01/19/19 at 06:30 Insulin Aspart (Novolog Insulin Pen) NOVOLOG *MILD* ALGORITHM WITH MEALS BEDTIME SC Last administered on 01/23/19at 20:59; Admin Dose 2 UNIT; Start 01/20/19 at 08:00 Pantoprazole (Protonix Tab) 40 mg DAILY@06 PO Last administered on 01/24/19at 05:28; Admin Dose 40 MG; Start 01/22/19 at 06:00 Insulin Glargine (Lantus) 14 units DAILY@0800 SC Last administered on 01/24/19at 08:40; Admin Dose 14 UNITS; Start 01/22/19 at 10:00 Dabigatran (PRADaxa) 150 mg DAILY PO Last administered on 01/24/19at 08:25; Admin Dose 150 MG; Start 01/23/19 at 09:00 Ketorolac Tromethamine (Toradol) 15 mg Q6H PRN IV PAIN Last administered on 01/23/19at 04:55; Admin Dose 15 MG; Start 01/22/19 at 11:00 Oxycodone/ Acetaminophen (Percocet (5/ 325)) 1 tab Q4H PRN PO .MILD PAIN (1-3); Start 01/23/19 at 13:30 Oxycodone/ Acetaminophen (Percocet (5/ 325)) 2 tab Q4H PRN PO .MODERATE PAIN (4-6); Start 01/23/19 at 13:30 Morphine Sulfate (morphine) 2 mg ONCE PRN IV .SEVERE PAIN 7-10 Last administered on 01/23/19at 16:37; Admin Dose 2 MG; Start 01/23/19 at 13:30 Ondansetron HCl (Zofran Inj) 4 mg Q6H PRN IV NAUSEA/VOMITING; Start 01/23/19 at 13:30 Morphine Sulfate (morphine) 4 mg Q2 PRN IV SEVERE PAIN LEVEL 7-10 Last adm inistered on 01/23/19at 18:27; Admin Dose 4 MG; Start 01/23/19 at 18:00 Allergies: Coded Allergies: Sulfa (Sulfonamide Antibiotics) (Verified Allergy, Severe, 01/18/19) Patient states "I almost " bee venom protein (honey bee) (Verified Allergy, Severe, 01/18/19) severe swelling Past Surgical History Past Surgical Hx: other Social History Smoking Status: Former smoker Exam/Review of Systems Exam Vitals Vital Signs Date Temp Pulse Resp B/P (MAP) Pulse Ox O2 O2 Flow FiO2 Time Delivery Rate 01/24/19 97.7 103 17 92/52 (65) 98 Room Air 07:59 01/23/19 10.0 13:36 Intake and Output 01/23/19 01/23/19 01/24/19 1515:00 23:00 07:00 IntakeIntake Total 1375 ml 1250 ml 900 ml OutputOutput Total 110 ml 130 ml 100 ml BalanceBalance 1265 ml 1120 ml 800 ml Constitutional: alert, oriented Psych: no complaints Head: normocephalic, atraumatic Eyes: nl conjunctiva ENMT: nl external ears & nose Neck: supple, non-tender Respiratory: clear to auscultation, normal air movement Cardiovascular: regular rate and rhythm Gastrointestinal: soft, bowel sounds, surgical scars, tender (surgical tnderness, AMILCAR drain in place) Extremities: other (left BKA) Results Result Diagram: 01/24/19 0617 01/24/19 0617 Results 24hrs Laboratory Tests Test 01/23/19 16:33 01/23/19 20:56 01/24/19 02:10 01/24/19 06:17 Bedside Glucose 155 228 H 169 White Blood Count 14.8 #H Red Blood Count 3.90 L Hemoglobin 11.1 L Hematocrit 34.9 L Mean Corpuscular 89.5 Volume Mean Corpuscular 28.5 L Hemoglobin Mean Corpuscular 31.8 L Hemoglobin Concent Red Cell 14.8 H Distribution Width Platelet Count 173 Mean Platelet Volume 11.4 H Immature 0.700 H Granulocytes % Neutrophils % Segmented 59 Neutrophils % (Manual) Band Neutrophils % 18 H (Manual) Lymphocytes % Lymphocytes % 22 (Manual) Monocytes % Monocytes % (Manual) 1 Eosinophils % Basophils % Nucleated Red Blood 0.0 Cells % Immature 0.100 H Granulocytes # Neutrophils # Neutrophils # 9.1 H (Manual) Band Neutrophils # 2.6 H Lymphocytes (Manual) 3.2 H Lymphocytes # Monocytes # Monocytes # (Manual) 0.1 L Eosinophils # Basophils # Nucleated Red Blood Cells # Platelet Estimate NORMAL Polychromasia 1+ Anisocytosis 1+ Microcytosis 1+ Macrocytosis 1+ Sodium Level 137 Potassium Level 4.6 Chloride Level 108 Carbon Dioxide Level 20 L Anion Gap 9 Blood Urea Nitrogen 27 H Creatinine 1.52 H Est Glomerular Filtrat Rate mL/min Glucose Level 148 Calcium Level 8.3 L Total Bilirubin 1.1 Direct Bilirubin 0.00 Indirect Bilirubin 1.1 Aspartate Amino 52 H Transf (AST/SGOT) Alanine 37 Aminotransferase (AL T/SGPT) Alkaline Phosphatase 114 Total Protein 6.3 Albumin 2.7 L Globulin 3.60 H Albumin/Globulin 0.75 Ratio Test 01/24/19 08:09 01/24/19 12:23 Bedside Glucose 135 148 Medications Medication Current Medications IV Flush (NS 3 ml) 3 ml PER PROTOCOL IV ; Start 01/18/19 at 19:00 Ondansetron HCl (Zofran Inj) 4 mg Q6H PRN IV NAUSEA/VOMITING Last administered on 01/23/19 13:31; Admin Dose 4 MG; Start 01/18/19 at 19:00 Acetaminophen/ Hydrocodone Bitart ([place] (5/325)) 1 tab Q6H PRN PO .MOD PAIN 4- 6 Last administered on 01/24/19 01:25; Admin Dose 1 TAB; Start 01/18/19 at 19:00 Morphine Sulfate (morphine) 2 mg Q4H PRN IV .SEVERE PAIN 7-10 Last administered on 01/24/19 10:37; Admin Dose 2 MG; Start 01/18/19 at 19:00 Docusate Sodium (Colace) 100 mg Q12H PRN PO .CONSTIPATION; Start 01/18/19 at 19:00 Magnesium Hydroxide (Milk Of Mag) 30 ml DAILY PRN PO .CONSTIPATION; Start 01/18/19 at 19:00 Lorazepam (Ativan) 0.5 mg Q6H PRN IV ANXIETY; Start 01/18/19 at 19:00 Albuterol/ Ipratropium (Duoneb) 3 ml Q4H RESP THERAPY PRN HHN SHORTNESS OF BREATH; Start 01/18/19 at 19:00 Piperacillin Sod/ Tazobactam Sod 100 ml @ 200 mls/hr Q6 IVPB Last administered on 01/24/19 12:52; Admin Dose 200 MLS/HR; Start 01/19/19 at 00:00 Hydralazine HCl (Apresoline) 10 mg Q6H PRN IV ELEVATED BLOOD PRESSURE; Start 01/18/19 at 19:00 Nitroglycerin (Nitroglycerin (Sl Tab) 0.4 Mg) 1 tab Q5M PRN SL ANGINA; Start 01/18/19 at 19:00 Acetaminophen (Tylenol Tab) 650 mg Q4H PRN PO MILD PAIN(1-3)OR ELEVATED TEMP; Start 01/18/19 at 19:00 Ascorbic Acid (Vitamin C) 500 mg DAILY PO Last administered on 01/24/19 08:25; Admin Dose 500 MG; Start 01/19/19 at 09:00 Finasteride (Proscar) 5 mg DAILY PO Last administered on 01/24/19 08:25; Admin Dose 5 MG; Start 01/19/19 at 09:00 Lisinopril (Zestril) 2.5 mg DAILY PO Last administered on 01/22/19at 08:39; Admin Dose 2.5 MG; Start 01/19/19 at 09:00 Metoprolol Tartrate (Lopressor) 50 mg BID PO Last administered on 01/23/19at 21:01; Admin Dose 50 MG; Start 01/18/19 at 21:00 Senna (Senokot) 2 tab QHS PRN PO PRN; Start 01/18/19 at 19:00 Tamsulosin HCl (Flomax) 0.4 mg HS PO Last administered on 01/23/19at 20:58; Admin Dose 0.4 MG; Start 01/18/19 at 21:00 Calcium Carbonate (Tums) 500 mg Q4H PRN PO HEARTBURN; Start 01/18/19 at 19:30 Multivitamins/ Minerals (Theragran-M) 1 tab DAILY PO Last administered on 01/24/19at 08:27; Admin Dose 1 TAB; Start 01/19/19 at 09:00 Diagnostic Test (Pha) (Accu-Chek) 1 ea 02 XX Last administered on 01/20/19at 02:39; Admin Dose 1 EA; Start 01/19/19 at 02:00 Miscellaneous Information 1 ea NOTE XX ; Start 01/18/19 at 20:30 Glucose (Glutose) 15 gm Q15M PRN PO DECREASED GLUCOSE; Start 01/18/19 at 20:30 Glucose (Glutose) 22.5 gm Q15M PRN PO DECREASED GLUCOSE; Start 01/18/19 at 20:30 Dextrose (D50w Syringe) 25 ml Q15M PRN IV DECREASED GLUCOSE; Start 01/18/19 at 20:30 Dextrose (D50w Syringe) 50 ml Q15M PRN IV DECREASED GLUCOSE; Start 01/18/19 at 20:30 Glucagon (Glucagen) 1 mg Q15M PRN IM DECREASED GLUCOSE; Start 01/18/19 at 20:30 Glucose (Glutose) 15 gm Q15M PRN BUCCAL DECREASED GLUCOSE; Start 01/18/19 at 20:30 Dimethicone (Blistex Lip [place]) 1 applic Q2H PRN TOP NOTE; Start 01/18/19 at 22:30 [facility]isc[facility] This patient loja... PRN PRN XX WOUND CARE; Start 01/19/19 at 06:30 Insulin Aspart (Novolog Insulin Pen) NOVOLOG *MILD* ALGORITHM WITH MEALS BEDTIME SC Last administered on 01/23/19 20:59; Admin Dose 2 UNIT; Start 01/20/19 at 08:00 Pantoprazole (Protonix Tab) 40 mg DAILY@06 PO Last administered on 01/24/19 05:28; Admin Dose 40 MG; Start 01/22/19 at 06:00 Insulin Glargine (Lantus) 14 units DAILY@0800 SC Last administered on 01/24/19 08:40; Admin Dose 14 UNITS; Start 01/22/19 at 10:00 Dabigatran (PRADaxa) 150 mg DAILY PO Last administered on 01/24/19 08:25; Admin Dose 150 MG; Start 01/23/19 at 09:00 Ketorolac Tromethamine (Toradol) 15 mg Q6H PRN IV PAIN Last administered on 01/23/19 04:55; Admin Dose 15 MG; Start 01/22/19 at 11:00 Oxycodone/ Acetaminophen (Percocet (5/ 325)) 1 tab Q4H PRN PO .MILD PAIN (1-3); Start 01/23/19 at 13:30 Oxycodone/ Acetaminophen (Percocet (5/ 325)) 2 tab Q4H PRN PO .MODERATE PAIN (4-6); Start 01/23/19 at 13:30 Morphine Sulfate (morphine) 2 mg ONCE PRN IV .SEVERE PAIN 7-10 Last administered on 01/23/19 16:37; Admin Dose 2 MG; Start 01/23/19 at 13:30 Ondansetron HCl (Zofran Inj) 4 mg Q6H PRN IV NAUSEA/VOMITING; Start 01/23/19 at 13:30 Morphine Sulfate (morphine) 4 mg Q2 PRN IV SEVERE PAIN LEVEL 7-10 Last administered on 01/23/19 18:27; Admin Dose 4 MG; Start 01/23/19 at 18:00 MAI NEFF Jan 24, 2019 14:51
[2019-01-24 15:16] VITALS: BP 107/61; PULSE 104; RESP 17
--- NOTE | 2019-01-24 17:01 | PN ---
Date/Time of Note Date/Time of Note DATE: 01/24/19 TIME: 17:01 Assessment/Plan VTE Prophylaxis Risk score (from Ns)>0 risk: 8 SCD applied (from Ns): Yes Pharmacological prophylaxis: heparin Lines/Catheters IV Catheter Type (from [facility]): Mid Line Urinary Cath still in place: No Assessment/Plan Result Diagram: 01/24/19 0617 01/24/19 0617 Results 24hrs Laboratory Tests Test 01/23/19 20:56 01/24/19 02:10 01/24/19 06:17 01/24/19 08:09 Bedside Glucose 228 H 169 135 White Blood Count 14.8 #H Red Blood Count 3.90 L Hemoglobin 11.1 L Hematocrit 34.9 L Mean Corpuscular 89.5 Volume Mean Corpuscular 28.5 L Hemoglobin Mean Corpuscular 31.8 L Hemoglobin Concent Red Cell 14.8 H Distribution Width Platelet Count 173 Mean Platelet Volume 11.4 H Immature 0.700 H Granulocytes % Neutrophils % Segmented 59 Neutrophils % (Manual) Band Neutrophils % 18 H (Manual) Lymphocytes % Lymphocytes % 22 (Manual) Monocytes % Monocytes % (Manual) 1 Eosinophils % Basophils % Nucleated Red Blood 0.0 Cells % Immature 0.100 H Granulocytes # Neutrophils # Neutrophils # 9.1 H (Manual) Band Neutrophils # 2.6 H Lymphocytes (Manual) 3.2 H Lymphocytes # Monocytes # Monocytes # (Manual) 0.1 L Eosinophils # Basophils # Nucleated Red Blood Cells # Platelet Estimate NORMAL Polychromasia 1+ Anisocytosis 1+ Microcytosis 1+ Macrocytosis 1+ Sodium Level 137 Potassium Level 4.6 Chloride Level 108 Carbon Dioxide Level 20 L Anion Gap 9 Blood Urea Nitrogen 27 H Creatinine 1.52 H Est Glomerular Filtrat Rate mL/min Glucose Level 148 Calcium Level 8.3 L Total Bilirubin 1.1 Direct Bilirubin 0.00 Indirect Bilirubin 1.1 Aspartate Amino 52 H Transf (AST/SGOT) Alanine 37 Aminotransferase (AL T/SGPT) Alkaline Phosphatase 114 Total Protein 6.3 Albumin 2.7 L Globulin 3.60 H Albumin/Globulin 0.75 Ratio Test 01/24/19 12:23 Bedside Glucose 148 Exam/Review of Systems Exam Vitals Vital Signs Date Temp Pulse Resp B/P (MAP) Pulse Ox O2 O2 Flow FiO2 Time Delivery Rate 01/24/19 98.1 104 17 107/61 97 Room Air 15:16 (76) 01/23/19 10.0 13:36 Intake and Output 01/23/19 01/23/19 01/24/19 1515:00 23:00 07:00 IntakeIntake Total 1375 ml 1250 ml 900 ml OutputOutput Total 110 ml 130 ml 100 ml BalanceBalance 1265 ml 1120 ml 800 ml Results Results 24hrs Laboratory Tests Test 01/23/19 20:56 01/24/19 02:10 01/24/19 06:17 01/24/19 08:09 Bedside Glucose 228 H 169 135 White Blood Count 14.8 #H Red Blood Count 3.90 L Hemoglobin 11.1 L Hematocrit 34.9 L Mean Corpuscular 89.5 Volume Mean Corpuscular 28.5 L Hemoglobin Mean Corpuscular 31.8 L Hemoglobin Concent Red Cell 14.8 H Distribution Width Platelet Count 173 Mean Platelet Volume 11.4 H Immature 0.700 H Granulocytes % Neutrophils % Segmented 59 Neutrophils % (Manual) Band Neutrophils % 18 H (Manual) Lymphocytes % Lymphocytes % 22 (Manual) Monocytes % Monocytes % (Manual) 1 Eosinophils % Basophils % Nucleated Red Blood 0.0 Cells % Immature 0.100 H Granulocytes # Neutrophils # Neutrophils # 9.1 H (Manual) Band Neutrophils # 2.6 H Lymphocytes (Manual) 3.2 H Lymphocytes # Monocytes # Monocytes # (Manual) 0.1 L Eosinophils # Basophils # Nucleated Red Blood Cells # Platelet Estimate NORMAL Polychromasia 1+ Anisocytosis 1+ Microcytosis 1+ Macrocytosis 1+ Sodium Level 137 Potassium Level 4.6 Chloride Level 108 Carbon Dioxide Level 20 L Anion Gap 9 Blood Urea Nitrogen 27 H Creatinine 1.52 H Est Glomerular Filtrat Rate mL/min Glucose Level 148 Calcium Level 8.3 L Total Bilirubin 1.1 Direct Bilirubin 0.00 Indirect Bilirubin 1.1 Aspartate Amino 52 H Transf (AST/SGOT) Alanine 37 Aminotransferase (AL T/SGPT) Alkaline Phosphatase 114 Total Protein 6.3 Albumin 2.7 L Globulin 3.60 H Albumin/Globulin 0.75 Ratio Test 01/24/19 12:23 Bedside Glucose 148 Medications Medication Current Medications IV Flush (NS 3 ml) 3 ml PER PROTOCOL IV ; Start 01/18/19 at 19:00 Ondansetron HCl (Zofran Inj) 4 mg Q6H PRN IV NAUSEA/VOMITING Last administered on 01/23/19 13:31; Admin Dose 4 MG; Start 01/18/19 at 19:00 Acetaminophen/ Hydrocodone Bitart ([place] (5/325)) 1 tab Q6H PRN PO .MOD PAIN 4- 6 Last administered on 01/24/19 01:25; Admin Dose 1 TAB; Start 01/18/19 at 19:00 Morphine Sulfate (morphine) 2 mg Q4H PRN IV .SEVERE PAIN 7-10 Last administered on 01/24/19 10:37; Admin Dose 2 MG; Start 01/18/19 at 19:00 Docusate Sodium (Colace) 100 mg Q12H PRN PO .CONSTIPATION; Start 01/18/19 at 19:00 Magnesium Hydroxide (Milk Of Mag) 30 ml DAILY PRN PO .CONSTIPATION; Start 01/18/19 at 19:00 Lorazepam (Ativan) 0.5 mg Q6H PRN IV ANXIETY; Start 01/18/19 at 19:00 Albuterol/ Ipratropium (Duoneb) 3 ml Q4H RESP THERAPY PRN HHN SHORTNESS OF BREATH; Start 01/18/19 at 19:00 Piperacillin Sod/ Tazobactam Sod 100 ml @ 200 mls/hr Q6 IVPB Last administered on 01/24/19 12:52; Admin Dose 200 MLS/HR; Start 01/19/19 at 00:00 Hydralazine HCl (Apresoline) 10 mg Q6H PRN IV ELEVATED BLOOD PRESSURE; Start 01/18/19 at 19:00 Nitroglycerin (Nitroglycerin (Sl Tab) 0.4 Mg) 1 tab Q5M PRN SL ANGINA; Start 01/18/19 at 19:00 Acetaminophen (Tylenol Tab) 650 mg Q4H PRN PO MILD PAIN(1-3)OR ELEVATED TEMP; Start 01/18/19 at 19:00 Ascorbic Acid (Vitamin C) 500 mg DAILY PO Last administered on 01/24/19 08:25; Admin Dose 500 MG; Start 01/19/19 at 09:00 Finasteride (Proscar) 5 mg DAILY PO Last administered on 01/24/19 08:25; Admin Dose 5 MG; Start 01/19/19 at 09:00 Lisinopril (Zestril) 2.5 mg DAILY PO Last administered on 01/22/19at 08:39; Admin Dose 2.5 MG; Start 01/19/19 at 09:00 Metoprolol Tartrate (Lopressor) 50 mg BID PO Last administered on 01/23/19at 21:01; Admin Dose 50 MG; Start 01/18/19 at 21:00 Senna (Senokot) 2 tab QHS PRN PO PRN; Start 01/18/19 at 19:00 Tamsulosin HCl (Flomax) 0.4 mg HS PO Last administered on 01/23/19at 20:58; Admin Dose 0.4 MG; Start 01/18/19 at 21:00 Calcium Carbonate (Tums) 500 mg Q4H PRN PO HEARTBURN Last administered on 01/24/19at 15:01; Admin Dose 500 MG; Start 01/18/19 at 19:30 Multivitamins/ Minerals (Theragran-M) 1 tab DAILY PO Last administered on 01/24/19at 08:27; Admin Dose 1 TAB; Start 01/19/19 at 09:00 Diagnostic Test (Pha) (Accu-Chek) 1 ea 02 XX Last administered on 01/20/19at 02:39; Admin Dose 1 EA; Start 01/19/19 at 02:00 Miscellaneous Information 1 ea NOTE XX ; Start 01/18/19 at 20:30 Glucose (Glutose) 15 gm Q15M PRN PO DECREASED GLUCOSE; Start 01/18/19 at 20:30 Glucose (Glutose) 22.5 gm Q15M PRN PO DECREASED GLUCOSE; Start 01/18/19 at 20:30 Dextrose (D50w Syringe) 25 ml Q15M PRN IV DECREASED GLUCOSE; Start 01/18/19 at 20:30 Dextrose (D50w Syringe) 50 ml Q15M PRN IV DECREASED GLUCOSE; Start 01/18/19 at 20:30 Glucagon (Glucagen) 1 mg Q15M PRN IM DECREASED GLUCOSE; Start 01/18/19 at 20:30 Glucose (Glutose) 15 gm Q15M PRN BUCCAL DECREASED GLUCOSE; Start 01/18/19 at 20:30 Dimethicone (Blistex Lip [place]) 1 applic Q2H PRN TOP NOTE; Start 01/18/19 at 22:30 Miscellaneous Information (Pending Santyl Order For Wound Care) This patient loja... PRN PRN XX WOUND CARE; Start 01/19/19 at 06:30 Insulin Aspart (Novolog Insulin Pen) NOVOLOG *MILD* ALGORITHM WITH MEALS BEDTIME SC Last administered on 01/23/19 20:59; Admin Dose 2 UNIT; Start 01/10 10/30 at 08:00 Pantoprazole (Protonix Tab) 40 mg DAILY@06 PO Last administered on 01/24/19 05:28; Admin Dose 40 MG; Start 01/22/19 at 06:00 Insulin Glargine (Lantus) 14 units DAILY@0800 SC Last administered on 01/24/19 08:40; Admin Dose 14 UNITS; Start 01/22/19 at 10:00 Dabigatran (PRADaxa) 150 mg DAILY PO Last administered on 01/24/19 08:25; Admin Dose 150 MG; Start 01/23/19 at 09:00 Ketorolac Tromethamine (Toradol) 15 mg Q6H PRN IV PAIN Last administered on 01/23/19 04:55; Admin Dose 15 MG; Start 01/22/19 at 11:00 Oxycodone/ Acetaminophen (Percocet (5/ 325)) 1 tab Q4H PRN PO .MILD PAIN (1-3); Start 01/23/19 at 13:30 Oxycodone/ Acetaminophen (Percocet (5/ 325)) 2 tab Q4H PRN PO .MODERATE PAIN (4-6); Start 01/23/19 at 13:30 Morphine Sulfate (morphine) 2 mg ONCE PRN IV .SEVERE PAIN 7-10 Last administered on 01/23/19at 16:37; Admin Dose 2 MG; Start 01/23/19 at 13:30 Ondansetron HCl (Zofran Inj) 4 mg Q6H PRN IV NAUSEA/VOMITING; Start 01/23/19 at 13:30 Morphine Sulfate (morphine) 4 mg Q2 PRN IV SEVERE PAIN LEVEL 7-10 Last administered on 01/23/19 18:27; Admin Dose 4 MG; Start 01/23/19 at 18:00 CHASITY BLOOD MD Jan 24, 2019 17:01
[2019-01-24 20:00] VITALS: BP 107/56; PULSE 106; RESP 18
[2019-01-24] MEDS: TAMSULOSIN (SR) 0.4 MG CAP PO SCH (22:08)
[2019-01-25] MEDS: PIPER-TAZO 3.375 GM IV (PMX) 100 ML IVPB SCH ×4 (00:08→18:02)
[2019-01-25] MEDS: BALSAM PERU/CASTOR OIL 60 GM TUBE TOP SCH ×2 (00:45→08:59)
[2019-01-25] MEDS: morphine 2 MG INJ IV PRN ×2 (00:54→16:30)
[2019-01-25 02:00] VITALS: BP 108/56; PULSE 73; RESP 17
[2019-01-25] MEDS: ACCU-CHEK XX SCH (02:00)
[2019-01-25] MEDS: PANTOPRAZOLE (EC) 40 MG TAB PO SCH (05:53)
[2019-01-25 07:56] VITALS: BP 114/60; PULSE 95; RESP 18
[2019-01-25] MEDS: INSULIN ASPART [NOVOLOG] 3 ML PEN SC SCH ×4 (08:00→20:52)
[2019-01-25] MEDS: INSULIN GLARGINE [LANTus] (100 UNITS/ML) SYG SC SCH (08:53)
[2019-01-25] MEDS: DABIGATRAN 150 MG CAP PO SCH (08:54)
[2019-01-25] MEDS: FINASTERIDE 5 MG TAB PO SCH (08:55)
[2019-01-25] MEDS: ASCORBIC ACID 500 MG TAB PO SCH (08:55)
[2019-01-25] MEDS: MULTIVITAMINS/MINERALS TAB PO SCH (08:58)
[2019-01-25] MEDS: LISINOPRIL 5 MG TAB PO SCH (08:58)
[2019-01-25] MEDS: METOPROLOL 50 MG TAB PO SCH ×2 (08:59→20:51)
[2019-01-25] MEDS ORDERED: BALSAM PERU/CASTOR OIL 60 GM TUBE TOP SCH (09:00)
[2019-01-25] MEDS ORDERED: INDOMETHACIN 50 MG SUPP PR ONE ×2 (09:30→17:00)
--- NOTE | 2019-01-25 09:40 | QN ---
Documentation Comment Postoperative day #2 AMILCAR drainage bilious MRCP shows nondilated CBD with 6 mm filling defect suggestive of common duct stone Plan: Patient will need ERCP with stent placement MASON MARKS MD Jan 25, 2019 09:40
[2019-01-25 14:00] VITALS: BP 125/75; PULSE 100; RESP 18
--- NOTE | 2019-01-25 16:23 | PN ---
Date/Time of Note Date/Time of Note DATE: 01/25/19 TIME: 16:03 Assessment/Plan VTE Prophylaxis Risk score (from Nsg)>0 risk: 8 SCD applied (from Ns): Yes Pharmacological prophylaxis: other (SCDS only for now) Lines/Catheters IV C[facility]ter Type ([facility] Mid Line Urinary Cath still in place: No Reason Cath still needed: urinary retention Assessment/Plan Hospital Course SUBJECTIVE : objective: GENERAL: The patient is lying in bed, answering questions appropriately, in no acute distress. elderly, anxious HEENT: Pupils are equal, round, react to light. Extraocular muscles are intact. NECK: Supple. No thyromegaly. LUNGS: Clear to auscultation bilaterally. CARDIOVASCULAR: S1, S2 heard. No rubs or gallop. ABDOMEN: Tenderness to palpation in the right upper quadrant. drain noted Otherwise, no rebound or guarding. Normal bowel sounds. MUSCULOSKELETAL: No lower extremity edema bilaterally. NEUROLOGIC: No focal deficits. assessment and plan: An 88-year-old male with history of atrial flutter, atrial fibrillation, chronic kidney disease, cholecystitis with recent cholecystostomy 12/[address] now with dislodged AMILCAR drain after experiencing abdominal pain for a week and a half 1. Subacute cholecystitis -patient had originally come in with dislodged AMILCAR drain which was replaced by interventional radiology 01/19/19 -Patient underwent Laparoscopic anterior cholecystectomy and placement of drain after 2nd tube became clogged again 01/23/19 -post op, patient was having some bile leakage and so Surgery recommended GI consult -GI saw patient and recommended MRCP first, MRCP is showing 6 mm rounded filling defect within the main common duct suspicious for an intraductal stone without significant intrahepatic biliary ductal dilatation. -patient will likely need ERCP< GI to schedule 2. Atrial fibrillation and flutter.: rate controlled on current regimen 3. History of chronic kidney disease. Creatinine is stable. Continue to monitor for now. 4. History of diabetes. Last A1c checked last month was 7.5. 5. History of hypertension. 6. History of enlarged prostate. Continue Proscar. 7. DREW: likely 2/2 nephrotoxicity from meds -d/c toradol and ARB, start gentle hydration 8. Ileus / Constipation: stool softeners . Dispo: continue abx, await final cultures During last hospitalization, patient was DNR, will confirm code status with him Result Diagram: 01/25/19 0523 01/25/19 0523 Results 24hrs Laboratory Tests Test 01/24/19 17:25 01/24/19 20:55 01/25/19 05:23 01/25/19 07:35 Bedside Glucose 172 179 138 White Blood Count 12.1 H Red Blood Count 3.81 L Hemoglobin 11.0 L Hematocrit 33.8 L Mean Corpuscular 88.7 Volume Mean Corpuscular 28.9 L Hemoglobin Mean Corpuscular 32.5 Hemoglobin Concent Red Cell 15.3 H Distribution Width Platelet Count 162 Mean Platelet Volume 11.5 H Immature 0.700 H Granulocytes % Neutrophils % 72.6 Lymphocytes % 18.9 Monocytes % 6.9 Eosinophils % 0.7 Basophils % 0.2 Nucleated Red Blood 0.0 Cells % Immature 0.090 H Granulocytes # Neutrophils # 8.8 H Lymphocytes # 2.3 Monocytes # 0.8 Eosinophils # 0.1 Basophils # 0.0 Nucleated Red Blood 0.0 Cells # Sodium Level 136 Potassium Level 3.9 Chloride Level 105 Carbon Dioxide Level 22 Anion Gap 9 Blood Urea Nitrogen 34 H Creatinine 1.72 H Est Glomerular Filtrat Rate mL/min Glucose Level 138 Calcium Level 8.5 Total Bilirubin 0.9 Direct Bilirubin 0.00 Indirect Bilirubin 0.9 Aspartate Amino 33 Transf (AST/SGOT) Alanine 19 Aminotransferase (AL T/SGPT) Alkaline Phosphatase 84 Total Protein 6.0 L Albumin 2.6 L Globulin 3.70 H Albumin/Globulin 0.75 Ratio Test 01/25/19 14:59 Bedside Glucose 151 Exam/Review of Systems Exam Vitals Vital Signs Date Temp Pulse Resp B/P (MAP) Pulse Ox O2 O2 Flow FiO2 Time Delivery Rate 01/25/19 98.0 100 18 125/75 98 Room Air 14:00 (92) 01/23/19 10.0 13:36 Intake and Output 01/24/19 01/24/19 01/25/19 1515:00 23:00 07:00 IntakeIntake Total 350 ml 120 ml 200 ml OutputOutput Total 180 ml 40 ml 280 ml BalanceBalance 170 ml 80 ml -80 ml Results Results 24hrs Laboratory Tests Test 01/24/19 17:25 01/24/19 20:55 01/25/19 05:23 01/25/19 07:35 Bedside Glucose 172 179 138 White Blood Count 12.1 H Red Blood Count 3.81 L Hemoglobin 11.0 L Hematocrit 33.8 L Mean Corpuscular 88.7 Volume Mean Corpuscular 28.9 L Hemoglobin Mean Corpuscular 32.5 Hemoglobin Concent Red Cell 15.3 H Distribution Width Platelet Count 162 Mean Platelet Volume 11.5 H Immature 0.700 H Granulocytes % Neutrophils % 72.6 Lymphocytes % 18.9 Monocytes % 6.9 Eosinophils % 0.7 Basophils % 0.2 Nucleated Red Blood 0.0 Cells % Immature 0.090 H Granulocytes # Neutrophils # 8.8 H Lymphocytes # 2.3 Monocytes # 0.8 Eosinophils # 0.1 Basophils # 0.0 Nucleated Red Blood 0.0 Cells # Sodium Level 136 Potassium Level 3.9 Chloride Level 105 Carbon Dioxide Level 22 Anion Gap 9 Blood Urea Nitrogen 34 H Creatinine 1.72 H Est Glomerular Filtrat Rate mL/min Glucose Level 138 Calcium Level 8.5 Total Bilirubin 0.9 Direct Bilirubin 0.00 Indirect Bilirubin 0.9 Aspartate Amino 33 Transf (AST/SGOT) Alanine 19 Aminotransferase (AL T/SGPT) Alkaline Phosphatase 84 Total Protein 6.0 L Albumin 2.6 L Globulin 3.70 H Albumin/Globulin 0.75 Ratio Test 01/25/19 14:59 Bedside Glucose 151 Medications Medication Current Medications IV Flush (NS 3 ml) 3 ml PER PROTOCOL IV ; Start 01/18/19 at 19:00 Ondansetron HCl (Zofran Inj) 4 mg Q6H PRN IV NAUSEA/VOMITING Last administered on 01/23/19at 13:31; Admin Dose 4 MG; Start 01/18/19 at 19:00 Acetaminophen/ Hydrocodone Bitart ([place] (5/325)) 1 tab Q6H PRN PO .MOD PAIN 4- 6 Last administered on 01/24/19at 01:25; Admin Dose 1 TAB; Start 01/18/19 at 19:00 Morphine Sulfate (morphine) 2 mg Q4H PRN IV .SEVERE PAIN 7-10 Last administered on 01/25/19at 00:54; Admin Dose 2 MG; Start 01/18/19 at 19:00 Docusate Sodium (Colace) 100 mg Q12H PRN PO .CONSTIPATION; Start 01/18/19 at 19:00 Magnesium Hydroxide (Milk Of Mag) 30 ml DAILY PRN PO .CONSTIPATION; Start 01/18/19 at 19:00 Lorazepam (Ativan) 0.5 mg Q6H PRN IV ANXIETY; Start 01/18/19 at 19:00 Albuterol/ Ipratropium (Duoneb) 3 ml Q4H RESP THERAPY PRN HHN SHORTNESS OF BREATH; Start 01/18/19 at 19:00 Piperacillin Sod/ Tazobactam Sod 100 ml @ 200 mls/hr Q6 IVPB Last administered on 01/25/19at 05:54; Admin Dose 200 MLS/HR; Start 01/19/19 at 00:00 Hydralazine HCl (Apresoline) 10 mg Q6H PRN IV ELEVATED BLOOD PRESSURE; Start 01/18/19 at 19:00 Nitroglycerin (Nitroglycerin (Sl Tab) 0.4 Mg) 1 tab Q5M PRN SL ANGINA; Start 01/18/19 at 19:00 Acetaminophen (Tylenol Tab) 650 mg Q4H PRN PO MILD PAIN(1-3)OR ELEVATED TEMP; Start 01/18/19 at 19:00 Ascorbic Acid (Vitamin C) 500 mg DAILY PO Last administered on 01/25/19at 08:55; Admin Dose 500 MG; Start 01/19/19 at 09:00 Finasteride (Proscar) 5 mg DAILY PO Last administered on 01/25/19at 08:55; Admin Dose 5 MG; Start 01/19/19 at 09:00 Lisinopril (Zestril) 2.5 mg DAILY PO Last administered on 01/25/19at 08:58; Admin Dose 2.5 MG; Start 01/19/19 at 09:00 Metoprolol Tartrate (Lopressor) 50 mg BID PO Last administered on 01/25/19at 08:59; Admin Dose 50 MG; Start 01/18/19 at 21:00 Senna (Senokot) 2 tab QHS PRN PO PRN; Start 01/18/19 at 19:00 Tamsulosin HCl (Flomax) 0.4 mg HS PO Last administered on 01/24/19at 22:08; Admin Dose 0.4 MG; Start 01/18/19 at 21:00 Calcium Carbonate (Tums) 500 mg Q4H PRN PO HEARTBURN Last administered on 01/24/19at 15:01; Admin Dose 500 MG; Start 01/18/19 at 19:30 Multivitamins/ Minerals (Theragran-M) 1 tab DAILY PO Last administered on 01/25/19at 08:58; Admin Dose 1 TAB; Start 01/19/19 at 09:00 Diagnostic Test (Pha) (Accu-Chek) 1 ea 02 XX Last administered on 01/20/19at 02:39; Admin Dose 1 EA; Start 01/19/19 at 02:00 Miscellaneous Information 1 ea NOTE XX ; Start 01/18/19 at 20:30 Glucose (Glutose) 15 gm Q15M PRN PO DECREASED GLUCOSE; Start 01/18/19 at 20:30 Glucose (Glutose) 22.5 gm Q15M PRN PO DECREASED GLUCOSE; Start 01/18/19 at 20:30 Dextrose (D50w Syringe) 25 ml Q15M PRN IV DECREASED GLUCOSE; Start 01/18/19 at 20:30 Dextrose (D50w Syringe) 50 ml Q15M PRN IV DECREASED GLUCOSE; Start 01/18/19 at 20:30 Glucagon (Glucagen) 1 mg Q15M PRN IM DECREASED GLUCOSE; Start 01/18/19 at 20:30 Glucose (Glutose) 15 gm Q15M PRN BUCCAL DECREASED GLUCOSE; Start 01/18/19 at 20:30 Dimethicone (Blistex Lip [place]) 1 applic Q2H PRN TOP NOTE; Start 01/18/19 at 22:30 Miscellaneous [facility] This patient loja... PRN PRN XX WOUND CARE; Start 01/19/19 at 06:30 Insulin Aspart (Novolog Insulin Pen) NOVOLOG *MILD* ALGORITHM WITH MEALS BEDTIME SC Last administered on 01/24/19at 18:22; Admin Dose 1 UNIT; Start 01/20/19 at 08:00 Pantoprazole (Protonix Tab) 40 mg DAILY@06 PO Last administered on 01/25/19at 05:53; Admin Dose 40 MG; Start 01/22/19 at 06:00 Insulin Glargine (Lantus) 14 units DAILY@0800 SC Last administered on 01/25/19at 08:53; Admin Dose 14 UNITS; Start 01/22/19 at 10:00 Dabigatran (PRADaxa) 150 mg DAILY PO Last administered on 01/25/19 08:54; Admin Dose 150 MG; Start 01/23/19 at 09:00 Ketorolac Tromethamine (Toradol) 15 mg Q6H PRN IV PAIN Last administered on 01/23/19at 04:55; Admin Dose 15 MG; Start 01/22/19 at 11:00 Oxycodone/ Acetaminophen (Percocet (5/ 325)) 1 tab Q4H PRN PO .MILD PAIN (1-3); Start 01/23/19 at 13:30 Oxycodone/ Acetaminophen (Percocet (5/ 325)) 2 tab Q4H PRN PO .MODERATE PAIN (4-6); Start 01/23/19 at 13:30 Morphine Sulfate (morphine) 2 mg ONCE PRN IV .SEVERE PAIN 7-10 Last administered on 01/23/19at 16:37; Admin Dose 2 MG; Start 01/23/19 at 13:30 Ondansetron HCl (Zofran Inj) 4 mg Q6H PRN IV NAUSEA/VOMITING; Start 01/23/19 at 13:30 Morphine Sulfate (morphine) 4 mg Q2 PRN IV SEVERE PAIN LEVEL 7-10 Last administered on 01/23/19at 18:27; Admin Dose 4 MG; Start 01/23/19 at 18:00 LOR PRECIADO Jan 25, 2019 16:13
[2019-01-25] MEDS ORDERED: SOD CHLORIDE 0.9% 1,000 ML IV SCH (16:30)
--- NOTE | 2019-01-25 16:47 | QN ---
Documentation Comment MRCP shows evidence of choledocholithiasis Will plan ERCP tomorrow Patient not NPO at present JASMINE VIEIRA MD Jan 25, 2019 16:47
[2019-01-25] MEDS: POLYETHYLENE GLYCOL 17 GM PACKET PO SCH (18:04)
--- NOTE | 2019-01-25 18:04 | PSY ---
Date/Time of Note Date/Time of Note DATE: 01/25/19 TIME: 18:03 Psychiatric Subjective Eval Consent Pt consented to telemedicine: No Subjective Evaluation Patient location: inpatient Chief Complaint: BIB RA FOR EVAL OF RT SIDED ABD PAIN RECENT GI STENT History of present illness Patient is 88-year-old male with past medical history of chronic atrial fib rillation, hypertension, diabetes, chronic kidney disease and hypothyroidism. On a [id number] evaluation, patient states he is very frustrated he denies feeling hopeless states he is just upset, he does not have clinical depression, and also states he would continue to refuse treatments because it should have been done right first time. 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 (6) Cholecystostomy care Onset: ~ 12/17/2018 Status: Acute (7) Cholelithiasis and cholecystitis without obstruction Status: Chronic (8) Chronic atrial fibrillation Status: Chronic (9) Coronary artery disease Status: Chronic (10) Dehydration Status: Acute (11) Diabetes mellitus type 2 in nonobese Status: Chronic (12) History of CVA (cerebrovascular accident) Status: Chronic (13) History of left below knee amputation Status: Chronic (14) AMILCAR drain, broken Status: Acute (15) Upper GI bleed Status: Acute Allergies: Coded Allergies: Sulfa (Sulfonamide Antibiotics) (Verified Allergy, Severe, 01/18/19) Patient states "I almost " bee venom protein (honey bee) (Verified Allergy, Severe, 01/18/19) severe swelling Substance Abuse Substance abuse history: No Prior substance abuse treatmen: No Social History Marital status: other DPA/Conservatorship: No Psychiatric Objective Eval Review of Systems: Review of Systems: Not Applicable Physical Examination: Physical Examination: Not Applicable Energy: Decreased Interest: Decreased Mental Status Examination: Appearance: Poor Hygiene Eye Contact: None Psychomotor Activity: Slow Behavior: Cooperative Speech: Clear AFFECT: Flat Mood: Depressed Though Process: Linear Laboratory Results Laboratory Tests Test 01/23/19 20:56 01/24/19 02:10 01/24/19 06:17 01/24/19 08:09 Bedside Glucose 228 mg/dL 169 mg/dL 135 mg/dL White Blood Count 14.8 10^3/ul Red Blood Count 3.90 10^6/ul Hemoglobin 11.1 g/dl Hematocrit 34.9 % Mean Corpuscular 89.5 fl Volume Mean Corpuscular 28.5 pg Hemoglobin Mean Corpuscular 31.8 g/dl Hemoglobin Concent Red Cell 14.8 % Distribution Width Platelet Count 173 10^3/UL Mean Platelet 11.4 fl Volume Immature 0.700 % Granulocytes % Neutrophils % % Segmented 59 % Neutrophils % (Manual) Band Neutrophils % 18 % (Manual) Lymphocytes % % Lymphocytes % 22 % (Manual) Monocytes % % Monocytes % 1 % (Manual) Eosinophils % % Basophils % % Nucleated Red 0.0 /100WBC Blood Cells % Immature 0.100 10^3/ul Granulocytes # Neutrophils # 10^3/ul Neutrophils # 9.1 10^3/ul (Manual) Band Neutrophils # 2.6 10^3/ul Lymphocytes 3.2 10^3/ul (Manual) Lymphocytes # 10^3/ul Monocytes # 10^3/ul Monocytes # 0.1 10^3/ul (Manual) Eosinophils # 10^3/ul Basophils # 10^3/ul Nucleated Red 10^3/ul Blood Cells # Platelet Estimate NORMAL Polychromasia 1+ Anisocytosis 1+ Microcytosis 1+ Macrocytosis 1+ Sodium Level 137 mmol/L Potassium Level 4.6 mmol/L Chloride Level 108 mmol/L Carbon Dioxide 20 mmol/L Level Anion Gap 9 Blood Urea 27 mg/dl Nitrogen Creatinine 1.52 mg/dl Est Glomerular mL/min Filtrat Rate mL/min Glucose Level 148 mg/dl Calcium Level 8.3 mg/dl Total Bilirubin 1.1 mg/dl Direct Bilirubin 0.00 mg/dl Indirect Bilirubin 1.1 mg/dl Aspartate Amino 52 IU/L Transf (AST/SGOT) Alanine 37 IU/L Aminotransferase ( ALT/SGPT) Alkaline 114 IU/L Phosphatase Total Protein 6.3 g/dl Albumin 2.7 g/dl Globulin 3.60 g/dl Albumin/Globulin 0.75 Ratio Test 01/24/19 12:23 01/24/19 17:25 01/24/19 20:55 01/25/19 05:23 Bedside Glucose 148 mg/dL 172 mg/dL 179 mg/dL White Blood Count 12.1 10^3/ul Red Blood Count 3.81 10^6/ul Hemoglobin 11.0 g/dl Hematocrit 33.8 % Mean Corpuscular 88.7 fl Volume Mean Corpuscular 28.9 pg Hemoglobin Mean Corpuscular 32.5 g/dl Hemoglobin Concent Red Cell 15.3 % Distribution Width Platelet Count 162 10^3/UL Mean Platelet 11.5 fl Volume Immature 0.700 % Granulocytes % Neutrophils % 72.6 % Lymphocytes % 18.9 % Monocytes % 6.9 % Eosinophils % 0.7 % Basophils % 0.2 % Nucleated Red 0.0 /100WBC Blood Cells % Immature 0.090 10^3/ul Granulocytes # Neutrophils # 8.8 10^3/ul Lymphocytes # 2.3 10^3/ul Monocytes # 0.8 10^3/ul Eosinophils # 0.1 10^3/ul Basophils # 0.0 10^3/ul Nucleated Red 0.0 10^3/ul Blood Cells # Sodium Level 136 mmol/L Potassium Level 3.9 mmol/L Chloride Level 105 mmol/L Carbon Dioxide 22 mmol/L Level Anion Gap 9 Blood Urea 34 mg/dl Nitrogen Creatinine 1.72 mg/dl Est Glomerular mL/min Filtrat Rate mL/min Glucose Level 138 mg/dl Calcium Level 8.5 mg/dl Total Bilirubin 0.9 mg/dl Direct Bilirubin 0.00 mg/dl Indirect Bilirubin 0.9 mg/dl Aspartate Amino 33 IU/L Transf (AST/SGOT) Alanine 19 IU/L Aminotransferase ( ALT/SGPT) Alkaline 84 IU/L Phosphatase Total Protein 6.0 g/dl Albumin 2.6 g/dl Globulin 3.70 g/dl Albumin/Globulin 0.75 Ratio Test 01/25/19 07:35 01/25/19 14:59 Bedside Glucose 138 mg/dL 151 mg/dL Assessment and Plan Assessment/Diagnosis 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
[2019-01-25 20:00] VITALS: BP 134/68; PULSE 83; RESP 18
[2019-01-25] MEDS: TAMSULOSIN (SR) 0.4 MG CAP PO SCH (20:51)
[2019-01-25] MEDS: SENNA TAB PO SCH (20:51)
[2019-01-25] MEDS: HYDROCORTISONE 0.5% 28.35 GM OINT TOP SCH (20:52)
[2019-01-26] VITALS (12 sets, daily range): BP systolic 110–152; BP diastolic 68–94; PULSE 84–99; RESP 15–20
[2019-01-26] MEDS: PIPER-TAZO 3.375 GM IV (PMX) 100 ML IVPB SCH ×4 (00:05→18:51)
[2019-01-26] MEDS: INSULIN ASPART [NOVOLOG] 3 ML PEN SC SCH ×6 (01:00→20:46)
[2019-01-26] MEDS: ACCU-CHEK XX SCH (02:35)
[2019-01-26] MEDS: DEXTROSE 5%-0.45% NACL 1,000 ML IV SCH ×3 (05:55→23:23)
[2019-01-26] MEDS: PANTOPRAZOLE (EC) 40 MG TAB PO SCH (05:56)
[2019-01-26] MEDS: ASCORBIC ACID 500 MG TAB PO SCH (08:45)
[2019-01-26] MEDS: HYDROCORTISONE 0.5% 28.35 GM OINT TOP SCH ×2 (08:45→20:40)
[2019-01-26] MEDS: MULTIVITAMINS/MINERALS TAB PO SCH (08:45)
[2019-01-26] MEDS: FINASTERIDE 5 MG TAB PO SCH (08:45)
[2019-01-26] MEDS: DABIGATRAN 150 MG CAP PO SCH (08:47)
[2019-01-26] MEDS: INSULIN GLARGINE [LANTus] (100 UNITS/ML) SYG SC SCH (08:48)
[2019-01-26] MEDS: METOPROLOL 50 MG TAB PO SCH ×2 (08:50→20:40)
[2019-01-26] MEDS: POLYETHYLENE GLYCOL 17 GM PACKET PO SCH (08:50)
[2019-01-26] MEDS: BALSAM PERU/CASTOR OIL 60 GM TUBE TOP SCH (08:51)
[2019-01-26] MEDS: PETROLATUM 5 GM OINT TOP SCH (09:00)
[2019-01-26] MEDS ORDERED: PETROLATUM 5 GM OINT TOP SCH (09:00)
[2019-01-26] MEDS: morphine 2 MG INJ IV PRN (11:02)
[2019-01-26] MEDS ORDERED: IOHEXOL 300MG/ML 30 ML BTL ONE (16:06)
--- NOTE | 2019-01-26 16:30 | HPN ---
Date/Time of Note Date/Time of Note DATE: 01/26/19 TIME: 16:30 Interval H&P Admission Note Pt. seen H&P reviewed: No system changes JASMINE VIEIRA MD Jan 26, 2019 16:30
--- NOTE | 2019-01-26 16:34 | PREAC ---
Date/Time of Note Date/Time of Note DATE: 01/26/19 TIME: 16:32 Anesthesia Eval and Record Evaluation Time Pre-Procedure Interview DATE: 01/26/19 TIME: 16:32 Age 88 Sex male NPO: 8 hrs Preoperative diagnosis Biliary obstruction Planned procedure ERCP Past Medical History Past Medical History: Includes Cardio: HTN, Dyslipidemia Endo: Diabetes Pulm: COPD Musculoskeletal: Osteoarthritis Surgery & Anesthesia Issues No known issue Meds Anticoagulation: Yes Beta Deandre within 24 hr: Yes Active Scripts Finasteride* (Finasteride*) 5 Mg Tablet, 5 MG PO DAILY, #30 TAB Prov:PAT PRECIADOLouis Edgar. 12/20/18 Pantoprazole* (Protonix*) 40 Mg Tablet.dr, 40 MG PO DAILY for 30 Days, TAB Prov:UMA PRECIADOMAIA Edgar. 12/20/18 Reported Medications Insulin Lispro (Humalog) 100 Unit/1 Ml Cartridge, 0 SQ SLIDING SCALE, EA IF BS IS 71-150=0 UNIT<70=ORANGE JUICE OR GLUCAGON 1MG THEN CALL MD. IF BS 151-200=2 UNITS,201-250=4 UNITS, 251-300=6 UNITS,301-350=8 UNITS, 351-400=10 UNITS>400=12 UNITS THEN CALL MD. 01/18/19 Metoprolol Tartrate* (Lopressor*) 50 Mg Tab, 50 MG PO BID, #60 TAB HOLD FOR SBP<110 OR HR<60 01/18/19 Calcium Carbonate (Calcium Carbonate) 500 Mg Tab.chew, 500 MG PO Q4H, TAB.CHEW 01/18/19 Acyclovir* (Acyclovir* Oint) 5%-15 Gm Oint, 1 APPLIC TOP QID, #1 TUB 01/18/19 Multivitamin with Minerals (Multivitamins with Minerals) 1 Each Tablet, 1 EACH PO DAILY, TAB 01/18/19 Hydrocodone/Acetaminophen ([place] 5-325 Tablet) 1 Each Tablet, 1 EACH PO Q4H PRN for PAIN LEVEL 6-10, TAB 01/18/19 Protein Supplement (Promod) 946 Ml Liquid, 30 ML PO BID 01/18/19 Sennosides* (Senna Lax*) 8.6 Mg Tablet, 2 TAB PO QHS PRN for PRN, TAB 01/18/19 Tamsulosin Hcl* (Tamsulosin Hcl*) 0.4 Mg Cap.er.24h, 0.4 MG PO HS, CAP 01/18/19 Tuberculin,Purif.prot.deriv. (Tubersol) 5 Tub Unit/0.1 Ml Vial, 5 TUB ID QHS Q 365D, VIAL FOR TB SCREENING YEARLY,ORDER DATE 01/11/19 01/18/19 Acetaminophen* (Acetaminophen*) 325 Mg Tablet, 650 MG PO Q4H PRN for PAIN AND OR ELEVATED TEMP, #30 TAB 01/18/19 Ascorbic Acid (Vitamin C) 500 Mg Tab, 500 MG PO DAILY, TAB 01/18/19 Lisinopril* (Lisinopril*) 2.5 Mg Tablet, 2.5 MG PO DAILY, #30 TAB HOLD FOR SBP<110 OR HR<60 12/16/18 Dabigatran Etexilate Mesylate* (Pradaxa*) 150 Mg Capsule, 150 MG PO DAILY, CAP 12/16/18 Current Medications IV Flush (NS 3 ml) 3 ml PER PROTOCOL IV ; Start 01/18/19 at 19:00 Ondansetron HCl (Zofran Inj) 4 mg Q6H PRN IV NAUSEA/VOMITING Last administered on 01/23/19at 13:31; Admin Dose 4 MG; Start 01/18/19 at 19:00 Acetaminophen/ Hydrocodone Bitart ([place] (5/325)) 1 tab Q6H PRN PO .MOD PAIN 4- 6 Last administered on 01/24/19at 01:25; Admin Dose 1 TAB; Start 01/18/19 at 19:00 Morphine Sulfate (morphine) 2 mg Q4H PRN IV .SEVERE PAIN 7-10 Last administered on 01/26/19at 11:02; Admin Dose 2 MG; Start 01/18/19 at 19:00 Docusate Sodium (Colace) 100 mg Q12H PRN PO .CONSTIPATION; Start 01/18/19 at 19:00 Magnesium Hydroxide (Milk Of Mag) 30 ml DAILY PRN PO .CONSTIPATION; Start 01/18/19 at 19:00 Lorazepam (Ativan) 0.5 mg Q6H PRN IV ANXIETY; Start 01/18/19 at 19:00 Albuterol/ Ipratropium (Duoneb) 3 ml Q4H RESP THERAPY PRN HHN SHORTNESS OF ISAIAH ATH; Start 01/18/19 at 19:00 Piperacillin Sod/ Tazobactam Sod 100 ml @ 200 mls/hr Q6 IVPB Last administered on 01/26/19at 11:01; Admin Dose 200 MLS/HR; Start 01/19/19 at 00:00 Hydralazine HCl (Apresoline) 10 mg Q6H PRN IV ELEVATED BLOOD PRESSURE; Start 01/18/19 at 19:00 Nitroglycerin (Nitroglycerin (Sl Tab) 0.4 Mg) 1 tab Q5M PRN SL ANGINA; Start 01/18/19 at 19:00 Acetaminophen (Tylenol Tab) 650 mg Q4H PRN PO MILD PAIN(1-3)OR ELEVATED TEMP; Start 01/18/19 at 19:00 Ascorbic Acid (Vitamin C) 500 mg DAILY PO Last administered on 01/26/19at 08:45; Admin Dose 500 MG; Start 01/19/19 at 09:00 Finasteride (Proscar) 5 mg DAILY PO Last administered on 01/26/19at 08:45; Admin Dose 5 MG; Start 01/19/19 at 09:00 Lisinopril (Zestril) 2.5 mg DAILY PO Last administered on 01/25/19at 08:58; Admin Dose 2.5 MG; Start 01/19/19 at 09:00; Status Hold Metoprolol Tartrate (Lopressor) 50 mg BID PO Last administered on 01/26/19at 08:50; Admin Dose 50 MG; Start 01/18/19 at 21:00 Tamsulosin HCl (Flomax) 0.4 mg HS PO Last administered on 01/24/19at 22:08; Admin Dose 0.4 MG; Start 01/18/19 at 21:00 Calcium Carbonate (Tums) 500 mg Q4H PRN PO HEARTBURN Last administered on 01/24/19at 15:01; Admin Dose 500 MG; Start 01/18/19 at 19:30 Multivitamins/ Minerals (Theragran-M) 1 tab DAILY PO Last administered on 01/26/19at 08:45; Admin Dose 1 TAB; Start 01/19/19 at 09:00 Diagnostic Test (Pha) (Accu-Chek) 1 ea 02 XX Last administered on 01/26/19at 02:35; Admin Dose 1 EA; Start 01/19/19 at 02:00 Miscellaneous Information 1 ea NOTE XX ; Start 01/18/19 at 20:30 Glucose (Glutose) 15 gm Q15M PRN PO DECREASED GLUCOSE; Start 01/18/19 at 20:30 Glucose (Glutose) 22.5 gm Q15M PRN PO DECREASED GLUCOSE; Start 01/18/19 at 20:30 Dextrose (D50w Syringe) 25 ml Q15M PRN IV DECREASED GLUCOSE; Start 01/18/19 at 20:30 Dextrose (D50w Syringe) 50 ml Q15M PRN IV DECREASED GLUCOSE; Start 01/18/19 at 20:30 Glucagon (Glucagen) 1 mg Q15M PRN IM DECREASED GLUCOSE; Start 01/18/19 at 20:30 Glucose (Glutose) 15 gm Q15M PRN BUCCAL DECREASED GLUCOSE; Start 01/18/19 at 20:30 Dimethicone (Blistex Lip [place]) 1 applic Q2H PRN TOP NOTE; Start 01/18/19 at 22:30 Miscellaneous Information (Pending [facility] Order For Wound Care) This patient loja... PRN PRN XX WOUND CARE; Start 01/19/19 at 06:30 Pantoprazole (Protonix Tab) 40 mg DAILY@06 PO Last administered on 01/25/19at 05:53; Admin Dose 40 MG; Start 01/22/19 at 06:00 Insulin Glargine (Lantus) 14 units DAILY@0800 SC Last administered on 01/26/19at 08:48; Admin Dose 14 UNITS; Start 01/22/19 at 10:00 Dabigatran (PRADaxa) 150 mg DAILY PO Last administered on 01/25/19at 08:54; Admin Dose 150 MG; Start 01/23/19 at 09:00 Morphine Sulfate (morphine) 2 mg ONCE PRN IV .SEVERE PAIN 7-10 Last administered on 01/23/19at 16:37; Admin Dose 2 MG; Start 01/23/19 at 13:30 Ondansetron HCl (Zofran Inj) 4 mg Q6H PRN IV NAUSEA/VOMITING; Start 01/23/19 at 13:30 Senna (Senokot) 2 tab QHS PO ; Start 01/25/19 at 21:00 Polyethylene Glycol (Miralax) 17 gm DAILY PO Last administered on 01/25/19at 18:04; Admin Dose 17 GM; Start 01/25/19 at 16:30 Hydrocortisone (Hydrocortisone 0.5% Oint) 1 applic BID TOP ; Start 01/25/19 at 21:00; Stop 01/28/19 at 20:59 Petrolatum (Vaseline) 1 ea DAILY TOP ; Start 01/26/19 at 09:00 Insulin Aspart (Novolog Insulin Pen) NOVOLOG *MILD* ALGORI... Q4 SC ; Start 01/26/19 at 01:00 Dextrose/Sodium Chloride 1,000 ml @ 80 mls/hr [id number] IV Last administered on 01/26/19at 05:55; Admin Dose 80 MLS/HR; Start 01/26/19 at 06:00 Meds reviewed: Yes Allergies Coded Allergies: Sulfa (Sulfonamide Antibiotics) (Verified Allergy, Severe, 01/18/19) Patient states "I almost " bee venom protein (honey bee) (Verified Allergy, Severe, 01/18/19) severe swelling Allergies Reviewed: Yes Labs/Studies Labs Reviewed: Reviewed by anesthesiologist Result Diagram: 01/26/19 0744 01/26/19 0744 Laboratory Tests 01/26/19 07:44 test: N/A Studies: ECG Pre-procedure Exam Last vitals Vital Signs Date Temp Pulse Resp B/P (MAP) Pulse Ox O2 O2 Flow FiO2 Time Delivery Rate 01/26/19 98.0 92 18 142/73 96 Room Air 15:35 (96) 01/23/19 10.0 13:36 Airway: Adequate mouth opening, Adequate thyromental dist Mallampati: Mallampati III Teeth: Normal Lung: Normal Heart: Normal ASA Physical Status ASA physical status: 4 Emergency: None Planned Anesthetic General/MAC: ETT Planned Pain Management Parenteral pain med Pre-operative Attestations Prior to commencing anesthesia and surgery, the patient was re-evaluated, there was verification of: *The patient's identity *The results of appropriate recent lab work and preoperative vital signs *The above evaluation not changing prior to induction *Anesthetic plan, risk benefits, alternative and complications discussed with patient/family; questions answered; patient/family understands, accepts and wishes to proceed. DAVID ARCHULETA MD Jan 26, 2019 16:34
[2019-01-26] MEDS ORDERED: MIDAZOLAM 1 MG/ML 2 ML INJ ONE (16:41)
[2019-01-26] MEDS ORDERED: PHENYLephrine (100 MCG/ML) 10ML SYG ONE (17:03)
[2019-01-26] MEDS ORDERED: ROCURONIUM 50 MG INJ ONE (17:21)
[2019-01-26] MEDS ORDERED: ETOMIDATE 20 MG INJ ONE (17:21)
[2019-01-26] MEDS ORDERED: LIDOCAINE 2% (SDV) 5 ML INJ ONE (17:21)
[2019-01-26] MEDS ORDERED: CEFAZOLIN 1 GM INJ ONE (17:21)
[2019-01-26] MEDS ORDERED: GLYCOPYRROLATE 0.4 MG INJ ONE (17:32)
[2019-01-26] MEDS ORDERED: NEOSTIGMINE 3 MG/3 ML SYRINGE ONE (17:32)
--- NOTE | 2019-01-26 17:40 | PN ---
Date/Time of Note Date/Time of Note DATE: 01/26/19 TIME: 17:40 Assessment/Plan VTE Prophylaxis Risk score (from Nsg)>0 risk: 6 SCD applied (from Nsg): Yes Lines/Catheters IV Catheter Type (from Nrsg): Mid Line Urinary Cath still in place: No Assessment/Plan Hospital Course SUBJECTIVE : objective: GENERAL: The patient is lying in bed, answering questions appropriately, in no acute distress. elderly, anxious HEENT: Pupils are equal, round, react to light. Extraocular muscles are intact. NECK: Supple. No thyromegaly. LUNGS: Clear to auscultation bilaterally. CARDIOVASCULAR: S1, S2 heard. No rubs or gallop. ABDOMEN: Tenderness to palpation in the right upper quadrant. drain noted Otherwise, no rebound or guarding. Normal bowel sounds. MUSCULOSKELETAL: No lower extremity edema bilaterally. NEUROLOGIC: No focal deficits. assessment and plan: An 88-year-old male with history of atrial flutter, atrial fibrillation, chronic kidney disease, cholecystitis with recent cholecystostomy 12/[address] now with dislodged AMILCAR drain after experiencing abdominal pain for a week and a half 1. Subacute cholecystitis -patient had originally come in with dislodged AMILCAR drain which was replaced by interventional radiology 01/19/19 -Patient underwent Laparoscopic anterior cholecystectomy and placement of drain after 2nd tube became clogged again 01/23/19 -post op, patient was having some bile leakage and so Surgery recommended GI consult -GI saw patient and recommended MRCP first, MRCP is showing 6 mm rounded filling defect within the main common duct suspicious for an intraductal stone without significant intrahepatic biliary ductal dilatation. -patient will likely need ERCP< GI to schedule 2. Atrial fibrillation and flutter.: rate controlled on current regimen 3. History of chronic kidney disease. Creatinine is stable. Continue to monitor for now. 4. History of diabetes. Last A1c checked last month was 7.5. 5. History of hypertension. 6. History of enlarged prostate. Continue Proscar. 7. DREW: likely 2/2 nephrotoxicity from meds -d/c toradol and ARB, start gentle hydration 8. Ileus / Constipation: stool softeners . Dispo: continue abx, await final cultures During last hospitalization, patient was DNR, will confirm code status with him Result Diagram: 01/26/19 0744 01/26/19 0744 Results 24hrs Laboratory Tests Test 01/25/19 18:00 01/25/19 20:47 01/26/19 01:22 01/26/19 05:33 Bedside Glucose 117 123 91 78 Test 01/26/19 07:44 01/26/19 08:41 01/26/19 12:36 White Blood Count 7.3 # Red Blood Count 3.61 L Hemoglobin 10.4 L Hematocrit 32.6 L Mean Corpuscular 90.3 Volume Mean Corpuscular 28.8 L Hemoglobin Mean Corpuscular 31.9 L Hemoglobin Concent Red Cell 15.2 H Distribution Width Platelet Count 155 Mean Platelet Volume 11.8 H Immature 0.400 Granulocytes % Neutrophils % 67.0 Lymphocytes % 24.6 Monocytes % 6.0 Eosinophils % 1.9 Basophils % 0.1 Nucleated Red Blood 0.0 Cells % Immature 0.030 Granulocytes # Neutrophils # 4.9 Lymphocytes # 1.8 Monocytes # 0.4 Eosinophils # 0.1 Basophils # 0.0 Nucleated Red Blood 0.0 Cells # Sodium Level 139 Potassium Level 3.5 Chloride Level 108 Carbon Dioxide Level 20 L Anion Gap 11 Blood Urea Nitrogen 30 H Creatinine 1.40 H Est Glomerular Filtrat Rate mL/min Glucose Level 94 # Calcium Level 8.3 L Phosphorus Level 3.3 Magnesium Level 1.7 Bedside Glucose 91 112 Exam/Review of Systems Exam Vitals Vital Signs Date Temp Pulse Resp B/P (MAP) Pulse Ox O2 O2 Flow FiO2 Time Delivery Rate 01/26/19 98.0 92 18 142/73 96 Room Air 15:35 (96) 01/23/19 10.0 13:36 Intake and Output 01/25/19 01/25/19 01/26/19 1515:00 23:00 07:00 IntakeIntake Total 500 ml 1200 ml OutputOutput Total 100 ml 400 ml 450 ml BalanceBalance -100 ml 100 ml 750 ml Results Results 24hrs Laboratory Tests Test 01/25/19 18:00 01/25/19 20:47 01/26/19 01:22 01/26/19 05:33 Bedside Glucose 117 123 91 78 Test 01/26/19 07:44 01/26/19 08:41 01/26/19 12:36 White Blood Count 7.3 # Red Blood Count 3.61 L Hemoglobin 10.4 L Hematocrit 32.6 L Mean Corpuscular 90.3 Volume Mean Corpuscular 28.8 L Hemoglobin Mean Corpuscular 31.9 L Hemoglobin Concent Red Cell 15.2 H Distribution Width Platelet Count 155 Mean Platelet Volume 11.8 H Immature 0.400 Granulocytes % Neutrophils % 67.0 Lymphocytes % 24.6 Monocytes % 6.0 Eosinophils % 1.9 Basophils % 0.1 Nucleated Red Blood 0.0 Cells % Immature 0.030 Granulocytes # Neutrophils # 4.9 Lymphocytes # 1.8 Monocytes # 0.4 Eosinophils # 0.1 Basophils # 0.0 Nucleated Red Blood 0.0 Cells # Sodium Level 139 Potassium Level 3.5 Chloride Level 108 Carbon Dioxide Level 20 L Anion Gap 11 Blood Urea Nitrogen 30 H Creatinine 1.40 H Est Glomerular Filtrat Rate mL/min Glucose Level 94 # Calcium Level 8.3 L Phosphorus Level 3.3 Magnesium Level 1.7 Bedside Glucose 91 112 Medications Medication Current Medications IV Flush (NS 3 ml) 3 ml PER PROTOCOL IV ; Start 01/18/19 at 19:00 Ondansetron HCl (Zofran Inj) 4 mg Q6H PRN IV NAUSEA/VOMITING Last administered on 01/23/19at 13:31; Admin Dose 4 MG; Start 01/18/19 at 19:00 Acetaminophen/ Hydrocodone Bitart ([place] (5/325)) 1 tab Q6H PRN PO .MOD PAIN 4- 6 Last administered on 01/24/19at 01:25; Admin Dose 1 TAB; Start 01/18/19 at 19:00 Morphine Sulfate (morphine) 2 mg Q4H PRN IV .SEVERE PAIN 7-10 Last administered on 01/26/19at 11:02; Admin Dose 2 MG; Start 01/18/19 at 19:00 Docusate Sodium (Colace) 100 mg Q12H PRN PO .CONSTIPATION; Start 01/18/19 at 19:00 Magnesium Hydroxide (Milk Of Mag) 30 ml DAILY PRN PO .CONSTIPATION; Start 01/18/19 at 19:00 Lorazepam (Ativan) 0.5 mg Q6H PRN IV ANXIETY; Start 01/18/19 at 19:00 Albuterol/ Ipratropium (Duoneb) 3 ml Q4H RESP THERAPY PRN HHN SHORTNESS OF BREATH; Start 01/18/19 at 19:00 Piperacillin Sod/ Tazobactam Sod 100 ml @ 200 mls/hr Q6 IVPB Last administered on 01/26/19 11:01; Admin Dose 200 MLS/HR; Start 01/19/19 at 00:00 Hydralazine HCl (Apresoline) 10 mg Q6H PRN IV ELEVATED BLOOD PRESSURE; Start 01/18/19 at 19:00 Nitroglycerin (Nitroglycerin (Sl Tab) 0.4 Mg) 1 tab Q5M PRN SL ANGINA; Start 01/18/19 at 19:00 Acetaminophen (Tylenol Tab) 650 mg Q4H PRN PO MILD PAIN(1-3)OR ELEVATED TEMP; Start 01/18/19 at 19:00 Ascorbic Acid (Vitamin C) 500 mg DAILY PO Last administered on 01/26/19at 08:45; Admin Dose 500 MG; Start 01/19/19 at 09:00 Finasteride (Proscar) 5 mg DAILY PO Last administered on 01/26/19 08:45; Admin Dose 5 MG; Start 01/19/19 at 09:00 Lisinopril (Zestril) 2.5 mg DAILY PO Last administered on 01/25/19at 08:58; Admin Dose 2.5 MG; Start 01/19/19 at 09:00; Status Hold Metoprolol Tartrate (Lopressor) 50 mg BID PO Last administered on 01/26/19at 08:50; Admin Dose 50 MG; Start 01/18/19 at 21:00 Tamsulosin HCl (Flomax) 0.4 mg HS PO Last administered on 01/24/19at 22:08; Admin Dose 0.4 MG; Start 01/18/19 at 21:00 Calcium Carbonate (Tums) 500 mg Q4H PRN PO HEARTBURN Last administered on 01/24at 15:01; Admin Dose 500 MG; Start 01/18/19 at 19:30 Multivitamins/ Minerals (Theragran-M) 1 tab DAILY PO Last administered on 01/26/19 08:45; Admin Dose 1 TAB; Start 01/19/19 at 09:00 Diagnostic Test (Pha) (Accu-Chek) 1 ea 02 XX Last administered on 01/26/19at 02:35; Admin Dose 1 EA; Start 01/19/19 at 02:00 Miscellaneous Information 1 ea NOTE XX ; Start 01/18/19 at 20:30 Glucose (Glutose) 15 gm Q15M PRN PO DECREASED GLUCOSE; Start 01/18/19 at 20:30 Glucose (Glutose) 22.5 gm Q15M PRN PO DECREASED GLUCOSE; Start 01/18/19 at 20:30 Dextrose (D50w Syringe) 25 ml Q15M PRN IV DECREASED GLUCOSE; Start 01/18/19 at 20:30 Dextrose (D50w Syringe) 50 ml Q15M PRN IV DECREASED GLUCOSE; Start 01/18/19 at 20:30 Glucagon (Glucagen) 1 mg Q15M PRN IM DECREASED GLUCOSE; Start 01/18/19 at 20:30 Glucose (Glutose) 15 gm Q15M PRN BUCCAL DECREASED GLUCOSE; Start 01/18/19 at 20:30 Dimethicone (Blistex Lip [place]) 1 applic Q2H PRN TOP NOTE; Start 01/18/19 at 22:30 Miscellaneous Information (Pending [facility] Order For Wound Care) This patient loja... PRN PRN XX WOUND CARE; Start 01/19/19 at 06:30 Pantoprazole (Protonix Tab) 40 mg DAILY@06 PO Last administered on 01/25/19at 05:53; Admin Dose 40 MG; Start 01/22/19 at 06:00 Insulin Glargine (Lantus) 14 units DAILY@0800 SC Last administered on 01/26/19at 08:48; Admin Dose 14 UNITS; Start 01/22/19 at 10:00 Dabigatran (PRADaxa) 150 mg DAILY PO Last administered on 01/25/19at 08:54; Admin Dose 150 MG; Start 01/23/19 at 09:00 Morphine Sulfate (morphine) 2 mg ONCE PRN IV .SEVERE PAIN 7-10 Last administered on 01/23/19at 16:37; Admin Dose 2 MG; Start 01/23/19 at 13:30 Ondansetron HCl (Zofran Inj) 4 mg Q6H PRN IV NAUSEA/VOMITING; Start 01/23/19 at 13:30 Senna (Senokot) 2 tab QHS PO ; Start 01/25/19 at 21:00 Polyethylene Glycol (Miralax) 17 gm DAILY PO Last administered on 01/25/19at 18:04; Admin Dose 17 GM; Start 01/25/19 at 16:30 Hydrocortisone (Hydrocortisone 0.5% Oint) 1 applic BID TOP ; Start 01/25/19 at 21:00; Stop 01/28/19 at 20:59 Petrolatum (Vaseline) 1 ea DAILY TOP ; Start 01/26/19 at 09:00 Insulin Aspart (Novolog Insulin Pen) NOVOLOG *MILD* ALGORI... Q4 SC ; Start 01/26/19 at 01:00 Dextrose/Sodium Chloride 1,000 ml @ 80 mls/hr [id number] IV Last administered on 01/26/19at 05:55; Admin Dose 80 MLS/HR; Start 01/26/19 at 06:00 LOR PRECIADO Jan 26, 2019 17:40
--- NOTE | 2019-01-26 17:42 | PAC ---
Date/Time of Note Date/Time of Note DATE: 01/26/19 TIME: 17:42 Post-Anesthesia Notes Post-Anesthesia Note Last documented vital signs Vital Signs Date Temp Pulse Resp B/P (MAP) Pulse Ox O2 O2 Flow FiO2 Time Delivery Rate 01/26/19 98.0 92 18 142/73 96 Room Air 15:35 (96) 01/23/19 10.0 13:36 Activity: WNL Respiratory function: WNL Cardiovascular function: WNL Mental status: Baseline Pain reasonably controlled: Yes Hydration appropriate: Yes Nausea/Vomiting absent: Yes Comments P:134/56, P:88, Spo2:100%, T:98,8 DAVID ARCHULETA MD Jan 26, 2019 17:42
--- NOTE | 2019-01-26 17:59 | OPPN ---
Date/Time of Note Date/Time of Note DATE: 01/26/19 TIME: 17:55 Proc Note GI Procedure Date 01/26/19 Indication: diagnostic, treatment Pre-procedure Diagnosis Choledocholithiasis Post-procedure Diagnosis Impression: Choledocholithiasis 8 mm stone Post small sphincterotomy. Post balloon dilatation of the ampulla 10 mm. Post balloon stone removal No evidence of bile leak Plan: Close observation. Advance diet as tolerated. Procedure Performed: ERCP (With sphincterotomy plus balloon dilatation of the ampulla plastic stone removal) Surgeon see signature line Riprap Man none Anesthesia Type: general Anesthesiologist: DAVID ARCHULETA MD Tourniquet Time none EBL none Transfusion required none Biopsy 1: None Grafts/Implants none Tubes/Drains none Complication(s) none Disposition: PACU Procedure Description After informed consent, with the patient/relatives understanding the procedure, its indications, potential risks and complications, including but not limited to: allergic reaction, bleeding, perforation or infection, and after all pertinent questions were answered to the patients satisfaction, the patient/relatives signed witnessed informed consent. Following this, premedication was administered slowly IV push under careful cardiovascular and respiratory monitoring with pulse oximetry, automatic blood pressure, and radiation monitor. Once the sedative effect was achieved the patient was place in the prone position in the radiology special procedures suite; the side viewing panendoscope was introduced and advanced under visual control. Careful examination of the upper gastrointestinal tract, both on insertion as well as withdrawal of the instrument disclosed the following findings: Esophagus: The mucosa of the entire appears within normal limits. There is no evidence of esophagitis, varices, neoplasm or stricture. No Hiatal Hernia id entified. Stomach: Upon entrance to the stomach air was insufflated, the gastric burns distended normally, the mucosa of the fundus, body and antrum of the stomach was carefully examined both head-on and on retroflexion, and shows no abnormalities. There is no evidence of gastritis, ulcers, or neoplasm. Pylorus: The pylorus appears patent and within normal limits, with no evidence of gastric outlet obstruction. Duodenum: The duodenal mucosa was carefully examined in the duodenal bulb as well as the second portion of the duodenum and appears unremarkable with no evidence of duodenitis, ulcer or neoplasm. Ampulla of vater: The ampulla of Vater was identified and carefully examined appearing small but within normal limits. Cannulation: At this point cannulation was accomplished with the following fluoroscopic findings: Pancreatogram: Avoided previously Cholangiogram: The biliary tree is dilated to at least 12 mm. Stone is noted floating in the common bile duct measures approximately 8 mm. At this point a small sphincterotomy was performed due to the very small size of the ampulla. Following this at 12-15 mm balloon was utilized to sweep the biliary tree and remove plaque stone measuring again 8 mm. Balloon cholangiogram was then obtained showing no evidence of residual abnormalities or bile leak. Rapid emptying is identified. The instrument was then withdrawn the patient tolerated the procedure well and was transfer out of the endoscopy suite awake, and in good condition to continue to recover under observation. Copies To: CC: JASMINE VIEIRA MD ; JASMINE VIEIRA MD Jan 26, 2019 17:59
[2019-01-26] MEDS ORDERED: LABETALOL HCL 20MG INJ IV PRN (18:00)
[2019-01-26] MEDS ORDERED: DIPHENHYDRAMINE 50 MG INJ IV PRN (18:00)
[2019-01-26] MEDS ORDERED: ONDANSETRON 4 MG INJ IV PRN (18:00)
[2019-01-26] MEDS ORDERED: MEPERIDINE 25 MG INJ IV PRN (18:00)
[2019-01-26] MEDS ORDERED: FENTAnyl 50 MCG/ML VIAL IV PRN (18:00)
[2019-01-26] MEDS ORDERED: METOCLOPRAMIDE 10 MG INJ IV PRN (18:00)
[2019-01-26] MEDS: SENNA TAB PO SCH (20:39)
[2019-01-26] MEDS: TAMSULOSIN (SR) 0.4 MG CAP PO SCH (20:39)
[2019-01-27] MEDS: PIPER-TAZO 3.375 GM IV (PMX) 100 ML IVPB SCH ×5 (00:02→23:35)
[2019-01-27] MEDS: ACCU-CHEK XX SCH (02:00)
[2019-01-27 02:13] VITALS: BP 126/63; PULSE 89; RESP 18
[2019-01-27] MEDS: PANTOPRAZOLE (EC) 40 MG TAB PO SCH (06:19)
[2019-01-27 08:10] VITALS: BP 116/69; PULSE 93; RESP 18
[2019-01-27] MEDS: INSULIN GLARGINE [LANTus] (100 UNITS/ML) SYG SC SCH (08:43)
[2019-01-27] MEDS: INSULIN ASPART [NOVOLOG] 3 ML PEN SC SCH ×4 (08:44→21:00)
[2019-01-27] MEDS: DABIGATRAN 150 MG CAP PO SCH (08:46)
[2019-01-27] MEDS: MULTIVITAMINS/MINERALS TAB PO SCH (08:47)
[2019-01-27] MEDS: FINASTERIDE 5 MG TAB PO SCH (08:47)
[2019-01-27] MEDS: ASCORBIC ACID 500 MG TAB PO SCH (08:47)
[2019-01-27] MEDS: PETROLATUM 5 GM OINT TOP SCH (08:47)
[2019-01-27] MEDS: METOPROLOL 50 MG TAB PO SCH ×2 (08:47→21:28)
[2019-01-27] MEDS: POLYETHYLENE GLYCOL 17 GM PACKET PO SCH (08:48)
[2019-01-27] MEDS: HYDROCORTISONE 0.5% 28.35 GM OINT TOP SCH ×2 (08:48→21:31)
--- NOTE | 2019-01-27 08:48 | QN ---
Documentation Comment 1 day status post successful ERCP with stone extraction AMILCAR drainage markedly diminished Abdominal examination is benign Plan: Needs PT for mobilization. Discharge planning for tomorrow MASON MARKS MD Jan 27, 2019 08:48
[2019-01-27] MEDS: BALSAM PERU/CASTOR OIL 60 GM TUBE TOP SCH (08:49)
--- NOTE | 2019-01-27 12:29 | PN ---
Date/Time of Note Date/Time of Note DATE: 01/27/19 TIME: 12:22 Assessment/Plan VTE Prophylaxis Risk score (from Ns)>0 risk: 7 SCD applied (from Ns): Yes Pharmacological prophylaxis: heparin Lines/Catheters IV [facility]from [facility] Peripheral IV Urinary Cath still in place: No Assessment/Plan Assessment/Plan Summary Assessment and Plan: Assessment: Leukocytosis Status post cholecystectomy 01/23/19 -AMILCAR in place with bilious drainage R/o biloma vs bile leak Choledocholithiasis Status post ERCP 01/26/2019 -Choledocholithiasis 8 mm stone -Post small sphincterotomy. -Post balloon dilatation of the ampulla 10 mm. -Post balloon stone removal -No evidence of bile leak Atrial fibrillation -on Pradaxa. Diabetes type 2 CKD Hypertension BPH Normocytic anemia Plan: Advance diet to carbohydrate control Monitor labs Supportive care Further recommendations based on clinical course patient seen in collaboration with Dr. Hector Subjective: Patient states he is feeling much better today. Denies upper abdominal pain. Left lower quadrant abdominal pain on palpation. Patient is tolerating clear liquid diet well. Will advance diet to carbohydrate control diet. Check labs in the morning. Constitutional: alert, oriented Psych: no complaints Head: normocephalic, atraumatic Eyes: nl conjunctiva ENMT: nl external ears & nose Neck: supple, non-tender Respiratory: clear to auscultation, normal air movement Cardiovascular: regular rate and rhythm Gastrointestinal: soft, bowel sounds, surgical scars, left lower quadrant tenderness Extremities: other (left BKA) Result Diagram: 01/26/19 0744 01/26/19 0744 Results 24hrs Laboratory Tests Test 01/26/19 12:36 01/26/19 18:55 01/26/19 20:37 01/27/19 08:41 Bedside Glucose 112 106 119 180 Test 01/27/19 12:11 Bedside Glucose 207 CC: JASMINE HECTOR MD ; Exam/Review of Systems Exam Vitals Vital Signs Date Temp Pulse Resp B/P (MAP) Pulse Ox O2 O2 Flow FiO2 Time Delivery Rate 01/27/19 97.7 93 18 116/69 99 08:10 (85) 01/27/19 Room Air 02:13 01/26/19 2.0 18:26 Intake and Output 01/26/19 01/26/19 01/27/19 1515:00 23:00 07:00 IntakeIntake Total 100 ml 100 ml 2090 ml OutputOutput Total 130 ml 250 ml 10 ml BalanceBalance -30 ml -150 ml 2080 ml Results Results 24hrs Laboratory Tests Test 01/26/19 12:36 01/26/19 18:55 01/26/19 20:37 01/27/19 08:41 Bedside Glucose 112 106 119 180 Test 01/27/19 12:11 Bedside Glucose 207 Medications Medication Current Medications IV Flush (NS 3 ml) 3 ml PER PROTOCOL IV ; Start 01/18/19 at 19:00 Ondansetron HCl (Zofran Inj) 4 mg Q6H PRN IV NAUSEA/VOMITING Last administered on 01/23/19at 13:31; Admin Dose 4 MG; Start 01/18/19 at 19:00 Acetaminophen/ Hydrocodone Bitart ([place] (5/325)) 1 tab Q6H PRN PO .MOD PAIN 4- 6 Last administered on 01/24/19at 01:25; Admin Dose 1 TAB; Start 01/18/19 at 19:00 Morphine Sulfate (morphine) 2 mg Q4H PRN IV .SEVERE PAIN 7-10 Last administered on 01/26/19at 11:02; Admin Dose 2 MG; Start 01/18/19 at 19:00 Docusate Sodium (Colace) 100 mg Q12H PRN PO .CONSTIPATION; Start 01/18/19 at 19:00 Magnesium Hydroxide (Milk Of Mag) 30 ml DAILY PRN PO .CONSTIPATION; Start 01/18/19 at 19:00 Lorazepam (Ativan) 0.5 mg Q6H PRN IV ANXIETY; Start 01/18/19 at 19:00 Albuterol/ Ipratropium (Duoneb) 3 ml Q4H RESP THERAPY PRN HHN SHORTNESS OF BREATH; Start 01/18/19 at 19:00 Piperacillin Sod/ Tazobactam Sod 100 ml @ 200 mls/hr Q6 IVPB Last administered on 01/27/19at 12:12; Admin Dose 200 MLS/HR; Start 01/19/19 at 00:00 Hydralazine HCl (Apresoline) 10 mg Q6H PRN IV ELEVATED BLOOD PRESSURE; Start 01/18/19 at 19:00 Nitroglycerin (Nitroglycerin (Sl Tab) 0.4 Mg) 1 tab Q5M PRN SL ANGINA; Start 01/18/19 at 19:00 Acetaminophen (Tylenol Tab) 650 mg Q4H PRN PO MILD PAIN(1-3)OR ELEVATED TEMP; Start 01/18/19 at 19:00 Ascorbic Acid (Vitamin C) 500 mg DAILY PO Last administered on 01/27/19 08:47; Admin Dose 500 MG; Start 01/19/19 at 09:00 Finasteride (Proscar) 5 mg DAILY PO Last administered on 01/27/19 08:47; Admin Dose 5 MG; Start 01/19/19 at 09:00 Lisinopril (Zestril) 2.5 mg DAILY PO Last administered on 01/25/19 08:58; Admin Dose 2.5 MG; Start 01/19/19 at 09:00; Status Hold Metoprolol Tartrate (Lopressor) 50 mg BID PO Last administered on 01/27/19 08:47; Admin Dose 50 MG; Start 01/18/19 at 21:00 Tamsulosin HCl (Flomax) 0.4 mg HS PO Last administered on 01/26/19at 20:39; Admin Dose 0.4 MG; Start 01/18/19 at 21:00 Calcium Carbonate (Tums) 500 mg Q4H PRN PO HEARTBURN Last administered on 01/24/19at 15:01; Admin Dose 500 MG; Start 01/18/19 at 19:30 Multivitamins/ Minerals (Theragran-M) 1 tab DAILY PO Last administered on 01/27/19 08:47; Admin Dose 1 TAB; Start 01/19/19 at 09:00 Diagnostic Test (Pha) (Accu-Chek) 1 ea 02 XX Last administered on 01/26/19at 02:35; Admin Dose 1 EA; Start 01/19/19 at 02:00 Miscellaneous Information 1 ea NOTE XX ; Start 01/18/19 at 20:30 Glucose (Glutose) 15 gm Q15M PRN PO DECREASED GLUCOSE; Start 01/18/19 at 20:30 Glucose (Glutose) 22.5 gm Q15M PRN PO DECREASED GLUCOSE; Start 01/18/19 at 20:30 Dextrose (D50w Syringe) 25 ml Q15M PRN IV DECREASED GLUCOSE; Start 01/18/19 at 20:30 Dextrose (D50w Syringe) 50 ml Q15M PRN IV DECREASED GLUCOSE; Start 01/18/19 at 20:30 Glucagon (Glucagen) 1 mg Q15M PRN IM DECREASED GLUCOSE; Start 01/18/19 at 20:30 Glucose (Glutose) 15 gm Q15M PRN BUCCAL DECREASED GLUCOSE; Start 01/18/19 at 20:30 Dimethicone (Blistex Lip [place]) 1 applic Q2H PRN TOP NOTE; Start 01/18/19 at 22:30 [facility] This patient loja... PRN PRN XX WOUND CARE; Start 01/19/19 at 06:30 Pantoprazole (Protonix Tab) 40 mg DAILY@06 PO Last administered on 01/27/19at 06:19; Admin Dose 40 MG; Start 01/22/19 at 06:00 Insulin Glargine (Lantus) 14 units DAILY@0800 SC Last administered on 01/27/19at 08:43; Admin Dose 14 UNITS; Start 01/22/19 at 10:00 Dabigatran (PRADaxa) 150 mg DAILY PO Last administered on 01/27/19at 08:46; Admin Dose 150 MG; Start 01/23/19 at 09:00 Morphine Sulfate (morphine) 2 mg ONCE PRN IV .SEVERE PAIN 7-10 Last administered on 01/23/19at 16:37; Admin Dose 2 MG; Start 01/23/19 at 13:30 Ondansetron HCl (Zofran Inj) 4 mg Q6H PRN IV NAUSEA/VOMITING; Start 01/23/19 at 13:30 Senna (Senokot) 2 tab QHS PO Last administered on 01/26/19at 20:39; Admin Dose 2 TAB; Start 01/25/19 at 21:00 Polyethylene Glycol (Miralax) 17 gm DAILY PO Last administered on 01/25/19at 18:04; Admin Dose 17 GM; Start 01/25/19 at 16:30 Hydrocortisone (Hydrocortisone 0.5% Oint) 1 applic BID TOP Last administered on 01/27/19at 08:48; Admin Dose 1 APPLIC; Start 01/25/19 at 21:00; Stop 01/28/19 at 20:59 Petrolatum (Vaseline) 1 ea DAILY TOP Last administered on 01/27/19 08:47; Admin Dose 1 EA; Start 01/26/19 at 09:00 Dextrose/Sodium Chloride 1,000 ml @ 80 mls/hr [id number] IV Last administered on 01/26/19 23:23; Admin Dose 80 MLS/HR; Start 01/26/19 at 06:00 Insulin Aspart (Novolog Insulin Pen) NOVOLOG *MILD* ALGORITHM WITH MEALS BEDTIME SC Last administered on 01/27/19 12:13; Admin Dose 2 UNIT; Start at 21:00 MARISEL CUEVAS NP Jan 27, 2019 12:29
[2019-01-27 14:41] VITALS: BP 129/72; PULSE 97; RESP 18
--- NOTE | 2019-01-27 17:23 | PN ---
Date/Time of Note Date/Time of Note DATE: 01/27/19 TIME: 17:14 Assessment/Plan VTE Prophylaxis Risk score (from Ns)>0 risk: 7 SCD applied (from Ns): Yes Pharmacological prophylaxis: other (pradaxa) Lines/Catheters [facility] (from [facility]): Peripheral IV Urinary Cath still in place: No Assessment/Plan Hospital Course SUBJECTIVE : no new complaints objective: GENERAL: The patient is lying in bed, answering questions appropriately, in no acute distress. elderly, anxious HEENT: Pupils are equal, round, react to light. Extraocular muscles are intact. NECK: Supple. No thyromegaly. LUNGS: Clear to auscultation bilaterally. CARDIOVASCULAR: S1, S2 heard. No rubs or gallop. ABDOMEN: Tenderness to palpation in the right upper quadrant. drain noted Otherwise, no rebound or guarding. Normal bowel sounds. MUSCULOSKELETAL: No lower extremity edema bilaterally. NEUROLOGIC: No focal deficits. assessment and plan: An 88-year-old male with history of atrial flutter, atrial fibrillation, c hronic kidney disease, cholecystitis with recent cholecystostomy 12/[address] now with dislodged AMILCAR drain after experiencing abdominal pain for a week and a half 1. Subacute cholecystitis -patient had originally come in with dislodged AMILCAR drain which was replaced by interventional radiology 01/19/19 -Patient underwent Laparoscopic anterior cholecystectomy and placement of drain after 2nd tube became clogged again 01/23/19 -post op, patient was having some bile leakage and so Surgery recommended GI consult -GI saw patient and recommended MRCP first, MRCP is showing 6 mm rounded filling defect within the main common duct suspicious for an intraductal stone without significant intrahepatic biliary ductal dilatation. -ERCP was done 01/26/19 and Choledocholithiasis 8 mm stone was seen and removed with balloon dilation -drainage is less today per surgery 2. Atrial fibrillation and flutter.: rate controlled on current regimen 3. History of chronic kidney disease. Creatinine is stable. Continue to monitor for now. 4. History of diabetes. Last A1c checked last month was 7.5. 5. History of hypertension. 6. History of enlarged prostate. Continue Proscar. 7. DREW: likely 2/2 nephrotoxicity from meds -d/c toradol and ARB, start gentle hydration -cr now trending down 8. Ileus / Constipation: stool softeners Plan: Per surgery Needs PT for mobilization. Agree with advancing diet, Discharge planning for tomorrow During last hospitalization, patient was DNR, will confirm code status with him Result Diagram: 01/26/19 0744 01/26/19 0744 Results 24hrs Laboratory Tests Test 01/26/19 18:55 01/26/19 20:37 01/27/19 08:41 01/27/19 12:11 Bedside Glucose 106 119 180 207 Exam/Review of Systems Exam Vitals Vital Signs Date Temp Pulse Resp B/P (MAP) Pulse Ox O2 O2 Flow FiO2 Time Delivery Rate 01/27/19 97.8 97 18 129/72 98 14:41 (91) 01/27/19 Room Air 02:13 01/26/19 2.0 18:26 Intake and Output 01/26/19 01/26/19 01/27/19 1515:00 23:00 07:00 IntakeIntake Total 100 ml 100 ml 2090 ml OutputOutput Total 130 ml 250 ml 10 ml BalanceBalance -30 ml -150 ml 2080 ml Results Results 24hrs Laboratory Tests Test 01/26/19 18:55 01/26/19 20:37 01/27/19 08:41 01/27/19 12:11 Bedside Glucose 106 119 180 207 Medications Medication Current Medications IV Flush (NS 3 ml) 3 ml PER PROTOCOL IV ; Start 01/18/19 at 19:00 Ondansetron HCl (Zofran Inj) 4 mg Q6H PRN IV NAUSEA/VOMITING Last administered on 01/23/19at 13:31; Admin Dose 4 MG; Start 01/18/19 at 19:00 Acetaminophen/ Hydrocodone Bitart ([place] (5/325)) 1 tab Q6H PRN PO .MOD PAIN 4- 6 Last administered on 01/24/19at 01:25; Admin Dose 1 TAB; Start 01/18/19 at 19:00 Morphine Sulfate (morphine) 2 mg Q4H PRN IV .SEVERE PAIN 7-10 Last administered on 01/26/19at 11:02; Admin Dose 2 MG; Start 01/18/19 at 19:00 Docusate Sodium (Colace) 100 mg Q12H PRN PO .CONSTIPATION; Start 01/18/19 at 19:00 Magnesium Hydroxide (Milk Of Mag) 30 ml DAILY PRN PO .CONSTIPATION; Start 01/18/19 at 19:00 Lorazepam (Ativan) 0.5 mg Q6H PRN IV ANXIETY; Start 01/18/19 at 19:00 Albuterol/ Ipratropium (Duoneb) 3 ml Q4H RESP THERAPY PRN HHN SHORTNESS OF BREATH; Start 01/18/19 at 19:00 Piperacillin Sod/ Tazobactam Sod 100 ml @ 200 mls/hr Q6 IVPB Last administered on 01/27/19at 12:12; Admin Dose 200 MLS/HR; Start 01/19/19 at 00:00 Hydralazine HCl (Apresoline) 10 mg Q6H PRN IV ELEVATED BLOOD PRESSURE; Start 01/18/19 at 19:00 Nitroglycerin (Nitroglycerin (Sl Tab) 0.4 Mg) 1 tab Q5M PRN SL ANGINA; Start 01/18/19 at 19:00 Acetaminophen (Tylenol Tab) 650 mg Q4H PRN PO MILD PAIN(1-3)OR ELEVATED TEMP; Start 01/18/19 at 19:00 Ascorbic Acid (Vitamin C) 500 mg DAILY PO Last administered on 01/27/19at 08:47; Admin Dose 500 MG; Start 01/19/19 at 09:00 Finasteride (Proscar) 5 mg DAILY PO Last administered on 01/27/19 08:47; Admin Dose 5 MG; Start 01/19/19 at 09:00 Lisinopril (Zestril) 2.5 mg DAILY PO Last administered on 01/25/19at 08:58; Admin Dose 2.5 MG; Start 01/19/19 at 09:00; Status Hold Metoprolol Tartrate (Lopressor) 50 mg BID PO Last administered on 01/27/19 08:47; Admin Dose 50 MG; Start 01/18/19 at 21:00 Tamsulosin HCl (Flomax) 0.4 mg HS PO Last administered on 01/26/19at 20:39; Admin Dose 0.4 MG; Start 01/18/19 at 21:00 Calcium Carbonate (Tums) 500 mg Q4H PRN PO HEARTBURN Last administered on 01/24/19at 15:01; Admin Dose 500 MG; Start 01/18/19 at 19:30 Multivitamins/ Minerals (Theragran-M) 1 tab DAILY PO Last administered on 01/27/19at 08:47; Admin Dose 1 TAB; Start 01/19/19 at 09:00 Diagnostic Test (Pha) (Accu-Chek) 1 ea 02 XX Last administered on 01/26/19at 02:35; Admin Dose 1 EA; Start 01/19/19 at 02:00 Miscellaneous Information 1 ea NOTE XX ; Start 01/18/19 at 20:30 Glucose (Glutose) 15 gm Q15M PRN PO DECREASED GLUCOSE; Start 01/18/19 at 20:30 Glucose (Glutose) 22.5 gm Q15M PRN PO DECREASED GLUCOSE; Start 01/18/19 at 20:30 Dextrose (D50w Syringe) 25 ml Q15M PRN IV DECREASED GLUCOSE; Start 01/18/19 at 20:30 Dextrose (D50w Syringe) 50 ml Q15M PRN IV DECREASED GLUCOSE; Start 01/18/19 at 20:30 Glucagon (Glucagen) 1 mg Q15M PRN IM DECREASED GLUCOSE; Start 01/18/19 at 20:30 Glucose (Glutose) 15 gm Q15M PRN BUCCAL DECREASED GLUCOSE; Start 01/18/19 at 20:30 Dimethicone (Blistex Lip [place]) 1 applic Q2H PRN TOP NOTE; Start 01/18/19 at 22:30 [facility]isc[facility] This patient loja... PRN PRN XX WOUND CARE; Start 01/19/19 at 06:30 Pantoprazole (Protonix Tab) 40 mg DAILY@06 PO Last administered on 01/27/19at 06:19; Admin Dose 40 MG; Start 01/22/19 at 06:00 Insulin Glargine (Lantus) 14 units DAILY@0800 SC Last administered on 01/27/19at 08:43; Admin Dose 14 UNITS; Start 01/22/19 at 10:00 Dabigatran (PRADaxa) 150 mg DAILY PO Last administered on 01/27/19at 08:46; Admin Dose 150 MG; Start 01/23/19 at 09:00 Morphine Sulfate (morphine) 2 mg ONCE PRN IV .SEVERE PAIN 7-10 Last administered on 01/23/19at 16:37; Admin Dose 2 MG; Start 01/23/19 at 13:30 Ondansetron HCl (Zofran Inj) 4 mg Q6H PRN IV NAUSEA/VOMITING; Start 01/23/19 at 13:30 Senna (Senokot) 2 tab QHS PO Last administered on 01/26/19 20:39; Admin Dose 2 TAB; Start 01/25/19 at 21:00 Polyethylene Glycol (Miralax) 17 gm DAILY PO Last administered on 01/25/19 18:04; Admin Dose 17 GM; Start 01/25/19 at 16:30 Hydrocortisone (Hydrocortisone 0.5% Oint) 1 applic BID TOP Last administered on 01/27/19 08:48; Admin Dose 1 APPLIC; Start 01/25/19 at 21:00; Stop 01/28/19 at 20:59 Petrolatum (Vaseline) 1 ea DAILY TOP Last administered on 01/27/19at 08:47; Admin Dose 1 EA; Start 01/26/19 at 09:00 Insulin Aspart (Novolog Insulin Pen) NOVOLOG *MILD* ALGORITHM WITH MEALS BEDTIME SC Last administered on 01/27/19at 12:13; Admin Dose 2 UNIT; Start 01/26/19 at 21:00 LOR PRECIADO Jan 27, 2019 17:23
[2019-01-27] MEDS: HYDROCODONE/APAP (5/325) TAB PO PRN (17:40)
[2019-01-27 20:24] VITALS: BP 109/67; PULSE 89; RESP 16
[2019-01-27] MEDS: TAMSULOSIN (SR) 0.4 MG CAP PO SCH (21:28)
[2019-01-27] MEDS: SENNA TAB PO SCH (21:29)
[2019-01-28] MEDS: ACCU-CHEK XX SCH (02:00)
[2019-01-28] MEDS: HYDROCODONE/APAP (5/325) TAB PO PRN ×2 (02:01→15:31)
[2019-01-28 02:41] VITALS: BP 98/68; PULSE 76; RESP 18
[2019-01-28] MEDS: PANTOPRAZOLE (EC) 40 MG TAB PO SCH (06:17)
[2019-01-28] MEDS: PIPER-TAZO 3.375 GM IV (PMX) 100 ML IVPB SCH ×3 (06:17→18:00)
[2019-01-28] MEDS: INSULIN ASPART [NOVOLOG] 3 ML PEN SC SCH ×4 (08:00→20:35)
[2019-01-28 08:10] VITALS: BP 112/57; PULSE 85; RESP 18
[2019-01-28] MEDS: INSULIN GLARGINE [LANTus] (100 UNITS/ML) SYG SC SCH (08:28)
[2019-01-28] MEDS: FINASTERIDE 5 MG TAB PO SCH (08:29)
[2019-01-28] MEDS: POLYETHYLENE GLYCOL 17 GM PACKET PO SCH (08:29)
[2019-01-28] MEDS: ASCORBIC ACID 500 MG TAB PO SCH (08:29)
[2019-01-28] MEDS: METOPROLOL 50 MG TAB PO SCH ×2 (08:29→20:37)
[2019-01-28] MEDS: MULTIVITAMINS/MINERALS TAB PO SCH (08:29)
[2019-01-28] MEDS: DABIGATRAN 150 MG CAP PO SCH (08:30)
[2019-01-28] MEDS: HYDROCORTISONE 0.5% 28.35 GM OINT TOP SCH (08:31)
[2019-01-28] MEDS: BALSAM PERU/CASTOR OIL 60 GM TUBE TOP SCH (08:31)
[2019-01-28] MEDS: PETROLATUM 5 GM OINT TOP SCH (08:32)
--- NOTE | 2019-01-28 10:10 | QN ---
Documentation Comment Postoperative day #5 Patient in excellent spirits AMILCAR drainage minimal Plan: We will remove AMILCAR drain tomorrow morning prior to discharge MASON MARKS MD Jan 28, 2019 10:10
[2019-01-28 14:30] VITALS: BP 118/60; PULSE 84; RESP 18
--- NOTE | 2019-01-28 14:35 | PN ---
Date/Time of Note Date/Time of Note DATE: 01/28/19 TIME: 13:56 Assessment/Plan VTE Prophylaxis Risk score (from Ns)>0 risk: 7 SCD applied (from Ns): Yes Pharmacological prophylaxis: heparin Lines/Catheters IV [facility] (from [facility] Mid Line Urinary Cath still in place: No Assessment/Plan Assessment/Plan Assessment: Leukocytosis Status post cholecystectomy 01/23/19 -AMILCAR in place with bilious drainage R/o biloma vs bile leak Choledocholithiasis Status post ERCP 01/26/2019 -Choledocholithiasis 8 mm stone -Post small sphincterotomy. -Post balloon dilatation of the ampulla 10 mm. -Post balloon stone removal -No evidence of bile leak Atrial fibrillation -on Pradaxa. Diabetes type 2 CKD Hypertension BPH Normocytic anemia Plan: Monitor labs Supportive care Discharge planning for tomorrow patient seen in collaboration with Dr. Hector Subjective: Patient is doing well. He is complaining of pain at the AMILCAR insertion site. Patient is tolerating current diet well. Followed by surgical team. Plan to remove AMILCAR tomorrow prior to discharge home. Continue observation. Constitutional: alert, oriented Head: normocephalic, atraumatic Eyes: nl conjunctiva ENMT: nl external ears & nose, facial erythema Neck: supple, non-tender Respiratory: clear to auscultation, normal air movement Cardiovascular: regular rate and rhythm Gastrointestinal: soft, bowel sounds, surgical scars, tenderness at AMILCAR drain insertion site, AMILCAR drain in the right upper quadrant Extremities: other (left BKA) Result Diagram: 01/26/19 0744 01/26/19 0744 Results 24hrs Laboratory Tests Test 01/27/19 17:34 01/27/19 21:19 01/28/19 08:25 01/28/19 09:54 Bedside Glucose 130 92 71 81 Test 01/28/19 12:02 Bedside Glucose 122 CC: JASMINE HECTOR MD ; Exam/Review of Systems Exam Vitals Vital Signs Date Temp Pulse Resp B/P (MAP) Pulse Ox O2 O2 Flow FiO2 Time Delivery Rate 01/28/19 97.8 85 18 112/57 99 Room Air 08:10 (75) 01/26/19 2.0 18:26 Intake and Output 01/27/19 01/27/19 01/28/19 1414:59 22:59 06:59 IntakeIntake Total 1140 ml 340 ml 400 ml OutputOutput Total 200 ml 100 ml 530 ml BalanceBalance 940 ml 240 ml -130 ml Results Results 24hrs Laboratory Tests Test 01/27/19 17:34 01/27/19 21:19 01/28/19 08:25 01/28/19 09:54 Bedside Glucose 130 92 71 81 Test 01/28/19 12:02 Bedside Glucose 122 Medications Medication Current Medications IV Flush (NS 3 ml) 3 ml PER PROTOCOL IV ; Start 01/18/19 at 19:00 Ondansetron HCl (Zofran Inj) 4 mg Q6H PRN IV NAUSEA/VOMITING Last administered on 01/23/19at 13:31; Admin Dose 4 MG; Start 01/18/19 at 19:00 Acetaminophen/ Hydrocodone Bitart ([place] (5/325)) 1 tab Q6H PRN PO .MOD PAIN 4- 6 Last administered on 01/28/19at 02:01; Admin Dose 1 TAB; Start 01/18/19 at 19:00 Morphine Sulfate (morphine) 2 mg Q4H PRN IV .SEVERE PAIN 7-10 Last administered on 01/26/19at 11:02; Admin Dose 2 MG; Start 01/18/19 at 19:00 Docusate Sodium (Colace) 100 mg Q12H PRN PO .CONSTIPATION; Start 01/18/19 at 19:00 Magnesium Hydroxide (Milk Of Mag) 30 ml DAILY PRN PO .CONSTIPATION; Start 01/18/19 at 19:00 Lorazepam (Ativan) 0.5 mg Q6H PRN IV ANXIETY; Start 01/18/19 at 19:00 Albuterol/ Ipratropium (Duoneb) 3 ml Q4H RESP THERAPY PRN HHN SHORTNESS OF B REATH; Start 01/18/19 at 19:00 Piperacillin Sod/ Tazobactam Sod 100 ml @ 200 mls/hr Q6 IVPB Last administered on 01/28/19at 12:03; Admin Dose 200 MLS/HR; Start 01/19/19 at 00:00; Stop 01/29/19 at 23:59 Hydralazine HCl (Apresoline) 10 mg Q6H PRN IV ELEVATED BLOOD PRESSURE; Start 01/18/19 at 19:00 Nitroglycerin (Nitroglycerin (Sl Tab) 0.4 Mg) 1 tab Q5M PRN SL ANGINA; Start 01/18/19 at 19:00 Acetaminophen (Tylenol Tab) 650 mg Q4H PRN PO MILD PAIN(1-3)OR ELEVATED TEMP; Start 01/18/19 at 19:00 Ascorbic Acid (Vitamin C) 500 mg DAILY PO Last administered on 01/28/19 08:29; Admin Dose 500 MG; Start 01/19/19 at 09:00 Finasteride (Proscar) 5 mg DAILY PO Last administered on 01/28/19 08:29; Admin Dose 5 MG; Start 01/19/19 at 09:00 Lisinopril (Zestril) 2.5 mg DAILY PO Last administered on 01/25/19 08:58; Admin Dose 2.5 MG; Start 01/19/19 at 09:00; Status Hold Metoprolol Tartrate (Lopressor) 50 mg BID PO Last administered on 01/28/19 08:29; Admin Dose 50 MG; Start 01/18/19 at 21:00 Tamsulosin HCl (Flomax) 0.4 mg HS PO Last administered on 01/27/19 21:28; Admin Dose 0.4 MG; Start 01/18/19 at 21:00 Calcium Carbonate (Tums) 500 mg Q4H PRN PO HEARTBURN Last administered on 01/24/19at 15:01; Admin Dose 500 MG; Start 01/18/19 at 19:30 Multivitamins/ Minerals (Theragran-M) 1 tab DAILY PO Last administered on 01/28/19 08:29; Admin Dose 1 TAB; Start 01/19/19 at 09:00 Diagnostic Test (Pha) (Accu-Chek) 1 ea 02 XX Last administered on 01/26/19at 02:35; Admin Dose 1 EA; Start 01/19/19 at 02:00 Miscellaneous Information 1 ea NOTE XX ; Start 01/18/19 at 20:30 Glucose (Glutose) 15 gm Q15M PRN PO DECREASED GLUCOSE; Start 01/18/19 at 20:30 Glucose (Glutose) 22.5 gm Q15M PRN PO DECREASED GLUCOSE; Start 01/18/19 at 20:30 Dextrose (D50w Syringe) 25 ml Q15M PRN IV DECREASED GLUCOSE; Start 01/18/19 at 20:30 Dextrose (D50w Syringe) 50 ml Q15M PRN IV DECREASED GLUCOSE; Start 01/18/19 at 20:30 Glucagon (Glucagen) 1 mg Q15M PRN IM DECREASED GLUCOSE; Start 01/18/19 at 20:30 Glucose (Glutose) 15 gm Q15M PRN BUCCAL DECREASED GLUCOSE; Start 01/18/19 at 20:30 Dimethicone (Blistex Lip [place]) 1 applic Q2H PRN TOP NOTE; Start 01/18/19 at 22:30 [facility] This patient loja... PRN PRN XX WOUND CARE; Start 01/19/19 at 06:30 Pantoprazole (Protonix Tab) 40 mg DAILY@06 PO Last administered on 01/28/19 06:17; Admin Dose 40 MG; Start 01/22/19 at 06:00 Insulin Glargine (Lantus) 14 units DAILY@0800 SC Last administered on 01/28/19 08:28; Admin Dose 14 UNITS; Start 01/22/19 at 10:00 Dabigatran (PRADaxa) 150 mg DAILY PO Last administered on 01/28/19 08:30; Admin Dose 150 MG; Start 01/23/19 at 09:00 Morphine Sulfate (morphine) 2 mg ONCE PRN IV .SEVERE PAIN 7-10 Last administered on 01/23/19at 16:37; Admin Dose 2 MG; Start 01/23/19 at 13:30 Ondansetron HCl (Zofran Inj) 4 mg Q6H PRN IV NAUSEA/VOMITING; Start 01/23/19 at 13:30 Senna (Senokot) 2 tab QHS PO Last administered on 01/27/19 21:29; Admin Dose 2 TAB; Start 01/25/19 at 21:00 Polyethylene Glycol (Miralax) 17 gm DAILY PO Last administered on 01/28/19 08:29; Admin Dose 17 GM; Start 01/25/19 at 16:30 Hydrocortisone (Hydrocortisone 0.5% Oint) 1 applic BID TOP Last administered on 01/28/19at 08:31; Admin Dose 1 APPLIC; Start 01/25/19 at 21:00; Stop 01/28/19 at 20:59 Petrolatum (Vaseline) 1 ea DAILY TOP Last administered on 01/28/19at 08:32; Admin Dose 1 EA; Start 01/26/19 at 09:00 Insulin Aspart (Novolog Insulin Pen) NOVOLOG *MILD* ALGORITHM WITH MEALS BEDTIME SC Last administered on 01/27/19at 12:13; Admin Dose 2 UNIT; Start 01/26/19 at 21:00 MARISEL CUEVAS NP Jan 28, 2019 14:35
[2019-01-28 19:44] VITALS: BP 126/62; PULSE 83; RESP 20
[2019-01-28] MEDS: TAMSULOSIN (SR) 0.4 MG CAP PO SCH (20:36)
[2019-01-28] MEDS: SENNA TAB PO SCH (20:36)
[2019-01-29] MEDS: PIPER-TAZO 3.375 GM IV (PMX) 100 ML IVPB SCH ×3 (00:07→11:52)
[2019-01-29] MEDS: ACCU-CHEK XX SCH (02:00)
[2019-01-29 02:15] VITALS: BP 124/66; PULSE 80; RESP 17
[2019-01-29] MEDS: PANTOPRAZOLE (EC) 40 MG TAB PO SCH (05:00)
[2019-01-29 07:45] VITALS: BP 133/83; PULSE 88; RESP 16
[2019-01-29] MEDS: INSULIN ASPART [NOVOLOG] 3 ML PEN SC SCH ×2 (07:57→11:52)
--- NOTE | 2019-01-29 08:24 | DS ---
DATE OF ADMISSION: 01/18/2019 DATE OF DISCHARGE: 01/28/2019 PRESENTING COMPLAINT: Abdominal pain, dislodged AMILCAR drain. CONSULTANTS ON THE CASE: Dr. Fiot Huffman for general surgery, Dr. Sakina Hector for gastroenterolog y as well as nurse practitioner and nurse, Ashlee Moraes and anesthesiologist. INTERVENTIONS: 1. The patient had a CT scan and cholangiogram done 01/18/2090 when he first came in. Please see ch art for details and also see final diagnoses summary. 2. He underwent IR-guided catheter change on cholangiogram that was successful. 3. Unfortunately, even though due to repeated carotid obstruction, he underwent a cholecystectomy. This was done on January 23, 2019 that was done laparoscopically with placement of drain. 4. Postoperatively, due to evidence of bile leak, the patient underwent abdominal MRCP, and it showe d choledocholithiasis with an intraductal stone in the common duct without significant intrahepatic b iliary ductal dilation and constipation. 5. The patient underwent ERCP. This was done 01/26/2019 that showed an 8 mm stone, choledocholithia sis and a small sphincterotomy and balloon dilatation of 10 mm and stone removal was done without aníbal dence of bile leak. HOSPITAL COURSE: Full details are available in the chart for review. In summary, this patient was i nitially seen in our facility. The patient presented with abdominal pain and was found to have acute cholecystitis. Based on the patient's choice and after discussion with the general surgeon, the pat ient underwent cholecystostomy and he was started on empiric antibiotics and [facility] for continued management. However, the patient represented to the emergency room with abdominal pain and reduced drainage from the cholecystostomy tube and CT was suggestive of a dislodge ment of the tube. Initially he was admitted. NG tube was replaced with a large NG tube for improved drainage, but after a few days it was obvious that the drainage was less and tube had blocked again. Based on this, the patient underwent a laparoscopic cholecystectomy as summarized above. Post-chol ecystectomy, he still had a drain that was noted to be draining bile and so surgery recommended that he get an MRCP, which confirmed the presence of choledocholithiasis and based on that, he subsequentl y underwent ERCP with sphincterotomy and stone removal. At this time, he still has a drain in place and the drainage is from the gallbladder that is still of good volume as of today. Based on this, gemma ryan has recommended that he may be discharged back to [facility] where he was dischar mer for outpatient followup with him in the office for drain removal. He is tolerating a diet and is stable for discharge. FINAL DIAGNOSES: 1. Subacute cholecystitis with dislodged AMILCAR drain status post failed conservative management in chol ecystectomy. Now status post laparoscopic cholecystectomy with residual draining gallbladder. 2. Choledocholithiasis status post retrograde cholangiopancreatography with sphincterotomy and stone removal without stent placement. 3. Chronic atrial fibrillation/flutter: Rate controlled. 4. History of chronic kidney disease: Stable. 5. Diabetes, A1c 7.5. 6. Hypertension: Controlled. 7. Chronic benign prostatic hypertrophy, on Proscar. 9. Acute kidney injury: Improved. 10. Constipation: Improved. 11. Status post left-sided BKA. 12. History of CVA in the past. DISPOSITION: Back to [facility], outpatient follow up with general surgery on Thursday f or drain reassessment and possible removal. DISCHARGE CONDITION: Stable. ACTIVITIES: As tolerated. DIET: Recommended diet is a diabetic diet also high in fiber due to constipation. DISCHARGE MEDICATIONS: For a complete list, please review the patient's chart. Time spent on discharge coordination is about an hour. ADDENDUM: When the ambulance came to computer customer support specialist the patient, the patient declined a transfer to [facility], states that the surgeon had told him he was going to return tomorrow to remove the drain and he ordered the drain removed prior to being transferred, discharge was held and even thoug h from my assessment, the patient is to have good output from the drain. I am not sure the drain cate l be able to be removed; however, we will reach for Dr. Huffman's review the patient as it was Dr. Maurilio pearson's recommendation. Dictated By: LOR PRECIADO MD BA/NTS Conf#: [id number] DID#: [id number] CC: JOSH MARTINEZ; KENZIE BRADLEY WAVE SOLDERING MACHINE OPERATOR; LOR PRECIADO MD;*EndCC*
[2019-01-29] MEDS: FINASTERIDE 5 MG TAB PO SCH (08:55)
[2019-01-29] MEDS: ASCORBIC ACID 500 MG TAB PO SCH (08:55)
[2019-01-29] MEDS: MULTIVITAMINS/MINERALS TAB PO SCH (08:55)
[2019-01-29] MEDS: DABIGATRAN 150 MG CAP PO SCH (08:55)
[2019-01-29] MEDS: METOPROLOL 50 MG TAB PO SCH (08:56)
[2019-01-29] MEDS: POLYETHYLENE GLYCOL 17 GM PACKET PO SCH (08:57)
[2019-01-29] MEDS: PETROLATUM 5 GM OINT TOP SCH (08:57)
[2019-01-29] MEDS: BALSAM PERU/CASTOR OIL 60 GM TUBE TOP SCH (09:00)
[2019-01-29] MEDS: INSULIN GLARGINE [LANTus] (100 UNITS/ML) SYG SC SCH (09:04)
[2019-01-29] MEDS: HYDROCODONE/APAP (5/325) TAB PO PRN (09:15)
--- NOTE | 2019-01-29 10:28 | QN ---
Documentation Comment Postoperative day #6 Patient is awake, alert and in good spirits AMILCAR drainage serous Abdominal examination is benign Plan: AMILCAR drain removed. Cleared for discharge home today. Office follow-up 1 week MASON MARKS MD Jan 29, 2019 10:28
--- NOTE | 2019-01-29 13:07 | EN ---
Date/Time of Note Date/Time of Note DATE: 01/29/19 TIME: 13:06 Event Note Medicine Medicine Event Note Patient's discharge was held late last night for further instructions and delineation and fine-tuning by general surgery. At this time he is now stable and doing well and prepared for discharge. As such I concur with discharge and he will be discharged today. I am in full agreement with discharge note dictated by SHIKHA Hernandez MD Jan 29, 2019 13:07
== END 2019-01-29 13:30 | DRG 908 ==
LOC: E/R 12:26 → PP2 18:15
PROVIDERS: ADMIT Hospitalist; ATTEND Family Medicine
PROC: 0F24X0Z Change Drainage Device in Gallbladder, External Approach (ICD-10-PCS; 2019-01-19)
PROC: 0FT44ZZ Resection of Gallbladder, Percutaneous Endoscopic Approach (ICD-10-PCS; principal; 2019-01-23 11:30)
PROC: 0FC98ZZ Extirpation of Matter from Common Bile Duct, Via Natural or Artificial Opening Endoscopic (ICD-10-PCS; 2019-01-26)
PROC: BF13YZZ Fluoroscopy of Gallbladder and Bile Ducts using Other Contrast (ICD-10-PCS; 2019-01-26)
DX: T85.520A Displacement of bile duct prosthesis, initial encounter (principal); I48.92 Unspecified atrial flutter; N17.9 Acute kidney failure, unspecified; K56.7 Ileus, unspecified; K80.46 Calculus of bile duct with acute and chronic cholecystitis without obstruction; Y81.8 Miscellaneous general- and plastic-surgery devices associated with adverse incidents, not elsewhere classified; I48.2 Chronic atrial fibrillation; I12.9 Hypertensive chronic kidney disease with stage 1 through stage 4 chronic kidney disease, or unspecified chronic kidney disease; E11.22 Type 2 diabetes mellitus with diabetic chronic kidney disease; N18.9 Chronic kidney disease, unspecified; E02 Subclinical iodine-deficiency hypothyroidism; Z89.512 Acquired absence of left leg below knee; N40.0 Benign prostatic hyperplasia without lower urinary tract symptoms; K59.00 Constipation, unspecified; D64.9 Anemia, unspecified; F06.31 Mood disorder due to known physiological condition with depressive features; E78.5 Hyperlipidemia, unspecified; J44.9 Chronic obstructive pulmonary disease, unspecified; Z86.73 Personal history of transient ischemic attack (TIA), and cerebral infarction without residual deficits
CPT/HCPCS: 36415; 71045; 74176; 74181; 74320; 74330; 75984; 80048; 80053; 80061; 80076; 81003; 82962; 83036; 83690; 83735; 84100; 84439; 84443; 84484; 85025; 85610; 85730; 88304; 92610; 93005; 96374; 97163; 97167; C1729; C9113; J0690; J1815; J1885; J2250; J2270; J2370; J2405; J2543; J2710; J2765; J2795; J3010; J7030; J7040; J7042; Q9967

== ENCOUNTER 2019-06-15 17:24 | Emergency (ER) | payer OTHER, MEDICAID ==
[~2019-06-15] VITALS: Ht 182.9 cm; Wt 77.3 kg
[~2019-06-15 17:24] MED LIST changes: +ACET325T45 PO; +ACYC15OI6 TOP; +ASC500 PO; +CALAMINE TOP; +CALC-459 PO; -DOCU-144 PO; +GUAI600T23 PO; +HYDR-4011 PO; +INSU100C SQ; +MED4DP PO; -METR500P3 IV; +MULT-105 PO; -POLY17PO6 PO; +PROT946L PO; +SENN-120 PO; -TAMS-14 PO; +TUBE5VIA3 ID; -[UNRECOGNIZED DRUG - CODE] IVPB
[2019-06-15 17:38] VITALS: Ht 182.9 cm; Wt 77.3 kg
[2019-06-15 18:16] VITALS: BP 135/84; PULSE 89; RESP 16
== END 2019-06-15 18:41 | disposition home or self-care (01) ==
LOC: E/R 17:24
DX: L23.9 Allergic contact dermatitis, unspecified cause (principal); R09.81 Nasal congestion; N18.9 Chronic kidney disease, unspecified; I12.9 Hypertensive chronic kidney disease with stage 1 through stage 4 chronic kidney disease, or unspecified chronic kidney disease; E11.22 Type 2 diabetes mellitus with diabetic chronic kidney disease; Z86.73 Personal history of transient ischemic attack (TIA), and cerebral infarction without residual deficits; Z87.891 Personal history of nicotine dependence; Z79.4 Long term (current) use of insulin
CPT/HCPCS: 99283